=== PATIENT | male | born 1970 | race African-American/Black ===

== ENCOUNTER 2020-01-26 11:51 | Emergency (ER) | payer BC ==
[~2020-01-26] VITALS: Ht 170.2 cm; Wt 68.0 kg
--- OUTSIDE RECORDS SUMMARY | 2020-01-26 12:02 | XMS REPORT ---
Author Author [facility] Organization [facility] Address Unknown Phone Unavailable Care Team Providers Care Nursing Director Name Role Phone Unavailable Unavailable Payers Payer Name Policy Type Policy Number Effective Date Expiration Date Problems This patient has no known problems. Allergies, Adverse Reactions, Alerts Allergy Name Allergy Type Status Severity Reaction(s) Onset Date Inactive Date Treating Clinician Comments No Known Allergies DA Active U 2018-12-02 00:00:00 No Known Allergies DA Active U 2018-07-26 00:00:00 Medications This patient has no known medications. Results Test Description Test Time Test Comments Text Results Atomic Results Result Comments GLUBED 2020-01-05 18:24:00 GLUBED (test code=GLUBED) 89 mg/dL 74-106 Performed by certified steel spar operator at [facility] [id number] 12:44:00* Test Item Value Reference Range Comments GLUBED (test code=GLUBED) 89 mg/dL 74-106 Performed by certified steel spar operator at [facility] [id number] 06:17:00* Test Item Value Reference Range Comments GLUBED (test code=GLUBED) 89 mg/dL 74-106 Performed by certified steel spar operator at [facility] [id number] 20:28:00* Test Item Value Reference Range Comments GLUBED (test code=GLUBED) 106 mg/dL 74-106 Performed by certified steel spar operator at [facility] [id number] 17:08:00* Test Item Value Reference Range Comments GLUBED (test code=GLUBED) 91 mg/dL 74-106 Performed by certified steel spar operator at [facility] [id number] 12:35:00* Test Item Value Reference Range Comments GLUBED (test code=GLUBED) 85 mg/dL 74-106 Performed by certified steel spar operator at [facility] [id number] 06:02:00* Test Item Value Reference Range Comments GLUBED (test code=GLUBED) 84 mg/dL 74-106 Performed by certified steel spar operator at [facility] CBC W/AUTO [id number] 05:24:00* Test Item Value Reference Range Comments WHITE BLOOD CELL (test code=WBC) 21.2 K/mm3 4.5-12.5 RED BLOOD CELL (test code=RBC) 3.95 mill/mm3 4.0-5.8 HEMOGLOBIN (test code=HGB) 9.5 gram/dL 13.0-17.5 HEMATOCRIT (test code=HCT) 30.0 % 42.0-52.0 MEAN CELL VOLUME (test code=MCV) 75.9 fL 80-98 MEAN CELL HGB (test code=MCH) 24.1 picogram 27.0-33.0 MEAN CELL HGB CONCETRATION (test code=MCHC) 31.7 gram/dL 33.0-36.0 RED CELL DISTRIBUTION WIDTH (test code=RDW) 17.0 % 11.6-16.2 RED CELL DISTRIBUTION WIDTH SD (test code=RDW-SD) 45.5 fL 37.0-51.0 PLATELET COUNT (test code=PLT) 505 K/mm3 150-450 RESULT VERIFIED BY REPEAT ANALYSIS MEAN PLATELET VOLUME (test code=MPV) 11.6 fL 6.7-11.0 NEUTROPHIL % (test code=NT%) 71.6 % 39.0-69.0 IMMATURE GRANULOCYTE % (test code=IG%) 1.4 % 0.0-5.0 LYMPHOCYTE % (test code=LY%) 13.2 % 25.0-55.0 MONOCYTE % (test code=MO%) 8.8 % 0.0-10.0 EOSINOPHIL % (test code=EO%) 4.3 % 0.0-5.0 BASOPHIL % (test code=BA%) 0.7 % 0.0-1.0 NUCLEATED RBC % (test code=NRBC%) 0.0 % 0-0 NEUTROPHIL # (test code=NT#) 15.14 K/mm3 1.8-7.7 IMMATURE GRANULOCYTE # (test code=IG#) 0.30 x10 3/uL 0-0.03 LYMPHOCYTE # (test code=LY#) 2.80 K/mm3 1.0-5.0 MONOCYTE # (test code=MO#) 1.86 K/mm3 0-0.8 EOSINOPHIL # (test code=EO#) 0.91 K/mm3 0.0-0.5 BASOPHIL # (test code=BA#) 0.15 K/mm3 0.0-0.2 NUCLEATED RBC # (test code=NRBC#) 0.00 K/mm3 0.0-0.1 MANUAL DIFF REQUIRED (test code=MDIFF) NO [id number] 20:26:00* Test Item Value Reference Range Comments GLUBED (test code=GLUBED) 100 mg/dL 74-106 Performed by certified steel spar operator at [facility] - XR CHEST 1 [id number] 18:57:00 FAX: Lonnie Olson MD [phone] [place]: B St: [facility] FAX: Sarah Rg MD FAX: Arvin Hanson MD [phone] Name: CELESTINO MCALLISTER [facility] : 1970 Age/S: 49/M [address] [facility] Unit #: [id number] Loc: [address] [address] Phys: Arivn Higgins MD Acct: [id number] Dis Date: Status: ADM IN ONE #: [phone] Exam Date: 01/03/2020 1838 FAX #: [phone] Reason: pneuomonia EXAMS: CPT CODE: [id number] XR CHEST 1 V [id number] REASON FOR EXAM: pneuomonia Exam Order Date: 01/03/2020 12:00 AM Ordering M.D.: Arvin Higgins MD PROCEDURE: - XR CHEST 1 V COMPARISON: CT of the chest January 26, 2020 FINDINGS: Lung volumes are diminished and there is subsegmental atelectasis in the right midlung and right lung base. No pleural effusion or pneumothorax is seen. Tracheostomy appliance is unchanged in position. The c ardiac mediastinal silhouette appears mildly prominent however this may be due to diminished lung volumes. There are degenerative changes in the spine. IVORY CARVER shunt catheter and percutaneous gastrostomy tube are stable in position. There appears to be a right upper extremity PICC with the tip terminating in the axillary vein. IMPRESSION: Low lung volumes with atelectatic changes in the right mid and lower lung zone. Superimposed consolidation cannot be entirely excluded. The left l samuel appears to be clear. Location: [facility] Signed by Khoi Bell MD on 01/03/2020 at 1857 [facility] and signed by: Khoi Bell MD CC: Lonnie Olson MD; Sarah Feliciano MD; Arvin Higgins MD Technologist: CHANDANA NEWMAN; Chip Neville, (R Trnscrd Date/Time/By: 01/03/2020 (1856) : By: Maria Del Carmen.RR31 Orig Print D/T: S: 01/03/2020 (1899) PAGE 1 Signed Report [id number] 16:40:00* Test Item Value Reference Range Comments GLUBED (test code=GLUBED) 97 mg/dL 74-106 Performed by certified steel spar operator at [facility] CBC W/MANUAL [id number] 12:42:00* Test Item Value Reference Range Comments WHITE BLOOD CELL (test code=WBC) 23.8 K/mm3 4.5-12.5 RED BLOOD CELL (test code=RBC) 4.16 mill/mm3 4.0-5.8 HEMOGLOBIN (test code=HGB) 9.9 gram/dL 13.0-17.5 HEMATOCRIT (test code=HCT) 31.9 % 42.0-52.0 MEAN CELL VOLUME (test code=MCV) 76.7 fL 80-98 MEAN CELL HGB (test code=MCH) 23.8 picogram 27.0-33.0 MEAN CELL HGB CONCETRATION (test code=MCHC) 31.0 gram/dL 33.0-36.0 RED CELL DISTRIBUTION WIDTH (test code=RDW) 17.1 % 11.6-16.2 RED CELL DISTRIBUTION WIDTH SD (test code=RDW-SD) 46.0 fL 37.0-51.0 PLATELET COUNT (test code=PLT) 454 K/mm3 150-450 RESULT VERIFIED BY REPEAT ANALYSIS MEAN PLATELET VOLUME (test code=MPV) 12.5 fL 6.7-11.0 IMMATURE GRANULOCYTE % (test code=IG%) 1.1 % 0.0-5.0 NUCLEATED RBC % (test code=NRBC%) 0.0 % 0-0 NEUTROPHIL # (test code=NT#) 16.37 K/mm3 1.8-7.7 IMMATURE GRANULOCYTE # (test code=IG#) 0.26 x10 3/uL 0-0.03 LYMPHOCYTE # (test code=LY#) 3.85 K/mm3 1.0-5.0 MONOCYTE # (test code=MO#) 2.02 K/mm3 0-0.8 EOSINOPHIL # (test code=EO#) 1.15 K/mm3 0.0-0.5 BASOPHIL # (test code=BA#) 0.15 K/mm3 0.0-0.2 NUCLEATED RBC # (test code=NRBC#) 0.00 K/mm3 0.0-0.1 MANUAL DIFF REQUIRED (test code=MDIFF) YES STAIN ACCEPTABILITY (test code=STN ACCEPTABLE) STAIN ACCEPTABLE TOTAL CELLS COUNTED (test code=TCC) 114 #CELLS SEGMENTED NEUTROPHILS (test code=SEG) 72.1 % 39-69 BAND NEUTROPHIL (test code=BAND) 0 % 0-10 LYMPHOCYTE (test code=LYMPH) 10.8 % 25-55 REACTIVE LYMPH (test code=RELYMPH) 0 % MONOCYTE (test code=MON) 13.5 % 0-10 EOSINOPHIL (test code=EOS) 3.6 % 0.0-5.0 BASOPHIL (test code=BASO) 0 % 0-1.0 METAMYELOCYTE (test code=META) 0 % 0-0 MYELOCYTE (test code=MYELO) 0 % 0.0-0.0 PROMYELOCYTE (test code=PROM) 0 % 0-0 POLYCHROMASIA (test code=POLC) 1+ ANISOCYTOSIS (test code=ANISO) 1+ MICROCYTOSIS (test code=MICR) 1+ PLATELET ESTIMATE (test code=PLTEST) INCREASED PLATELET MORPHOLOGY (test code=PLTMORPH) NORMAL IMMATURE FORMS (test code=IMMAT) 0 % 0-0 [id number] 12:19:00* Test Item Value Reference Range Comments GLUBED (test code=GLUBED) 96 mg/dL 74-106 Performed by certified steel spar operator at [facility] CBC W/MANUAL [id number] 11:22:00* Test Item Value Reference Range Comments WHITE BLOOD CELL (test code=WBC) 23.8 K/mm3 4.5-12.5 RED BLOOD CELL (test code=RBC) 4.16 mill/mm3 4.0-5.8 HEMOGLOBIN (test code=HGB) 9.9 gram/dL 13.0-17.5 HEMATOCRIT (test code=HCT) 31.9 % 42.0-52.0 MEAN CELL VOLUME (test code=MCV) 76.7 fL 80-98 MEAN CELL HGB (test code=MCH) 23.8 picogram 27.0-33.0 MEAN CELL HGB CONCETRATION (test code=MCHC) 31.0 gram/dL 33.0-36.0 RED CELL DISTRIBUTION WIDTH (test code=RDW) 17.1 % 11.6-16.2 RED CELL DISTRIBUTION WIDTH SD (test code=RDW-SD) 46.0 fL 37.0-51.0 PLATELET COUNT (test code=PLT) 454 K/mm3 150-450 RESULT VERIFIED BY REPEAT ANALYSIS MEAN PLATELET VOLUME (test code=MPV) 12.5 fL 6.7-11.0 IMMATURE GRANULOCYTE % (test code=IG%) 1.1 % 0.0-5.0 NUCLEATED RBC % (test code=NRBC%) 0.0 % 0-0 NEUTROPHIL # (test code=NT#) 16.37 K/mm3 1.8-7.7 IMMATURE GRANULOCYTE # (test code=IG#) 0.26 x10 3/uL 0-0.03 LYMPHOCYTE # (test code=LY#) 3.85 K/mm3 1.0-5.0 MONOCYTE # (test code=MO#) 2.02 K/mm3 0-0.8 EOSINOPHIL # (test code=EO#) 1.15 K/mm3 0.0-0.5 BASOPHIL # (test code=BA#) 0.15 K/mm3 0.0-0.2 NUCLEATED RBC # (test code=NRBC#) 0.00 K/mm3 0.0-0.1 MANUAL DIFF REQUIRED (test code=MDIFF) YES STAIN ACCEPTABILITY (test code=STN ACCEPTABLE) TOTAL CELLS COUNTED (test code=TCC) #CELLS SEGMENTED NEUTROPHILS (test code=SEG) % 39-69 LYMPHOCYTE (test code=LYMPH) % 25-55 MONOCYTE (test code=MON) % 0-10 EOSINOPHIL (test code=EOS) % 0.0-5.0 CABOT RINGS (test code=CAB) MORPHOLOGY COMMENT (test code=MOC) PLATELET ESTIMATE (test code=PLTEST) PLATELET MORPHOLOGY (test code=PLTMORPH) CBC W/MANUAL [id number] 11:22:00* Test Item Value Reference Range Comments WHITE BLOOD CELL (test code=WBC) 23.8 K/mm3 4.5-12.5 RED BLOOD CELL (test code=RBC) 4.16 mill/mm3 4.0-5.8 HEMOGLOBIN (test code=HGB) 9.9 gram/dL 13.0-17.5 HEMATOCRIT (test code=HCT) 31.9 % 42.0-52.0 MEAN CELL VOLUME (test code=MCV) 76.7 fL 80-98 MEAN CELL HGB (test code=MCH) 23.8 picogram 27.0-33.0 MEAN CELL HGB CONCETRATION (test code=MCHC) 31.0 gram/dL 33.0-36.0 RED CELL DISTRIBUTION WIDTH (test code=RDW) 17.1 % 11.6-16.2 RED CELL DISTRIBUTION WIDTH SD (test code=RDW-SD) 46.0 fL 37.0-51.0 PLATELET COUNT (test code=PLT) 454 K/mm3 150-450 RESULT VERIFIED BY REPEAT ANALYSIS MEAN PLATELET VOLUME (test code=MPV) 12.5 fL 6.7-11.0 IMMATURE GRANULOCYTE % (test code=IG%) 1.1 % 0.0-5.0 NUCLEATED RBC % (test code=NRBC%) 0.0 % 0-0 NEUTROPHIL # (test code=NT#) 16.37 K/mm3 1.8-7.7 IMMATURE GRANULOCYTE # (test code=IG#) 0.26 x10 3/uL 0-0.03 LYMPHOCYTE # (test code=LY#) 3.85 K/mm3 1.0-5.0 MONOCYTE # (test code=MO#) 2.02 K/mm3 0-0.8 EOSINOPHIL # (test code=EO#) 1.15 K/mm3 0.0-0.5 BASOPHIL # (test code=BA#) 0.15 K/mm3 0.0-0.2 NUCLEATED RBC # (test code=NRBC#) 0.00 K/mm3 0.0-0.1 MANUAL DIFF REQUIRED (test code=MDIFF) YES STAIN ACCEPTABILITY (test code=STN ACCEPTABLE) TOTAL CELLS COUNTED (test code=TCC) #CELLS SEGMENTED NEUTROPHILS (test code=SEG) % 39-69 LYMPHOCYTE (test code=LYMPH) % 25-55 MONOCYTE (test code=MON) % 0-10 EOSINOPHIL (test code=EOS) % 0.0-5.0 CABOT RINGS (test code=CAB) MORPHOLOGY COMMENT (test code=MOC) PLATELET ESTIMATE (test code=PLTEST) PLATELET MORPHOLOGY (test code=PLTMORPH) CBC W/MANUAL [id number] 11:22:00* Test Item Value Reference Range Comments WHITE BLOOD CELL (test code=WBC) 23.8 K/mm3 4.5-12.5 RED BLOOD CELL (test code=RBC) 4.16 mill/mm3 4.0-5.8 HEMOGLOBIN (test code=HGB) 9.9 gram/dL 13.0-17.5 HEMATOCRIT (test code=HCT) 31.9 % 42.0-52.0 MEAN CELL VOLUME (test code=MCV) 76.7 fL 80-98 MEAN CELL HGB (test code=MCH) 23.8 picogram 27.0-33.0 MEAN CELL HGB CONCETRATION (test code=MCHC) 31.0 gram/dL 33.0-36.0 RED CELL DISTRIBUTION WIDTH (test code=RDW) 17.1 % 11.6-16.2 RED CELL DISTRIBUTION WIDTH SD (test code=RDW-SD) 46.0 fL 37.0-51.0 PLATELET COUNT (test code=PLT) 454 K/mm3 150-450 RESULT VERIFIED BY REPEAT ANALYSIS MEAN PLATELET VOLUME (test code=MPV) 12.5 fL 6.7-11.0 IMMATURE GRANULOCYTE % (test code=IG%) 1.1 % 0.0-5.0 NUCLEATED RBC % (test code=NRBC%) 0.0 % 0-0 NEUTROPHIL # (test code=NT#) 16.37 K/mm3 1.8-7.7 IMMATURE GRANULOCYTE # (test code=IG#) 0.26 x10 3/uL 0-0.03 LYMPHOCYTE # (test code=LY#) 3.85 K/mm3 1.0-5.0 MONOCYTE # (test code=MO#) 2.02 K/mm3 0-0.8 EOSINOPHIL # (test code=EO#) 1.15 K/mm3 0.0-0.5 BASOPHIL # (test code=BA#) 0.15 K/mm3 0.0-0.2 NUCLEATED RBC # (test code=NRBC#) 0.00 K/mm3 0.0-0.1 MANUAL DIFF REQUIRED (test code=MDIFF) YES STAIN ACCEPTABILITY (test code=STN ACCEPTABLE) TOTAL CELLS COUNTED (test code=TCC) #CELLS SEGMENTED NEUTROPHILS (test code=SEG) % 39-69 LYMPHOCYTE (test code=LYMPH) % 25-55 MONOCYTE (test code=MON) % 0-10 EOSINOPHIL (test code=EOS) % 0.0-5.0 MORPHOLOGY COMMENT (test code=MOC) PLATELET ESTIMATE (test code=PLTEST) PLATELET MORPHOLOGY (test code=PLTMORPH) CBC W/MANUAL [id number] 11:22:00* Test Item Value Reference Range Comments WHITE BLOOD CELL (test code=WBC) 23.8 K/mm3 4.5-12.5 RED BLOOD CELL (test code=RBC) 4.16 mill/mm3 4.0-5.8 HEMOGLOBIN (test code=HGB) 9.9 gram/dL 13.0-17.5 HEMATOCRIT (test code=HCT) 31.9 % 42.0-52.0 MEAN CELL VOLUME (test code=MCV) 76.7 fL 80-98 MEAN CELL HGB (test code=MCH) 23.8 picogram 27.0-33.0 MEAN CELL HGB CONCETRATION (test code=MCHC) 31.0 gram/dL 33.0-36.0 RED CELL DISTRIBUTION WIDTH (test code=RDW) 17.1 % 11.6-16.2 RED CELL DISTRIBUTION WIDTH SD (test code=RDW-SD) 46.0 fL 37.0-51.0 PLATELET COUNT (test code=PLT) 454 K/mm3 150-450 RESULT VERIFIED BY REPEAT ANALYSIS MEAN PLATELET VOLUME (test code=MPV) 12.5 fL 6.7-11.0 IMMATURE GRANULOCYTE % (test code=IG%) 1.1 % 0.0-5.0 NUCLEATED RBC % (test code=NRBC%) 0.0 % 0-0 NEUTROPHIL # (test code=NT#) 16.37 K/mm3 1.8-7.7 IMMATURE GRANULOCYTE # (test code=IG#) 0.26 x10 3/uL 0-0.03 LYMPHOCYTE # (test code=LY#) 3.85 K/mm3 1.0-5.0 MONOCYTE # (test code=MO#) 2.02 K/mm3 0-0.8 EOSINOPHIL # (test code=EO#) 1.15 K/mm3 0.0-0.5 BASOPHIL # (test code=BA#) 0.15 K/mm3 0.0-0.2 NUCLEATED RBC # (test code=NRBC#) 0.00 K/mm3 0.0-0.1 MANUAL DIFF REQUIRED (test code=MDIFF) YES STAIN ACCEPTABILITY (test code=STN ACCEPTABLE) TOTAL CELLS COUNTED (test code=TCC) #CELLS SEGMENTED NEUTROPHILS (test code=SEG) % 39-69 LYMPHOCYTE (test code=LYMPH) % 25-55 MONOCYTE (test code=MON) % 0-10 MORPHOLOGY COMMENT (test code=MOC) PLATELET ESTIMATE (test code=PLTEST) PLATELET MORPHOLOGY (test code=PLTMORPH) CBC W/MANUAL [id number] 11:22:00* Test Item Value Reference Range Comments WHITE BLOOD CELL (test code=WBC) 23.8 K/mm3 4.5-12.5 RED BLOOD CELL (test code=RBC) 4.16 mill/mm3 4.0-5.8 HEMOGLOBIN (test code=HGB) 9.9 gram/dL 13.0-17.5 HEMATOCRIT (test code=HCT) 31.9 % 42.0-52.0 MEAN CELL VOLUME (test code=MCV) 76.7 fL 80-98 MEAN CELL HGB (test code=MCH) 23.8 picogram 27.0-33.0 MEAN CELL HGB CONCETRATION (test code=MCHC) 31.0 gram/dL 33.0-36.0 RED CELL DISTRIBUTION WIDTH (test code=RDW) 17.1 % 11.6-16.2 RED CELL DISTRIBUTION WIDTH SD (test code=RDW-SD) 46.0 fL 37.0-51.0 PLATELET COUNT (test code=PLT) 454 K/mm3 150-450 RESULT VERIFIED BY REPEAT ANALYSIS MEAN PLATELET VOLUME (test code=MPV) 12.5 fL 6.7-11.0 IMMATURE GRANULOCYTE % (test code=IG%) 1.1 % 0.0-5.0 NUCLEATED RBC % (test code=NRBC%) 0.0 % 0-0 NEUTROPHIL # (test code=NT#) 16.37 K/mm3 1.8-7.7 IMMATURE GRANULOCYTE # (test code=IG#) 0.26 x10 3/uL 0-0.03 LYMPHOCYTE # (test code=LY#) 3.85 K/mm3 1.0-5.0 MONOCYTE # (test code=MO#) 2.02 K/mm3 0-0.8 EOSINOPHIL # (test code=EO#) 1.15 K/mm3 0.0-0.5 BASOPHIL # (test code=BA#) 0.15 K/mm3 0.0-0.2 NUCLEATED RBC # (test code=NRBC#) 0.00 K/mm3 0.0-0.1 MANUAL DIFF REQUIRED (test code=MDIFF) YES STAIN ACCEPTABILITY (test code=STN ACCEPTABLE) TOTAL CELLS COUNTED (test code=TCC) #CELLS SEGMENTED NEUTROPHILS (test code=SEG) % 39-69 LYMPHOCYTE (test code=LYMPH) % 25-55 MONOCYTE (test code=MON) % 0-10 EOSINOPHIL (test code=EOS) % 0.0-5.0 CABOT RINGS (test code=CAB) MORPHOLOGY COMMENT (test code=MOC) PLATELET ESTIMATE (test code=PLTEST) PLATELET MORPHOLOGY (test code=PLTMORPH) [id number] 06:16:00* Test Item Value Reference Range Comments GLUBED (test code=GLUBED) 79 mg/dL 74-106 Performed by certified steel spar operator at [facility] [id number] 20:30:00* Test Item Value Reference Range Comments GLUBED (test code=GLUBED) 108 mg/dL 74-106 Performed by certified steel spar operator at [facility] [id number] 18:07:00* Test Item Value Reference Range Comments GLUBED (test code=GLUBED) 91 mg/dL 74-106 Performed by certified steel spar operator at [facility] [id number] 12:14:00* Test Item Value Reference Range Comments GLUBED (test code=GLUBED) 78 mg/dL 74-106 Performed by certified steel spar operator at [facility] - XR ABDOMEN AP 1 [id number] 08:54:00 FAX: Lonnie Olson MD [phone] [place]: B St: ADM FAX: Sarah Rg MD Name: CELESTINO MCALLISTER [facility] : 1970 Age/S: 49/M [address] [facility] Unit #: [id number] Loc: [address] [place] [address] Phys: Sarah Feliciano MD Acct: [id number] Dis Date: Status: ADM IN PHONE #: [phone] Exam Date: 01/02/2020 0853 FAX #: [phone] Reason: ASSESS FOR PEGTUBE PL ACEMENT EXAMS: CPT CODE: [id number] XR ABDOMEN AP 1 V 33334 HISTORY: Abscess of PEG tube placement. COMPARISON: CT abdomen pelvis from December 26, 2019. From December 25, 2019. Location: [facility]. Gastrojejunostomy tube noted in the left upper qu adrant. No bowel obstruction. Nonspecific bowel gas pattern. The pelvis is not included limiting evaluation. IVORY CARVER shunt catheter noted on the right si de. IMPRESSION: Gastrojejunostomy tube in the left upper quadrant. Mild distention of small and large bowel loops sugg esting ileus. No obstruction. at 0854 Reported and signed by: Cristian Patel M.D. CC: Lonnie Olson MD; Sarah Feliciano MD Technologist: Bernie Mccall, RT(R); JYOTI POLO RT(R) Trnscrd Date/Time/By: 01/02/2020 (0854) : By: Maria Del Carmen.TH4 Orig Print D/T: S: 01/02/2020 (0857) PAGE 1 Signed Report [id number] 08:10:00* Test Item Value Reference Range Comments PHENOBARBITAL (test code=PHENO) 9.9 ug/mL 15.0-40 [id number] 07:13:00* Test Item Value Reference Range Comments GLUBED (test code=GLUBED) 84 mg/dL 74-106 Performed by certified steel spar operator at [facility] CBC W/AUTO [id number] 05:17:00* Test Item Value Reference Range Comments WHITE BLOOD CELL (test code=WBC) 17.2 K/mm3 4.5-12.5 RED BLOOD CELL (test code=RBC) 3.80 mill/mm3 4.0-5.8 HEMOGLOBIN (test code=HGB) 9.2 gram/dL 13.0-17.5 HEMATOCRIT (test code=HCT) 29.6 % 42.0-52.0 MEAN CELL VOLUME (test code=MCV) 77.9 fL 80-98 MEAN CELL HGB (test code=MCH) 24.2 picogram 27.0-33.0 MEAN CELL HGB CONCETRATION (test code=MCHC) 31.1 gram/dL 33.0-36.0 RED CELL DISTRIBUTION WIDTH (test code=RDW) 17.2 % 11.6-16.2 RED CELL DISTRIBUTION WIDTH SD (test code=RDW-SD) 46.5 fL 37.0-51.0 PLATELET COUNT (test code=PLT) 378 K/mm3 150-450 RESULT VERIFIED BY REPEAT ANALYSIS MEAN PLATELET VOLUME (test code=MPV) 12.4 fL 6.7-11.0 NEUTROPHIL % (test code=NT%) 67.1 % 39.0-69.0 IMMATURE GRANULOCYTE % (test code=IG%) 1.4 % 0.0-5.0 LYMPHOCYTE % (test code=LY%) 16.2 % 25.0-55.0 MONOCYTE % (test code=MO%) 9.6 % 0.0-10.0 EOSINOPHIL % (test code=EO%) 4.9 % 0.0-5.0 BASOPHIL % (test code=BA%) 0.8 % 0.0-1.0 NUCLEATED RBC % (test code=NRBC%) 0.0 % 0-0 NEUTROPHIL # (test code=NT#) 11.53 K/mm3 1.8-7.7 IMMATURE GRANULOCYTE # (test code=IG#) 0.24 x10 3/uL 0-0.03 LYMPHOCYTE # (test code=LY#) 2.78 K/mm3 1.0-5.0 MONOCYTE # (test code=MO#) 1.64 K/mm3 0-0.8 EOSINOPHIL # (test code=EO#) 0.84 K/mm3 0.0-0.5 BASOPHIL # (test code=BA#) 0.13 K/mm3 0.0-0.2 NUCLEATED RBC # (test code=NRBC#) 0.00 K/mm3 0.0-0.1 MANUAL DIFF REQUIRED (test code=MDIFF) NO BASIC METABOLIC [id number] 05:06:00* Test Item Value Reference Range Comments SODIUM (test code=NA) 136 mmol/L 136-145 POTASSIUM (test code=K) 4.2 mmol/L 3.5-5.1 CHLORIDE (test code=CL) 102.0 mmol/L 98-107 CARBON DIOXIDE (test code=CO2) 22.0 mmol/L 21-32 ANION GAP (test code=GAP) 16.2 10-20 GLUCOSE (test code=GLU) 96 mg/dL 74-106 BLOOD UREA NITROGEN (test code=BUN) 19 mg/dL 7-18 GLOMERULAR FILTRATION RATE (test code=GFR) > 60 mL/min >=60 Estimated GFR by using Modified MDRD formula.Chronic kidney disease is defined as either kidney damageor GFR <60 mL/min/1.73 m2 for >3 months. CREATININE (test code=CREAT) 0.70 mg/dL 0.7-1.3 BUN/CREATININE RATIO (test code=BUN/CREA) 27.1 10-20 CALCIUM (test code=CA) 8.7 mg/dL 8.5-10.1 BASIC METABOLIC [id number] 04:56:00* Test Item Value Reference Range Comments SODIUM (test code=NA) 136 mmol/L 136-145 POTASSIUM (test code=K) 4.2 mmol/L 3.5-5.1 CHLORIDE (test code=CL) 102.0 mmol/L 98-107 CARBON DIOXIDE (test code=CO2) mmol/L 21-32 ANION GAP (test code=GAP) 10-20 GLUCOSE (test code=GLU) mg/dL 74-106 BLOOD UREA NITROGEN (test code=BUN) mg/dL 7-18 GLOMERULAR FILTRATION RATE (test code=GFR) mL/min >=60 CREATININE (test code=CREAT) mg/dL 0.7-1.3 BUN/CREATININE RATIO (test code=BUN/CREA) 10-20 CALCIUM (test code=CA) mg/dL 8.5-10.1 [id number] 20:37:00* Test Item Value Reference Range Comments GLUBED (test code=GLUBED) 91 mg/dL 74-106 Performed by certified steel spar operator at [facility] [id number] 18:09:00* Test Item Value Reference Range Comments GLUBED (test code=GLUBED) 92 mg/dL 74-106 Performed by certified steel spar operator at [facility] [id number] 12:13:00* Test Item Value Reference Range Comments GLUBED (test code=GLUBED) 83 mg/dL 74-106 Performed by certified steel spar operator at [facility] [id number] 06:02:00* Test Item Value Reference Range Comments GLUBED (test code=GLUBED) 70 mg/dL 74-106 Performed by certified steel spar operator at [facility] CBC W/AUTO [id number] 05:03:00* Test Item Value Reference Range Comments WHITE BLOOD CELL (test code=WBC) 20.7 K/mm3 4.5-12.5 RED BLOOD CELL (test code=RBC) 4.21 mill/mm3 4.0-5.8 HEMOGLOBIN (test code=HGB) 10.1 gram/dL 13.0-17.5 HEMATOCRIT (test code=HCT) 32.6 % 42.0-52.0 MEAN CELL VOLUME (test code=MCV) 77.4 fL 80-98 MEAN CELL HGB (test code=MCH) 24.0 picogram 27.0-33.0 MEAN CELL HGB CONCETRATION (test code=MCHC) 31.0 gram/dL 33.0-36.0 RED CELL DISTRIBUTION WIDTH (test code=RDW) 17.0 % 11.6-16.2 RED CELL DISTRIBUTION WIDTH SD (test code=RDW-SD) 46.2 fL 37.0-51.0 PLATELET COUNT (test code=PLT) 439 K/mm3 150-450 RESULT VERIFIED BY REPEAT ANALYSIS MEAN PLATELET VOLUME (test code=MPV) 12.6 fL 6.7-11.0 NEUTROPHIL % (test code=NT%) 73.8 % 39.0-69.0 IMMATURE GRANULOCYTE % (test code=IG%) 1.5 % 0.0-5.0 LYMPHOCYTE % (test code=LY%) 12.9 % 25.0-55.0 MONOCYTE % (test code=MO%) 6.9 % 0.0-10.0 EOSINOPHIL % (test code=EO%) 4.3 % 0.0-5.0 BASOPHIL % (test code=BA%) 0.6 % 0.0-1.0 NUCLEATED RBC % (test code=NRBC%) 0.0 % 0-0 NEUTROPHIL # (test code=NT#) 15.26 K/mm3 1.8-7.7 IMMATURE GRANULOCYTE # (test code=IG#) 0.31 x10 3/uL 0-0.03 LYMPHOCYTE # (test code=LY#) 2.67 K/mm3 1.0-5.0 MONOCYTE # (test code=MO#) 1.42 K/mm3 0-0.8 EOSINOPHIL # (test code=EO#) 0.89 K/mm3 0.0-0.5 BASOPHIL # (test code=BA#) 0.13 K/mm3 0.0-0.2 NUCLEATED RBC # (test code=NRBC#) 0.00 K/mm3 0.0-0.1 [id number] 21:32:00* Test Item Value Reference Range Comments GLUBED (test code=GLUBED) 95 mg/dL 74-106 Performed by certified steel spar operator at [facility] [id number] 16:20:00* Test Item Value Reference Range Comments GLUBED (test code=GLUBED) 87 mg/dL 74-106 Performed by certified steel spar operator at [facility] [id number] 12:22:00* Test Item Value Reference Range Comments GLUBED (test code=GLUBED) 106 mg/dL 74-106 Performed by certified steel spar operator at [facility] [id number] 05:59:00* Test Item Value Reference Range Comments GLUBED (test code=GLUBED) 86 mg/dL 74-106 Performed by certified steel spar operator at [facility] BASIC METABOLIC [id number] 04:47:00* Test Item Value Reference Range Comments SODIUM (test code=NA) 140 mmol/L 136-145 POTASSIUM (test code=K) 3.7 mmol/L 3.5-5.1 CHLORIDE (test code=CL) 107.0 mmol/L 98-107 CARBON DIOXIDE (test code=CO2) 21.0 mmol/L 21-32 ANION GAP (test code=GAP) 15.7 10-20 GLUCOSE (test code=GLU) 79 mg/dL 74-106 BLOOD UREA NITROGEN (test code=BUN) 15 mg/dL 7-18 GLOMERULAR FILTRATION RATE (test code=GFR) > 60 mL/min >=60 Estimated GFR by using Modified MDRD formula.Chronic kidney disease is defined as either kidney damageor GFR <60 mL/min/1.73 m2 for >3 months. CREATININE (test code=CREAT) 0.80 mg/dL 0.7-1.3 BUN/CREATININE RATIO (test code=BUN/CREA) 18.8 10-20 CALCIUM (test code=CA) 8.5 mg/dL 8.5-10.1 BASIC METABOLIC [id number] 04:40:00* Test Item Value Reference Range Comments SODIUM (test code=NA) 140 mmol/L 136-145 POTASSIUM (test code=K) 3.7 mmol/L 3.5-5.1 CHLORIDE (test code=CL) 107.0 mmol/L 98-107 CARBON DIOXIDE (test code=CO2) mmol/L 21-32 ANION GAP (test code=GAP) 10-20 GLUCOSE (test code=GLU) mg/dL 74-106 BLOOD UREA NITROGEN (test code=BUN) mg/dL 7-18 GLOMERULAR FILTRATION RATE (test code=GFR) mL/min >=60 CREATININE (test code=CREAT) mg/dL 0.7-1.3 BUN/CREATININE RATIO (test code=BUN/CREA) 10-20 CALCIUM (test code=CA) mg/dL 8.5-10.1 CBC W/AUTO [id number] 04:21:00* Test Item Value Reference Range Comments WHITE BLOOD CELL (test code=WBC) 17.2 K/mm3 4.5-12.5 RED BLOOD CELL (test code=RBC) 3.92 mill/mm3 4.0-5.8 HEMOGLOBIN (test code=HGB) 9.3 gram/dL 13.0-17.5 HEMATOCRIT (test code=HCT) 31.0 % 42.0-52.0 MEAN CELL VOLUME (test code=MCV) 79.1 fL 80-98 MEAN CELL HGB (test code=MCH) 23.7 picogram 27.0-33.0 MEAN CELL HGB CONCETRATION (test code=MCHC) 30.0 gram/dL 33.0-36.0 RED CELL DISTRIBUTION WIDTH (test code=RDW) 17.0 % 11.6-16.2 RED CELL DISTRIBUTION WIDTH SD (test code=RDW-SD) 47.9 fL 37.0-51.0 PLATELET COUNT (test code=PLT) 383 K/mm3 150-450 MEAN PLATELET VOLUME (test code=MPV) 12.5 fL 6.7-11.0 NEUTROPHIL % (test code=NT%) 68.3 % 39.0-69.0 IMMATURE GRANULOCYTE % (test code=IG%) 1.3 % 0.0-5.0 LYMPHOCYTE % (test code=LY%) 16.6 % 25.0-55.0 MONOCYTE % (test code=MO%) 7.9 % 0.0-10.0 EOSINOPHIL % (test code=EO%) 5.3 % 0.0-5.0 BASOPHIL % (test code=BA%) 0.6 % 0.0-1.0 NUCLEATED RBC % (test code=NRBC%) 0.0 % 0-0 NEUTROPHIL # (test code=NT#) 11.77 K/mm3 1.8-7.7 IMMATURE GRANULOCYTE # (test code=IG#) 0.23 x10 3/uL 0-0.03 LYMPHOCYTE # (test code=LY#) 2.86 K/mm3 1.0-5.0 MONOCYTE # (test code=MO#) 1.36 K/mm3 0-0.8 EOSINOPHIL # (test code=EO#) 0.92 K/mm3 0.0-0.5 BASOPHIL # (test code=BA#) 0.10 K/mm3 0.0-0.2 NUCLEATED RBC # (test code=NRBC#) 0.00 K/mm3 0.0-0.1 MANUAL DIFF REQUIRED (test code=MDIFF) NO [id number] 21:00:00* Test Item Value Reference Range Comments GLUBED (test code=GLUBED) 84 mg/dL 74-106 Performed by certified steel spar operator at [facility] [id number] 16:53:00* Test Item Value Reference Range Comments GLUBED (test code=GLUBED) 84 mg/dL 74-106 Performed by certified steel spar operator at [facility] [id number] 12:44:00* Test Item Value Reference Range Comments GLUBED (test code=GLUBED) 84 mg/dL 74-106 Performed by certified steel spar operator at [facility] [id number] 07:22:00* Test Item Value Reference Range Comments GLUBED (test code=GLUBED) 73 mg/dL 74-106 Performed by certified steel spar operator at [facility] CBC W/AUTO [id number] 05:05:00* Test Item Value Reference Range Comments WHITE BLOOD CELL (test code=WBC) 15.6 K/mm3 4.5-12.5 RED BLOOD CELL (test code=RBC) 4.15 mill/mm3 4.0-5.8 HEMOGLOBIN (test code=HGB) 9.9 gram/dL 13.0-17.5 HEMATOCRIT (test code=HCT) 32.2 % 42.0-52.0 MEAN CELL VOLUME (test code=MCV) 77.6 fL 80-98 MEAN CELL HGB (test code=MCH) 23.9 picogram 27.0-33.0 MEAN CELL HGB CONCETRATION (test code=MCHC) 30.7 gram/dL 33.0-36.0 RED CELL DISTRIBUTION WIDTH (test code=RDW) 16.5 % 11.6-16.2 RED CELL DISTRIBUTION WIDTH SD (test code=RDW-SD) 46.3 fL 37.0-51.0 PLATELET COUNT (test code=PLT) 436 K/mm3 150-450 MEAN PLATELET VOLUME (test code=MPV) 11.9 fL 6.7-11.0 NEUTROPHIL % (test code=NT%) 66.4 % 39.0-69.0 IMMATURE GRANULOCYTE % (test code=IG%) 1.4 % 0.0-5.0 LYMPHOCYTE % (test code=LY%) 18.1 % 25.0-55.0 MONOCYTE % (test code=MO%) 7.6 % 0.0-10.0 EOSINOPHIL % (test code=EO%) 5.7 % 0.0-5.0 BASOPHIL % (test code=BA%) 0.8 % 0.0-1.0 NUCLEATED RBC % (test code=NRBC%) 0.0 % 0-0 NEUTROPHIL # (test code=NT#) 10.33 K/mm3 1.8-7.7 IMMATURE GRANULOCYTE # (test code=IG#) 0.22 x10 3/uL 0-0.03 LYMPHOCYTE # (test code=LY#) 2.82 K/mm3 1.0-5.0 MONOCYTE # (test code=MO#) 1.19 K/mm3 0-0.8 EOSINOPHIL # (test code=EO#) 0.89 K/mm3 0.0-0.5 BASOPHIL # (test code=BA#) 0.13 K/mm3 0.0-0.2 NUCLEATED RBC # (test code=NRBC#) 0.00 K/mm3 0.0-0.1 MANUAL DIFF REQUIRED (test code=MDIFF) NO [id number] 20:41:00* Test Item Value Reference Range Comments GLUBED (test code=GLUBED) 88 mg/dL 74-106 Performed by certified steel spar operator at [facility] [id number] 20:06:00* Test Item Value Reference Range Comments LEVETIRACETAM (test code=LEVTAM) 13.5 ug/mL 10.0-40.0 This test was developed and its performance characteristicsdetermined by [facility]. It has not been cleared orapproved by the Food and Drug Administration.Performed At: Lab[address] [id number] Sanjai MD Ph:[phone] [id number] 17:06:00* Test Item Value Reference Range Comments GLUBED (test code=GLUBED) 95 mg/dL 74-106 Performed by certified steel spar operator at [facility] [id number] 16:17:00* Test Item Value Reference Range Comments GLUBED (test code=GLUBED) 94 mg/dL 74-106 Performed by certified steel spar operator at [facility] BASIC METABOLIC [id number] 07:48:00* Test Item Value Reference Range Comments SODIUM (test code=NA) 142 mmol/L 136-145 POTASSIUM (test code=K) 3.6 mmol/L 3.5-5.1 CHLORIDE (test code=CL) 110.0 mmol/L 98-107 CARBON DIOXIDE (test code=CO2) 21.0 mmol/L 21-32 ANION GAP (test code=GAP) 14.6 10-20 GLUCOSE (test code=GLU) 102 mg/dL 74-106 BLOOD UREA NITROGEN (test code=BUN) 18 mg/dL 7-18 GLOMERULAR FILTRATION RATE (test code=GFR) > 60 mL/min >=60 Estimated GFR by using Modified MDRD formula.Chronic kidney disease is defined as either kidney damageor GFR <60 mL/min/1.73 m2 for >3 months. CREATININE (test code=CREAT) 0.90 mg/dL 0.7-1.3 BUN/CREATININE RATIO (test code=BUN/CREA) 20.0 10-20 CALCIUM (test code=CA) 8.4 mg/dL 8.5-10.1 TSH REFLEX TO [id number] 07:48:00* Test Item Value Reference Range Comments TSH REFLEX TO FT4 (test code=TSHREFLEX) 2.0 0.4-5.5 BASIC METABOLIC [id number] 07:33:00* Test Item Value Reference Range Comments SODIUM (test code=NA) 142 mmol/L 136-145 POTASSIUM (test code=K) 3.6 mmol/L 3.5-5.1 CHLORIDE (test code=CL) 110.0 mmol/L 98-107 CARBON DIOXIDE (test code=CO2) mmol/L 21-32 ANION GAP (test code=GAP) 10-20 GLUCOSE (test code=GLU) mg/dL 74-106 BLOOD UREA NITROGEN (test code=BUN) mg/dL 7-18 GLOMERULAR FILTRATION RATE (test code=GFR) mL/min >=60 CREATININE (test code=CREAT) mg/dL 0.7-1.3 BUN/CREATININE RATIO (test code=BUN/CREA) 10-20 CALCIUM (test code=CA) mg/dL 8.5-10.1 TSH REFLEX TO [id number] 07:33:00* Test Item Value Reference Range Comments TSH REFLEX TO FT4 (test code=TSHREFLEX) 0.4-5.5 CBC W/AUTO [id number] 07:22:00* Test Item Value Reference Range Comments WHITE BLOOD CELL (test code=WBC) 18.8 K/mm3 4.5-12.5 RED BLOOD CELL (test code=RBC) 3.85 mill/mm3 4.0-5.8 HEMOGLOBIN (test code=HGB) 9.2 gram/dL 13.0-17.5 HEMATOCRIT (test code=HCT) 29.9 % 42.0-52.0 MEAN CELL VOLUME (test code=MCV) 77.7 fL 80-98 MEAN CELL HGB (test code=MCH) 23.9 picogram 27.0-33.0 MEAN CELL HGB CONCETRATION (test code=MCHC) 30.8 gram/dL 33.0-36.0 RED CELL DISTRIBUTION WIDTH (test code=RDW) 16.6 % 11.6-16.2 RED CELL DISTRIBUTION WIDTH SD (test code=RDW-SD) 46.5 fL 37.0-51.0 PLATELET COUNT (test code=PLT) 421 K/mm3 150-450 MEAN PLATELET VOLUME (test code=MPV) 12.3 fL 6.7-11.0 NEUTROPHIL % (test code=NT%) 73.1 % 39.0-69.0 IMMATURE GRANULOCYTE % (test code=IG%) 1.4 % 0.0-5.0 LYMPHOCYTE % (test code=LY%) 13.1 % 25.0-55.0 MONOCYTE % (test code=MO%) 7.2 % 0.0-10.0 EOSINOPHIL % (test code=EO%) 4.5 % 0.0-5.0 BASOPHIL % (test code=BA%) 0.7 % 0.0-1.0 NUCLEATED RBC % (test code=NRBC%) 0.0 % 0-0 NEUTROPHIL # (test code=NT#) 13.70 K/mm3 1.8-7.7 IMMATURE GRANULOCYTE # (test code=IG#) 0.26 x10 3/uL 0-0.03 LYMPHOCYTE # (test code=LY#) 2.46 K/mm3 1.0-5.0 MONOCYTE # (test code=MO#) 1.35 K/mm3 0-0.8 EOSINOPHIL # (test code=EO#) 0.85 K/mm3 0.0-0.5 BASOPHIL # (test code=BA#) 0.13 K/mm3 0.0-0.2 NUCLEATED RBC # (test code=NRBC#) 0.00 K/mm3 0.0-0.1 [id number] 05:37:00* Test Item Value Reference Range Comments GLUBED (test code=GLUBED) 100 mg/dL 74-106 Performed by certified steel spar operator at [facility] [id number] 20:30:00* Test Item Value Reference Range Comments GLUBED (test code=GLUBED) 79 mg/dL 74-106 Performed by certified steel spar operator at [facility] [id number] 16:59:00* Test Item Value Reference Range Comments GLUBED (test code=GLUBED) 81 mg/dL 74-106 Performed by certified steel spar operator at [facility] [id number] 16:59:00* Test Item Value Reference Range Comments GLUBED (test code=GLUBED) 86 mg/dL 74-106 Performed by certified steel spar operator at [facility] [id number] 06:21:00* Test Item Value Reference Range Comments GLUBED (test code=GLUBED) 85 mg/dL 74-106 Performed by certified steel spar operator at [facility] CBC W/AUTO [id number] 06:00:00* Test Item Value Reference Range Comments WHITE BLOOD CELL (test code=WBC) 18.3 K/mm3 4.5-12.5 RED BLOOD CELL (test code=RBC) 3.96 mill/mm3 4.0-5.8 HEMOGLOBIN (test code=HGB) 9.4 gram/dL 13.0-17.5 HEMATOCRIT (test code=HCT) 31.7 % 42.0-52.0 MEAN CELL VOLUME (test code=MCV) 80.1 fL 80-98 MEAN CELL HGB (test code=MCH) 23.7 picogram 27.0-33.0 MEAN CELL HGB CONCETRATION (test code=MCHC) 29.7 gram/dL 33.0-36.0 RED CELL DISTRIBUTION WIDTH (test code=RDW) 16.8 % 11.6-16.2 RED CELL DISTRIBUTION WIDTH SD (test code=RDW-SD) 48.2 fL 37.0-51.0 PLATELET COUNT (test code=PLT) 381 K/mm3 150-450 MEAN PLATELET VOLUME (test code=MPV) 12.6 fL 6.7-11.0 NEUTROPHIL % (test code=NT%) 67.7 % 39.0-69.0 IMMATURE GRANULOCYTE % (test code=IG%) 1.3 % 0.0-5.0 LYMPHOCYTE % (test code=LY%) 16.7 % 25.0-55.0 MONOCYTE % (test code=MO%) 7.9 % 0.0-10.0 EOSINOPHIL % (test code=EO%) 5.6 % 0.0-5.0 BASOPHIL % (test code=BA%) 0.8 % 0.0-1.0 NUCLEATED RBC % (test code=NRBC%) 0.0 % 0-0 NEUTROPHIL # (test code=NT#) 12.40 K/mm3 1.8-7.7 IMMATURE GRANULOCYTE # (test code=IG#) 0.24 x10 3/uL 0-0.03 LYMPHOCYTE # (test code=LY#) 3.05 K/mm3 1.0-5.0 MONOCYTE # (test code=MO#) 1.44 K/mm3 0-0.8 EOSINOPHIL # (test code=EO#) 1.02 K/mm3 0.0-0.5 BASOPHIL # (test code=BA#) 0.15 K/mm3 0.0-0.2 NUCLEATED RBC # (test code=NRBC#) 0.00 K/mm3 0.0-0.1 MANUAL DIFF REQUIRED (test code=MDIFF) NO, ONLY SCAN NEEDED DIFFERENTIAL [id number] 06:00:00* Test Item Value Reference Range Comments STAIN ACCEPTABILITY (test code=STN ACCEPTABLE) STAIN ACCEPTABLE POLYCHROMASIA (test code=POLC) 1+ ANISOCYTOSIS (test code=ANISO) 1+ MICROCYTOSIS (test code=MICR) 1+ MORPHOLOGY COMMENT (test code=MOC) TEST NOT PERFORMED PLATELET ESTIMATE (test code=PLTEST) ADEQUATE PLATELET MORPHOLOGY (test code=PLTMORPH) NORMAL BASIC METABOLIC [id number] 05:42:00* Test Item Value Reference Range Comments SODIUM (test code=NA) 141 mmol/L 136-145 POTASSIUM (test code=K) 4.1 mmol/L 3.5-5.1 CHLORIDE (test code=CL) 111.0 mmol/L 98-107 CARBON DIOXIDE (test code=CO2) 19.0 mmol/L 21-32 ANION GAP (test code=GAP) 15.1 10-20 GLUCOSE (test code=GLU) 81 mg/dL 74-106 BLOOD UREA NITROGEN (test code=BUN) 20 mg/dL 7-18 GLOMERULAR FILTRATION RATE (test code=GFR) > 60 mL/min >=60 Estimated GFR by using Modified MDRD formula.Chronic kidney disease is defined as either kidney damageor GFR <60 mL/min/1.73 m2 for >3 months. CREATININE (test code=CREAT) 0.90 mg/dL 0.7-1.3 BUN/CREATININE RATIO (test code=BUN/CREA) 22.2 10-20 CALCIUM (test code=CA) 8.6 mg/dL 8.5-10.1 CBC W/AUTO [id number] 05:42:00* Test Item Value Reference Range Comments WHITE BLOOD CELL (test code=WBC) 18.3 K/mm3 4.5-12.5 RED BLOOD CELL (test code=RBC) 3.96 mill/mm3 4.0-5.8 HEMOGLOBIN (test code=HGB) 9.4 gram/dL 13.0-17.5 HEMATOCRIT (test code=HCT) 31.7 % 42.0-52.0 MEAN CELL VOLUME (test code=MCV) 80.1 fL 80-98 MEAN CELL HGB (test code=MCH) 23.7 picogram 27.0-33.0 MEAN CELL HGB CONCETRATION (test code=MCHC) 29.7 gram/dL 33.0-36.0 RED CELL DISTRIBUTION WIDTH (test code=RDW) 16.8 % 11.6-16.2 RED CELL DISTRIBUTION WIDTH SD (test code=RDW-SD) 48.2 fL 37.0-51.0 PLATELET COUNT (test code=PLT) 381 K/mm3 150-450 MEAN PLATELET VOLUME (test code=MPV) 12.6 fL 6.7-11.0 NEUTROPHIL % (test code=NT%) 67.7 % 39.0-69.0 IMMATURE GRANULOCYTE % (test code=IG%) 1.3 % 0.0-5.0 LYMPHOCYTE % (test code=LY%) 16.7 % 25.0-55.0 MONOCYTE % (test code=MO%) 7.9 % 0.0-10.0 EOSINOPHIL % (test code=EO%) 5.6 % 0.0-5.0 BASOPHIL % (test code=BA%) 0.8 % 0.0-1.0 NUCLEATED RBC % (test code=NRBC%) 0.0 % 0-0 NEUTROPHIL # (test code=NT#) 12.40 K/mm3 1.8-7.7 IMMATURE GRANULOCYTE # (test code=IG#) 0.24 x10 3/uL 0-0.03 LYMPHOCYTE # (test code=LY#) 3.05 K/mm3 1.0-5.0 MONOCYTE # (test code=MO#) 1.44 K/mm3 0-0.8 EOSINOPHIL # (test code=EO#) 1.02 K/mm3 0.0-0.5 BASOPHIL # (test code=BA#) 0.15 K/mm3 0.0-0.2 NUCLEATED RBC # (test code=NRBC#) 0.00 K/mm3 0.0-0.1 MANUAL DIFF REQUIRED (test code=MDIFF) NO, ONLY SCAN NEEDED DIFFERENTIAL [id number] 05:42:00* Test Item Value Reference Range Comments STAIN ACCEPTABILITY (test code=STN ACCEPTABLE) CABOT RINGS (test code=CAB) MORPHOLOGY COMMENT (test code=MOC) PLATELET ESTIMATE (test code=PLTEST) PLATELET MORPHOLOGY (test code=PLTMORPH) CBC W/AUTO [id number] 05:42:00* Test Item Value Reference Range Comments WHITE BLOOD CELL (test code=WBC) 18.3 K/mm3 4.5-12.5 RED BLOOD CELL (test code=RBC) 3.96 mill/mm3 4.0-5.8 HEMOGLOBIN (test code=HGB) 9.4 gram/dL 13.0-17.5 HEMATOCRIT (test code=HCT) 31.7 % 42.0-52.0 MEAN CELL VOLUME (test code=MCV) 80.1 fL 80-98 MEAN CELL HGB (test code=MCH) 23.7 picogram 27.0-33.0 MEAN CELL HGB CONCETRATION (test code=MCHC) 29.7 gram/dL 33.0-36.0 RED CELL DISTRIBUTION WIDTH (test code=RDW) 16.8 % 11.6-16.2 RED CELL DISTRIBUTION WIDTH SD (test code=RDW-SD) 48.2 fL 37.0-51.0 PLATELET COUNT (test code=PLT) 381 K/mm3 150-450 MEAN PLATELET VOLUME (test code=MPV) 12.6 fL 6.7-11.0 NEUTROPHIL % (test code=NT%) 67.7 % 39.0-69.0 IMMATURE GRANULOCYTE % (test code=IG%) 1.3 % 0.0-5.0 LYMPHOCYTE % (test code=LY%) 16.7 % 25.0-55.0 MONOCYTE % (test code=MO%) 7.9 % 0.0-10.0 EOSINOPHIL % (test code=EO%) 5.6 % 0.0-5.0 BASOPHIL % (test code=BA%) 0.8 % 0.0-1.0 NUCLEATED RBC % (test code=NRBC%) 0.0 % 0-0 NEUTROPHIL # (test code=NT#) 12.40 K/mm3 1.8-7.7 IMMATURE GRANULOCYTE # (test code=IG#) 0.24 x10 3/uL 0-0.03 LYMPHOCYTE # (test code=LY#) 3.05 K/mm3 1.0-5.0 MONOCYTE # (test code=MO#) 1.44 K/mm3 0-0.8 EOSINOPHIL # (test code=EO#) 1.02 K/mm3 0.0-0.5 BASOPHIL # (test code=BA#) 0.15 K/mm3 0.0-0.2 NUCLEATED RBC # (test code=NRBC#) 0.00 K/mm3 0.0-0.1 MANUAL DIFF REQUIRED (test code=MDIFF) NO, ONLY SCAN NEEDED DIFFERENTIAL [id number] 05:42:00* Test Item Value Reference Range Comments STAIN ACCEPTABILITY (test code=STN ACCEPTABLE) CABOT RINGS (test code=CAB) MORPHOLOGY COMMENT (test code=MOC) PLATELET ESTIMATE (test code=PLTEST) PLATELET MORPHOLOGY (test code=PLTMORPH) CBC W/AUTO [id number] 05:42:00* Test Item Value Reference Range Comments WHITE BLOOD CELL (test code=WBC) 18.3 K/mm3 4.5-12.5 RED BLOOD CELL (test code=RBC) 3.96 mill/mm3 4.0-5.8 HEMOGLOBIN (test code=HGB) 9.4 gram/dL 13.0-17.5 HEMATOCRIT (test code=HCT) 31.7 % 42.0-52.0 MEAN CELL VOLUME (test code=MCV) 80.1 fL 80-98 MEAN CELL HGB (test code=MCH) 23.7 picogram 27.0-33.0 MEAN CELL HGB CONCETRATION (test code=MCHC) 29.7 gram/dL 33.0-36.0 RED CELL DISTRIBUTION WIDTH (test code=RDW) 16.8 % 11.6-16.2 RED CELL DISTRIBUTION WIDTH SD (test code=RDW-SD) 48.2 fL 37.0-51.0 PLATELET COUNT (test code=PLT) 381 K/mm3 150-450 MEAN PLATELET VOLUME (test code=MPV) 12.6 fL 6.7-11.0 NEUTROPHIL % (test code=NT%) 67.7 % 39.0-69.0 IMMATURE GRANULOCYTE % (test code=IG%) 1.3 % 0.0-5.0 LYMPHOCYTE % (test code=LY%) 16.7 % 25.0-55.0 MONOCYTE % (test code=MO%) 7.9 % 0.0-10.0 EOSINOPHIL % (test code=EO%) 5.6 % 0.0-5.0 BASOPHIL % (test code=BA%) 0.8 % 0.0-1.0 NUCLEATED RBC % (test code=NRBC%) 0.0 % 0-0 NEUTROPHIL # (test code=NT#) 12.40 K/mm3 1.8-7.7 IMMATURE GRANULOCYTE # (test code=IG#) 0.24 x10 3/uL 0-0.03 LYMPHOCYTE # (test code=LY#) 3.05 K/mm3 1.0-5.0 MONOCYTE # (test code=MO#) 1.44 K/mm3 0-0.8 EOSINOPHIL # (test code=EO#) 1.02 K/mm3 0.0-0.5 BASOPHIL # (test code=BA#) 0.15 K/mm3 0.0-0.2 NUCLEATED RBC # (test code=NRBC#) 0.00 K/mm3 0.0-0.1 MANUAL DIFF REQUIRED (test code=MDIFF) NO, ONLY SCAN NEEDED DIFFERENTIAL [id number] 05:42:00* Test Item Value Reference Range Comments STAIN ACCEPTABILITY (test code=STN ACCEPTABLE) MORPHOLOGY COMMENT (test code=MOC) PLATELET ESTIMATE (test code=PLTEST) PLATELET MORPHOLOGY (test code=PLTMORPH) CBC W/AUTO [id number] 05:42:00* Test Item Value Reference Range Comments WHITE BLOOD CELL (test code=WBC) 18.3 K/mm3 4.5-12.5 RED BLOOD CELL (test code=RBC) 3.96 mill/mm3 4.0-5.8 HEMOGLOBIN (test code=HGB) 9.4 gram/dL 13.0-17.5 HEMATOCRIT (test code=HCT) 31.7 % 42.0-52.0 MEAN CELL VOLUME (test code=MCV) 80.1 fL 80-98 MEAN CELL HGB (test code=MCH) 23.7 picogram 27.0-33.0 MEAN CELL HGB CONCETRATION (test code=MCHC) 29.7 gram/dL 33.0-36.0 RED CELL DISTRIBUTION WIDTH (test code=RDW) 16.8 % 11.6-16.2 RED CELL DISTRIBUTION WIDTH SD (test code=RDW-SD) 48.2 fL 37.0-51.0 PLATELET COUNT (test code=PLT) 381 K/mm3 150-450 MEAN PLATELET VOLUME (test code=MPV) 12.6 fL 6.7-11.0 NEUTROPHIL % (test code=NT%) 67.7 % 39.0-69.0 IMMATURE GRANULOCYTE % (test code=IG%) 1.3 % 0.0-5.0 LYMPHOCYTE % (test code=LY%) 16.7 % 25.0-55.0 MONOCYTE % (test code=MO%) 7.9 % 0.0-10.0 EOSINOPHIL % (test code=EO%) 5.6 % 0.0-5.0 BASOPHIL % (test code=BA%) 0.8 % 0.0-1.0 NUCLEATED RBC % (test code=NRBC%) 0.0 % 0-0 NEUTROPHIL # (test code=NT#) 12.40 K/mm3 1.8-7.7 IMMATURE GRANULOCYTE # (test code=IG#) 0.24 x10 3/uL 0-0.03 LYMPHOCYTE # (test code=LY#) 3.05 K/mm3 1.0-5.0 MONOCYTE # (test code=MO#) 1.44 K/mm3 0-0.8 EOSINOPHIL # (test code=EO#) 1.02 K/mm3 0.0-0.5 BASOPHIL # (test code=BA#) 0.15 K/mm3 0.0-0.2 NUCLEATED RBC # (test code=NRBC#) 0.00 K/mm3 0.0-0.1 MANUAL DIFF REQUIRED (test code=MDIFF) NO, ONLY SCAN NEEDED DIFFERENTIAL [id number] 05:42:00* Test Item Value Reference Range Comments STAIN ACCEPTABILITY (test code=STN ACCEPTABLE) CABOT RINGS (test code=CAB) MORPHOLOGY COMMENT (test code=MOC) PLATELET ESTIMATE (test code=PLTEST) PLATELET MORPHOLOGY (test code=PLTMORPH) BASIC METABOLIC [id number] 05:39:00* Test Item Value Reference Range Comments SODIUM (test code=NA) 141 mmol/L 136-145 POTASSIUM (test code=K) 4.1 mmol/L 3.5-5.1 CHLORIDE (test code=CL) 111.0 mmol/L 98-107 CARBON DIOXIDE (test code=CO2) mmol/L 21-32 ANION GAP (test code=GAP) 10-20 GLUCOSE (test code=GLU) mg/dL 74-106 BLOOD UREA NITROGEN (test code=BUN) mg/dL 7-18 GLOMERULAR FILTRATION RATE (test code=GFR) mL/min >=60 CREATININE (test code=CREAT) mg/dL 0.7-1.3 BUN/CREATININE RATIO (test code=BUN/CREA) 10-20 CALCIUM (test code=CA) mg/dL 8.5-10.1 [id number] 20:25:00* Test Item Value Reference Range Comments GLUBED (test code=GLUBED) 83 mg/dL 74-106 Performed by certified steel spar operator at [facility] [id number] 11:01:00* Test Item Value Reference Range Comments MAGNESIUM (test code=MAG) 1.9 mg/dL 1.8-2.4 SPECIMEN COMMENTS: addCOMMENTS TO WORK ORDER CLERK: addBASIC METABOLIC PANEL 2019-12-27 06:29:00* Test Item Value Reference Range Comments SODIUM (test code=NA) 144 mmol/L 136-145 POTASSIUM (test code=K) 3.3 mmol/L 3.5-5.1 CHLORIDE (test code=CL) 113.0 mmol/L 98-107 CARBON DIOXIDE (test code=CO2) 19.0 mmol/L 21-32 ANION GAP (test code=GAP) 15.3 10-20 GLUCOSE (test code=GLU) 90 mg/dL 74-106 BLOOD UREA NITROGEN (test code=BUN) 23 mg/dL 7-18 RESULT VERIFIED BY REPEAT ANALYSIS GLOMERULAR FILTRATION RATE (test code=GFR) > 60 mL/min >=60 Estimated GFR by using Modified MDRD formula.Chronic kidney disease is defined as either kidney damageor GFR <60 mL/min/1.73 m2 for >3 months. CREATININE (test code=CREAT) 0.90 mg/dL 0.7-1.3 BUN/CREATININE RATIO (test code=BUN/CREA) 25.6 10-20 CALCIUM (test code=CA) 8.5 mg/dL 8.5-10.1 CBC W/MANUAL [id number] 06:24:00* Test Item Value Reference Range Comments WHITE BLOOD CELL (test code=WBC) 19.2 K/mm3 4.5-12.5 RED BLOOD CELL (test code=RBC) 3.86 mill/mm3 4.0-5.8 HEMOGLOBIN (test code=HGB) 9.2 gram/dL 13.0-17.5 HEMATOCRIT (test code=HCT) 30.5 % 42.0-52.0 MEAN CELL VOLUME (test code=MCV) 79.0 fL 80-98 MEAN CELL HGB (test code=MCH) 23.8 picogram 27.0-33.0 MEAN CELL HGB CONCETRATION (test code=MCHC) 30.2 gram/dL 33.0-36.0 RED CELL DISTRIBUTION WIDTH (test code=RDW) 16.7 % 11.6-16.2 RED CELL DISTRIBUTION WIDTH SD (test code=RDW-SD) 48.0 fL 37.0-51.0 PLATELET COUNT (test code=PLT) 429 K/mm3 150-450 MEAN PLATELET VOLUME (test code=MPV) 12.4 fL 6.7-11.0 NEUTROPHIL % (test code=NT%) 67.0 % 39.0-69.0 IMMATURE GRANULOCYTE % (test code=IG%) 1.0 % 0.0-5.0 LYMPHOCYTE % (test code=LY%) 15.1 % 25.0-55.0 MONOCYTE % (test code=MO%) 10.6 % 0.0-10.0 EOSINOPHIL % (test code=EO%) 5.5 % 0.0-5.0 BASOPHIL % (test code=BA%) 0.8 % 0.0-1.0 NUCLEATED RBC % (test code=NRBC%) 0.0 % 0-0 NEUTROPHIL # (test code=NT#) 12.86 K/mm3 1.8-7.7 IMMATURE GRANULOCYTE # (test code=IG#) 0.19 x10 3/uL 0-0.03 LYMPHOCYTE # (test code=LY#) 2.90 K/mm3 1.0-5.0 MONOCYTE # (test code=MO#) 2.03 K/mm3 0-0.8 EOSINOPHIL # (test code=EO#) 1.05 K/mm3 0.0-0.5 BASOPHIL # (test code=BA#) 0.16 K/mm3 0.0-0.2 NUCLEATED RBC # (test code=NRBC#) 0.00 K/mm3 0.0-0.1 MANUAL DIFF REQUIRED (test code=MDIFF) DIFF NEEDED STAIN ACCEPTABILITY (test code=STN ACCEPTABLE) STAIN ACCEPTABLE TOTAL CELLS COUNTED (test code=TCC) 114 #CELLS SEGMENTED NEUTROPHILS (test code=SEG) 70.2 % 39-69 BAND NEUTROPHIL (test code=BAND) 0 % 0-10 LYMPHOCYTE (test code=LYMPH) 12.3 % 25-55 REACTIVE LYMPH (test code=RELYMPH) 0 % MONOCYTE (test code=MON) 9.6 % 0-10 EOSINOPHIL (test code=EOS) 6.1 % 0.0-5.0 BASOPHIL (test code=BASO) 0.9 % 0-1.0 METAMYELOCYTE (test code=META) 0 % 0-0 MYELOCYTE (test code=MYELO) 0.9 % 0.0-0.0 PROMYELOCYTE (test code=PROM) 0 % 0-0 POLYCHROMASIA (test code=POLC) 1+ POIKILOCYTOSIS (test code=POIK) 1+ ANISOCYTOSIS (test code=ANISO) 1+ MICROCYTOSIS (test code=MICR) 1+ ARJUN CELLS (test code=ARJUN) 1+ NONE MORPHOLOGY COMMENT (test code=MOC) TEST NOT PERFORMED PLATELET ESTIMATE (test code=PLTEST) ADEQUATE PLATELET MORPHOLOGY (test code=PLTMORPH) NORMAL IMMATURE FORMS (test code=IMMAT) 0 % 0-0 CBC W/MANUAL [id number] 06:00:00* Test Item Value Reference Range Comments WHITE BLOOD CELL (test code=WBC) 19.2 K/mm3 4.5-12.5 RED BLOOD CELL (test code=RBC) 3.86 mill/mm3 4.0-5.8 HEMOGLOBIN (test code=HGB) 9.2 gram/dL 13.0-17.5 HEMATOCRIT (test code=HCT) 30.5 % 42.0-52.0 MEAN CELL VOLUME (test code=MCV) 79.0 fL 80-98 MEAN CELL HGB (test code=MCH) 23.8 picogram 27.0-33.0 MEAN CELL HGB CONCETRATION (test code=MCHC) 30.2 gram/dL 33.0-36.0 RED CELL DISTRIBUTION WIDTH (test code=RDW) 16.7 % 11.6-16.2 RED CELL DISTRIBUTION WIDTH SD (test code=RDW-SD) 48.0 fL 37.0-51.0 PLATELET COUNT (test code=PLT) 429 K/mm3 150-450 MEAN PLATELET VOLUME (test code=MPV) 12.4 fL 6.7-11.0 NEUTROPHIL % (test code=NT%) 67.0 % 39.0-69.0 IMMATURE GRANULOCYTE % (test code=IG%) 1.0 % 0.0-5.0 LYMPHOCYTE % (test code=LY%) 15.1 % 25.0-55.0 MONOCYTE % (test code=MO%) 10.6 % 0.0-10.0 EOSINOPHIL % (test code=EO%) 5.5 % 0.0-5.0 BASOPHIL % (test code=BA%) 0.8 % 0.0-1.0 NUCLEATED RBC % (test code=NRBC%) 0.0 % 0-0 NEUTROPHIL # (test code=NT#) 12.86 K/mm3 1.8-7.7 IMMATURE GRANULOCYTE # (test code=IG#) 0.19 x10 3/uL 0-0.03 LYMPHOCYTE # (test code=LY#) 2.90 K/mm3 1.0-5.0 MONOCYTE # (test code=MO#) 2.03 K/mm3 0-0.8 EOSINOPHIL # (test code=EO#) 1.05 K/mm3 0.0-0.5 BASOPHIL # (test code=BA#) 0.16 K/mm3 0.0-0.2 NUCLEATED RBC # (test code=NRBC#) 0.00 K/mm3 0.0-0.1 MANUAL DIFF REQUIRED (test code=MDIFF) DIFF NEEDED STAIN ACCEPTABILITY (test code=STN ACCEPTABLE) TOTAL CELLS COUNTED (test code=TCC) #CELLS SEGMENTED NEUTROPHILS (test code=SEG) % 39-69 LYMPHOCYTE (test code=LYMPH) % 25-55 MONOCYTE (test code=MON) % 0-10 EOSINOPHIL (test code=EOS) % 0.0-5.0 CABOT RINGS (test code=CAB) MORPHOLOGY COMMENT (test code=MOC) PLATELET ESTIMATE (test code=PLTEST) PLATELET MORPHOLOGY (test code=PLTMORPH) CBC W/MANUAL [id number] 06:00:00* Test Item Value Reference Range Comments WHITE BLOOD CELL (test code=WBC) 19.2 K/mm3 4.5-12.5 RED BLOOD CELL (test code=RBC) 3.86 mill/mm3 4.0-5.8 HEMOGLOBIN (test code=HGB) 9.2 gram/dL 13.0-17.5 HEMATOCRIT (test code=HCT) 30.5 % 42.0-52.0 MEAN CELL VOLUME (test code=MCV) 79.0 fL 80-98 MEAN CELL HGB (test code=MCH) 23.8 picogram 27.0-33.0 MEAN CELL HGB CONCETRATION (test code=MCHC) 30.2 gram/dL 33.0-36.0 RED CELL DISTRIBUTION WIDTH (test code=RDW) 16.7 % 11.6-16.2 RED CELL DISTRIBUTION WIDTH SD (test code=RDW-SD) 48.0 fL 37.0-51.0 PLATELET COUNT (test code=PLT) 429 K/mm3 150-450 MEAN PLATELET VOLUME (test code=MPV) 12.4 fL 6.7-11.0 NEUTROPHIL % (test code=NT%) 67.0 % 39.0-69.0 IMMATURE GRANULOCYTE % (test code=IG%) 1.0 % 0.0-5.0 LYMPHOCYTE % (test code=LY%) 15.1 % 25.0-55.0 MONOCYTE % (test code=MO%) 10.6 % 0.0-10.0 EOSINOPHIL % (test code=EO%) 5.5 % 0.0-5.0 BASOPHIL % (test code=BA%) 0.8 % 0.0-1.0 NUCLEATED RBC % (test code=NRBC%) 0.0 % 0-0 NEUTROPHIL # (test code=NT#) 12.86 K/mm3 1.8-7.7 IMMATURE GRANULOCYTE # (test code=IG#) 0.19 x10 3/uL 0-0.03 LYMPHOCYTE # (test code=LY#) 2.90 K/mm3 1.0-5.0 MONOCYTE # (test code=MO#) 2.03 K/mm3 0-0.8 EOSINOPHIL # (test code=EO#) 1.05 K/mm3 0.0-0.5 BASOPHIL # (test code=BA#) 0.16 K/mm3 0.0-0.2 NUCLEATED RBC # (test code=NRBC#) 0.00 K/mm3 0.0-0.1 MANUAL DIFF REQUIRED (test code=MDIFF) DIFF NEEDED STAIN ACCEPTABILITY (test code=STN ACCEPTABLE) TOTAL CELLS COUNTED (test code=TCC) #CELLS SEGMENTED NEUTROPHILS (test code=SEG) % 39-69 LYMPHOCYTE (test code=LYMPH) % 25-55 MONOCYTE (test code=MON) % 0-10 EOSINOPHIL (test code=EOS) % 0.0-5.0 CABOT RINGS (test code=CAB) MORPHOLOGY COMMENT (test code=MOC) PLATELET ESTIMATE (test code=PLTEST) PLATELET MORPHOLOGY (test code=PLTMORPH) CBC W/MANUAL [id number] 06:00:00* Test Item Value Reference Range Comments WHITE BLOOD CELL (test code=WBC) 19.2 K/mm3 4.5-12.5 RED BLOOD CELL (test code=RBC) 3.86 mill/mm3 4.0-5.8 HEMOGLOBIN (test code=HGB) 9.2 gram/dL 13.0-17.5 HEMATOCRIT (test code=HCT) 30.5 % 42.0-52.0 MEAN CELL VOLUME (test code=MCV) 79.0 fL 80-98 MEAN CELL HGB (test code=MCH) 23.8 picogram 27.0-33.0 MEAN CELL HGB CONCETRATION (test code=MCHC) 30.2 gram/dL 33.0-36.0 RED CELL DISTRIBUTION WIDTH (test code=RDW) 16.7 % 11.6-16.2 RED CELL DISTRIBUTION WIDTH SD (test code=RDW-SD) 48.0 fL 37.0-51.0 PLATELET COUNT (test code=PLT) 429 K/mm3 150-450 MEAN PLATELET VOLUME (test code=MPV) 12.4 fL 6.7-11.0 NEUTROPHIL % (test code=NT%) 67.0 % 39.0-69.0 IMMATURE GRANULOCYTE % (test code=IG%) 1.0 % 0.0-5.0 LYMPHOCYTE % (test code=LY%) 15.1 % 25.0-55.0 MONOCYTE % (test code=MO%) 10.6 % 0.0-10.0 EOSINOPHIL % (test code=EO%) 5.5 % 0.0-5.0 BASOPHIL % (test code=BA%) 0.8 % 0.0-1.0 NUCLEATED RBC % (test code=NRBC%) 0.0 % 0-0 NEUTROPHIL # (test code=NT#) 12.86 K/mm3 1.8-7.7 IMMATURE GRANULOCYTE # (test code=IG#) 0.19 x10 3/uL 0-0.03 LYMPHOCYTE # (test code=LY#) 2.90 K/mm3 1.0-5.0 MONOCYTE # (test code=MO#) 2.03 K/mm3 0-0.8 EOSINOPHIL # (test code=EO#) 1.05 K/mm3 0.0-0.5 BASOPHIL # (test code=BA#) 0.16 K/mm3 0.0-0.2 NUCLEATED RBC # (test code=NRBC#) 0.00 K/mm3 0.0-0.1 MANUAL DIFF REQUIRED (test code=MDIFF) DIFF NEEDED STAIN ACCEPTABILITY (test code=STN ACCEPTABLE) TOTAL CELLS COUNTED (test code=TCC) #CELLS SEGMENTED NEUTROPHILS (test code=SEG) % 39-69 LYMPHOCYTE (test code=LYMPH) % 25-55 MONOCYTE (test code=MON) % 0-10 EOSINOPHIL (test code=EOS) % 0.0-5.0 MORPHOLOGY COMMENT (test code=MOC) PLATELET ESTIMATE (test code=PLTEST) PLATELET MORPHOLOGY (test code=PLTMORPH) CBC W/MANUAL [id number] 06:00:00* Test Item Value Reference Range Comments WHITE BLOOD CELL (test code=WBC) 19.2 K/mm3 4.5-12.5 RED BLOOD CELL (test code=RBC) 3.86 mill/mm3 4.0-5.8 HEMOGLOBIN (test code=HGB) 9.2 gram/dL 13.0-17.5 HEMATOCRIT (test code=HCT) 30.5 % 42.0-52.0 MEAN CELL VOLUME (test code=MCV) 79.0 fL 80-98 MEAN CELL HGB (test code=MCH) 23.8 picogram 27.0-33.0 MEAN CELL HGB CONCETRATION (test code=MCHC) 30.2 gram/dL 33.0-36.0 RED CELL DISTRIBUTION WIDTH (test code=RDW) 16.7 % 11.6-16.2 RED CELL DISTRIBUTION WIDTH SD (test code=RDW-SD) 48.0 fL 37.0-51.0 PLATELET COUNT (test code=PLT) 429 K/mm3 150-450 MEAN PLATELET VOLUME (test code=MPV) 12.4 fL 6.7-11.0 NEUTROPHIL % (test code=NT%) 67.0 % 39.0-69.0 IMMATURE GRANULOCYTE % (test code=IG%) 1.0 % 0.0-5.0 LYMPHOCYTE % (test code=LY%) 15.1 % 25.0-55.0 MONOCYTE % (test code=MO%) 10.6 % 0.0-10.0 EOSINOPHIL % (test code=EO%) 5.5 % 0.0-5.0 BASOPHIL % (test code=BA%) 0.8 % 0.0-1.0 NUCLEATED RBC % (test code=NRBC%) 0.0 % 0-0 NEUTROPHIL # (test code=NT#) 12.86 K/mm3 1.8-7.7 IMMATURE GRANULOCYTE # (test code=IG#) 0.19 x10 3/uL 0-0.03 LYMPHOCYTE # (test code=LY#) 2.90 K/mm3 1.0-5.0 MONOCYTE # (test code=MO#) 2.03 K/mm3 0-0.8 EOSINOPHIL # (test code=EO#) 1.05 K/mm3 0.0-0.5 BASOPHIL # (test code=BA#) 0.16 K/mm3 0.0-0.2 NUCLEATED RBC # (test code=NRBC#) 0.00 K/mm3 0.0-0.1 MANUAL DIFF REQUIRED (test code=MDIFF) DIFF NEEDED STAIN ACCEPTABILITY (test code=STN ACCEPTABLE) TOTAL CELLS COUNTED (test code=TCC) #CELLS SEGMENTED NEUTROPHILS (test code=SEG) % 39-69 LYMPHOCYTE (test code=LYMPH) % 25-55 MONOCYTE (test code=MON) % 0-10 MORPHOLOGY COMMENT (test code=MOC) PLATELET ESTIMATE (test code=PLTEST) PLATELET MORPHOLOGY (test code=PLTMORPH) CBC W/MANUAL [id number] 06:00:00* Test Item Value Reference Range Comments WHITE BLOOD CELL (test code=WBC) 19.2 K/mm3 4.5-12.5 RED BLOOD CELL (test code=RBC) 3.86 mill/mm3 4.0-5.8 HEMOGLOBIN (test code=HGB) 9.2 gram/dL 13.0-17.5 HEMATOCRIT (test code=HCT) 30.5 % 42.0-52.0 MEAN CELL VOLUME (test code=MCV) 79.0 fL 80-98 MEAN CELL HGB (test code=MCH) 23.8 picogram 27.0-33.0 MEAN CELL HGB CONCETRATION (test code=MCHC) 30.2 gram/dL 33.0-36.0 RED CELL DISTRIBUTION WIDTH (test code=RDW) 16.7 % 11.6-16.2 RED CELL DISTRIBUTION WIDTH SD (test code=RDW-SD) 48.0 fL 37.0-51.0 PLATELET COUNT (test code=PLT) 429 K/mm3 150-450 MEAN PLATELET VOLUME (test code=MPV) 12.4 fL 6.7-11.0 NEUTROPHIL % (test code=NT%) 67.0 % 39.0-69.0 IMMATURE GRANULOCYTE % (test code=IG%) 1.0 % 0.0-5.0 LYMPHOCYTE % (test code=LY%) 15.1 % 25.0-55.0 MONOCYTE % (test code=MO%) 10.6 % 0.0-10.0 EOSINOPHIL % (test code=EO%) 5.5 % 0.0-5.0 BASOPHIL % (test code=BA%) 0.8 % 0.0-1.0 NUCLEATED RBC % (test code=NRBC%) 0.0 % 0-0 NEUTROPHIL # (test code=NT#) 12.86 K/mm3 1.8-7.7 IMMATURE GRANULOCYTE # (test code=IG#) 0.19 x10 3/uL 0-0.03 LYMPHOCYTE # (test code=LY#) 2.90 K/mm3 1.0-5.0 MONOCYTE # (test code=MO#) 2.03 K/mm3 0-0.8 EOSINOPHIL # (test code=EO#) 1.05 K/mm3 0.0-0.5 BASOPHIL # (test code=BA#) 0.16 K/mm3 0.0-0.2 NUCLEATED RBC # (test code=NRBC#) 0.00 K/mm3 0.0-0.1 MANUAL DIFF REQUIRED (test code=MDIFF) DIFF NEEDED STAIN ACCEPTABILITY (test code=STN ACCEPTABLE) TOTAL CELLS COUNTED (test code=TCC) #CELLS SEGMENTED NEUTROPHILS (test code=SEG) % 39-69 LYMPHOCYTE (test code=LYMPH) % 25-55 MONOCYTE (test code=MON) % 0-10 EOSINOPHIL (test code=EOS) % 0.0-5.0 CABOT RINGS (test code=CAB) MORPHOLOGY COMMENT (test code=MOC) PLATELET ESTIMATE (test code=PLTEST) PLATELET MORPHOLOGY (test code=PLTMORPH) BASIC METABOLIC [id number] 05:57:00* Test Item Value Reference Range Comments SODIUM (test code=NA) 144 mmol/L 136-145 POTASSIUM (test code=K) 3.3 mmol/L 3.5-5.1 CHLORIDE (test code=CL) 113.0 mmol/L 98-107 CARBON DIOXIDE (test code=CO2) mmol/L 21-32 ANION GAP (test code=GAP) 10-20 GLUCOSE (test code=GLU) mg/dL 74-106 BLOOD UREA NITROGEN (test code=BUN) mg/dL 7-18 GLOMERULAR FILTRATION RATE (test code=GFR) mL/min >=60 CREATININE (test code=CREAT) mg/dL 0.7-1.3 BUN/CREATININE RATIO (test code=BUN/CREA) 10-20 CALCIUM (test code=CA) mg/dL 8.5-10.1 CBC W/MANUAL [id number] 20:32:00* Test Item Value Reference Range Comments WHITE BLOOD CELL (test code=WBC) 20.3 K/mm3 4.5-12.5 RED BLOOD CELL (test code=RBC) 4.91 mill/mm3 4.0-5.8 HEMOGLOBIN (test code=HGB) 11.5 gram/dL 13.0-17.5 HEMATOCRIT (test code=HCT) 40.4 % 42.0-52.0 MEAN CELL VOLUME (test code=MCV) 82.3 fL 80-98 RESULT VERIFIED BY REPEAT ANALYSIS MEAN CELL HGB (test code=MCH) 23.4 picogram 27.0-33.0 MEAN CELL HGB CONCETRATION (test code=MCHC) 28.5 gram/dL 33.0-36.0 RED CELL DISTRIBUTION WIDTH (test code=RDW) 17.2 % 11.6-16.2 RED CELL DISTRIBUTION WIDTH SD (test code=RDW-SD) 50.8 fL 37.0-51.0 PLATELET COUNT (test code=PLT) 310 K/mm3 150-450 RESULT VERIFIED BY REPEAT ANALYSIS MEAN PLATELET VOLUME (test code=MPV) 12.5 fL 6.7-11.0 IMMATURE GRANULOCYTE % (test code=IG%) 0.9 % 0.0-5.0 NUCLEATED RBC % (test code=NRBC%) 0.0 % 0-0 NEUTROPHIL # (test code=NT#) 15.21 K/mm3 1.8-7.7 IMMATURE GRANULOCYTE # (test code=IG#) 0.18 x10 3/uL 0-0.03 LYMPHOCYTE # (test code=LY#) 2.44 K/mm3 1.0-5.0 MONOCYTE # (test code=MO#) 1.51 K/mm3 0-0.8 EOSINOPHIL # (test code=EO#) 0.86 K/mm3 0.0-0.5 BASOPHIL # (test code=BA#) 0.12 K/mm3 0.0-0.2 NUCLEATED RBC # (test code=NRBC#) 0.00 K/mm3 0.0-0.1 MANUAL DIFF REQUIRED (test code=MDIFF) YES STAIN ACCEPTABILITY (test code=STN ACCEPTABLE) STAIN ACCEPTABLE TOTAL CELLS COUNTED (test code=TCC) 100 #CELLS SEGMENTED NEUTROPHILS (test code=SEG) 74 % 39-69 LYMPHOCYTE (test code=LYMPH) 14 % 25-55 REACTIVE LYMPH (test code=RELYMPH) 2 % MONOCYTE (test code=MON) 5 % 0-10 EOSINOPHIL (test code=EOS) 5 % 0.0-5.0 PLATELET ESTIMATE (test code=PLTEST) ADEQUATE PLATELET MORPHOLOGY (test code=PLTMORPH) SIZE VARIABLE Difficult draw, 2nd phleb to try [V.LAB.SE 12/26/19 1705]- CT ABD PELVIS W WO [id number] 19:07:00 Name: CELESTINO MCALLISTER [facility] : 1970 Age/S: 49 / M [address] [facility] Unit #: [id number] Loc: [place] [address] Phys: Arvin Higgins MD Acct: [id number] Dis Date: Status: ADM IN PHONE #: [phone] Exam Date: 12/26/2019 1850 FAX #: [phone] Reason: R/O INFECTION EXAMS: CPT CODE: [id number] CT ABD PELVIS W WO CONT 27020 HISTORY: Fever and leukocytosis with increased tracheal secretions. COMPARISON: CT chest from December 25, 2019. Location: TH. CT chest with contrast: 100 mL of Isovue-370. Automated exposure control. Unremarkable aorta without aneurysm or dissection. Unremarkable pulmonary arteries (not performed as PE protocol exam). Well-opacified SVC and the visualized neck vasculature. Tracheostomy tube noted to be above the lexi. Thyroid glands are poorly visible. Esophageal wall is not thickened. No pathologic adenopathy. Mild cardiomegaly without pericardial effusion. The subcutaneous tissues and the musculature appear within normal limits with mild gynecomastia. No lytic or blastic lesions visible within the bony skeleton. Patchy right upper lobe infiltrate with subsegmental atelectasis and loss of lung volume noted again. No effusion or congestion is noted. No bronchiectasis, honeycombing or fibrosis or endobronchial lesions. IMPRESSION: Unchanged patchy right upper lobe infiltrate with subsegmental atelectasis. No pathologic adenopathy. CT of abdomen: The liver is enhancing homogeneously without mass or lesions. Portal vein and hepatic artery are patent. Gallbladder demonstrating debris which may suggest vicarious excretion of contrast. The liver is marky uring 17 cm in length. Unremarkable spleen. Stomach distended incompletely with gastrojejunostomy tube noted with tip within the 2nd portion of the duodenum. Pancreas enhances enhances ho mogeneously. Unremarkable adrenals. Kidneys are free from hyd roureteronephrosis. Homogeneous enhancement. PAGE 1 Signed Report (CONTINUED) Name: CELESTINO MCALLISTER [facility] : 1970 Age/S: 49 / M [address] [facility] Unit #: [id number] Loc: [place] [address] Phys: Arvin Higgins MD Acct: [id number] Dis Date: Status: ADM IN PHONE #: [phone] Exam Date: 12/26/2019 1850 FAX #: [phone] Reason: R/O INFECTION EXAMS: CPT CODE: [id number] CT ABD PELVIS W WO CONT 10364 <Continued> Bilateral excretion is noted. No pathologic adenopathy. Well-opacified abdominal and pelvic vasculature. No bowel obstruction. Mild air distention of the large bowel. No colitis or diverticulitis or enteritis. IVORY CARVER shunt catheter from a right side with the tip coiled within the right lower quadrant. CT PELVIS: Appendix is not visible with certainty but no inflammatory changes are noted. Pelvic bowel loops are unobstructed. Decompressed urinary bladder with Szymanski catheter. Prostate is not enlarged. No pelvic pathologic adenopathy. No free fluid or free air or abscess. The subcutaneous tissues and the musculature are normal in appearance. Chronic erosion of the right acetabulum. The hip is not dislocated. DJD. No lytic or blastic lesions. IMPRESSION: Chronic erosion of the right acetabulum without dislocation of fracture of the hip. No bowel obstruction or colitis or diverticulitis or enteritis. Moderate distention of the large bowel with air. Gastrojejunostomy tube noted with the tip within the 2nd portion of the duodenum. No hydroureteronephrosis. Decompressed urinary bladder with Szymanski catheter. No free fluid or free air or abscess. at 190 Reported and signed by: Cristian Patel M.D. CC: Lonnie Gambino MD; Sarah Feliciano MD; Arvin Higgins MD Technologist:Fatou spear RT(R),CT; CTDI: DLP: Trnscb Date/Time: 12/26/2019 (1906) t .SDR. Orig Print D/T: S: 12/26/2019 (1909) PAGE 2 Signed Report - CT CHEST W/O [id number] 19:07:00 Name: CELESTINO MCALLISTER [facility] : 1970 Age/S: 49 / M [address] [facility] #: [id number] Loc: [place] [address] Phys: Ramiro Velázquez MD Acct: [id number] Dis Date: Status: ADM IN PHONE #: [phone] Exam Date: 12/26/2019 185 FAX #: [phone] Reason: fever lekocytosis, increased trach secrection EXAMS: CPT CODE: [id number] CT CHEST W/O CONTRAST 71100 HISTORY: Fever and leukocytosis with increased tracheal secretions. COMPARISON: CT chest from December 25, 2019. Location: . CT chest with contrast: 100 mL of Isovue-370. Automated exposure control. Unremarkable aorta without aneurysm or dissection. Unremarkable pulmonary arteries (not performed as PE protocol exam). Well-opacified SVC and the visualized neck vasculature. Tracheostomy tube noted to be above the lexi. Thyroid glands are poorly visible. Esophageal wall is not thickened. No pathologic adenopathy. Mild cardiomegaly without pericardial effusion. The subcutaneous tissues and the musculature appear within normal limits with mild gynecomastia. No lytic or blastic lesions visible within the bony skeleton. Patchy right upper lobe infiltrate with subsegmental atelectasis and loss of lung volume noted again. No effusion or congestion is noted. No bronchiectasis, honeycombing or fibrosis or endobronchial lesions. IMPRESSION: Unchanged patchy right upper lobe infiltrate with subsegmental atelectasis. No pathologic adenopathy. CT of abdomen: The liver is enhancing homogeneously without mass or lesions. Portal vein and hepatic artery are patent. Gallbladder demonstrating debris which may suggest vicarious excretion of contrast. The liver is marky uring 17 cm in length. Unremarkable spleen. Stomach distended incompletely with gastrojejunostomy tube noted with tip within the 2nd portion of the duodenum. Pancreas enhances enhances ho mogeneously. Unremarkable adrenals. Kidneys are free from hyd roureteronephrosis. Homogeneous enhancement. PAGE 1 Signed Report (CONTINUED) Name: CELESTINO MCALLISTER [facility] : 1970 Age/S: 49 / M [address] [facility] Unit #: [id number] Loc: [place] [address] Phys: Ramiro Velázquez MD Acct: [id number] Dis Date: Status: ADM IN PHONE #: [phone] Exam Date: 12/26/2019 1850 FAX #: [phone] Reason: fever lekocytosis, increased trach secrection EXAMS: CPT CODE: [id number] CT CHEST W/O CONTRAST 77608 <Continued> Bilateral excretion is noted. No pathologic adenopathy. Well-opacified abdominal and pelvic vasculature. No bowel obstruction. Mild air distention of the large bowel. No colitis or diverticulitis or enteritis. IVORY CARVER shunt catheter from a right side with the tip coiled within the right lower quadrant. CT PELVIS: Appendix is not visible with certainty but no inflammatory changes are noted. Pelvic bowel loops are unobstructed. Decompressed urinary bladder with Szymanski catheter. Prostate is not enlarged. No pelvic pathologic adenopathy. No free fluid or free air or abscess. The subcutaneous tissues and the musculature are normal in appearance. Chronic erosion of the right acetabulum. The hip is not dislocated. DJD. No lytic or blastic lesions. IMPRESSION: Chronic erosion of the right acetabulum without dislocation of fracture of the hip. No bowel obstruction or colitis or diverticulitis or enteritis. Moderate distention of the large bowel with air. Gastrojejunostomy tube noted with the tip within the 2nd portion of the duodenum. No hydroureteronephrosis. Decompressed urinary bladder with Szymanski catheter. No free fluid or free air or abscess. at 190 Reported and signed by: Cristian Patel M.D. CC: Lonnie Gambino MD; Sarah Feliciano MD; Ramiro Velázquez MD Technologist:Fatou Messer erger RT(R),CT; CTDI: DLP: Trnscb Date/Time: 12/26/2019 (1906) t .SDR.TH4 Orig Print D/T: S: 12/26/2019 (1909) PAGE 2 Signed Report AMYLASE 2019-12-26 18:41:00* Test Item Value Reference Range Comments AMYLASE (test code=BRANDON) 25 Unit/L 25-115 [V.LAB.SE 12/26/191704][id number] 18:41:00* Test Item Value Reference Range Comments LIPASE (test code=LIP) 29 U/L 73.0-393.0 [V.LAB.SE 12/26/19 170]CBC W/MANUAL [id number] 18:35:00* Test Item Value Reference Range Comments WHITE BLOOD CELL (test code=WBC) 20.3 K/mm3 4.5-12.5 RED BLOOD CELL (test code=RBC) 4.91 mill/mm3 4.0-5.8 HEMOGLOBIN (test code=HGB) 11.5 gram/dL 13.0-17.5 HEMATOCRIT (test code=HCT) 40.4 % 42.0-52.0 MEAN CELL VOLUME (test code=MCV) 82.3 fL 80-98 RESULT VERIFIED BY REPEAT ANALYSIS MEAN CELL HGB (test code=MCH) 23.4 picogram 27.0-33.0 MEAN CELL HGB CONCETRATION (test code=MCHC) 28.5 gram/dL 33.0-36.0 RED CELL DISTRIBUTION WIDTH (test code=RDW) 17.2 % 11.6-16.2 RED CELL DISTRIBUTION WIDTH SD (test code=RDW-SD) 50.8 fL 37.0-51.0 PLATELET COUNT (test code=PLT) 310 K/mm3 150-450 RESULT VERIFIED BY REPEAT ANALYSIS MEAN PLATELET VOLUME (test code=MPV) 12.5 fL 6.7-11.0 IMMATURE GRANULOCYTE % (test code=IG%) 0.9 % 0.0-5.0 NUCLEATED RBC % (test code=NRBC%) 0.0 % 0-0 NEUTROPHIL # (test code=NT#) 15.21 K/mm3 1.8-7.7 IMMATURE GRANULOCYTE # (test code=IG#) 0.18 x10 3/uL 0-0.03 LYMPHOCYTE # (test code=LY#) 2.44 K/mm3 1.0-5.0 MONOCYTE # (test code=MO#) 1.51 K/mm3 0-0.8 EOSINOPHIL # (test code=EO#) 0.86 K/mm3 0.0-0.5 BASOPHIL # (test code=BA#) 0.12 K/mm3 0.0-0.2 NUCLEATED RBC # (test code=NRBC#) 0.00 K/mm3 0.0-0.1 MANUAL DIFF REQUIRED (test code=MDIFF) YES STAIN ACCEPTABILITY (test code=STN ACCEPTABLE) TOTAL CELLS COUNTED (test code=TCC) #CELLS SEGMENTED NEUTROPHILS (test code=SEG) % 39-69 LYMPHOCYTE (test code=LYMPH) % 25-55 MONOCYTE (test code=MON) % 0-10 MORPHOLOGY COMMENT (test code=MOC) PLATELET ESTIMATE (test code=PLTEST) PLATELET MORPHOLOGY (test code=PLTMORPH) Difficult draw, 2nd phleb to try [V.LAB.SE 12/26/19 7177]CBC W/MANUAL DIFF 2019-12-26 18:34:00* Test Item Value Reference Range Comments WHITE BLOOD CELL (test code=WBC) 20.3 K/mm3 4.5-12.5 RED BLOOD CELL (test code=RBC) 4.91 mill/mm3 4.0-5.8 HEMOGLOBIN (test code=HGB) 11.5 gram/dL 13.0-17.5 HEMATOCRIT (test code=HCT) 40.4 % 42.0-52.0 MEAN CELL VOLUME (test code=MCV) 82.3 fL 80-98 RESULT VERIFIED BY REPEAT ANALYSIS MEAN CELL HGB (test code=MCH) 23.4 picogram 27.0-33.0 MEAN CELL HGB CONCETRATION (test code=MCHC) 28.5 gram/dL 33.0-36.0 RED CELL DISTRIBUTION WIDTH (test code=RDW) 17.2 % 11.6-16.2 RED CELL DISTRIBUTION WIDTH SD (test code=RDW-SD) 50.8 fL 37.0-51.0 PLATELET COUNT (test code=PLT) 310 K/mm3 150-450 RESULT VERIFIED BY REPEAT ANALYSIS MEAN PLATELET VOLUME (test code=MPV) 12.5 fL 6.7-11.0 IMMATURE GRANULOCYTE % (test code=IG%) 0.9 % 0.0-5.0 NUCLEATED RBC % (test code=NRBC%) 0.0 % 0-0 NEUTROPHIL # (test code=NT#) 15.21 K/mm3 1.8-7.7 IMMATURE GRANULOCYTE # (test code=IG#) 0.18 x10 3/uL 0-0.03 LYMPHOCYTE # (test code=LY#) 2.44 K/mm3 1.0-5.0 MONOCYTE # (test code=MO#) 1.51 K/mm3 0-0.8 EOSINOPHIL # (test code=EO#) 0.86 K/mm3 0.0-0.5 BASOPHIL # (test code=BA#) 0.12 K/mm3 0.0-0.2 NUCLEATED RBC # (test code=NRBC#) 0.00 K/mm3 0.0-0.1 MANUAL DIFF REQUIRED (test code=MDIFF) YES STAIN ACCEPTABILITY (test code=STN ACCEPTABLE) TOTAL CELLS COUNTED (test code=TCC) #CELLS SEGMENTED NEUTROPHILS (test code=SEG) % 39-69 LYMPHOCYTE (test code=LYMPH) % 25-55 MONOCYTE (test code=MON) % 0-10 EOSINOPHIL (test code=EOS) % 0.0-5.0 CABOT RINGS (test code=CAB) MORPHOLOGY COMMENT (test code=MOC) PLATELET ESTIMATE (test code=PLTEST) PLATELET MORPHOLOGY (test code=PLTMORPH) Difficult draw, 2nd phleb to try [V.LAB.SE 12/26/19 5006]CBC W/MANUAL DIFF 2019-12-26 18:34:00* Test Item Value Reference Range Comments WHITE BLOOD CELL (test code=WBC) 20.3 K/mm3 4.5-12.5 RED BLOOD CELL (test code=RBC) 4.91 mill/mm3 4.0-5.8 HEMOGLOBIN (test code=HGB) 11.5 gram/dL 13.0-17.5 HEMATOCRIT (test code=HCT) 40.4 % 42.0-52.0 MEAN CELL VOLUME (test code=MCV) 82.3 fL 80-98 RESULT VERIFIED BY REPEAT ANALYSIS MEAN CELL HGB (test code=MCH) 23.4 picogram 27.0-33.0 MEAN CELL HGB CONCETRATION (test code=MCHC) 28.5 gram/dL 33.0-36.0 RED CELL DISTRIBUTION WIDTH (test code=RDW) 17.2 % 11.6-16.2 RED CELL DISTRIBUTION WIDTH SD (test code=RDW-SD) 50.8 fL 37.0-51.0 PLATELET COUNT (test code=PLT) 310 K/mm3 150-450 RESULT VERIFIED BY REPEAT ANALYSIS MEAN PLATELET VOLUME (test code=MPV) 12.5 fL 6.7-11.0 IMMATURE GRANULOCYTE % (test code=IG%) 0.9 % 0.0-5.0 NUCLEATED RBC % (test code=NRBC%) 0.0 % 0-0 NEUTROPHIL # (test code=NT#) 15.21 K/mm3 1.8-7.7 IMMATURE GRANULOCYTE # (test code=IG#) 0.18 x10 3/uL 0-0.03 LYMPHOCYTE # (test code=LY#) 2.44 K/mm3 1.0-5.0 MONOCYTE # (test code=MO#) 1.51 K/mm3 0-0.8 EOSINOPHIL # (test code=EO#) 0.86 K/mm3 0.0-0.5 BASOPHIL # (test code=BA#) 0.12 K/mm3 0.0-0.2 NUCLEATED RBC # (test code=NRBC#) 0.00 K/mm3 0.0-0.1 MANUAL DIFF REQUIRED (test code=MDIFF) YES STAIN ACCEPTABILITY (test code=STN ACCEPTABLE) TOTAL CELLS COUNTED (test code=TCC) #CELLS SEGMENTED NEUTROPHILS (test code=SEG) % 39-69 LYMPHOCYTE (test code=LYMPH) % 25-55 MONOCYTE (test code=MON) % 0-10 EOSINOPHIL (test code=EOS) % 0.0-5.0 MORPHOLOGY COMMENT (test code=MOC) PLATELET ESTIMATE (test code=PLTEST) PLATELET MORPHOLOGY (test code=PLTMORPH) Difficult draw, 2nd phleb to try [V.LAB.SE 12/26/19 4290]CBC W/MANUAL DIFF 2019-12-26 18:33:00* Test Item Value Reference Range Comments WHITE BLOOD CELL (test code=WBC) 20.3 K/mm3 4.5-12.5 RED BLOOD CELL (test code=RBC) 4.91 mill/mm3 4.0-5.8 HEMOGLOBIN (test code=HGB) 11.5 gram/dL 13.0-17.5 HEMATOCRIT (test code=HCT) 40.4 % 42.0-52.0 MEAN CELL VOLUME (test code=MCV) 82.3 fL 80-98 RESULT VERIFIED BY REPEAT ANALYSIS MEAN CELL HGB (test code=MCH) 23.4 picogram 27.0-33.0 MEAN CELL HGB CONCETRATION (test code=MCHC) 28.5 gram/dL 33.0-36.0 RED CELL DISTRIBUTION WIDTH (test code=RDW) 17.2 % 11.6-16.2 RED CELL DISTRIBUTION WIDTH SD (test code=RDW-SD) 50.8 fL 37.0-51.0 PLATELET COUNT (test code=PLT) 310 K/mm3 150-450 RESULT VERIFIED BY REPEAT ANALYSIS MEAN PLATELET VOLUME (test code=MPV) 12.5 fL 6.7-11.0 IMMATURE GRANULOCYTE % (test code=IG%) 0.9 % 0.0-5.0 NUCLEATED RBC % (test code=NRBC%) 0.0 % 0-0 NEUTROPHIL # (test code=NT#) 15.21 K/mm3 1.8-7.7 IMMATURE GRANULOCYTE # (test code=IG#) 0.18 x10 3/uL 0-0.03 LYMPHOCYTE # (test code=LY#) 2.44 K/mm3 1.0-5.0 MONOCYTE # (test code=MO#) 1.51 K/mm3 0-0.8 EOSINOPHIL # (test code=EO#) 0.86 K/mm3 0.0-0.5 BASOPHIL # (test code=BA#) 0.12 K/mm3 0.0-0.2 NUCLEATED RBC # (test code=NRBC#) 0.00 K/mm3 0.0-0.1 MANUAL DIFF REQUIRED (test code=MDIFF) YES STAIN ACCEPTABILITY (test code=STN ACCEPTABLE) TOTAL CELLS COUNTED (test code=TCC) #CELLS SEGMENTED NEUTROPHILS (test code=SEG) % 39-69 LYMPHOCYTE (test code=LYMPH) % 25-55 MONOCYTE (test code=MON) % 0-10 EOSINOPHIL (test code=EOS) % 0.0-5.0 CABOT RINGS (test code=CAB) MORPHOLOGY COMMENT (test code=MOC) PLATELET ESTIMATE (test code=PLTEST) PLATELET MORPHOLOGY (test code=PLTMORPH) Difficult draw, 2nd phleb to try [V.LAB.SE 12/26/19 5423]CBC W/MANUAL DIFF 2019-12-26 18:33:00* Test Item Value Reference Range Comments WHITE BLOOD CELL (test code=WBC) 20.3 K/mm3 4.5-12.5 RED BLOOD CELL (test code=RBC) 4.91 mill/mm3 4.0-5.8 HEMOGLOBIN (test code=HGB) 11.5 gram/dL 13.0-17.5 HEMATOCRIT (test code=HCT) 40.4 % 42.0-52.0 MEAN CELL VOLUME (test code=MCV) 82.3 fL 80-98 RESULT VERIFIED BY REPEAT ANALYSIS MEAN CELL HGB (test code=MCH) 23.4 picogram 27.0-33.0 MEAN CELL HGB CONCETRATION (test code=MCHC) 28.5 gram/dL 33.0-36.0 RED CELL DISTRIBUTION WIDTH (test code=RDW) 17.2 % 11.6-16.2 RED CELL DISTRIBUTION WIDTH SD (test code=RDW-SD) 50.8 fL 37.0-51.0 PLATELET COUNT (test code=PLT) 310 K/mm3 150-450 RESULT VERIFIED BY REPEAT ANALYSIS MEAN PLATELET VOLUME (test code=MPV) 12.5 fL 6.7-11.0 IMMATURE GRANULOCYTE % (test code=IG%) 0.9 % 0.0-5.0 NUCLEATED RBC % (test code=NRBC%) 0.0 % 0-0 NEUTROPHIL # (test code=NT#) 15.21 K/mm3 1.8-7.7 IMMATURE GRANULOCYTE # (test code=IG#) 0.18 x10 3/uL 0-0.03 LYMPHOCYTE # (test code=LY#) 2.44 K/mm3 1.0-5.0 MONOCYTE # (test code=MO#) 1.51 K/mm3 0-0.8 EOSINOPHIL # (test code=EO#) 0.86 K/mm3 0.0-0.5 BASOPHIL # (test code=BA#) 0.12 K/mm3 0.0-0.2 NUCLEATED RBC # (test code=NRBC#) 0.00 K/mm3 0.0-0.1 MANUAL DIFF REQUIRED (test code=MDIFF) YES STAIN ACCEPTABILITY (test code=STN ACCEPTABLE) TOTAL CELLS COUNTED (test code=TCC) #CELLS SEGMENTED NEUTROPHILS (test code=SEG) % 39-69 LYMPHOCYTE (test code=LYMPH) % 25-55 MONOCYTE (test code=MON) % 0-10 EOSINOPHIL (test code=EOS) % 0.0-5.0 CABOT RINGS (test code=CAB) MORPHOLOGY COMMENT (test code=MOC) PLATELET ESTIMATE (test code=PLTEST) PLATELET MORPHOLOGY (test code=PLTMORPH) Difficult draw, 2nd phleb to try [V.LAB.SE 12/26/19 1705]- XR ABDOMEN AP 1 V 2019-12-26 15:17:00 FAX: Lonnie Olson MD [phone] [place]: B St: [facility] FAX: Sarah Rg MD Name: CELESTINO MCALLISTER [facility] : 1970 Age/S: 49/M [address] [facility] Unit #: [id number] Loc: [address] [place] [address] Phys: Sarah Feliciano MD Acct: [id number] Dis Date: Status: ADM IN PHONE #: [phone] Exam Date: 12/26/2019 1452 FAX #: [phone] Reason: ASSESS PEGTUBE PLACEMENT EXAMS: CPT CODE: [id number] XR ABDOMEN AP 1 V 39512 HISTORY: ASSESS PEGTUBE PLACEMENT TECHNIQUE: AP abdomen x-ray COMPARISON: Abdominal radiograph July 11, 2019 FINDINGS: There is a percutaneous gastrostomy tube that coils within the stomach. There is gaseous distention of the small and large bowel. No acute bony abnormalities. Ventriculoperitoneal shunt catheter is seen in the right hemiabdomen. IMPRESSION: Percutaneous gastrostomy tube catheter coils within the stomach. Location: [facility] at 1517 Reported and signed by: Khoi Bell MD CC: Lonnie Olson MD; Sarah Feliciano MD Technologist: Angella Isaacs(R) Trnscrd Date/Time/By: 12/26/2019 (1517) : By: [email or web address] Orig Print D/T: S: 12/26/2019 (8023) PAGE 1 Signed Report BASIC METABOLIC [id number] 11:13:00* Test Item Value Reference Range Comments SODIUM (test code=NA) 142 mmol/L 136-145 POTASSIUM (test code=K) 4.5 mmol/L 3.5-5.1 CHLORIDE (test code=CL) 114.0 mmol/L 98-107 CARBON DIOXIDE (test code=CO2) 17.0 mmol/L 21-32 ANION GAP (test code=GAP) 15.5 10-20 GLUCOSE (test code=GLU) 85 mg/dL 74-106 BLOOD UREA NITROGEN (test code=BUN) 33 mg/dL 7-18 RESULT VERIFIED BY REPEAT ANALYSIS GLOMERULAR FILTRATION RATE (test code=GFR) > 60 mL/min >=60 Estimated GFR by using Modified MDRD formula.Chronic kidney disease is defined as either kidney damageor GFR <60 mL/min/1.73 m2 for >3 months. CREATININE (test code=CREAT) 1.20 mg/dL 0.7-1.3 BUN/CREATININE RATIO (test code=BUN/CREA) 27.5 10-20 CALCIUM (test code=CA) 8.4 mg/dL 8.5-10.1 [id number] 08:38:00* Test Item Value Reference Range Comments TROPONIN-I (test code=TROPI) <0.015 ng/mL 0-0.045 COMMENTS TO WORK ORDER CLERK: COLLECT 3 HOURS AFTER PREVIOUS [id number] 05:35:00* Test Item Value Reference Range Comments TROPONIN-I (test code=TROPI) <0.015 ng/mL 0-0.045 COMMENTS TO WORK ORDER CLERK: COLLECT 3 HOURS AFTER PREVIOUS SAMPLELACTIC [id number] 03:40:00* Test Item Value Reference Range Comments LACTIC ACID (test code=LACT) 1.6 mmol/L 0.4-1.9 - CTA [id number] 23:25:00 Name: CELESTINO MCALLISTER [facility] : 1970 Age/S: 49 / M [address] [facility] Unit #: [id number] Loc: [place] [address] Phys: Diandra Hernandez MD Acct: [id number] Dis Date: Status: ADM IN PHONE #: [phone] Exam Date: 12/25/20192303 FAX #: [phone] Reason: tachycardia EXAMS: CPT CODE: [id number] CTA CHEST 36851 Location: T18 Chest CTA , conducted on 12/25/19 TECHNIQUE: Chest CTA with and without contrast was performed on a helical scanner. 2D Coronal images acquired on the CT workstation system by the medical technologist microbiology. Axial scanning performed from thoracic inlet through diaphragms. 75 mL of Isovue 300 was administered for contrast. Vascular protocol performed . Scanning conducted in the axial plane with 2.5mm contiguous slice thickness. 3D volume rendering images also acquired by the interpreting radiologist using VITREA software provided on PAC system. This was acquired in various coronal planes . The examination was performed on a updated helical CT scanner utilizing low- dose radiation technique. Automatic exposure time was utilized to reduce radiation dose. CLINICAL HISTORY: Tachycardia. Chest pain COMPARISON EXAMS: None of the chest FINDINGS: No PE or acute aortic syndrome is seen. Tracheostomy tube is seen in situ. The tube appears well situated. No pneumothorax is identified in this patient. Patchy right upper lobe infiltrate of concern for pneumonia is identified. This is present and particularly posterior segment of the right upper lobe. Left lung is relatively clear. Small hiatal hernia noted. No significant pleural-based abnormality is seen. No cavitary lesion is seen No pathological mediastinal or hilar adenopathy is seen. Heart size within normal limits. No cardiac decompensation seen . Upper abdominal structures visualized are unremarkable. Radiopaque catheter noted in the stomach IMPRESSION: No PE Right upper lobe infiltrate of concern for pneumonia PAGE 1 Signed Report (CONTINUED) Name: CELESTINO MCALLISTER [facility] : 1970 Age/S: 49 / M [address] [facility] Unit #: [id number] Loc: [place] [address] Phys: Diandra Hernandez MD Acct: [id number] Dis Date: Status: ADM IN PHONE #: [phone] Exam Date: 020 2304 FAX #: [phone] Reason: tachycardia EXAMS: CPT CODE: [id number] CTA CHEST 10798 <Continued> Tracheostomy tube well situated without pneumothorax at 2327 Reported and signed by: Gerri Meraz M.D. CC: Lonnie Olson MD; Diandra Hernandez MD Technologist:RAFAEL ALVAREZ CT CTDI: DLP: Trnscb Date/Time: 12/25/2019 (5447) [email or web address] Orig Print D/T: S: 12/25/2019 (9090) PAGE 2 Signed Report CBC W/MANUAL [id number] 21:52:00* Test Item Value Reference Range Comments WHITE BLOOD CELL (test code=WBC) 26.9 K/mm3 4.5-12.5 RED BLOOD CELL (test code=RBC) 4.38 mill/mm3 4.0-5.8 HEMOGLOBIN (test code=HGB) 10.5 gram/dL 13.0-17.5 HEMATOCRIT (test code=HCT) 33.9 % 42.0-52.0 MEAN CELL VOLUME (test code=MCV) 77.4 fL 80-98 MEAN CELL HGB (test code=MCH) 24.0 picogram 27.0-33.0 MEAN CELL HGB CONCETRATION (test code=MCHC) 31.0 gram/dL 33.0-36.0 RED CELL DISTRIBUTION WIDTH (test code=RDW) 16.9 % 11.6-16.2 RED CELL DISTRIBUTION WIDTH SD (test code=RDW-SD) 47.4 fL 37.0-51.0 PLATELET COUNT (test code=PLT) 453 K/mm3 150-450 MEAN PLATELET VOLUME (test code=MPV) 12.3 fL 6.7-11.0 IMMATURE GRANULOCYTE % (test code=IG%) 1.2 % 0.0-5.0 NUCLEATED RBC % (test code=NRBC%) 0.0 % 0-0 NEUTROPHIL # (test code=NT#) 20.37 K/mm3 1.8-7.7 IMMATURE GRANULOCYTE # (test code=IG#) 0.31 x10 3/uL 0-0.03 LYMPHOCYTE # (test code=LY#) 3.19 K/mm3 1.0-5.0 MONOCYTE # (test code=MO#) 2.08 K/mm3 0-0.8 EOSINOPHIL # (test code=EO#) 0.81 K/mm3 0.0-0.5 BASOPHIL # (test code=BA#) 0.18 K/mm3 0.0-0.2 NUCLEATED RBC # (test code=NRBC#) 0.00 K/mm3 0.0-0.1 MANUAL DIFF REQUIRED (test code=MDIFF) YES STAIN ACCEPTABILITY (test code=STN ACCEPTABLE) STAIN ACCEPTABLE TOTAL CELLS COUNTED (test code=TCC) 115 #CELLS SEGMENTED NEUTROPHILS (test code=SEG) 70.4 % 39-69 BAND NEUTROPHIL (test code=BAND) 1.7 % 0-10 LYMPHOCYTE (test code=LYMPH) 12.2 % 25-55 REACTIVE LYMPH (test code=RELYMPH) 6.1 % MONOCYTE (test code=MON) 5.2 % 0-10 EOSINOPHIL (test code=EOS) 3.5 % 0.0-5.0 BASOPHIL (test code=BASO) 0 % 0-1.0 METAMYELOCYTE (test code=META) 0 % 0-0 MYELOCYTE (test code=MYELO) 0.9 % 0.0-0.0 PROMYELOCYTE (test code=PROM) 0 % 0-0 POLYCHROMASIA (test code=POLC) 1+ ANISOCYTOSIS (test code=ANISO) 1+ MICROCYTOSIS (test code=MICR) 1+ PLATELET ESTIMATE (test code=PLTEST) SLIGHTLY INCREASED PLATELET MORPHOLOGY (test code=PLTMORPH) SIZE VARIABLE IMMATURE FORMS (test code=IMMAT) 0 % 0-0 B-TYPE NATRIURETIC [id number] 21:49:00* Test Item Value Reference Range Comments B-TYPE NATRIURETIC PEPTIDE (test code=BNP) 8.56 pgram/mL 0-100 LACTIC [id number] 21:47:00* Test Item Value Reference Range Comments LACTIC ACID (test code=LACT) 1.8 mmol/L 0.4-1.9 URINALYSIS [id number] 21:46:00* Test Item Value Reference Range Comments UA COLOR (test code=COLU) YELLOW YELLOW UA APPEARANCE (test code=APPU) Cloudy CLEAR UA GLUCOSE DIPSTICK (test code=DGLUU) NEGATIVE mg/dL NEGATIVE UA BILIRUBIN DIPSTICK (test code=BILU) NEGATIVE mg/dL NEGATIVE UA KETONE DIPSTICK (test code=KETU) NEGATIVE mg/dL NEGATIVE UA SPECIFIC GRAVITY (test code=SGU) 1.021 1.001-1.035 UA BLOOD DIPSTICK (test code=TAMMY) 0.03 mg/dL (Trace) mg/dL NEGATIVE UA PH DIPSTICK (test code=PAULA) 6.5 5.0-8.0 UA PROTEIN DIPSTICK (test code=PROU) 70 (1+) mg/dL NEGATIVE UA UROBILINIOGEN DIPSTICK (test code=URO) Normal mg/dL NEGATIVE UA NITRITE DIPSTICK (test code=BECKI) NEGATIVE NEGATIVE UA LEUKOCYTE ESTERASE W REFLEX (test code=LEUUR) NEGATIVE Wilian/uL NEGATIVE UA WBC (test code=WBCU) 0-5 per HPF 0-5 UA RBC (test code=RBCU) 11-20 #/HPF 0-5 UA EPITHELIAL CELLS (test code=EPIU) FEW per HPF FEW UA BACTERIA (test code=BACU) MODERATE #/HPF NONE UA HYALINE CAST (test code=HYALU) 3-5 #/LPF 0-5 UA MUCUS (test code=MUCU) FEW #/LPF FEW UA AMORPHOUS SEDIMENT (test code=AMORU) FEW #/LPF Urine Source? Clean CatchBASIC METABOLIC [id number] 21:38:00* Test Item Value Reference Range Comments SODIUM (test code=NA) 140 mmol/L 136-145 POTASSIUM (test code=K) 4.1 mmol/L 3.5-5.1 CHLORIDE (test code=CL) 107.0 mmol/L 98-107 CARBON DIOXIDE (test code=CO2) 23.0 mmol/L 21-32 ANION GAP (test code=GAP) 14.1 10-20 GLUCOSE (test code=GLU) 96 mg/dL 74-106 BLOOD UREA NITROGEN (test code=BUN) 42 mg/dL 7-18 GLOMERULAR FILTRATION RATE (test code=GFR) > 60 mL/min >=60 Estimated GFR by using Modified MDRD formula.Chronic kidney disease is defined as either kidney damageor GFR <60 mL/min/1.73 m2 for >3 months. CREATININE (test code=CREAT) 1.40 mg/dL 0.7-1.3 BUN/CREATININE RATIO (test code=BUN/CREA) 30.0 10-20 CALCIUM (test code=CA) 9.0 mg/dL 8.5-10.1 HEPATIC FUNCTION [id number] 21:38:00* Test Item Value Reference Range Comments TOTAL PROTEIN (test code=PROT) 8.0 gram/dL 6.4-8.2 ALBUMIN (test code=ALB) 2.5 g/dL 3.4-5.0 GLOBULIN (test code=GLOB) 5.5 gram/dL 2.7-4.2 ALBUMIN/GLOBULIN RATIO (test code=A/G) 0.5 0.75-1.50 BILIRUBIN TOTAL (test code=BILT) 0.20 mg/dL 0.0-1.0 BILIRUBIN DIRECT (test code=BILD) 0.08 mg/dL 0.0-0.20 SGOT/AST (test code=AST) 49 IUnit/L 15-37 SGPT/ALT (test code=ALT) 45 IUnit/L 12-78 ALKALINE PHOSPHATASE TOTAL (test code=ALKP) 155 IUnit/L 45-117 Note change in reference range due to change in reagent. [id number] 21:38:00* Test Item Value Reference Range Comments LIPASE (test code=LIP) 29 U/L 73.0-393.0 [id number] 21:38:00* Test Item Value Reference Range Comments TROPONIN-I (test code=TROPI) <0.015 ng/mL 0-0.045 [id number] 21:38:00* Test Item Value Reference Range Comments GENTAMICIN (test code=GENT) 2.9 mg/mL 4-8.0 GENTAMICIN TOXIC LEVEL: >12 UG/ML PROTHROMBIN [id number] 21:27:00* Test Item Value Reference Range Comments PROTHROMBIN TIME PATIENT (test code=PTP) 14.8 seconds 9.0-14.0 INTERNATIONAL NORMAL RATIO (test code=INR) 1.3 0.8-1.2 The therapeutic range for oral anticoagulant therapy formost indications is an international normalized ratio (INR)of between 2.0 and 3.0. The recommended therapeutic INRrange for various clinical situations is listed below: Clinical Situation INR range Pulmonary e mbolism treatment (2.0-3.0)Venous thrombosis treatmentVenous thrombosis prophylaxis (high risk surgery)Prevention of systemic embolism from: Acute myocardial infarction Valvular heart disease Atrial fibrillation Mechanical prosthetic heart valves (2.5-3.5) IS PATIENT ON ANTICOAGULANTS? NTHROMBOPLASTIN TIME [id number] 21:27:00* Test Item Value Reference Range Comments THROMBOPLASTIN TIME PARTIAL (test code=PTT) 35.1 seconds 25.0-36.5 IS PATIENT ON ANTICOAGULANTS? NBASIC METABOLIC [id number] 21:26:00* Test Item Value Reference Range Comments SODIUM (test code=NA) 140 mmol/L 136-145 POTASSIUM (test code=K) 4.1 mmol/L 3.5-5.1 CHLORIDE (test code=CL) 107.0 mmol/L 98-107 CARBON DIOXIDE (test code=CO2) mmol/L 21-32 ANION GAP (test code=GAP) 10-20 GLUCOSE (test code=GLU) mg/dL 74-106 BLOOD UREA NITROGEN (test code=BUN) mg/dL 7-18 GLOMERULAR FILTRATION RATE (test code=GFR) mL/min >=60 CREATININE (test code=CREAT) mg/dL 0.7-1.3 BUN/CREATININE RATIO (test code=BUN/CREA) 10-20 CALCIUM (test code=CA) mg/dL 8.5-10.1 HEPATIC FUNCTION [id number] 21:26:00* Test Item Value Reference Range Comments TOTAL PROTEIN (test code=PROT) gram/dL 6.4-8.2 ALBUMIN (test code=ALB) g/dL 3.4-5.0 GLOBULIN (test code=GLOB) gram/dL 2.7-4.2 ALBUMIN/GLOBULIN RATIO (test code=A/G) 0.75-1.50 BILIRUBIN TOTAL (test code=BILT) mg/dL 0.0-1.0 BILIRUBIN DIRECT (test code=BILD) mg/dL 0.0-0.20 SGOT/AST (test code=AST) IUnit/L 15-37 SGPT/ALT (test code=ALT) IUnit/L 12-78 ALKALINE PHOSPHATASE TOTAL (test code=ALKP) IUnit/L 45-117 [id number] 21:26:00* Test Item Value Reference Range Comments LIPASE (test code=LIP) U/L 73.0-393.0 [id number] 21:26:00* Test Item Value Reference Range Comments TROPONIN-I (test code=TROPI) ng/mL 0-0.045 - XR CHEST 1 [id number] 21:16:00 FAX: Lonnie Olson MD [phone] [place]: B St: REG FAX: Diandra Dodson [phone] Name: CELESTINO MCALLISTER [facility] : 1970 Age/S: 49/M Isiah Ahuja Unit #: [id number] Loc: [place] [address] Phys: Diandra Hernandez MD Acct: [id number] Dis Date: Status: REG ER PHONE #: [phone] Exam Date: 12/25/20192054 FAX #: [phone] Reason: CODE SEPSIS EXAMS: CPT CODE: [id number] XR CHEST 1 V 42318 HISTORY: Sepsis. COMPARISON: June 12, 2019. Location: TH. Tracheostomy tube is above the lexi. No acute infiltrates, effusion or congestion is noted. Suboptimal inspiration with dependent changes and platelike atelectasis in the midlung on the right. Mild cardiomegaly. IMPRESSION: No acute infiltrates, effusion or congestion. Suboptimal inspiration. at 2115 Reported and signed by: Cristian Patel M.D. CC: Lonnie Olson MD; Diandra Hernandez MD Technologist: OSCAR QUACH RT; CHANDANA NEWMAN Trnnmrd Date/Time/By: 020 (2115) : By: [email or web address] Orig Print D/T: S: 12/25/2019 (2118) PAGE 1 Signed Report CBC W/MANUAL [id number] 21:14:00* Test Item Value Reference Range Comments WHITE BLOOD CELL (test code=WBC) 26.9 K/mm3 4.5-12.5 RED BLOOD CELL (test code=RBC) 4.38 mill/mm3 4.0-5.8 HEMOGLOBIN (test code=HGB) 10.5 gram/dL 13.0-17.5 HEMATOCRIT (test code=HCT) 33.9 % 42.0-52.0 MEAN CELL VOLUME (test code=MCV) 77.4 fL 80-98 MEAN CELL HGB (test code=MCH) 24.0 picogram 27.0-33.0 MEAN CELL HGB CONCETRATION (test code=MCHC) 31.0 gram/dL 33.0-36.0 RED CELL DISTRIBUTION WIDTH (test code=RDW) 16.9 % 11.6-16.2 RED CELL DISTRIBUTION WIDTH SD (test code=RDW-SD) 47.4 fL 37.0-51.0 PLATELET COUNT (test code=PLT) 453 K/mm3 150-450 MEAN PLATELET VOLUME (test code=MPV) 12.3 fL 6.7-11.0 IMMATURE GRANULOCYTE % (test code=IG%) 1.2 % 0.0-5.0 NUCLEATED RBC % (test code=NRBC%) 0.0 % 0-0 NEUTROPHIL # (test code=NT#) 20.37 K/mm3 1.8-7.7 IMMATURE GRANULOCYTE # (test code=IG#) 0.31 x10 3/uL 0-0.03 LYMPHOCYTE # (test code=LY#) 3.19 K/mm3 1.0-5.0 MONOCYTE # (test code=MO#) 2.08 K/mm3 0-0.8 EOSINOPHIL # (test code=EO#) 0.81 K/mm3 0.0-0.5 BASOPHIL # (test code=BA#) 0.18 K/mm3 0.0-0.2 NUCLEATED RBC # (test code=NRBC#) 0.00 K/mm3 0.0-0.1 MANUAL DIFF REQUIRED (test code=MDIFF) YES STAIN ACCEPTABILITY (test code=STN ACCEPTABLE) TOTAL CELLS COUNTED (test code=TCC) #CELLS SEGMENTED NEUTROPHILS (test code=SEG) % 39-69 LYMPHOCYTE (test code=LYMPH) % 25-55 MONOCYTE (test code=MON) % 0-10 MORPHOLOGY COMMENT (test code=MOC) PLATELET ESTIMATE (test code=PLTEST) PLATELET MORPHOLOGY (test code=PLTMORPH) CBC W/MANUAL [id number] 21:12:00* Test Item Value Reference Range Comments WHITE BLOOD CELL (test code=WBC) 26.9 K/mm3 4.5-12.5 RED BLOOD CELL (test code=RBC) 4.38 mill/mm3 4.0-5.8 HEMOGLOBIN (test code=HGB) 10.5 gram/dL 13.0-17.5 HEMATOCRIT (test code=HCT) 33.9 % 42.0-52.0 MEAN CELL VOLUME (test code=MCV) 77.4 fL 80-98 MEAN CELL HGB (test code=MCH) 24.0 picogram 27.0-33.0 MEAN CELL HGB CONCETRATION (test code=MCHC) 31.0 gram/dL 33.0-36.0 RED CELL DISTRIBUTION WIDTH (test code=RDW) 16.9 % 11.6-16.2 RED CELL DISTRIBUTION WIDTH SD (test code=RDW-SD) 47.4 fL 37.0-51.0 PLATELET COUNT (test code=PLT) 453 K/mm3 150-450 MEAN PLATELET VOLUME (test code=MPV) 12.3 fL 6.7-11.0 IMMATURE GRANULOCYTE % (test code=IG%) 1.2 % 0.0-5.0 NUCLEATED RBC % (test code=NRBC%) 0.0 % 0-0 NEUTROPHIL # (test code=NT#) 20.37 K/mm3 1.8-7.7 IMMATURE GRANULOCYTE # (test code=IG#) 0.31 x10 3/uL 0-0.03 LYMPHOCYTE # (test code=LY#) 3.19 K/mm3 1.0-5.0 MONOCYTE # (test code=MO#) 2.08 K/mm3 0-0.8 EOSINOPHIL # (test code=EO#) 0.81 K/mm3 0.0-0.5 BASOPHIL # (test code=BA#) 0.18 K/mm3 0.0-0.2 NUCLEATED RBC # (test code=NRBC#) 0.00 K/mm3 0.0-0.1 MANUAL DIFF REQUIRED (test code=MDIFF) YES STAIN ACCEPTABILITY (test code=STN ACCEPTABLE) TOTAL CELLS COUNTED (test code=TCC) #CELLS SEGMENTED NEUTROPHILS (test code=SEG) % 39-69 LYMPHOCYTE (test code=LYMPH) % 25-55 MONOCYTE (test code=MON) % 0-10 EOSINOPHIL (test code=EOS) % 0.0-5.0 CABOT RINGS (test code=CAB) MORPHOLOGY COMMENT (test code=MOC) PLATELET ESTIMATE (test code=PLTEST) PLATELET MORPHOLOGY (test code=PLTMORPH) CBC W/MANUAL [id number] 21:12:00* Test Item Value Reference Range Comments WHITE BLOOD CELL (test code=WBC) 26.9 K/mm3 4.5-12.5 RED BLOOD CELL (test code=RBC) 4.38 mill/mm3 4.0-5.8 HEMOGLOBIN (test code=HGB) 10.5 gram/dL 13.0-17.5 HEMATOCRIT (test code=HCT) 33.9 % 42.0-52.0 MEAN CELL VOLUME (test code=MCV) 77.4 fL 80-98 MEAN CELL HGB (test code=MCH) 24.0 picogram 27.0-33.0 MEAN CELL HGB CONCETRATION (test code=MCHC) 31.0 gram/dL 33.0-36.0 RED CELL DISTRIBUTION WIDTH (test code=RDW) 16.9 % 11.6-16.2 RED CELL DISTRIBUTION WIDTH SD (test code=RDW-SD) 47.4 fL 37.0-51.0 PLATELET COUNT (test code=PLT) 453 K/mm3 150-450 MEAN PLATELET VOLUME (test code=MPV) 12.3 fL 6.7-11.0 IMMATURE GRANULOCYTE % (test code=IG%) 1.2 % 0.0-5.0 NUCLEATED RBC % (test code=NRBC%) 0.0 % 0-0 NEUTROPHIL # (test code=NT#) 20.37 K/mm3 1.8-7.7 IMMATURE GRANULOCYTE # (test code=IG#) 0.31 x10 3/uL 0-0.03 LYMPHOCYTE # (test code=LY#) 3.19 K/mm3 1.0-5.0 MONOCYTE # (test code=MO#) 2.08 K/mm3 0-0.8 EOSINOPHIL # (test code=EO#) 0.81 K/mm3 0.0-0.5 BASOPHIL # (test code=BA#) 0.18 K/mm3 0.0-0.2 NUCLEATED RBC # (test code=NRBC#) 0.00 K/mm3 0.0-0.1 MANUAL DIFF REQUIRED (test code=MDIFF) YES STAIN ACCEPTABILITY (test code=STN ACCEPTABLE) TOTAL CELLS COUNTED (test code=TCC) #CELLS SEGMENTED NEUTROPHILS (test code=SEG) % 39-69 LYMPHOCYTE (test code=LYMPH) % 25-55 MONOCYTE (test code=MON) % 0-10 EOSINOPHIL (test code=EOS) % 0.0-5.0 MORPHOLOGY COMMENT (test code=MOC) PLATELET ESTIMATE (test code=PLTEST) PLATELET MORPHOLOGY (test code=PLTMORPH) CBC W/MANUAL [id number] 21:11:00* Test Item Value Reference Range Comments WHITE BLOOD CELL (test code=WBC) 26.9 K/mm3 4.5-12.5 RED BLOOD CELL (test code=RBC) 4.38 mill/mm3 4.0-5.8 HEMOGLOBIN (test code=HGB) 10.5 gram/dL 13.0-17.5 HEMATOCRIT (test code=HCT) 33.9 % 42.0-52.0 MEAN CELL VOLUME (test code=MCV) 77.4 fL 80-98 MEAN CELL HGB (test code=MCH) 24.0 picogram 27.0-33.0 MEAN CELL HGB CONCETRATION (test code=MCHC) 31.0 gram/dL 33.0-36.0 RED CELL DISTRIBUTION WIDTH (test code=RDW) 16.9 % 11.6-16.2 RED CELL DISTRIBUTION WIDTH SD (test code=RDW-SD) 47.4 fL 37.0-51.0 PLATELET COUNT (test code=PLT) 453 K/mm3 150-450 MEAN PLATELET VOLUME (test code=MPV) 12.3 fL 6.7-11.0 IMMATURE GRANULOCYTE % (test code=IG%) 1.2 % 0.0-5.0 NUCLEATED RBC % (test code=NRBC%) 0.0 % 0-0 NEUTROPHIL # (test code=NT#) 20.37 K/mm3 1.8-7.7 IMMATURE GRANULOCYTE # (test code=IG#) 0.31 x10 3/uL 0-0.03 LYMPHOCYTE # (test code=LY#) 3.19 K/mm3 1.0-5.0 MONOCYTE # (test code=MO#) 2.08 K/mm3 0-0.8 EOSINOPHIL # (test code=EO#) 0.81 K/mm3 0.0-0.5 BASOPHIL # (test code=BA#) 0.18 K/mm3 0.0-0.2 NUCLEATED RBC # (test code=NRBC#) 0.00 K/mm3 0.0-0.1 MANUAL DIFF REQUIRED (test code=MDIFF) YES STAIN ACCEPTABILITY (test code=STN ACCEPTABLE) TOTAL CELLS COUNTED (test code=TCC) #CELLS SEGMENTED NEUTROPHILS (test code=SEG) % 39-69 LYMPHOCYTE (test code=LYMPH) % 25-55 MONOCYTE (test code=MON) % 0-10 EOSINOPHIL (test code=EOS) % 0.0-5.0 CABOT RINGS (test code=CAB) MORPHOLOGY COMMENT (test code=MOC) PLATELET ESTIMATE (test code=PLTEST) PLATELET MORPHOLOGY (test code=PLTMORPH) CBC W/MANUAL [id number] 21:11:00* Test Item Value Reference Range Comments WHITE BLOOD CELL (test code=WBC) 26.9 K/mm3 4.5-12.5 RED BLOOD CELL (test code=RBC) 4.38 mill/mm3 4.0-5.8 HEMOGLOBIN (test code=HGB) 10.5 gram/dL 13.0-17.5 HEMATOCRIT (test code=HCT) 33.9 % 42.0-52.0 MEAN CELL VOLUME (test code=MCV) 77.4 fL 80-98 MEAN CELL HGB (test code=MCH) 24.0 picogram 27.0-33.0 MEAN CELL HGB CONCETRATION (test code=MCHC) 31.0 gram/dL 33.0-36.0 RED CELL DISTRIBUTION WIDTH (test code=RDW) 16.9 % 11.6-16.2 RED CELL DISTRIBUTION WIDTH SD (test code=RDW-SD) 47.4 fL 37.0-51.0 PLATELET COUNT (test code=PLT) 453 K/mm3 150-450 MEAN PLATELET VOLUME (test code=MPV) 12.3 fL 6.7-11.0 IMMATURE GRANULOCYTE % (test code=IG%) 1.2 % 0.0-5.0 NUCLEATED RBC % (test code=NRBC%) 0.0 % 0-0 NEUTROPHIL # (test code=NT#) 20.37 K/mm3 1.8-7.7 IMMATURE GRANULOCYTE # (test code=IG#) 0.31 x10 3/uL 0-0.03 LYMPHOCYTE # (test code=LY#) 3.19 K/mm3 1.0-5.0 MONOCYTE # (test code=MO#) 2.08 K/mm3 0-0.8 EOSINOPHIL # (test code=EO#) 0.81 K/mm3 0.0-0.5 BASOPHIL # (test code=BA#) 0.18 K/mm3 0.0-0.2 NUCLEATED RBC # (test code=NRBC#) 0.00 K/mm3 0.0-0.1 MANUAL DIFF REQUIRED (test code=MDIFF) YES STAIN ACCEPTABILITY (test code=STN ACCEPTABLE) TOTAL CELLS COUNTED (test code=TCC) #CELLS SEGMENTED NEUTROPHILS (test code=SEG) % 39-69 LYMPHOCYTE (test code=LYMPH) % 25-55 MONOCYTE (test code=MON) % 0-10 EOSINOPHIL (test code=EOS) % 0.0-5.0 CABOT RINGS (test code=CAB) MORPHOLOGY COMMENT (test code=MOC) PLATELET ESTIMATE (test code=PLTEST) PLATELET MORPHOLOGY (test code=PLTMORPH) - CVRT GASTR TO GSJEJ [id number] 14:43:00 Name: CELESTINO MCALLISTER [facility] : 1970 Age/S: 49 / M [address] [facility] Unit #: [id number] Loc: [place] [address] Phys: Mo Sanchez MD Acct: [id number] Dis Date: Status: REG [facility] PHONE #: [phone] Exam Date: 07/11/2019 1150 FAX #: [phone] Reason: / EXAMS: CPT CODE: [id number] CVRT GASTR TO [facility]JE[facility] TUBE [id number] Fluoro Time: 391 DAP (Gy m2): 13.7 Air Kerma (mGy): 124 REASON FOR EXAM:Aspiration pneumonia PROCEDURE: Conversion of existing G-tube into GJ tube FINDINGS: Prior to the procedure, informed consent was obtained. The patient was brought to special procedures and placed supine on the table. The abdomen was prepped was draped in the usual fashion. All elements of maximal sterile barrier techniques were applied contrast injected into the existing gastrostomy tube show opacification of the gastric antrum and the pylorus. A Dillard catheter was advanced into the gastric antrum. After some manipulation, the guidewire successfully advanced into the jejunum. A new 22 Croatian gastrojejunostomy tube was then advanced over the guidewire with the distal tip positioned within the jejunum. There is good aspiration from the catheter is ready for use. The retention balloon was inflated. MEDICATIONS: None COMPLICATIONS: None Blood loss: None Fluoroscopic time: 91 seconds Radiation dose: 124 mGy IMPRESSION: Technically successful conversion of existing G-tube into a 22 Croatian GJ tube. at 4258 Reported and signed by: Reg Jordan M.D. CC: Lonnie Olson MD; Mo Sanchez MD Technologist: MOHAN [facility] Trnscb Date/Time: 07/11/2019 (0713) [email or web address] Orig Print D/T: S: 07/11/2019 (2504) PAGE 1 Signed Report - XR ABDOMEN AP 1 [id number] 13:01:00 FAX: Lonnie Olson MD [phone] [place]: St: REG FAX: Y Mo Sanchez [phone] Name: CELESTINO MCALLISTER [facility] : 1970 Age/S: 49/M [address] [facility] Unit #: [id number] Loc: [place] [address] Phys: Reg Jordan MD Acct: [id number] Dis Date: Status: REG [facility] PHONE #: [phone] Exam Date: 07/11/2019 1228 FAX #: [phone] Reason: S/P 22FR GJ TUBE PLAC EMENT EXAMS: CPT CODE: [id number] XR ABDOMEN AP 1 V [id number] REASON FOR EXAM: S/P 22FR GJ TUBE PLACEMENT EXAM O RDER DATE: 07/11/2019 12:00 AM Attending Damaris: Reg Jordan MD PROCEDURE: - XR ABDOMEN AP 1 V COMPARISON: FINDINGS: One view of the abdomen obtained at 4:25 PM. Scattered fecal ma terial is seen in the colon. The small bowel is unremarkable. No evidenc e of organomegaly or evidence of ascites. No evidence of free air. IMPRESSION: Newly placed gastrojejunostomy tube tip is in the jejunum. at 1301 Reported and signed by: Reg Jordan M.D. CC: Lonnie Olson MD; Mo Sanchez MD Technologist: RT JUSTIN(R) Trnscrd Date/Time/By: 07/11/2019 (2 301) : By: [email or web address] Orig Print D/T: S: 07/11/2019 (7171) PAGE 1 Signed Report [id number] 12:27:00* Test Item Value Reference Range Comments GLUBED (test code=GLUBED) 98 mg/dL 74-106 Performed by certified steel spar operator at [facility] CBC W/AUTO [id number] 08:24:00* Test Item Value Reference Range Comments WHITE BLOOD CELL (test code=WBC) 20.3 K/mm3 4.5-12.5 RED BLOOD CELL (test code=RBC) 4.13 mill/mm3 4.0-5.8 HEMOGLOBIN (test code=HGB) 9.7 gram/dL 13.0-17.5 HEMATOCRIT (test code=HCT) 32.5 % 42.0-52.0 MEAN CELL VOLUME (test code=MCV) 78.7 fL 80-98 MEAN CELL HGB (test code=MCH) 23.5 picogram 27.0-33.0 MEAN CELL HGB CONCETRATION (test code=MCHC) 29.8 gram/dL 33.0-36.0 RED CELL DISTRIBUTION WIDTH (test code=RDW) 17.3 % 11.6-16.2 RED CELL DISTRIBUTION WIDTH SD (test code=RDW-SD) 49.0 fL 37.0-51.0 PLATELET COUNT (test code=PLT) 567 K/mm3 150-450 MEAN PLATELET VOLUME (test code=MPV) 12.0 fL 6.7-11.0 NEUTROPHIL % (test code=NT%) 71.5 % 39.0-69.0 IMMATURE GRANULOCYTE % (test code=IG%) 0.9 % 0.0-5.0 LYMPHOCYTE % (test code=LY%) 13.6 % 25.0-55.0 MONOCYTE % (test code=MO%) 7.4 % 0.0-10.0 EOSINOPHIL % (test code=EO%) 5.6 % 0.0-5.0 BASOPHIL % (test code=BA%) 1.0 % 0.0-1.0 NUCLEATED RBC % (test code=NRBC%) 0.0 % 0-0 NEUTROPHIL # (test code=NT#) 14.49 K/mm3 1.8-7.7 IMMATURE GRANULOCYTE # (test code=IG#) 0.19 x10 3/uL 0-0.03 LYMPHOCYTE # (test code=LY#) 2.75 K/mm3 1.0-5.0 MONOCYTE # (test code=MO#) 1.51 K/mm3 0-0.8 EOSINOPHIL # (test code=EO#) 1.14 K/mm3 0.0-0.5 BASOPHIL # (test code=BA#) 0.20 K/mm3 0.0-0.2 NUCLEATED RBC # (test code=NRBC#) 0.00 K/mm3 0.0-0.1 MANUAL DIFF REQUIRED (test code=MDIFF) NO, ONLY SCAN NEEDED DIFFERENTIAL [id number] 08:24:00* Test Item Value Reference Range Comments STAIN ACCEPTABILITY (test code=STN ACCEPTABLE) STAIN ACCEPTABLE POLYCHROMASIA (test code=POLC) 2+ POIKILOCYTOSIS (test code=POIK) 2+ ANISOCYTOSIS (test code=ANISO) 1+ ARJUN CELLS (test code=ARJUN) 1+ NONE PLATELET ESTIMATE (test code=PLTEST) INCREASED PLATELET MORPHOLOGY (test code=PLTMORPH) NORMAL PROCALCITONIN (PCT)2019-06-23 08:18:00* Test Item Value Reference Range Comments PROCALCITONIN (PCT) (test code=PROCAL) 0.19 ng/ml Concentration Interpretation (ng/mL) <0.51 Sepsis is not likely. Local bacterial infection is possible. (LOW RISK for progression to Sepsis) 0.51 - 2.00 Sepsis is possible, but other conditions are known to elevate PCT as well. (MODERATE RISK for progression to Sepsis) > 2.00 Sepsis is likely, unless other causes are known. (HIGH RISK for progression to Severe Sepsis or Septic Shock) 10.00 High likelihood of Severe Sepsis or Septic or higher Shock. *Increased PCT levels may not always be related to systemic bacterial infection.*Low PCT levels do not automatically exclude the presence of bacterial infection.*All results should be interpreted taking into account the patients history. COMPREHENSIVE METABOLIC [id number] 08:11:00* Test Item Value Reference Range Comments SODIUM (test code=NA) 138 mmol/L 136-145 POTASSIUM (test code=K) 4.6 mmol/L 3.5-5.1 CHLORIDE (test code=CL) 104.0 mmol/L 98-107 CARBON DIOXIDE (test code=CO2) 21.0 mmol/L 21-32 ANION GAP (test code=GAP) 17.6 10-20 GLUCOSE (test code=GLU) 93 mg/dL 74-106 BLOOD UREA NITROGEN (test code=BUN) 22 mg/dL 7-18 GLOMERULAR FILTRATION RATE (test code=GFR) > 60 mL/min >=60 Estimated GFR by using Modified MDRD formula.Chronic kidney disease is defined as either kidney damageor GFR <60 mL/min/1.73 m2 for >3 months. CREATININE (test code=CREAT) 0.70 mg/dL 0.7-1.3 BUN/CREATININE RATIO (test code=BUN/CREA) 30.3 10-20 TOTAL PROTEIN (test code=PROT) 7.2 gram/dL 6.4-8.2 ALBUMIN (test code=ALB) 3.0 g/dL 3.4-5.0 GLOBULIN (test code=GLOB) 4.2 gram/dL 2.7-4.2 ALBUMIN/GLOBULIN RATIO (test code=A/G) 0.7 0.75-1.50 CALCIUM (test code=CA) 9.7 mg/dL 8.5-10.1 BILIRUBIN TOTAL (test code=BILT) 0.20 mg/dL 0.0-1.0 SGOT/AST (test code=AST) 57 IUnit/L 15-37 SGPT/ALT (test code=ALT) 100 IUnit/L 12-78 ALKALINE PHOSPHATASE TOTAL (test code=ALKP) 162 IUnit/L 45-117 Note change in reference range due to change in reagent. [id number] 08:11:00* Test Item Value Reference Range Comments MAGNESIUM (test code=MAG) 2.3 mg/dL 1.8-2.4 COMPREHENSIVE METABOLIC [id number] 07:59:00* Test Item Value Reference Range Comments SODIUM (test code=NA) 138 mmol/L 136-145 POTASSIUM (test code=K) 4.6 mmol/L 3.5-5.1 CHLORIDE (test code=CL) 104.0 mmol/L 98-107 CARBON DIOXIDE (test code=CO2) mmol/L 21-32 ANION GAP (test code=GAP) 10-20 GLUCOSE (test code=GLU) mg/dL 74-106 BLOOD UREA NITROGEN (test code=BUN) mg/dL 7-18 GLOMERULAR FILTRATION RATE (test code=GFR) mL/min >=60 CREATININE (test code=CREAT) mg/dL 0.7-1.3 BUN/CREATININE RATIO (test code=BUN/CREA) 10-20 TOTAL PROTEIN (test code=PROT) gram/dL 6.4-8.2 ALBUMIN (test code=ALB) g/dL 3.4-5.0 GLOBULIN (test code=GLOB) gram/dL 2.7-4.2 ALBUMIN/GLOBULIN RATIO (test code=A/G) 0.75-1.50 CALCIUM (test code=CA) mg/dL 8.5-10.1 BILIRUBIN TOTAL (test code=BILT) mg/dL 0.0-1.0 SGOT/AST (test code=AST) IUnit/L 15-37 SGPT/ALT (test code=ALT) IUnit/L 12-78 ALKALINE PHOSPHATASE TOTAL (test code=ALKP) IUnit/L 45-117 [id number] 07:59:00* Test Item Value Reference Range Comments MAGNESIUM (test code=MAG) mg/dL 1.8-2.4 CBC W/AUTO [id number] 07:46:00* Test Item Value Reference Range Comments WHITE BLOOD CELL (test code=WBC) 20.3 K/mm3 4.5-12.5 RED BLOOD CELL (test code=RBC) 4.13 mill/mm3 4.0-5.8 HEMOGLOBIN (test code=HGB) 9.7 gram/dL 13.0-17.5 HEMATOCRIT (test code=HCT) 32.5 % 42.0-52.0 MEAN CELL VOLUME (test code=MCV) 78.7 fL 80-98 MEAN CELL HGB (test code=MCH) 23.5 picogram 27.0-33.0 MEAN CELL HGB CONCETRATION (test code=MCHC) 29.8 gram/dL 33.0-36.0 RED CELL DISTRIBUTION WIDTH (test code=RDW) 17.3 % 11.6-16.2 RED CELL DISTRIBUTION WIDTH SD (test code=RDW-SD) 49.0 fL 37.0-51.0 PLATELET COUNT (test code=PLT) 567 K/mm3 150-450 MEAN PLATELET VOLUME (test code=MPV) 12.0 fL 6.7-11.0 NEUTROPHIL % (test code=NT%) 71.5 % 39.0-69.0 IMMATURE GRANULOCYTE % (test code=IG%) 0.9 % 0.0-5.0 LYMPHOCYTE % (test code=LY%) 13.6 % 25.0-55.0 MONOCYTE % (test code=MO%) 7.4 % 0.0-10.0 EOSINOPHIL % (test code=EO%) 5.6 % 0.0-5.0 BASOPHIL % (test code=BA%) 1.0 % 0.0-1.0 NUCLEATED RBC % (test code=NRBC%) 0.0 % 0-0 NEUTROPHIL # (test code=NT#) 14.49 K/mm3 1.8-7.7 IMMATURE GRANULOCYTE # (test code=IG#) 0.19 x10 3/uL 0-0.03 LYMPHOCYTE # (test code=LY#) 2.75 K/mm3 1.0-5.0 MONOCYTE # (test code=MO#) 1.51 K/mm3 0-0.8 EOSINOPHIL # (test code=EO#) 1.14 K/mm3 0.0-0.5 BASOPHIL # (test code=BA#) 0.20 K/mm3 0.0-0.2 NUCLEATED RBC # (test code=NRBC#) 0.00 K/mm3 0.0-0.1 MANUAL DIFF REQUIRED (test code=MDIFF) NO, ONLY SCAN NEEDED DIFFERENTIAL [id number] 07:46:00* Test Item Value Reference Range Comments STAIN ACCEPTABILITY (test code=STN ACCEPTABLE) CABOT RINGS (test code=CAB) MORPHOLOGY COMMENT (test code=MOC) PLATELET ESTIMATE (test code=PLTEST) PLATELET MORPHOLOGY (test code=PLTMORPH) CBC W/AUTO [id number] 07:46:00* Test Item Value Reference Range Comments WHITE BLOOD CELL (test code=WBC) 20.3 K/mm3 4.5-12.5 RED BLOOD CELL (test code=RBC) 4.13 mill/mm3 4.0-5.8 HEMOGLOBIN (test code=HGB) 9.7 gram/dL 13.0-17.5 HEMATOCRIT (test code=HCT) 32.5 % 42.0-52.0 MEAN CELL VOLUME (test code=MCV) 78.7 fL 80-98 MEAN CELL HGB (test code=MCH) 23.5 picogram 27.0-33.0 MEAN CELL HGB CONCETRATION (test code=MCHC) 29.8 gram/dL 33.0-36.0 RED CELL DISTRIBUTION WIDTH (test code=RDW) 17.3 % 11.6-16.2 RED CELL DISTRIBUTION WIDTH SD (test code=RDW-SD) 49.0 fL 37.0-51.0 PLATELET COUNT (test code=PLT) 567 K/mm3 150-450 MEAN PLATELET VOLUME (test code=MPV) 12.0 fL 6.7-11.0 NEUTROPHIL % (test code=NT%) 71.5 % 39.0-69.0 IMMATURE GRANULOCYTE % (test code=IG%) 0.9 % 0.0-5.0 LYMPHOCYTE % (test code=LY%) 13.6 % 25.0-55.0 MONOCYTE % (test code=MO%) 7.4 % 0.0-10.0 EOSINOPHIL % (test code=EO%) 5.6 % 0.0-5.0 BASOPHIL % (test code=BA%) 1.0 % 0.0-1.0 NUCLEATED RBC % (test code=NRBC%) 0.0 % 0-0 NEUTROPHIL # (test code=NT#) 14.49 K/mm3 1.8-7.7 IMMATURE GRANULOCYTE # (test code=IG#) 0.19 x10 3/uL 0-0.03 LYMPHOCYTE # (test code=LY#) 2.75 K/mm3 1.0-5.0 MONOCYTE # (test code=MO#) 1.51 K/mm3 0-0.8 EOSINOPHIL # (test code=EO#) 1.14 K/mm3 0.0-0.5 BASOPHIL # (test code=BA#) 0.20 K/mm3 0.0-0.2 NUCLEATED RBC # (test code=NRBC#) 0.00 K/mm3 0.0-0.1 MANUAL DIFF REQUIRED (test code=MDIFF) NO, ONLY SCAN NEEDED DIFFERENTIAL [id number] 07:46:00* Test Item Value Reference Range Comments STAIN ACCEPTABILITY (test code=STN ACCEPTABLE) CABOT RINGS (test code=CAB) MORPHOLOGY COMMENT (test code=MOC) PLATELET ESTIMATE (test code=PLTEST) PLATELET MORPHOLOGY (test code=PLTMORPH) CBC W/AUTO [id number] 07:46:00* Test Item Value Reference Range Comments WHITE BLOOD CELL (test code=WBC) 20.3 K/mm3 4.5-12.5 RED BLOOD CELL (test code=RBC) 4.13 mill/mm3 4.0-5.8 HEMOGLOBIN (test code=HGB) 9.7 gram/dL 13.0-17.5 HEMATOCRIT (test code=HCT) 32.5 % 42.0-52.0 MEAN CELL VOLUME (test code=MCV) 78.7 fL 80-98 MEAN CELL HGB (test code=MCH) 23.5 picogram 27.0-33.0 MEAN CELL HGB CONCETRATION (test code=MCHC) 29.8 gram/dL 33.0-36.0 RED CELL DISTRIBUTION WIDTH (test code=RDW) 17.3 % 11.6-16.2 RED CELL DISTRIBUTION WIDTH SD (test code=RDW-SD) 49.0 fL 37.0-51.0 PLATELET COUNT (test code=PLT) 567 K/mm3 150-450 MEAN PLATELET VOLUME (test code=MPV) 12.0 fL 6.7-11.0 NEUTROPHIL % (test code=NT%) 71.5 % 39.0-69.0 IMMATURE GRANULOCYTE % (test code=IG%) 0.9 % 0.0-5.0 LYMPHOCYTE % (test code=LY%) 13.6 % 25.0-55.0 MONOCYTE % (test code=MO%) 7.4 % 0.0-10.0 EOSINOPHIL % (test code=EO%) 5.6 % 0.0-5.0 BASOPHIL % (test code=BA%) 1.0 % 0.0-1.0 NUCLEATED RBC % (test code=NRBC%) 0.0 % 0-0 NEUTROPHIL # (test code=NT#) 14.49 K/mm3 1.8-7.7 IMMATURE GRANULOCYTE # (test code=IG#) 0.19 x10 3/uL 0-0.03 LYMPHOCYTE # (test code=LY#) 2.75 K/mm3 1.0-5.0 MONOCYTE # (test code=MO#) 1.51 K/mm3 0-0.8 EOSINOPHIL # (test code=EO#) 1.14 K/mm3 0.0-0.5 BASOPHIL # (test code=BA#) 0.20 K/mm3 0.0-0.2 NUCLEATED RBC # (test code=NRBC#) 0.00 K/mm3 0.0-0.1 MANUAL DIFF REQUIRED (test code=MDIFF) NO, ONLY SCAN NEEDED DIFFERENTIAL [id number] 07:46:00* Test Item Value Reference Range Comments STAIN ACCEPTABILITY (test code=STN ACCEPTABLE) MORPHOLOGY COMMENT (test code=MOC) PLATELET ESTIMATE (test code=PLTEST) PLATELET MORPHOLOGY (test code=PLTMORPH) CBC W/AUTO [id number] 07:46:00* Test Item Value Reference Range Comments WHITE BLOOD CELL (test code=WBC) 20.3 K/mm3 4.5-12.5 RED BLOOD CELL (test code=RBC) 4.13 mill/mm3 4.0-5.8 HEMOGLOBIN (test code=HGB) 9.7 gram/dL 13.0-17.5 HEMATOCRIT (test code=HCT) 32.5 % 42.0-52.0 MEAN CELL VOLUME (test code=MCV) 78.7 fL 80-98 MEAN CELL HGB (test code=MCH) 23.5 picogram 27.0-33.0 MEAN CELL HGB CONCETRATION (test code=MCHC) 29.8 gram/dL 33.0-36.0 RED CELL DISTRIBUTION WIDTH (test code=RDW) 17.3 % 11.6-16.2 RED CELL DISTRIBUTION WIDTH SD (test code=RDW-SD) 49.0 fL 37.0-51.0 PLATELET COUNT (test code=PLT) 567 K/mm3 150-450 MEAN PLATELET VOLUME (test code=MPV) 12.0 fL 6.7-11.0 NEUTROPHIL % (test code=NT%) 71.5 % 39.0-69.0 IMMATURE GRANULOCYTE % (test code=IG%) 0.9 % 0.0-5.0 LYMPHOCYTE % (test code=LY%) 13.6 % 25.0-55.0 MONOCYTE % (test code=MO%) 7.4 % 0.0-10.0 EOSINOPHIL % (test code=EO%) 5.6 % 0.0-5.0 BASOPHIL % (test code=BA%) 1.0 % 0.0-1.0 NUCLEATED RBC % (test code=NRBC%) 0.0 % 0-0 NEUTROPHIL # (test code=NT#) 14.49 K/mm3 1.8-7.7 IMMATURE GRANULOCYTE # (test code=IG#) 0.19 x10 3/uL 0-0.03 LYMPHOCYTE # (test code=LY#) 2.75 K/mm3 1.0-5.0 MONOCYTE # (test code=MO#) 1.51 K/mm3 0-0.8 EOSINOPHIL # (test code=EO#) 1.14 K/mm3 0.0-0.5 BASOPHIL # (test code=BA#) 0.20 K/mm3 0.0-0.2 NUCLEATED RBC # (test code=NRBC#) 0.00 K/mm3 0.0-0.1 MANUAL DIFF REQUIRED (test code=MDIFF) NO, ONLY SCAN NEEDED DIFFERENTIAL [id number] 07:46:00* Test Item Value Reference Range Comments STAIN ACCEPTABILITY (test code=STN ACCEPTABLE) CABOT RINGS (test code=CAB) MORPHOLOGY COMMENT (test code=MOC) PLATELET ESTIMATE (test code=PLTEST) PLATELET MORPHOLOGY (test code=PLTMORPH) [id number] 06:47:00* Test Item Value Reference Range Comments GLUBED (test code=GLUBED) 92 mg/dL 74-106 Performed by certified steel spar operator at [facility] [id number] 21:42:00* Test Item Value Reference Range Comments GLUBED (test code=GLUBED) 110 mg/dL 74-106 Performed by certified steel spar operator at [facility] [id number] 17:15:00* Test Item Value Reference Range Comments GLUBED (test code=GLUBED) 101 mg/dL 74-106 Performed by certified steel spar operator at [facility] [id number] 13:12:00* Test Item Value Reference Range Comments GLUBED (test code=GLUBED) 109 mg/dL 74-106 Performed by certified steel spar operator at [facility] [id number] 06:59:00* Test Item Value Reference Range Comments GLUBED (test code=GLUBED) 94 mg/dL 74-106 Performed by certified steel spar operator at [facility] [id number] 23:16:00* Test Item Value Reference Range Comments GLUBED (test code=GLUBED) 97 mg/dL 74-106 Performed by certified steel spar operator at [facility] [id number] 16:37:00* Test Item Value Reference Range Comments GLUBED (test code=GLUBED) 71 mg/dL 74-106 Performed by certified steel spar operator at [facility] [id number] 11:44:00* Test Item Value Reference Range Comments GLUBED (test code=GLUBED) 85 mg/dL 74-106 Performed by certified steel spar operator at [facility] [id number] 08:22:00* Test Item Value Reference Range Comments GLUBED (test code=GLUBED) 102 mg/dL 74-106 Performed by certified steel spar operator at [facility] [id number] 06:14:00* Test Item Value Reference Range Comments GLUBED (test code=GLUBED) 91 mg/dL 74-106 Performed by certified steel spar operator at [facility] [id number] 18:01:00* Test Item Value Reference Range Comments GLUBED (test code=GLUBED) 95 mg/dL 74-106 Performed by certified steel spar operator at [facility] [id number] 12:18:00* Test Item Value Reference Range Comments GLUBED (test code=GLUBED) 92 mg/dL 74-106 Performed by certified steel spar operator at [facility] COMPREHENSIVE METABOLIC [id number] 07:28:00* Test Item Value Reference Range Comments SODIUM (test code=NA) 137 mmol/L 136-145 POTASSIUM (test code=K) 4.1 mmol/L 3.5-5.1 CHLORIDE (test code=CL) 107.0 mmol/L 98-107 CARBON DIOXIDE (test code=CO2) 21.0 mmol/L 21-32 ANION GAP (test code=GAP) 13.1 10-20 GLUCOSE (test code=GLU) 84 mg/dL 74-106 BLOOD UREA NITROGEN (test code=BUN) 15 mg/dL 7-18 GLOMERULAR FILTRATION RATE (test code=GFR) > 60 mL/min >=60 Estimated GFR by using Modified MDRD formula.Chronic kidney disease is defined as either kidney damageor GFR <60 mL/min/1.73 m2 for >3 months. CREATININE (test code=CREAT) 0.70 mg/dL 0.7-1.3 BUN/CREATININE RATIO (test code=BUN/CREA) 20.4 10-20 TOTAL PROTEIN (test code=PROT) 7.5 gram/dL 6.4-8.2 ALBUMIN (test code=ALB) 2.8 g/dL 3.4-5.0 GLOBULIN (test code=GLOB) 4.7 gram/dL 2.7-4.2 ALBUMIN/GLOBULIN RATIO (test code=A/G) 0.6 0.75-1.50 CALCIUM (test code=CA) 9.6 mg/dL 8.5-10.1 BILIRUBIN TOTAL (test code=BILT) 0.10 mg/dL 0.0-1.0 SGOT/AST (test code=AST) 31 IUnit/L 15-37 SGPT/ALT (test code=ALT) 67 IUnit/L 12-78 ALKALINE PHOSPHATASE TOTAL (test code=ALKP) 150 IUnit/L 45-117 Note change in reference range due to change in reagent. COMPREHENSIVE METABOLIC [id number] 07:18:00* Test Item Value Reference Range Comments SODIUM (test code=NA) 137 mmol/L 136-145 POTASSIUM (test code=K) 4.1 mmol/L 3.5-5.1 CHLORIDE (test code=CL) 107.0 mmol/L 98-107 CARBON DIOXIDE (test code=CO2) mmol/L 21-32 ANION GAP (test code=GAP) 10-20 GLUCOSE (test code=GLU) mg/dL 74-106 BLOOD UREA NITROGEN (test code=BUN) mg/dL 7-18 GLOMERULAR FILTRATION RATE (test code=GFR) mL/min >=60 CREATININE (test code=CREAT) mg/dL 0.7-1.3 BUN/CREATININE RATIO (test code=BUN/CREA) 10-20 TOTAL PROTEIN (test code=PROT) gram/dL 6.4-8.2 ALBUMIN (test code=ALB) g/dL 3.4-5.0 GLOBULIN (test code=GLOB) gram/dL 2.7-4.2 ALBUMIN/GLOBULIN RATIO (test code=A/G) 0.75-1.50 CALCIUM (test code=CA) mg/dL 8.5-10.1 BILIRUBIN TOTAL (test code=BILT) mg/dL 0.0-1.0 SGOT/AST (test code=AST) IUnit/L 15-37 SGPT/ALT (test code=ALT) IUnit/L 12-78 ALKALINE PHOSPHATASE TOTAL (test code=ALKP) IUnit/L 45-117 CBC W/O [id number] 06:59:00* Test Item Value Reference Range Comments WHITE BLOOD CELL (test code=WBC) 16.6 K/mm3 4.5-12.5 RED BLOOD CELL (test code=RBC) 4.07 mill/mm3 4.0-5.8 HEMOGLOBIN (test code=HGB) 9.7 gram/dL 13.0-17.5 HEMATOCRIT (test code=HCT) 32.0 % 42.0-52.0 MEAN CELL VOLUME (test code=MCV) 78.6 fL 80-98 MEAN CELL HGB (test code=MCH) 23.8 picogram 27.0-33.0 MEAN CELL HGB CONCETRATION (test code=MCHC) 30.3 gram/dL 33.0-36.0 RED CELL DISTRIBUTION WIDTH (test code=RDW) 17.0 % 11.6-16.2 PLATELET COUNT (test code=PLT) 519 K/mm3 150-450 MEAN PLATELET VOLUME (test code=MPV) 11.9 fL 6.7-11.0 [id number] 06:34:00* Test Item Value Reference Range Comments GLUBED (test code=GLUBED) 84 mg/dL 74-106 Performed by certified steel spar operator at [facility] [id number] 23:39:00* Test Item Value Reference Range Comments GLUBED (test code=GLUBED) 106 mg/dL 74-106 Performed by certified steel spar operator at [facility] [id number] 17:40:00* Test Item Value Reference Range Comments GLUBED (test code=GLUBED) 100 mg/dL 74-106 Performed by certified steel spar operator at [facility] [id number] 12:52:00* Test Item Value Reference Range Comments GLUBED (test code=GLUBED) 108 mg/dL 74-106 Performed by certified steel spar operator at [facility] [id number] 10:25:00* Test Item Value Reference Range Comments GLUBED (test code=GLUBED) 106 mg/dL 74-106 Performed by certified steel spar operator at [facility] [id number] 10:25:00* Test Item Value Reference Range Comments GLUBED (test code=GLUBED) 92 mg/dL 74-106 Performed by certified steel spar operator at [facility] [id number] 10:23:00* Test Item Value Reference Range Comments GLUBED (test code=GLUBED) 90 mg/dL 74-106 Performed by certified steel spar operator at [facility] [id number] 10:22:00* Test Item Value Reference Range Comments GLUBED (test code=GLUBED) 78 mg/dL 74-106 Performed by certified steel spar operator at [facility] [id number] 10:22:00* Test Item Value Reference Range Comments GLUBED (test code=GLUBED) 98 mg/dL 74-106 Performed by certified steel spar operator at [facility] [id number] 10:20:00* Test Item Value Reference Range Comments GLUBED (test code=GLUBED) 99 mg/dL 74-106 Performed by certified steel spar operator at [facility] [id number] 10:19:00* Test Item Value Reference Range Comments GLUBED (test code=GLUBED) 72 mg/dL 74-106 Performed by certified steel spar operator at [facility] [id number] 10:18:00* Test Item Value Reference Range Comments GLUBED (test code=GLUBED) 99 mg/dL 74-106 Performed by certified steel spar operator at [facility] [id number] 10:16:00* Test Item Value Reference Range Comments GLUBED (test code=GLUBED) 96 mg/dL 74-106 Performed by certified steel spar operator at [facility] [id number] 10:15:00* Test Item Value Reference Range Comments GLUBED (test code=GLUBED) 86 mg/dL 74-106 Performed by certified steel spar operator at [facility] BASIC METABOLIC [id number] 06:24:00* Test Item Value Reference Range Comments SODIUM (test code=NA) 137 mmol/L 136-145 POTASSIUM (test code=K) 4.3 mmol/L 3.5-5.1 CHLORIDE (test code=CL) 107.0 mmol/L 98-107 CARBON DIOXIDE (test code=CO2) 19.0 mmol/L 21-32 ANION GAP (test code=GAP) 15.3 10-20 GLUCOSE (test code=GLU) 85 mg/dL 74-106 BLOOD UREA NITROGEN (test code=BUN) 14 mg/dL 7-18 GLOMERULAR FILTRATION RATE (test code=GFR) > 60 mL/min >=60 Estimated GFR by using Modified MDRD formula.Chronic kidney disease is defined as either kidney damageor GFR <60 mL/min/1.73 m2 for >3 months. CREATININE (test code=CREAT) 0.70 mg/dL 0.7-1.3 BUN/CREATININE RATIO (test code=BUN/CREA) 20.5 10-20 CALCIUM (test code=CA) 9.6 mg/dL 8.5-10.1 BASIC METABOLIC [id number] 06:17:00* Test Item Value Reference Range Comments SODIUM (test code=NA) 137 mmol/L 136-145 POTASSIUM (test code=K) 4.3 mmol/L 3.5-5.1 CHLORIDE (test code=CL) 107.0 mmol/L 98-107 CARBON DIOXIDE (test code=CO2) mmol/L 21-32 ANION GAP (test code=GAP) 10-20 GLUCOSE (test code=GLU) mg/dL 74-106 BLOOD UREA NITROGEN (test code=BUN) mg/dL 7-18 GLOMERULAR FILTRATION RATE (test code=GFR) mL/min >=60 CREATININE (test code=CREAT) mg/dL 0.7-1.3 BUN/CREATININE RATIO (test code=BUN/CREA) 10-20 CALCIUM (test code=CA) mg/dL 8.5-10.1 CBC W/O [id number] 06:03:00* Test Item Value Reference Range Comments WHITE BLOOD CELL (test code=WBC) 19.2 K/mm3 4.5-12.5 RED BLOOD CELL (test code=RBC) 4.26 mill/mm3 4.0-5.8 HEMOGLOBIN (test code=HGB) 10.0 gram/dL 13.0-17.5 HEMATOCRIT (test code=HCT) 32.6 % 42.0-52.0 MEAN CELL VOLUME (test code=MCV) 76.5 fL 80-98 RESULT VERIFIED BY REPEAT ANALYSIS MEAN CELL HGB (test code=MCH) 23.5 picogram 27.0-33.0 MEAN CELL HGB CONCETRATION (test code=MCHC) 30.7 gram/dL 33.0-36.0 RED CELL DISTRIBUTION WIDTH (test code=RDW) 16.8 % 11.6-16.2 PLATELET COUNT (test code=PLT) 569 K/mm3 150-450 RESULT VERIFIED BY REPEAT ANALYSIS MEAN PLATELET VOLUME (test code=MPV) 12.3 fL 6.7-11.0 BASIC METABOLIC [id number] 00:41:00* Test Item Value Reference Range Comments SODIUM (test code=NA) 136 mmol/L 136-145 POTASSIUM (test code=K) 4.6 mmol/L 3.5-5.1 CHLORIDE (test code=CL) 106.0 mmol/L 98-107 CARBON DIOXIDE (test code=CO2) 21.0 mmol/L 21-32 ANION GAP (test code=GAP) 13.6 10-20 GLUCOSE (test code=GLU) 93 mg/dL 74-106 BLOOD UREA NITROGEN (test code=BUN) 12 mg/dL 7-18 GLOMERULAR FILTRATION RATE (test code=GFR) > 60 mL/min >=60 Estimated GFR by using Modified MDRD formula.Chronic kidney disease is defined as either kidney damageor GFR <60 mL/min/1.73 m2 for >3 months. CREATININE (test code=CREAT) 0.70 mg/dL 0.7-1.3 BUN/CREATININE RATIO (test code=BUN/CREA) 17.1 10-20 CALCIUM (test code=CA) 8.8 mg/dL 8.5-10.1 BASIC METABOLIC [id number] 00:06:00* Test Item Value Reference Range Comments SODIUM (test code=NA) 136 mmol/L 136-145 POTASSIUM (test code=K) 4.6 mmol/L 3.5-5.1 CHLORIDE (test code=CL) 106.0 mmol/L 98-107 CARBON DIOXIDE (test code=CO2) mmol/L 21-32 ANION GAP (test code=GAP) 10-20 GLUCOSE (test code=GLU) mg/dL 74-106 BLOOD UREA NITROGEN (test code=BUN) mg/dL 7-18 GLOMERULAR FILTRATION RATE (test code=GFR) mL/min >=60 CREATININE (test code=CREAT) mg/dL 0.7-1.3 BUN/CREATININE RATIO (test code=BUN/CREA) 10-20 CALCIUM (test code=CA) 8.8 mg/dL 8.5-10.1 BASIC METABOLIC [id number] 12:10:00* Test Item Value Reference Range Comments SODIUM (test code=NA) 139 mmol/L 136-145 POTASSIUM (test code=K) 4.9 mmol/L 3.5-5.1 CHLORIDE (test code=CL) 111.0 mmol/L 98-107 CARBON DIOXIDE (test code=CO2) mmol/L 21-32 ANION GAP (test code=GAP) 10-20 GLUCOSE (test code=GLU) mg/dL 74-106 BLOOD UREA NITROGEN (test code=BUN) mg/dL 7-18 GLOMERULAR FILTRATION RATE (test code=GFR) mL/min >=60 CREATININE (test code=CREAT) mg/dL 0.7-1.3 BUN/CREATININE RATIO (test code=BUN/CREA) 10-20 CALCIUM (test code=CA) mg/dL 8.5-10.1 BASIC METABOLIC [id number] 12:10:00* Test Item Value Reference Range Comments SODIUM (test code=NA) 139 mmol/L 136-145 POTASSIUM (test code=K) 4.9 mmol/L 3.5-5.1 CHLORIDE (test code=CL) 111.0 mmol/L 98-107 CARBON DIOXIDE (test code=CO2) 16.0 mmol/L 21-32 ANION GAP (test code=GAP) 16.9 10-20 GLUCOSE (test code=GLU) 88 mg/dL 74-106 BLOOD UREA NITROGEN (test code=BUN) 11 mg/dL 7-18 GLOMERULAR FILTRATION RATE (test code=GFR) > 60 mL/min >=60 Estimated GFR by using Modified MDRD formula.Chronic kidney disease is defined as either kidney damageor GFR <60 mL/min/1.73 m2 for >3 months. CREATININE (test code=CREAT) 0.80 mg/dL 0.7-1.3 BUN/CREATININE RATIO (test code=BUN/CREA) 13.8 10-20 CALCIUM (test code=CA) 7.9 mg/dL 8.5-10.1 CBC W/O [id number] 11:41:00* Test Item Value Reference Range Comments WHITE BLOOD CELL (test code=WBC) 14.1 K/mm3 4.5-12.5 RED BLOOD CELL (test code=RBC) 3.56 mill/mm3 4.0-5.8 HEMOGLOBIN (test code=HGB) 8.4 gram/dL 13.0-17.5 HEMATOCRIT (test code=HCT) 30.1 % 42.0-52.0 MEAN CELL VOLUME (test code=MCV) 84.6 fL 80-98 MEAN CELL HGB (test code=MCH) 23.6 picogram 27.0-33.0 MEAN CELL HGB CONCETRATION (test code=MCHC) 27.9 gram/dL 33.0-36.0 RED CELL DISTRIBUTION WIDTH (test code=RDW) 16.9 % 11.6-16.2 PLATELET COUNT (test code=PLT) 222 K/mm3 150-450 MEAN PLATELET VOLUME (test code=MPV) 12.4 fL 6.7-11.0 [id number] 10:42:00* Test Item Value Reference Range Comments VANCOMYCIN (test code=VANCO) 14.2 UG/ML 5.0-45.0 BASIC METABOLIC [id number] 06:30:00* Test Item Value Reference Range Comments SODIUM (test code=NA) 144 mmol/L 136-145 POTASSIUM (test code=K) 3.7 mmol/L 3.5-5.1 CHLORIDE (test code=CL) 115.0 mmol/L 98-107 CARBON DIOXIDE (test code=CO2) 21.0 mmol/L 21-32 ANION GAP (test code=GAP) 11.7 10-20 GLUCOSE (test code=GLU) 81 mg/dL 74-106 BLOOD UREA NITROGEN (test code=BUN) 14 mg/dL 7-18 GLOMERULAR FILTRATION RATE (test code=GFR) > 60 mL/min >=60 Estimated GFR by using Modified MDRD formula.Chronic kidney disease is defined as either kidney damageor GFR <60 mL/min/1.73 m2 for >3 months. CREATININE (test code=CREAT) 0.80 mg/dL 0.7-1.3 BUN/CREATININE RATIO (test code=BUN/CREA) 17.5 10-20 CALCIUM (test code=CA) 8.7 mg/dL 8.5-10.1 [id number] 06:30:00* Test Item Value Reference Range Comments PHOSPHORUS (test code=PHOS) 3.2 mg/dL 2.5-4.9 [id number] 06:30:00* Test Item Value Reference Range Comments MAGNESIUM (test code=MAG) 2.1 mg/dL 1.8-2.4 [id number] 12:36:00* Test Item Value Reference Range Comments GLUBED (test code=GLUBED) 116 mg/dL 74-106 Performed by certified steel spar operator at [facility] [place] FLD CELL [id number] 12:02:00* Test Item Value Reference Range Comments FLUID SOURCE (test code=SOURCEFL) BRONCHIAL LAVAGE FLUID COLOR (test code=COLFL) PINKISH COLORLESS FLUID APPEARANCE (test code=APPFL) HAZY FLUID WBC (test code=WBCFL) 205 per mm3 0-150 QC performed - Cell count on both sides of chamber agreeswithin 20% ? Y FLUID RBC (test code=RBCFL) 860 per mm3 0-50 FLUID POLY (test code=POLYFL) 100.0 % TOTAL CELLS COUNTED ON DIFF (test code=TOTCELLFL) 100 cells REVIEWED BY (test code=REVIEW) GE [place] PATHOLOGIST WBC diff: 100% polys [id number] 07:17:00* Test Item Value Reference Range Comments VANCOMYCIN (test code=VANCO) 24.8 UG/ML 5.0-45.0 BASIC METABOLIC [id number] 07:16:00* Test Item Value Reference Range Comments SODIUM (test code=NA) 144 mmol/L 136-145 POTASSIUM (test code=K) 3.7 mmol/L 3.5-5.1 CHLORIDE (test code=CL) 114.0 mmol/L 98-107 CARBON DIOXIDE (test code=CO2) 24.0 mmol/L 21-32 ANION GAP (test code=GAP) 9.7 10-20 GLUCOSE (test code=GLU) 83 mg/dL 74-106 BLOOD UREA NITROGEN (test code=BUN) 21 mg/dL 7-18 GLOMERULAR FILTRATION RATE (test code=GFR) > 60 mL/min >=60 Estimated GFR by using Modified MDRD formula.Chronic kidney disease is defined as either kidney damageor GFR <60 mL/min/1.73 m2 for >3 months. CREATININE (test code=CREAT) 0.90 mg/dL 0.7-1.3 BUN/CREATININE RATIO (test code=BUN/CREA) 23.3 10-20 CALCIUM (test code=CA) 8.9 mg/dL 8.5-10.1 CBC W/O [id number] 06:46:00* Test Item Value Reference Range Comments WHITE BLOOD CELL (test code=WBC) 20.4 K/mm3 4.5-12.5 RED BLOOD CELL (test code=RBC) 3.63 mill/mm3 4.0-5.8 HEMOGLOBIN (test code=HGB) 8.6 gram/dL 13.0-17.5 HEMATOCRIT (test code=HCT) 29.5 % 42.0-52.0 MEAN CELL VOLUME (test code=MCV) 81.3 fL 80-98 MEAN CELL HGB (test code=MCH) 23.7 picogram 27.0-33.0 MEAN CELL HGB CONCETRATION (test code=MCHC) 29.2 gram/dL 33.0-36.0 RED CELL DISTRIBUTION WIDTH (test code=RDW) 16.6 % 11.6-16.2 PLATELET COUNT (test code=PLT) 464 K/mm3 150-450 MEAN PLATELET VOLUME (test code=MPV) 12.7 fL 6.7-11.0 [id number] 06:15:00* Test Item Value Reference Range Comments GLUBED (test code=GLUBED) 92 mg/dL 74-106 Performed by certified steel spar operator at [facility] [id number] 21:37:00* Test Item Value Reference Range Comments GLUBED (test code=GLUBED) 85 mg/dL 74-106 Performed by certified steel spar operator at [facility] [place] FLD CELL [id number] 20:06:00* Test Item Value Reference Range Comments FLUID SOURCE (test code=SOURCEFL) BRONCHIAL [place]AVAGE FLUID COLOR (test code=COLFL) PINKISH COLORLESS FLUID APPEARANCE (test code=APPFL) HAZY FLUID WBC (test code=WBCFL) 205 per mm3 0-150 QC performed - Cell count on both sides of chamber agreeswithin 20% ? Y FLUID RBC (test code=RBCFL) 860 per mm3 0-50 REVIEWED BY (test code=REVIEW) PATHOLOGIST BASIC METABOLIC [id number] 07:12:00* Test Item Value Reference Range Comments SODIUM (test code=NA) 149 mmol/L 136-145 POTASSIUM (test code=K) 3.8 mmol/L 3.5-5.1 CHLORIDE (test code=CL) 120.0 mmol/L 98-107 CARBON DIOXIDE (test code=CO2) 22.0 mmol/L 21-32 ANION GAP (test code=GAP) 10.8 10-20 GLUCOSE (test code=GLU) 96 mg/dL 74-106 BLOOD UREA NITROGEN (test code=BUN) 27 mg/dL 7-18 RESULT VERIFIED BY REPEAT ANALYSIS GLOMERULAR FILTRATION RATE (test code=GFR) > 60 mL/min >=60 Estimated GFR by using Modified MDRD formula.Chronic kidney disease is defined as either kidney damageor GFR <60 mL/min/1.73 m2 for >3 months. CREATININE (test code=CREAT) 0.90 mg/dL 0.7-1.3 BUN/CREATININE RATIO (test code=BUN/CREA) 30.0 10-20 CALCIUM (test code=CA) 9.2 mg/dL 8.5-10.1 [id number] 07:12:00* Test Item Value Reference Range Comments PHOSPHORUS (test code=PHOS) 2.2 mg/dL 2.5-4.9 [id number] 07:12:00* Test Item Value Reference Range Comments MAGNESIUM (test code=MAG) 2.7 mg/dL 1.8-2.4 PROCALCITONIN (PCT)2019-06-14 07:12:00* Test Item Value Reference Range Comments PROCALCITONIN (PCT) (test code=PROCAL) 0.41 ng/ml Concentration Interpretation (ng/mL) <0.51 Sepsis is not likely. Local bacterial infection is possible. (LOW RISK for progression to Sepsis) 0.51 - 2.00 Sepsis is possible, but other conditions are known to elevate PCT as well. (MODERATE RISK for progression to Sepsis) > 2.00 Sepsis is likely, unless other causes are known. (HIGH RISK for progression to Severe Sepsis or Septic Shock) 10.00 High likelihood of Severe Sepsis or Septic or higher Shock. *Increased PCT levels may not always be related to systemic bacterial infection.*Low PCT levels do not automatically exclude the presence of bacterial infection.*All results should be interpreted taking into account the patients history. [id number] 06:44:00* Test Item Value Reference Range Comments GLUBED (test code=GLUBED) 80 mg/dL 74-106 Performed by certified steel spar operator at [facility] BASIC METABOLIC [id number] 06:32:00* Test Item Value Reference Range Comments SODIUM (test code=NA) 149 mmol/L 136-145 POTASSIUM (test code=K) 3.8 mmol/L 3.5-5.1 CHLORIDE (test code=CL) 120.0 mmol/L 98-107 CARBON DIOXIDE (test code=CO2) mmol/L 21-32 ANION GAP (test code=GAP) 10-20 GLUCOSE (test code=GLU) mg/dL 74-106 BLOOD UREA NITROGEN (test code=BUN) mg/dL 7-18 GLOMERULAR FILTRATION RATE (test code=GFR) mL/min >=60 CREATININE (test code=CREAT) mg/dL 0.7-1.3 BUN/CREATININE RATIO (test code=BUN/CREA) 10-20 CALCIUM (test code=CA) mg/dL 8.5-10.1 [id number] 06:32:00* Test Item Value Reference Range Comments PHOSPHORUS (test code=PHOS) mg/dL 2.5-4.9 [id number] 06:32:00* Test Item Value Reference Range Comments MAGNESIUM (test code=MAG) mg/dL 1.8-2.4 CBC W/O [id number] 05:44:00* Test Item Value Reference Range Comments WHITE BLOOD CELL (test code=WBC) 23.0 K/mm3 4.5-12.5 RED BLOOD CELL (test code=RBC) 4.10 mill/mm3 4.0-5.8 HEMOGLOBIN (test code=HGB) 9.8 gram/dL 13.0-17.5 HEMATOCRIT (test code=HCT) 33.7 % 42.0-52.0 MEAN CELL VOLUME (test code=MCV) 82.2 fL 80-98 MEAN CELL HGB (test code=MCH) 23.9 picogram 27.0-33.0 MEAN CELL HGB CONCETRATION (test code=MCHC) 29.1 gram/dL 33.0-36.0 RED CELL DISTRIBUTION WIDTH (test code=RDW) 16.6 % 11.6-16.2 PLATELET COUNT (test code=PLT) 546 K/mm3 150-450 MEAN PLATELET VOLUME (test code=MPV) 12.3 fL 6.7-11.0 [id number] 22:34:00* Test Item Value Reference Range Comments GLUBED (test code=GLUBED) 112 mg/dL 74-106 Performed by certified steel spar operator at [facility] URINALYSIS [id number] 18:13:00* Test Item Value Reference Range Comments UA COLOR (test code=COLU) YELLOW YELLOW UA APPEARANCE (test code=APPU) CLEAR CLEAR UA GLUCOSE DIPSTICK (test code=DGLUU) NEGATIVE mg/dL NEGATIVE UA BILIRUBIN DIPSTICK (test code=BILU) NEGATIVE mg/dL NEGATIVE UA KETONE DIPSTICK (test code=KETU) NEGATIVE mg/dL NEGATIVE UA SPECIFIC GRAVITY (test code=SGU) 1.027 1.001-1.035 UA BLOOD DIPSTICK (test code=TAMMY) Negative mg/dL NEGATIVE UA PH DIPSTICK (test code=PAULA) 6.5 5.0-8.0 UA PROTEIN DIPSTICK (test code=PROU) 50 (1+) mg/dL NEGATIVE UA UROBILINIOGEN DIPSTICK (test code=URO) Normal mg/dL NEGATIVE UA NITRITE DIPSTICK (test code=BECKI) NEGATIVE NEGATIVE UA LEUKOCYTE ESTERASE W REFLEX (test code=LEUUR) NEGATIVE Wilian/uL NEGATIVE UA WBC (test code=WBCU) 0-5 per HPF 0-5 UA RBC (test code=RBCU) 6-10 #/HPF 0-5 UA EPITHELIAL CELLS (test code=EPIU) FEW per HPF FEW UA BACTERIA (test code=BACU) FEW #/HPF NONE UA HYALINE CAST (test code=HYALU) 0-2 #/LPF 0-5 UA MUCUS (test code=MUCU) FEW #/LPF FEW Urine Source? Clean CatchURINALYSIS [id number] 18:12:00* Test Item Value Reference Range Comments UA COLOR (test code=COLU) YELLOW YELLOW UA APPEARANCE (test code=APPU) CLEAR CLEAR UA GLUCOSE DIPSTICK (test code=DGLUU) NEGATIVE mg/dL NEGATIVE UA BILIRUBIN DIPSTICK (test code=BILU) NEGATIVE mg/dL NEGATIVE UA KETONE DIPSTICK (test code=KETU) NEGATIVE mg/dL NEGATIVE UA SPECIFIC GRAVITY (test code=SGU) 1.027 1.001-1.035 UA BLOOD DIPSTICK (test code=TAMMY) Negative mg/dL NEGATIVE UA PH DIPSTICK (test code=PAULA) 6.5 5.0-8.0 UA PROTEIN DIPSTICK (test code=PROU) 50 (1+) mg/dL NEGATIVE UA UROBILINIOGEN DIPSTICK (test code=URO) Normal mg/dL NEGATIVE UA NITRITE DIPSTICK (test code=BECKI) NEGATIVE NEGATIVE UA LEUKOCYTE ESTERASE W REFLEX (test code=LEUUR) NEGATIVE Wilian/uL NEGATIVE UA WBC (test code=WBCU) per HPF 0-5 UA RBC (test code=RBCU) per HPF 0-5 UA EPITHELIAL CELLS (test code=EPIU) per HPF Few UA BACTERIA (test code=BACU) per HPF NONE Urine Source? Clean CatchPROCALCITONIN (PCT)2019-06-13 11:32:00* Test Item Value Reference Range Comments PROCALCITONIN (PCT) (test code=PROCAL) 0.56 ng/ml Concentration Interpretation (ng/mL) <0.51 Sepsis is not likely. Local bacterial infection is possible. (LOW RISK for progression to Sepsis) 0.51 - 2.00 Sepsis is possible, but other conditions are known to elevate PCT as well. (MODERATE RISK for progression to Sepsis) > 2.00 Sepsis is likely, unless other causes are known. (HIGH RISK for progression to Severe Sepsis or Septic Shock) 10.00 High likelihood of Severe Sepsis or Septic or higher Shock. *Increased PCT levels may not always be related to systemic bacterial infection.*Low PCT levels do not automatically exclude the presence of bacterial infection.*All results should be interpreted taking into account the patients history. BASIC METABOLIC [id number] 11:26:00* Test Item Value Reference Range Comments SODIUM (test code=NA) 151 mmol/L 136-145 POTASSIUM (test code=K) 3.9 mmol/L 3.5-5.1 CHLORIDE (test code=CL) 123.0 mmol/L 98-107 CARBON DIOXIDE (test code=CO2) 20.0 mmol/L 21-32 ANION GAP (test code=GAP) 11.9 10-20 GLUCOSE (test code=GLU) 90 mg/dL 74-106 BLOOD UREA NITROGEN (test code=BUN) 34 mg/dL 7-18 RESULT VERIFIED BY REPEAT ANALYSIS GLOMERULAR FILTRATION RATE (test code=GFR) > 60 mL/min >=60 Estimated GFR by using Modified MDRD formula.Chronic kidney disease is defined as either kidney damageor GFR <60 mL/min/1.73 m2 for >3 months. CREATININE (test code=CREAT) 0.80 mg/dL 0.7-1.3 BUN/CREATININE RATIO (test code=BUN/CREA) 42.5 10-20 CALCIUM (test code=CA) 9.5 mg/dL 8.5-10.1 CBC W/MANUAL [id number] 10:02:00* Test Item Value Reference Range Comments WHITE BLOOD CELL (test code=WBC) 25.2 K/mm3 4.5-12.5 RED BLOOD CELL (test code=RBC) 4.22 mill/mm3 4.0-5.8 HEMOGLOBIN (test code=HGB) 9.9 gram/dL 13.0-17.5 HEMATOCRIT (test code=HCT) 34.6 % 42.0-52.0 MEAN CELL VOLUME (test code=MCV) 82.0 fL 80-98 MEAN CELL HGB (test code=MCH) 23.5 picogram 27.0-33.0 MEAN CELL HGB CONCETRATION (test code=MCHC) 28.6 gram/dL 33.0-36.0 RED CELL DISTRIBUTION WIDTH (test code=RDW) 16.7 % 11.6-16.2 RED CELL DISTRIBUTION WIDTH SD (test code=RDW-SD) 48.9 fL 37.0-51.0 PLATELET COUNT (test code=PLT) 530 K/mm3 150-450 RESULT VERIFIED BY REPEAT ANALYSIS MEAN PLATELET VOLUME (test code=MPV) 12.1 fL 6.7-11.0 IMMATURE GRANULOCYTE % (test code=IG%) 1.0 % 0.0-5.0 NUCLEATED RBC % (test code=NRBC%) 0.1 % 0-0 NEUTROPHIL # (test code=NT#) 18.55 K/mm3 1.8-7.7 IMMATURE GRANULOCYTE # (test code=IG#) 0.26 x10 3/uL 0-0.03 LYMPHOCYTE # (test code=LY#) 3.33 K/mm3 1.0-5.0 MONOCYTE # (test code=MO#) 1.62 K/mm3 0-0.8 EOSINOPHIL # (test code=EO#) 1.31 K/mm3 0.0-0.5 BASOPHIL # (test code=BA#) 0.17 K/mm3 0.0-0.2 NUCLEATED RBC # (test code=NRBC#) 0.02 K/mm3 0.0-0.1 MANUAL DIFF REQUIRED (test code=MDIFF) YES STAIN ACCEPTABILITY (test code=STN ACCEPTABLE) STAIN ACCEPTABLE TOTAL CELLS COUNTED (test code=TCC) 115 #CELLS SEGMENTED NEUTROPHILS (test code=SEG) 77.4 % 39-69 BAND NEUTROPHIL (test code=BAND) 0 % 0-10 LYMPHOCYTE (test code=LYMPH) 9.6 % 25-55 REACTIVE LYMPH (test code=RELYMPH) 0.9 % MONOCYTE (test code=MON) 4.3 % 0-10 EOSINOPHIL (test code=EOS) 7.8 % 0.0-5.0 BASOPHIL (test code=BASO) 0 % 0-1.0 METAMYELOCYTE (test code=META) 0 % 0-0 MYELOCYTE (test code=MYELO) 0 % 0.0-0.0 PROMYELOCYTE (test code=PROM) 0 % 0-0 POLYCHROMASIA (test code=POLC) 1+ ANISOCYTOSIS (test code=ANISO) 1+ PLATELET ESTIMATE (test code=PLTEST) INCREASED PLATELET MORPHOLOGY (test code=PLTMORPH) NORMAL IMMATURE FORMS (test code=IMMAT) 0 % 0-0 BASIC METABOLIC [id number] 09:43:00* Test Item Value Reference Range Comments SODIUM (test code=NA) 151 mmol/L 136-145 POTASSIUM (test code=K) 3.9 mmol/L 3.5-5.1 CHLORIDE (test code=CL) 123.0 mmol/L 98-107 CARBON DIOXIDE (test code=CO2) 20.0 mmol/L 21-32 ANION GAP (test code=GAP) 11.9 10-20 GLUCOSE (test code=GLU) 90 mg/dL 74-106 BLOOD UREA NITROGEN (test code=BUN) 34 mg/dL 7-18 GLOMERULAR FILTRATION RATE (test code=GFR) > 60 mL/min >=60 Estimated GFR by using Modified MDRD formula.Chronic kidney disease is defined as either kidney damageor GFR <60 mL/min/1.73 m2 for >3 months. CREATININE (test code=CREAT) 0.80 mg/dL 0.7-1.3 BUN/CREATININE RATIO (test code=BUN/CREA) 42.5 10-20 CALCIUM (test code=CA) 9.5 mg/dL 8.5-10.1 CBC W/MANUAL [id number] 09:31:00* Test Item Value Reference Range Comments WHITE BLOOD CELL (test code=WBC) 25.2 K/mm3 4.5-12.5 RED BLOOD CELL (test code=RBC) 4.22 mill/mm3 4.0-5.8 HEMOGLOBIN (test code=HGB) 9.9 gram/dL 13.0-17.5 HEMATOCRIT (test code=HCT) 34.6 % 42.0-52.0 MEAN CELL VOLUME (test code=MCV) 82.0 fL 80-98 MEAN CELL HGB (test code=MCH) 23.5 picogram 27.0-33.0 MEAN CELL HGB CONCETRATION (test code=MCHC) 28.6 gram/dL 33.0-36.0 RED CELL DISTRIBUTION WIDTH (test code=RDW) 16.7 % 11.6-16.2 RED CELL DISTRIBUTION WIDTH SD (test code=RDW-SD) 48.9 fL 37.0-51.0 PLATELET COUNT (test code=PLT) 530 K/mm3 150-450 RESULT VERIFIED BY REPEAT ANALYSIS MEAN PLATELET VOLUME (test code=MPV) 12.1 fL 6.7-11.0 IMMATURE GRANULOCYTE % (test code=IG%) 1.0 % 0.0-5.0 NUCLEATED RBC % (test code=NRBC%) 0.1 % 0-0 NEUTROPHIL # (test code=NT#) 18.55 K/mm3 1.8-7.7 IMMATURE GRANULOCYTE # (test code=IG#) 0.26 x10 3/uL 0-0.03 LYMPHOCYTE # (test code=LY#) 3.33 K/mm3 1.0-5.0 MONOCYTE # (test code=MO#) 1.62 K/mm3 0-0.8 EOSINOPHIL # (test code=EO#) 1.31 K/mm3 0.0-0.5 BASOPHIL # (test code=BA#) 0.17 K/mm3 0.0-0.2 NUCLEATED RBC # (test code=NRBC#) 0.02 K/mm3 0.0-0.1 MANUAL DIFF REQUIRED (test code=MDIFF) YES STAIN ACCEPTABILITY (test code=STN ACCEPTABLE) TOTAL CELLS COUNTED (test code=TCC) #CELLS SEGMENTED NEUTROPHILS (test code=SEG) % 39-69 LYMPHOCYTE (test code=LYMPH) % 25-55 MONOCYTE (test code=MON) % 0-10 EOSINOPHIL (test code=EOS) % 0.0-5.0 CABOT RINGS (test code=CAB) MORPHOLOGY COMMENT (test code=MOC) PLATELET ESTIMATE (test code=PLTEST) PLATELET MORPHOLOGY (test code=PLTMORPH) CBC W/MANUAL [id number] 09:31:00* Test Item Value Reference Range Comments WHITE BLOOD CELL (test code=WBC) 25.2 K/mm3 4.5-12.5 RED BLOOD CELL (test code=RBC) 4.22 mill/mm3 4.0-5.8 HEMOGLOBIN (test code=HGB) 9.9 gram/dL 13.0-17.5 HEMATOCRIT (test code=HCT) 34.6 % 42.0-52.0 MEAN CELL VOLUME (test code=MCV) 82.0 fL 80-98 MEAN CELL HGB (test code=MCH) 23.5 picogram 27.0-33.0 MEAN CELL HGB CONCETRATION (test code=MCHC) 28.6 gram/dL 33.0-36.0 RED CELL DISTRIBUTION WIDTH (test code=RDW) 16.7 % 11.6-16.2 RED CELL DISTRIBUTION WIDTH SD (test code=RDW-SD) 48.9 fL 37.0-51.0 PLATELET COUNT (test code=PLT) 530 K/mm3 150-450 RESULT VERIFIED BY REPEAT ANALYSIS MEAN PLATELET VOLUME (test code=MPV) 12.1 fL 6.7-11.0 IMMATURE GRANULOCYTE % (test code=IG%) 1.0 % 0.0-5.0 NUCLEATED RBC % (test code=NRBC%) 0.1 % 0-0 NEUTROPHIL # (test code=NT#) 18.55 K/mm3 1.8-7.7 IMMATURE GRANULOCYTE # (test code=IG#) 0.26 x10 3/uL 0-0.03 LYMPHOCYTE # (test code=LY#) 3.33 K/mm3 1.0-5.0 MONOCYTE # (test code=MO#) 1.62 K/mm3 0-0.8 EOSINOPHIL # (test code=EO#) 1.31 K/mm3 0.0-0.5 BASOPHIL # (test code=BA#) 0.17 K/mm3 0.0-0.2 NUCLEATED RBC # (test code=NRBC#) 0.02 K/mm3 0.0-0.1 MANUAL DIFF REQUIRED (test code=MDIFF) YES STAIN ACCEPTABILITY (test code=STN ACCEPTABLE) TOTAL CELLS COUNTED (test code=TCC) #CELLS SEGMENTED NEUTROPHILS (test code=SEG) % 39-69 LYMPHOCYTE (test code=LYMPH) % 25-55 MONOCYTE (test code=MON) % 0-10 EOSINOPHIL (test code=EOS) % 0.0-5.0 CABOT RINGS (test code=CAB) MORPHOLOGY COMMENT (test code=MOC) PLATELET ESTIMATE (test code=PLTEST) PLATELET MORPHOLOGY (test code=PLTMORPH) CBC W/MANUAL [id number] 09:31:00* Test Item Value Reference Range Comments WHITE BLOOD CELL (test code=WBC) 25.2 K/mm3 4.5-12.5 RED BLOOD CELL (test code=RBC) 4.22 mill/mm3 4.0-5.8 HEMOGLOBIN (test code=HGB) 9.9 gram/dL 13.0-17.5 HEMATOCRIT (test code=HCT) 34.6 % 42.0-52.0 MEAN CELL VOLUME (test code=MCV) 82.0 fL 80-98 MEAN CELL HGB (test code=MCH) 23.5 picogram 27.0-33.0 MEAN CELL HGB CONCETRATION (test code=MCHC) 28.6 gram/dL 33.0-36.0 RED CELL DISTRIBUTION WIDTH (test code=RDW) 16.7 % 11.6-16.2 RED CELL DISTRIBUTION WIDTH SD (test code=RDW-SD) 48.9 fL 37.0-51.0 PLATELET COUNT (test code=PLT) 530 K/mm3 150-450 RESULT VERIFIED BY REPEAT ANALYSIS MEAN PLATELET VOLUME (test code=MPV) 12.1 fL 6.7-11.0 IMMATURE GRANULOCYTE % (test code=IG%) 1.0 % 0.0-5.0 NUCLEATED RBC % (test code=NRBC%) 0.1 % 0-0 NEUTROPHIL # (test code=NT#) 18.55 K/mm3 1.8-7.7 IMMATURE GRANULOCYTE # (test code=IG#) 0.26 x10 3/uL 0-0.03 LYMPHOCYTE # (test code=LY#) 3.33 K/mm3 1.0-5.0 MONOCYTE # (test code=MO#) 1.62 K/mm3 0-0.8 EOSINOPHIL # (test code=EO#) 1.31 K/mm3 0.0-0.5 BASOPHIL # (test code=BA#) 0.17 K/mm3 0.0-0.2 NUCLEATED RBC # (test code=NRBC#) 0.02 K/mm3 0.0-0.1 MANUAL DIFF REQUIRED (test code=MDIFF) YES STAIN ACCEPTABILITY (test code=STN ACCEPTABLE) TOTAL CELLS COUNTED (test code=TCC) #CELLS SEGMENTED NEUTROPHILS (test code=SEG) % 39-69 LYMPHOCYTE (test code=LYMPH) % 25-55 MONOCYTE (test code=MON) % 0-10 EOSINOPHIL (test code=EOS) % 0.0-5.0 MORPHOLOGY COMMENT (test code=MOC) PLATELET ESTIMATE (test code=PLTEST) PLATELET MORPHOLOGY (test code=PLTMORPH) CBC W/MANUAL [id number] 09:31:00* Test Item Value Reference Range Comments WHITE BLOOD CELL (test code=WBC) 25.2 K/mm3 4.5-12.5 RED BLOOD CELL (test code=RBC) 4.22 mill/mm3 4.0-5.8 HEMOGLOBIN (test code=HGB) 9.9 gram/dL 13.0-17.5 HEMATOCRIT (test code=HCT) 34.6 % 42.0-52.0 MEAN CELL VOLUME (test code=MCV) 82.0 fL 80-98 MEAN CELL HGB (test code=MCH) 23.5 picogram 27.0-33.0 MEAN CELL HGB CONCETRATION (test code=MCHC) 28.6 gram/dL 33.0-36.0 RED CELL DISTRIBUTION WIDTH (test code=RDW) 16.7 % 11.6-16.2 RED CELL DISTRIBUTION WIDTH SD (test code=RDW-SD) 48.9 fL 37.0-51.0 PLATELET COUNT (test code=PLT) 530 K/mm3 150-450 RESULT VERIFIED BY REPEAT ANALYSIS MEAN PLATELET VOLUME (test code=MPV) 12.1 fL 6.7-11.0 IMMATURE GRANULOCYTE % (test code=IG%) 1.0 % 0.0-5.0 NUCLEATED RBC % (test code=NRBC%) 0.1 % 0-0 NEUTROPHIL # (test code=NT#) 18.55 K/mm3 1.8-7.7 IMMATURE GRANULOCYTE # (test code=IG#) 0.26 x10 3/uL 0-0.03 LYMPHOCYTE # (test code=LY#) 3.33 K/mm3 1.0-5.0 MONOCYTE # (test code=MO#) 1.62 K/mm3 0-0.8 EOSINOPHIL # (test code=EO#) 1.31 K/mm3 0.0-0.5 BASOPHIL # (test code=BA#) 0.17 K/mm3 0.0-0.2 NUCLEATED RBC # (test code=NRBC#) 0.02 K/mm3 0.0-0.1 MANUAL DIFF REQUIRED (test code=MDIFF) YES STAIN ACCEPTABILITY (test code=STN ACCEPTABLE) TOTAL CELLS COUNTED (test code=TCC) #CELLS SEGMENTED NEUTROPHILS (test code=SEG) % 39-69 LYMPHOCYTE (test code=LYMPH) % 25-55 MONOCYTE (test code=MON) % 0-10 MORPHOLOGY COMMENT (test code=MOC) PLATELET ESTIMATE (test code=PLTEST) PLATELET MORPHOLOGY (test code=PLTMORPH) CBC W/MANUAL [id number] 09:31:00* Test Item Value Reference Range Comments WHITE BLOOD CELL (test code=WBC) 25.2 K/mm3 4.5-12.5 RED BLOOD CELL (test code=RBC) 4.22 mill/mm3 4.0-5.8 HEMOGLOBIN (test code=HGB) 9.9 gram/dL 13.0-17.5 HEMATOCRIT (test code=HCT) 34.6 % 42.0-52.0 MEAN CELL VOLUME (test code=MCV) 82.0 fL 80-98 MEAN CELL HGB (test code=MCH) 23.5 picogram 27.0-33.0 MEAN CELL HGB CONCETRATION (test code=MCHC) 28.6 gram/dL 33.0-36.0 RED CELL DISTRIBUTION WIDTH (test code=RDW) 16.7 % 11.6-16.2 RED CELL DISTRIBUTION WIDTH SD (test code=RDW-SD) 48.9 fL 37.0-51.0 PLATELET COUNT (test code=PLT) 530 K/mm3 150-450 RESULT VERIFIED BY REPEAT ANALYSIS MEAN PLATELET VOLUME (test code=MPV) 12.1 fL 6.7-11.0 IMMATURE GRANULOCYTE % (test code=IG%) 1.0 % 0.0-5.0 NUCLEATED RBC % (test code=NRBC%) 0.1 % 0-0 NEUTROPHIL # (test code=NT#) 18.55 K/mm3 1.8-7.7 IMMATURE GRANULOCYTE # (test code=IG#) 0.26 x10 3/uL 0-0.03 LYMPHOCYTE # (test code=LY#) 3.33 K/mm3 1.0-5.0 MONOCYTE # (test code=MO#) 1.62 K/mm3 0-0.8 EOSINOPHIL # (test code=EO#) 1.31 K/mm3 0.0-0.5 BASOPHIL # (test code=BA#) 0.17 K/mm3 0.0-0.2 NUCLEATED RBC # (test code=NRBC#) 0.02 K/mm3 0.0-0.1 MANUAL DIFF REQUIRED (test code=MDIFF) YES STAIN ACCEPTABILITY (test code=STN ACCEPTABLE) TOTAL CELLS COUNTED (test code=TCC) #CELLS SEGMENTED NEUTROPHILS (test code=SEG) % 39-69 LYMPHOCYTE (test code=LYMPH) % 25-55 MONOCYTE (test code=MON) % 0-10 EOSINOPHIL (test code=EOS) % 0.0-5.0 CABOT RINGS (test code=CAB) MORPHOLOGY COMMENT (test code=MOC) PLATELET ESTIMATE (test code=PLTEST) PLATELET MORPHOLOGY (test code=PLTMORPH) BASIC METABOLIC [id number] 09:29:00* Test Item Value Reference Range Comments SODIUM (test code=NA) 151 mmol/L 136-145 POTASSIUM (test code=K) 3.9 mmol/L 3.5-5.1 CHLORIDE (test code=CL) 123.0 mmol/L 98-107 CARBON DIOXIDE (test code=CO2) mmol/L 21-32 ANION GAP (test code=GAP) 10-20 GLUCOSE (test code=GLU) mg/dL 74-106 BLOOD UREA NITROGEN (test code=BUN) mg/dL 7-18 GLOMERULAR FILTRATION RATE (test code=GFR) mL/min >=60 CREATININE (test code=CREAT) mg/dL 0.7-1.3 BUN/CREATININE RATIO (test code=BUN/CREA) 10-20 CALCIUM (test code=CA) mg/dL 8.5-10.1 - CT CHEST W/O [id number] 06:25:00 Name: CELESTINO MCALLISTER [facility] : 1970 Age/S: 48 / M [address] [facility] Unit #: [id number] [place] [address] Phys: Jerica Shaffer MD Acct: [id number] Dis Date: Status: ADM IN PHONE #: [phone] Exam Date: 06/13/2019 0615 FAX #: [phone] Reason: pneumonia vs atelectasis EXAMS: CPT CODE: [id number] CT CHEST W/O CONTRAST 75618 HISTORY: pneumonia, sepsis TECHNIQUE: [address] images were obtained through the chest without contrast. Automated exposure control for dose reduction. DLP: 382 mGy-cm COMPARISON: Chest x-ray 06/12/19 FINDINGS: Statements: Lack of intravenous contrast limits evaluation of mediastinal contents. Lungs: Patchy right perihilar groundglass opacity. Left upper and bilateral lower lobe dependent subsegmental atelectasis. No pleural effusion. Bilateral bronchial wall thickening with luminal narrowing. Retained secretions within the left mainstem bronchus and lower lobe branches. ET tube positioned above the lexi. Cardiovascular: Normal heart size. No pericardial effusion. No thoracic aortic aneurysm. Normal caliber pulmonary arteries. Mediastinum: N o lymphadenopathy. Visualized thyroid is unremarkable. Normal esophagus. Included upper abdomen: Unremarkable. Bones and super ficial soft tissues: Mild degenerative changes of the spine and shoulders. Bilateral gynecomastia. IVORY CARVER shunt. IMPRESSION: Patchy right perihilar groundglass opacity. Left upper and bilateral lower lobe dependent subsegmental atelectasis. Bilateral bronchial wall thickening with luminal narrowing. Retained secretions within the left mainstem bronchus and lower lobe branches. Correlate with clinical evidence of pneumonia. at 0625 Reported and signed by: Katie Rich D.O. PAGE 1 Signed Report (CONTINUED) Name: CELESTINO MCALLISTER [facility] : 1970 Age/S: 48 / M [address] [facility] Unit #: [id number] Loc: [place] [address] Phys : Jerica Shaffer MD Acct: [id number] Dis Date: Status: ADM IN PHONE #: [phone] Exam Date: 06/13/2019 0615 FAX #: [phone] Reason: pneumonia vs atelectasis EXAMS: CPT CODE: [id number] CT CHEST W/O CONTRAST [id number] <Continued> CC: Jerica Shaffer MD; Lonnie Olson MD Technologist:RAFAEL LOPEZ CTDI: DLP: Trnscb Date/Time: 06/13/2019 (0625) [email or web address] PAGE 2 Signed Report CBC W/MANUAL [id number] 21:27:00* Test Item Value Reference Range Comments WHITE BLOOD CELL (test code=WBC) 32.3 K/mm3 4.5-12.5 RED BLOOD CELL (test code=RBC) 4.57 mill/mm3 4.0-5.8 HEMOGLOBIN (test code=HGB) 10.9 gram/dL 13.0-17.5 HEMATOCRIT (test code=HCT) 36.9 % 42.0-52.0 MEAN CELL VOLUME (test code=MCV) 80.7 fL 80-98 MEAN CELL HGB (test code=MCH) 23.9 picogram 27.0-33.0 MEAN CELL HGB CONCETRATION (test code=MCHC) 29.5 gram/dL 33.0-36.0 RED CELL DISTRIBUTION WIDTH (test code=RDW) 16.9 % 11.6-16.2 RED CELL DISTRIBUTION WIDTH SD (test code=RDW-SD) 48.4 fL 37.0-51.0 PLATELET COUNT (test code=PLT) 647 K/mm3 150-450 MEAN PLATELET VOLUME (test code=MPV) 11.4 fL 6.7-11.0 IMMATURE GRANULOCYTE % (test code=IG%) 1.3 % 0.0-5.0 NUCLEATED RBC % (test code=NRBC%) 0.0 % 0-0 NEUTROPHIL # (test code=NT#) 23.61 K/mm3 1.8-7.7 IMMATURE GRANULOCYTE # (test code=IG#) 0.42 x10 3/uL 0-0.03 LYMPHOCYTE # (test code=LY#) 4.48 K/mm3 1.0-5.0 MONOCYTE # (test code=MO#) 2.45 K/mm3 0-0.8 EOSINOPHIL # (test code=EO#) 1.04 K/mm3 0.0-0.5 BASOPHIL # (test code=BA#) 0.29 K/mm3 0.0-0.2 NUCLEATED RBC # (test code=NRBC#) 0.00 K/mm3 0.0-0.1 MANUAL DIFF REQUIRED (test code=MDIFF) YES STAIN ACCEPTABILITY (test code=STN ACCEPTABLE) STAIN ACCEPTABLE TOTAL CELLS COUNTED (test code=TCC) 114 #CELLS SEGMENTED NEUTROPHILS (test code=SEG) 76.3 % 39-69 BAND NEUTROPHIL (test code=BAND) 0 % 0-10 LYMPHOCYTE (test code=LYMPH) 14.9 % 25-55 REACTIVE LYMPH (test code=RELYMPH) 0.9 % MONOCYTE (test code=MON) 4.4 % 0-10 EOSINOPHIL (test code=EOS) 3.5 % 0.0-5.0 BASOPHIL (test code=BASO) 0 % 0-1.0 METAMYELOCYTE (test code=META) 0 % 0-0 MYELOCYTE (test code=MYELO) 0 % 0.0-0.0 PROMYELOCYTE (test code=PROM) 0 % 0-0 POLYCHROMASIA (test code=POLC) 1+ HYPOCHROMIA (test code=HYPO) 1+ ANISOCYTOSIS (test code=ANISO) 1+ MICROCYTOSIS (test code=MICR) 1+ PLATELET ESTIMATE (test code=PLTEST) INCREASED PLATELET MORPHOLOGY (test code=PLTMORPH) NORMAL IMMATURE FORMS (test code=IMMAT) 0 % 0-0 BASIC METABOLIC [id number] 20:24:00* Test Item Value Reference Range Comments SODIUM (test code=NA) 149 mmol/L 136-145 POTASSIUM (test code=K) 4.1 mmol/L 3.5-5.1 CHLORIDE (test code=CL) 116.0 mmol/L 98-107 CARBON DIOXIDE (test code=CO2) 25.0 mmol/L 21-32 ANION GAP (test code=GAP) 12.1 10-20 GLUCOSE (test code=GLU) 103 mg/dL 74-106 BLOOD UREA NITROGEN (test code=BUN) 43 mg/dL 7-18 GLOMERULAR FILTRATION RATE (test code=GFR) > 60 mL/min >=60 Estimated GFR by using Modified MDRD formula.Chronic kidney disease is defined as either kidney damageor GFR <60 mL/min/1.73 m2 for >3 months. CREATININE (test code=CREAT) 1.30 mg/dL 0.7-1.3 BUN/CREATININE RATIO (test code=BUN/CREA) 33.6 10-20 CALCIUM (test code=CA) 9.7 mg/dL 8.5-10.1 HEPATIC FUNCTION [id number] 20:24:00* Test Item Value Reference Range Comments TOTAL PROTEIN (test code=PROT) 8.6 gram/dL 6.4-8.2 ALBUMIN (test code=ALB) 2.9 g/dL 3.4-5.0 GLOBULIN (test code=GLOB) 5.7 gram/dL 2.7-4.2 ALBUMIN/GLOBULIN RATIO (test code=A/G) 0.5 0.75-1.50 BILIRUBIN TOTAL (test code=BILT) 0.20 mg/dL 0.0-1.0 BILIRUBIN DIRECT (test code=BILD) 0.07 mg/dL 0.0-0.20 SGOT/AST (test code=AST) 66 IUnit/L 15-37 SGPT/ALT (test code=ALT) 121 IUnit/L 12-78 ALKALINE PHOSPHATASE TOTAL (test code=ALKP) 167 IUnit/L 45-117 Note change in reference range due to change in reagent. [id number] 20:24:00* Test Item Value Reference Range Comments TROPONIN-I (test code=TROPI) <0.015 ng/mL 0-0.045 - XR CHEST 1 [id number] 20:21:00 FAX: Lonnie Olson MD [phone] [place]: St: [facility] FAX: Yana Mcallister DO Name: CELESTINO MCALLISTER [facility] : 1970 Age/S: 48/M [address] [facility] Unit #: [id number] Loc: [place] [address] Phys: Yana Mcallister DO Acct: [id number] Dis Date: Status: REG ER PHONE #: [phone] Exam Date: 06/12/20191943 FAX #: [phone] Reason: CODE SEPSIS EXAMS: CPT CODE: [id number] XR CHEST 1 V [id number] REASON FOR EXAM: CODE SEPSIS Exam Order Date: 06/12/2019 7:24 PM Ordering MSudha: Yana Mcallister DO PROCEDURE: - XR CHEST 1 V COMPARISON: CT PE study May 18, 2019 FINDINGS: Tracheostomy appliance noted. There is a deeply shunt projecting over the soft tissues of the right side of the neck and right chest and right abdomen. There are hazy opacities overlying the lung bases which may represent subsegmental atelectasis and/or small layering pleural effusions. Upper lungs are clear. Cardiomediastinal silhouette is normal in size. No acute musculosk eletal abnormality. IMPRESSION: Hazy opacities o verlying the lung bases may represent any combination of small layering effusions and subsegmental atelectasis. Superimposed consolidation would be difficult to exclude. at 2020 Reported and signed by: Khoi Bell MD CC: Lonnie Olson MD; Yana Mcallister gist: CHANDANA NEWMAN Trnscrd Date/Time/B y: 06/12/2019 (2020) : By: [email or web address] Orig Print D/T: S: 06/12/2019 () PAGE 1 Signed Report LACTIC [id number] 20:14:00* Test Item Value Reference Range Comments LACTIC ACID (test code=LACT) 1.6 mmol/L 0.4-1.9 BASIC METABOLIC [id number] 20:13:00* Test Item Value Reference Range Comments SODIUM (test code=NA) 149 mmol/L 136-145 POTASSIUM (test code=K) 4.1 mmol/L 3.5-5.1 CHLORIDE (test code=CL) 116.0 mmol/L 98-107 CARBON DIOXIDE (test code=CO2) mmol/L 21-32 ANION GAP (test code=GAP) 10-20 GLUCOSE (test code=GLU) mg/dL 74-106 BLOOD UREA NITROGEN (test code=BUN) mg/dL 7-18 GLOMERULAR FILTRATION RATE (test code=GFR) mL/min >=60 CREATININE (test code=CREAT) mg/dL 0.7-1.3 BUN/CREATININE RATIO (test code=BUN/CREA) 10-20 CALCIUM (test code=CA) mg/dL 8.5-10.1 HEPATIC FUNCTION [id number] 20:13:00* Test Item Value Reference Range Comments TOTAL PROTEIN (test code=PROT) gram/dL 6.4-8.2 ALBUMIN (test code=ALB) g/dL 3.4-5.0 GLOBULIN (test code=GLOB) gram/dL 2.7-4.2 ALBUMIN/GLOBULIN RATIO (test code=A/G) 0.75-1.50 BILIRUBIN TOTAL (test code=BILT) mg/dL 0.0-1.0 BILIRUBIN DIRECT (test code=BILD) mg/dL 0.0-0.20 SGOT/AST (test code=AST) IUnit/L 15-37 SGPT/ALT (test code=ALT) IUnit/L 12-78 ALKALINE PHOSPHATASE TOTAL (test code=ALKP) IUnit/L 45-117 [id number] 20:13:00* Test Item Value Reference Range Comments TROPONIN-I (test code=TROPI) ng/mL 0-0.045 CBC W/MANUAL [id number] 20:02:00* Test Item Value Reference Range Comments WHITE BLOOD CELL (test code=WBC) 32.3 K/mm3 4.5-12.5 RED BLOOD CELL (test code=RBC) 4.57 mill/mm3 4.0-5.8 HEMOGLOBIN (test code=HGB) 10.9 gram/dL 13.0-17.5 HEMATOCRIT (test code=HCT) 36.9 % 42.0-52.0 MEAN CELL VOLUME (test code=MCV) 80.7 fL 80-98 MEAN CELL HGB (test code=MCH) 23.9 picogram 27.0-33.0 MEAN CELL HGB CONCETRATION (test code=MCHC) 29.5 gram/dL 33.0-36.0 RED CELL DISTRIBUTION WIDTH (test code=RDW) 16.9 % 11.6-16.2 RED CELL DISTRIBUTION WIDTH SD (test code=RDW-SD) 48.4 fL 37.0-51.0 PLATELET COUNT (test code=PLT) 647 K/mm3 150-450 MEAN PLATELET VOLUME (test code=MPV) 11.4 fL 6.7-11.0 IMMATURE GRANULOCYTE % (test code=IG%) 1.3 % 0.0-5.0 NUCLEATED RBC % (test code=NRBC%) 0.0 % 0-0 NEUTROPHIL # (test code=NT#) 23.61 K/mm3 1.8-7.7 IMMATURE GRANULOCYTE # (test code=IG#) 0.42 x10 3/uL 0-0.03 LYMPHOCYTE # (test code=LY#) 4.48 K/mm3 1.0-5.0 MONOCYTE # (test code=MO#) 2.45 K/mm3 0-0.8 EOSINOPHIL # (test code=EO#) 1.04 K/mm3 0.0-0.5 BASOPHIL # (test code=BA#) 0.29 K/mm3 0.0-0.2 NUCLEATED RBC # (test code=NRBC#) 0.00 K/mm3 0.0-0.1 MANUAL DIFF REQUIRED (test code=MDIFF) YES STAIN ACCEPTABILITY (test code=STN ACCEPTABLE) TOTAL CELLS COUNTED (test code=TCC) #CELLS SEGMENTED NEUTROPHILS (test code=SEG) % 39-69 LYMPHOCYTE (test code=LYMPH) % 25-55 MONOCYTE (test code=MON) % 0-10 EOSINOPHIL (test code=EOS) % 0.0-5.0 CABOT RINGS (test code=CAB) MORPHOLOGY COMMENT (test code=MOC) PLATELET ESTIMATE (test code=PLTEST) PLATELET MORPHOLOGY (test code=PLTMORPH) CBC W/MANUAL [id number] 20:02:00* Test Item Value Reference Range Comments WHITE BLOOD CELL (test code=WBC) 32.3 K/mm3 4.5-12.5 RED BLOOD CELL (test code=RBC) 4.57 mill/mm3 4.0-5.8 HEMOGLOBIN (test code=HGB) 10.9 gram/dL 13.0-17.5 HEMATOCRIT (test code=HCT) 36.9 % 42.0-52.0 MEAN CELL VOLUME (test code=MCV) 80.7 fL 80-98 MEAN CELL HGB (test code=MCH) 23.9 picogram 27.0-33.0 MEAN CELL HGB CONCETRATION (test code=MCHC) 29.5 gram/dL 33.0-36.0 RED CELL DISTRIBUTION WIDTH (test code=RDW) 16.9 % 11.6-16.2 RED CELL DISTRIBUTION WIDTH SD (test code=RDW-SD) 48.4 fL 37.0-51.0 PLATELET COUNT (test code=PLT) 647 K/mm3 150-450 MEAN PLATELET VOLUME (test code=MPV) 11.4 fL 6.7-11.0 IMMATURE GRANULOCYTE % (test code=IG%) 1.3 % 0.0-5.0 NUCLEATED RBC % (test code=NRBC%) 0.0 % 0-0 NEUTROPHIL # (test code=NT#) 23.61 K/mm3 1.8-7.7 IMMATURE GRANULOCYTE # (test code=IG#) 0.42 x10 3/uL 0-0.03 LYMPHOCYTE # (test code=LY#) 4.48 K/mm3 1.0-5.0 MONOCYTE # (test code=MO#) 2.45 K/mm3 0-0.8 EOSINOPHIL # (test code=EO#) 1.04 K/mm3 0.0-0.5 BASOPHIL # (test code=BA#) 0.29 K/mm3 0.0-0.2 NUCLEATED RBC # (test code=NRBC#) 0.00 K/mm3 0.0-0.1 MANUAL DIFF REQUIRED (test code=MDIFF) YES STAIN ACCEPTABILITY (test code=STN ACCEPTABLE) TOTAL CELLS COUNTED (test code=TCC) #CELLS SEGMENTED NEUTROPHILS (test code=SEG) % 39-69 LYMPHOCYTE (test code=LYMPH) % 25-55 MONOCYTE (test code=MON) % 0-10 EOSINOPHIL (test code=EOS) % 0.0-5.0 CABOT RINGS (test code=CAB) MORPHOLOGY COMMENT (test code=MOC) PLATELET ESTIMATE (test code=PLTEST) PLATELET MORPHOLOGY (test code=PLTMORPH) CBC W/MANUAL [id number] 20:02:00* Test Item Value Reference Range Comments WHITE BLOOD CELL (test code=WBC) 32.3 K/mm3 4.5-12.5 RED BLOOD CELL (test code=RBC) 4.57 mill/mm3 4.0-5.8 HEMOGLOBIN (test code=HGB) 10.9 gram/dL 13.0-17.5 HEMATOCRIT (test code=HCT) 36.9 % 42.0-52.0 MEAN CELL VOLUME (test code=MCV) 80.7 fL 80-98 MEAN CELL HGB (test code=MCH) 23.9 picogram 27.0-33.0 MEAN CELL HGB CONCETRATION (test code=MCHC) 29.5 gram/dL 33.0-36.0 RED CELL DISTRIBUTION WIDTH (test code=RDW) 16.9 % 11.6-16.2 RED CELL DISTRIBUTION WIDTH SD (test code=RDW-SD) 48.4 fL 37.0-51.0 PLATELET COUNT (test code=PLT) 647 K/mm3 150-450 MEAN PLATELET VOLUME (test code=MPV) 11.4 fL 6.7-11.0 IMMATURE GRANULOCYTE % (test code=IG%) 1.3 % 0.0-5.0 NUCLEATED RBC % (test code=NRBC%) 0.0 % 0-0 NEUTROPHIL # (test code=NT#) 23.61 K/mm3 1.8-7.7 IMMATURE GRANULOCYTE # (test code=IG#) 0.42 x10 3/uL 0-0.03 LYMPHOCYTE # (test code=LY#) 4.48 K/mm3 1.0-5.0 MONOCYTE # (test code=MO#) 2.45 K/mm3 0-0.8 EOSINOPHIL # (test code=EO#) 1.04 K/mm3 0.0-0.5 BASOPHIL # (test code=BA#) 0.29 K/mm3 0.0-0.2 NUCLEATED RBC # (test code=NRBC#) 0.00 K/mm3 0.0-0.1 MANUAL DIFF REQUIRED (test code=MDIFF) YES STAIN ACCEPTABILITY (test code=STN ACCEPTABLE) TOTAL CELLS COUNTED (test code=TCC) #CELLS SEGMENTED NEUTROPHILS (test code=SEG) % 39-69 LYMPHOCYTE (test code=LYMPH) % 25-55 MONOCYTE (test code=MON) % 0-10 EOSINOPHIL (test code=EOS) % 0.0-5.0 MORPHOLOGY COMMENT (test code=MOC) PLATELET ESTIMATE (test code=PLTEST) PLATELET MORPHOLOGY (test code=PLTMORPH) CBC W/MANUAL [id number] 20:02:00* Test Item Value Reference Range Comments WHITE BLOOD CELL (test code=WBC) 32.3 K/mm3 4.5-12.5 RED BLOOD CELL (test code=RBC) 4.57 mill/mm3 4.0-5.8 HEMOGLOBIN (test code=HGB) 10.9 gram/dL 13.0-17.5 HEMATOCRIT (test code=HCT) 36.9 % 42.0-52.0 MEAN CELL VOLUME (test code=MCV) 80.7 fL 80-98 MEAN CELL HGB (test code=MCH) 23.9 picogram 27.0-33.0 MEAN CELL HGB CONCETRATION (test code=MCHC) 29.5 gram/dL 33.0-36.0 RED CELL DISTRIBUTION WIDTH (test code=RDW) 16.9 % 11.6-16.2 RED CELL DISTRIBUTION WIDTH SD (test code=RDW-SD) 48.4 fL 37.0-51.0 PLATELET COUNT (test code=PLT) 647 K/mm3 150-450 MEAN PLATELET VOLUME (test code=MPV) 11.4 fL 6.7-11.0 IMMATURE GRANULOCYTE % (test code=IG%) 1.3 % 0.0-5.0 NUCLEATED RBC % (test code=NRBC%) 0.0 % 0-0 NEUTROPHIL # (test code=NT#) 23.61 K/mm3 1.8-7.7 IMMATURE GRANULOCYTE # (test code=IG#) 0.42 x10 3/uL 0-0.03 LYMPHOCYTE # (test code=LY#) 4.48 K/mm3 1.0-5.0 MONOCYTE # (test code=MO#) 2.45 K/mm3 0-0.8 EOSINOPHIL # (test code=EO#) 1.04 K/mm3 0.0-0.5 BASOPHIL # (test code=BA#) 0.29 K/mm3 0.0-0.2 NUCLEATED RBC # (test code=NRBC#) 0.00 K/mm3 0.0-0.1 MANUAL DIFF REQUIRED (test code=MDIFF) YES STAIN ACCEPTABILITY (test code=STN ACCEPTABLE) TOTAL CELLS COUNTED (test code=TCC) #CELLS SEGMENTED NEUTROPHILS (test code=SEG) % 39-69 LYMPHOCYTE (test code=LYMPH) % 25-55 MONOCYTE (test code=MON) % 0-10 MORPHOLOGY COMMENT (test code=MOC) PLATELET ESTIMATE (test code=PLTEST) PLATELET MORPHOLOGY (test code=PLTMORPH) CBC W/MANUAL [id number] 20:02:00* Test Item Value Reference Range Comments WHITE BLOOD CELL (test code=WBC) 32.3 K/mm3 4.5-12.5 RED BLOOD CELL (test code=RBC) 4.57 mill/mm3 4.0-5.8 HEMOGLOBIN (test code=HGB) 10.9 gram/dL 13.0-17.5 HEMATOCRIT (test code=HCT) 36.9 % 42.0-52.0 MEAN CELL VOLUME (test code=MCV) 80.7 fL 80-98 MEAN CELL HGB (test code=MCH) 23.9 picogram 27.0-33.0 MEAN CELL HGB CONCETRATION (test code=MCHC) 29.5 gram/dL 33.0-36.0 RED CELL DISTRIBUTION WIDTH (test code=RDW) 16.9 % 11.6-16.2 RED CELL DISTRIBUTION WIDTH SD (test code=RDW-SD) 48.4 fL 37.0-51.0 PLATELET COUNT (test code=PLT) 647 K/mm3 150-450 MEAN PLATELET VOLUME (test code=MPV) 11.4 fL 6.7-11.0 IMMATURE GRANULOCYTE % (test code=IG%) 1.3 % 0.0-5.0 NUCLEATED RBC % (test code=NRBC%) 0.0 % 0-0 NEUTROPHIL # (test code=NT#) 23.61 K/mm3 1.8-7.7 IMMATURE GRANULOCYTE # (test code=IG#) 0.42 x10 3/uL 0-0.03 LYMPHOCYTE # (test code=LY#) 4.48 K/mm3 1.0-5.0 MONOCYTE # (test code=MO#) 2.45 K/mm3 0-0.8 EOSINOPHIL # (test code=EO#) 1.04 K/mm3 0.0-0.5 BASOPHIL # (test code=BA#) 0.29 K/mm3 0.0-0.2 NUCLEATED RBC # (test code=NRBC#) 0.00 K/mm3 0.0-0.1 MANUAL DIFF REQUIRED (test code=MDIFF) YES STAIN ACCEPTABILITY (test code=STN ACCEPTABLE) TOTAL CELLS COUNTED (test code=TCC) #CELLS SEGMENTED NEUTROPHILS (test code=SEG) % 39-69 LYMPHOCYTE (test code=LYMPH) % 25-55 MONOCYTE (test code=MON) % 0-10 EOSINOPHIL (test code=EOS) % 0.0-5.0 CABOT RINGS (test code=CAB) MORPHOLOGY COMMENT (test code=MOC) PLATELET ESTIMATE (test code=PLTEST) PLATELET MORPHOLOGY (test code=PLTMORPH) POC LACTIC [id number] 19:45:00* Test Item Value Reference Range Comments POC LACTIC ACID (test code=POCLAC) 1.36 MMOL/L 0.4-2.2 ARTERIAL BLOOD [id number] 19:43:00* Test Item Value Reference Range Comments ARTERIAL BLOOD GAS PH (test code=PHA) 7.49 7.35-7.45 ARTERIAL BLOOD GAS PCO2 (test code=PCO2A) 29.3 mm Hg 35-45 ARTERIAL BLOOD GAS PO2 (test code=PO2A) 273.6 mmHg 80-100 BICARBONATE TOTAL HCO3 (test code=HCO3) 21.8 mmol/L 23.0-27.0 BASE EXCESS (test code=MARISELA) -0.6 mmol/L -3.0-5.0 ABG O2 SATURATION (test code=SATA) 99.2 % 90.0-98.0 ABG TYPE (test code=TYPEA) Arterial FIO2 (test code=FIO2A) 100.0 ABG SITE (test code=SITEA) Rt RADIAL ARTERY MODIFIED ALLENS (test code=MODALL) Yes CHECK PERFORMED HEMATOCRIT (test code=HCT/ABG) 35 % 42-52 TOTAL HGB (test code=THB) 11.8 gram/dL 13.0-17.5 HGB O2 SAT (test code=HBOSAT) 98.5 % 94.00-98.00 CARBOXYHEMOGLOBIN (test code=HOHGBT) 0.3 %totalHg 0.5-1.5 Results called to and read back by Vinita 19:42 - 06/12/2019; by candi METHEMOGLOBIN (test code=METHGB) 0.4 % 0.0-1.50 O2 CONTENT (test code=O2CT) 17.0 % vol 18.0-22.0 [id number] 15:09:00* Test Item Value Reference Range Comments GLUBED (test code=GLUBED) 109 mg/dL 74-106 Performed by certified steel spar operator at [facility] [id number] 08:11:00* Test Item Value Reference Range Comments GLUBED (test code=GLUBED) 105 mg/dL 74-106 Performed by certified steel spar operator at [facility] [id number] 20:33:00* Test Item Value Reference Range Comments GLUBED (test code=GLUBED) 92 mg/dL 74-106 Performed by certified steel spar operator at [facility] [id number] 17:49:00* Test Item Value Reference Range Comments GLUBED (test code=GLUBED) 97 mg/dL 74-106 Performed by certified steel spar operator at [facility] [id number] 12:07:00* Test Item Value Reference Range Comments GLUBED (test code=GLUBED) 119 mg/dL 74-106 Performed by certified steel spar operator at [facility] CBC W/AUTO [id number] 11:20:00* Test Item Value Reference Range Comments WHITE BLOOD CELL (test code=WBC) 18.2 K/mm3 4.5-12.5 RED BLOOD CELL (test code=RBC) 3.79 mill/mm3 4.0-5.8 HEMOGLOBIN (test code=HGB) 9.2 gram/dL 13.0-17.5 HEMATOCRIT (test code=HCT) 30.9 % 42.0-52.0 MEAN CELL VOLUME (test code=MCV) 81.5 fL 80-98 MEAN CELL HGB (test code=MCH) 24.3 picogram 27.0-33.0 MEAN CELL HGB CONCETRATION (test code=MCHC) 29.8 gram/dL 33.0-36.0 RED CELL DISTRIBUTION WIDTH (test code=RDW) 15.9 % 11.6-16.2 RED CELL DISTRIBUTION WIDTH SD (test code=RDW-SD) 47.0 fL 37.0-51.0 PLATELET COUNT (test code=PLT) 835 K/mm3 150-450 MEAN PLATELET VOLUME (test code=MPV) 10.5 fL 6.7-11.0 NEUTROPHIL % (test code=NT%) 64.9 % 39.0-69.0 IMMATURE GRANULOCYTE % (test code=IG%) 1.5 % 0.0-5.0 LYMPHOCYTE % (test code=LY%) 18.1 % 25.0-55.0 MONOCYTE % (test code=MO%) 9.1 % 0.0-10.0 EOSINOPHIL % (test code=EO%) 5.5 % 0.0-5.0 BASOPHIL % (test code=BA%) 0.9 % 0.0-1.0 NUCLEATED RBC % (test code=NRBC%) 0.0 % 0-0 NEUTROPHIL # (test code=NT#) 11.80 K/mm3 1.8-7.7 IMMATURE GRANULOCYTE # (test code=IG#) 0.28 x10 3/uL 0-0.03 LYMPHOCYTE # (test code=LY#) 3.30 K/mm3 1.0-5.0 MONOCYTE # (test code=MO#) 1.66 K/mm3 0-0.8 EOSINOPHIL # (test code=EO#) 1.01 K/mm3 0.0-0.5 BASOPHIL # (test code=BA#) 0.17 K/mm3 0.0-0.2 NUCLEATED RBC # (test code=NRBC#) 0.00 K/mm3 0.0-0.1 MANUAL DIFF REQUIRED (test code=MDIFF) NO, ONLY SCAN [place] [facility] [address] [id number] 11:20:00* Test Item Value Reference Range Comments STAIN ACCEPTABILITY (test code=STN ACCEPTABLE) STAIN ACCEPTABLE POLYCHROMASIA (test code=POLC) 2+ POIKILOCYTOSIS (test code=POIK) 1+ ANISOCYTOSIS (test code=ANISO) 1+ PLATELET ESTIMATE (test code=PLTEST) INCREASED PLATELET MORPHOLOGY (test code=PLTMORPH) NORMAL [place] ON AT 0939CBC W/AUTO [id number] 10:53:00* Test Item Value Reference Range Comments WHITE BLOOD CELL (test code=WBC) 18.2 K/mm3 4.5-12.5 RED BLOOD CELL (test code=RBC) 3.79 mill/mm3 4.0-5.8 HEMOGLOBIN (test code=HGB) 9.2 gram/dL 13.0-17.5 HEMATOCRIT (test code=HCT) 30.9 % 42.0-52.0 MEAN CELL VOLUME (test code=MCV) 81.5 fL 80-98 MEAN CELL HGB (test code=MCH) 24.3 picogram 27.0-33.0 MEAN CELL HGB CONCETRATION (test code=MCHC) 29.8 gram/dL 33.0-36.0 RED CELL DISTRIBUTION WIDTH (test code=RDW) 15.9 % 11.6-16.2 RED CELL DISTRIBUTION WIDTH SD (test code=RDW-SD) 47.0 fL 37.0-51.0 PLATELET COUNT (test code=PLT) 835 K/mm3 150-450 MEAN PLATELET VOLUME (test code=MPV) 10.5 fL 6.7-11.0 NEUTROPHIL % (test code=NT%) 64.9 % 39.0-69.0 IMMATURE GRANULOCYTE % (test code=IG%) 1.5 % 0.0-5.0 LYMPHOCYTE % (test code=LY%) 18.1 % 25.0-55.0 MONOCYTE % (test code=MO%) 9.1 % 0.0-10.0 EOSINOPHIL % (test code=EO%) 5.5 % 0.0-5.0 BASOPHIL % (test code=BA%) 0.9 % 0.0-1.0 NUCLEATED RBC % (test code=NRBC%) 0.0 % 0-0 NEUTROPHIL # (test code=NT#) 11.80 K/mm3 1.8-7.7 IMMATURE GRANULOCYTE # (test code=IG#) 0.28 x10 3/uL 0-0.03 LYMPHOCYTE # (test code=LY#) 3.30 K/mm3 1.0-5.0 MONOCYTE # (test code=MO#) 1.66 K/mm3 0-0.8 EOSINOPHIL # (test code=EO#) 1.01 K/mm3 0.0-0.5 BASOPHIL # (test code=BA#) 0.17 K/mm3 0.0-0.2 NUCLEATED RBC # (test code=NRBC#) 0.00 K/mm3 0.0-0.1 MANUAL DIFF REQUIRED (test code=MDIFF) NO, ONLY SCAN NEEDED [place] ON AT [address]DIFFERENTIAL [id number] 10:53:00* Test Item Value Reference Range Comments STAIN ACCEPTABILITY (test code=STN ACCEPTABLE) MORPHOLOGY COMMENT (test code=MOC) PLATELET ESTIMATE (test code=PLTEST) PLATELET MORPHOLOGY (test code=PLTMORPH) ADD ON AT 0939CBC W/AUTO [id number] 10:51:00* Test Item Value Reference Range Comments WHITE BLOOD CELL (test code=WBC) 18.2 K/mm3 4.5-12.5 RED BLOOD CELL (test code=RBC) 3.79 mill/mm3 4.0-5.8 HEMOGLOBIN (test code=HGB) 9.2 gram/dL 13.0-17.5 HEMATOCRIT (test code=HCT) 30.9 % 42.0-52.0 MEAN CELL VOLUME (test code=MCV) 81.5 fL 80-98 MEAN CELL HGB (test code=MCH) 24.3 picogram 27.0-33.0 MEAN CELL HGB CONCETRATION (test code=MCHC) 29.8 gram/dL 33.0-36.0 RED CELL DISTRIBUTION WIDTH (test code=RDW) 15.9 % 11.6-16.2 RED CELL DISTRIBUTION WIDTH SD (test code=RDW-SD) 47.0 fL 37.0-51.0 PLATELET COUNT (test code=PLT) 835 K/mm3 150-450 MEAN PLATELET VOLUME (test code=MPV) 10.5 fL 6.7-11.0 NEUTROPHIL % (test code=NT%) 64.9 % 39.0-69.0 IMMATURE GRANULOCYTE % (test code=IG%) 1.5 % 0.0-5.0 LYMPHOCYTE % (test code=LY%) 18.1 % 25.0-55.0 MONOCYTE % (test code=MO%) 9.1 % 0.0-10.0 EOSINOPHIL % (test code=EO%) 5.5 % 0.0-5.0 BASOPHIL % (test code=BA%) 0.9 % 0.0-1.0 NUCLEATED RBC % (test code=NRBC%) 0.0 % 0-0 NEUTROPHIL # (test code=NT#) 11.80 K/mm3 1.8-7.7 IMMATURE GRANULOCYTE # (test code=IG#) 0.28 x10 3/uL 0-0.03 LYMPHOCYTE # (test code=LY#) 3.30 K/mm3 1.0-5.0 MONOCYTE # (test code=MO#) 1.66 K/mm3 0-0.8 EOSINOPHIL # (test code=EO#) 1.01 K/mm3 0.0-0.5 BASOPHIL # (test code=BA#) 0.17 K/mm3 0.0-0.2 NUCLEATED RBC # (test code=NRBC#) 0.00 K/mm3 0.0-0.1 MANUAL DIFF REQUIRED (test code=MDIFF) NO, ONLY SCAN [place] [address]DIFFERENTIAL [id number] 10:51:00* Test Item Value Reference Range Comments STAIN ACCEPTABILITY (test code=STN ACCEPTABLE) CABOT RINGS (test code=CAB) MORPHOLOGY COMMENT (test code=MOC) PLATELET ESTIMATE (test code=PLTEST) PLATELET MORPHOLOGY (test code=PLTMORPH) ADD ON AT 0939CBC W/AUTO [id number] 10:51:00* Test Item Value Reference Range Comments WHITE BLOOD CELL (test code=WBC) 18.2 K/mm3 4.5-12.5 RED BLOOD CELL (test code=RBC) 3.79 mill/mm3 4.0-5.8 HEMOGLOBIN (test code=HGB) 9.2 gram/dL 13.0-17.5 HEMATOCRIT (test code=HCT) 30.9 % 42.0-52.0 MEAN CELL VOLUME (test code=MCV) 81.5 fL 80-98 MEAN CELL HGB (test code=MCH) 24.3 picogram 27.0-33.0 MEAN CELL HGB CONCETRATION (test code=MCHC) 29.8 gram/dL 33.0-36.0 RED CELL DISTRIBUTION WIDTH (test code=RDW) 15.9 % 11.6-16.2 RED CELL DISTRIBUTION WIDTH SD (test code=RDW-SD) 47.0 fL 37.0-51.0 PLATELET COUNT (test code=PLT) 835 K/mm3 150-450 MEAN PLATELET VOLUME (test code=MPV) 10.5 fL 6.7-11.0 NEUTROPHIL % (test code=NT%) 64.9 % 39.0-69.0 IMMATURE GRANULOCYTE % (test code=IG%) 1.5 % 0.0-5.0 LYMPHOCYTE % (test code=LY%) 18.1 % 25.0-55.0 MONOCYTE % (test code=MO%) 9.1 % 0.0-10.0 EOSINOPHIL % (test code=EO%) 5.5 % 0.0-5.0 BASOPHIL % (test code=BA%) 0.9 % 0.0-1.0 NUCLEATED RBC % (test code=NRBC%) 0.0 % 0-0 NEUTROPHIL # (test code=NT#) 11.80 K/mm3 1.8-7.7 IMMATURE GRANULOCYTE # (test code=IG#) 0.28 x10 3/uL 0-0.03 LYMPHOCYTE # (test code=LY#) 3.30 K/mm3 1.0-5.0 MONOCYTE # (test code=MO#) 1.66 K/mm3 0-0.8 EOSINOPHIL # (test code=EO#) 1.01 K/mm3 0.0-0.5 BASOPHIL # (test code=BA#) 0.17 K/mm3 0.0-0.2 NUCLEATED RBC # (test code=NRBC#) 0.00 K/mm3 0.0-0.1 MANUAL DIFF REQUIRED (test code=MDIFF) NO, ONLY SCAN NEEDED [place] ON AT [address]DIFFERENTIAL [id number] 10:51:00* Test Item Value Reference Range Comments STAIN ACCEPTABILITY (test code=STN ACCEPTABLE) MORPHOLOGY COMMENT (test code=MOC) PLATELET ESTIMATE (test code=PLTEST) PLATELET MORPHOLOGY (test code=PLTMORPH) ADD ON AT 09[address]CBC W/AUTO [id number] 10:51:00* Test Item Value Reference Range Comments WHITE BLOOD CELL (test code=WBC) 18.2 K/mm3 4.5-12.5 RED BLOOD CELL (test code=RBC) 3.79 mill/mm3 4.0-5.8 HEMOGLOBIN (test code=HGB) 9.2 gram/dL 13.0-17.5 HEMATOCRIT (test code=HCT) 30.9 % 42.0-52.0 MEAN CELL VOLUME (test code=MCV) 81.5 fL 80-98 MEAN CELL HGB (test code=MCH) 24.3 picogram 27.0-33.0 MEAN CELL HGB CONCETRATION (test code=MCHC) 29.8 gram/dL 33.0-36.0 RED CELL DISTRIBUTION WIDTH (test code=RDW) 15.9 % 11.6-16.2 RED CELL DISTRIBUTION WIDTH SD (test code=RDW-SD) 47.0 fL 37.0-51.0 PLATELET COUNT (test code=PLT) 835 K/mm3 150-450 MEAN PLATELET VOLUME (test code=MPV) 10.5 fL 6.7-11.0 NEUTROPHIL % (test code=NT%) 64.9 % 39.0-69.0 IMMATURE GRANULOCYTE % (test code=IG%) 1.5 % 0.0-5.0 LYMPHOCYTE % (test code=LY%) 18.1 % 25.0-55.0 MONOCYTE % (test code=MO%) 9.1 % 0.0-10.0 EOSINOPHIL % (test code=EO%) 5.5 % 0.0-5.0 BASOPHIL % (test code=BA%) 0.9 % 0.0-1.0 NUCLEATED RBC % (test code=NRBC%) 0.0 % 0-0 NEUTROPHIL # (test code=NT#) 11.80 K/mm3 1.8-7.7 IMMATURE GRANULOCYTE # (test code=IG#) 0.28 x10 3/uL 0-0.03 LYMPHOCYTE # (test code=LY#) 3.30 K/mm3 1.0-5.0 MONOCYTE # (test code=MO#) 1.66 K/mm3 0-0.8 EOSINOPHIL # (test code=EO#) 1.01 K/mm3 0.0-0.5 BASOPHIL # (test code=BA#) 0.17 K/mm3 0.0-0.2 NUCLEATED RBC # (test code=NRBC#) 0.00 K/mm3 0.0-0.1 MANUAL DIFF REQUIRED (test code=MDIFF) NO, ONLY SCAN NEEDED [place] [facility] [address] [id number] 10:51:00* Test Item Value Reference Range Comments STAIN ACCEPTABILITY (test code=STN ACCEPTABLE) CABOT RINGS (test code=CAB) MORPHOLOGY COMMENT (test code=MOC) PLATELET ESTIMATE (test code=PLTEST) PLATELET MORPHOLOGY (test code=PLTMORPH) ADD ON [facility] [address] METABOLIC [id number] 10:17:00* Test Item Value Reference Range Comments SODIUM (test code=NA) 136 mmol/L 136-145 POTASSIUM (test code=K) 4.8 mmol/L 3.5-5.1 CHLORIDE (test code=CL) 103.0 mmol/L 98-107 CARBON DIOXIDE (test code=CO2) 24.0 mmol/L 21-32 ANION GAP (test code=GAP) 13.8 10-20 GLUCOSE (test code=GLU) 86 mg/dL 74-106 BLOOD UREA NITROGEN (test code=BUN) 19 mg/dL 7-18 GLOMERULAR FILTRATION RATE (test code=GFR) > 60 mL/min >=60 Estimated GFR by using Modified MDRD formula.Chronic kidney disease is defined as either kidney damageor GFR <60 mL/min/1.73 m2 for >3 months. CREATININE (test code=CREAT) 0.70 mg/dL 0.7-1.3 BUN/CREATININE RATIO (test code=BUN/CREA) 27.1 10-20 CALCIUM (test code=CA) 9.3 mg/dL 8.5-10.1 [id number] 10:17:00* Test Item Value Reference Range Comments MAGNESIUM (test code=MAG) 2.2 mg/dL 1.8-2.4 BASIC METABOLIC [id number] 10:13:00* Test Item Value Reference Range Comments SODIUM (test code=NA) 136 mmol/L 136-145 POTASSIUM (test code=K) 4.8 mmol/L 3.5-5.1 CHLORIDE (test code=CL) 103.0 mmol/L 98-107 CARBON DIOXIDE (test code=CO2) mmol/L 21-32 ANION GAP (test code=GAP) 10-20 GLUCOSE (test code=GLU) mg/dL 74-106 BLOOD UREA NITROGEN (test code=BUN) mg/dL 7-18 GLOMERULAR FILTRATION RATE (test code=GFR) mL/min >=60 CREATININE (test code=CREAT) mg/dL 0.7-1.3 BUN/CREATININE RATIO (test code=BUN/CREA) 10-20 CALCIUM (test code=CA) mg/dL 8.5-10.1 [id number] 10:13:00* Test Item Value Reference Range Comments MAGNESIUM (test code=MAG) mg/dL 1.8-2.4 BASIC METABOLIC [id number] 10:13:00* Test Item Value Reference Range Comments SODIUM (test code=NA) 136 mmol/L 136-145 POTASSIUM (test code=K) 4.8 mmol/L 3.5-5.1 CHLORIDE (test code=CL) 103.0 mmol/L 98-107 CARBON DIOXIDE (test code=CO2) mmol/L 21-32 ANION GAP (test code=GAP) 10-20 GLUCOSE (test code=GLU) mg/dL 74-106 BLOOD UREA NITROGEN (test code=BUN) mg/dL 7-18 GLOMERULAR FILTRATION RATE (test code=GFR) mL/min >=60 CREATININE (test code=CREAT) mg/dL 0.7-1.3 BUN/CREATININE RATIO (test code=BUN/CREA) 10-20 CALCIUM (test code=CA) 9.3 mg/dL 8.5-10.1 [id number] 10:13:00* Test Item Value Reference Range Comments MAGNESIUM (test code=MAG) mg/dL 1.8-2.4 [id number] 08:53:00* Test Item Value Reference Range Comments GLUBED (test code=GLUBED) 113 mg/dL 74-106 Performed by certified steel spar operator at [facility] SERUM [id number] 05:05:00* Test Item Value Reference Range Comments SERUM IRON (test code=IRON) 19 ug/dL 50-175 TOTAL IRON BINDING [id number] 05:05:00* Test Item Value Reference Range Comments TOTAL IRON BINDING CAPACITY (test code=TIBC) 164 mcg/dL 250-450 [id number] 05:05:00* Test Item Value Reference Range Comments FERRITIN (test code=ANAMARIA) 506 ng/mL 8-388 [id number] 20:57:00* Test Item Value Reference Range Comments GLUBED (test code=GLUBED) 83 mg/dL 74-106 Performed by certified steel spar operator at [facility] [id number] 17:35:00* Test Item Value Reference Range Comments GLUBED (test code=GLUBED) 103 mg/dL 74-106 Performed by certified steel spar operator at [facility] [id number] 12:55:00* Test Item Value Reference Range Comments GLUBED (test code=GLUBED) 102 mg/dL 74-106 Performed by certified steel spar operator at [facility] [id number] 08:41:00* Test Item Value Reference Range Comments GLUBED (test code=GLUBED) 89 mg/dL 74-106 Performed by certified steel spar operator at [facility] [id number] 20:32:00* Test Item Value Reference Range Comments GLUBED (test code=GLUBED) 96 mg/dL 74-106 Performed by certified steel spar operator at [facility] [id number] 17:03:00* Test Item Value Reference Range Comments GLUBED (test code=GLUBED) 112 mg/dL 74-106 Performed by certified steel spar operator at [facility] [id number] 16:52:00* Test Item Value Reference Range Comments GLUBED (test code=GLUBED) 87 mg/dL 74-106 Performed by certified steel spar operator at [facility] BASIC METABOLIC [id number] 05:32:00* Test Item Value Reference Range Comments SODIUM (test code=NA) 138 mmol/L 136-145 POTASSIUM (test code=K) 4.0 mmol/L 3.5-5.1 CHLORIDE (test code=CL) 104.0 mmol/L 98-107 CARBON DIOXIDE (test code=CO2) 22.0 mmol/L 21-32 ANION GAP (test code=GAP) 16.0 10-20 GLUCOSE (test code=GLU) 96 mg/dL 74-106 BLOOD UREA NITROGEN (test code=BUN) 22 mg/dL 7-18 GLOMERULAR FILTRATION RATE (test code=GFR) > 60 mL/min >=60 Estimated GFR by using Modified MDRD formula.Chronic kidney disease is defined as either kidney damageor GFR <60 mL/min/1.73 m2 for >3 months. CREATININE (test code=CREAT) 0.90 mg/dL 0.7-1.3 BUN/CREATININE RATIO (test code=BUN/CREA) 24.4 10-20 CALCIUM (test code=CA) 9.6 mg/dL 8.5-10.1 [id number] 05:32:00* Test Item Value Reference Range Comments MAGNESIUM (test code=MAG) 2.2 mg/dL 1.8-2.4 CBC W/AUTO [id number] 05:28:00* Test Item Value Reference Range Comments WHITE BLOOD CELL (test code=WBC) 18.6 K/mm3 4.5-12.5 RED BLOOD CELL (test code=RBC) 3.52 mill/mm3 4.0-5.8 HEMOGLOBIN (test code=HGB) 8.7 gram/dL 13.0-17.5 HEMATOCRIT (test code=HCT) 28.3 % 42.0-52.0 MEAN CELL VOLUME (test code=MCV) 80.4 fL 80-98 MEAN CELL HGB (test code=MCH) 24.7 picogram 27.0-33.0 MEAN CELL HGB CONCETRATION (test code=MCHC) 30.7 gram/dL 33.0-36.0 RED CELL DISTRIBUTION WIDTH (test code=RDW) 15.8 % 11.6-16.2 RED CELL DISTRIBUTION WIDTH SD (test code=RDW-SD) 45.7 fL 37.0-51.0 PLATELET COUNT (test code=PLT) 726 K/mm3 150-450 MEAN PLATELET VOLUME (test code=MPV) 10.9 fL 6.7-11.0 NEUTROPHIL % (test code=NT%) 66.4 % 39.0-69.0 IMMATURE GRANULOCYTE % (test code=IG%) 1.1 % 0.0-5.0 LYMPHOCYTE % (test code=LY%) 18.2 % 25.0-55.0 MONOCYTE % (test code=MO%) 8.3 % 0.0-10.0 EOSINOPHIL % (test code=EO%) 5.1 % 0.0-5.0 BASOPHIL % (test code=BA%) 0.9 % 0.0-1.0 NUCLEATED RBC % (test code=NRBC%) 0.0 % 0-0 NEUTROPHIL # (test code=NT#) 12.33 K/mm3 1.8-7.7 IMMATURE GRANULOCYTE # (test code=IG#) 0.21 x10 3/uL 0-0.03 LYMPHOCYTE # (test code=LY#) 3.39 K/mm3 1.0-5.0 MONOCYTE # (test code=MO#) 1.55 K/mm3 0-0.8 EOSINOPHIL # (test code=EO#) 0.94 K/mm3 0.0-0.5 BASOPHIL # (test code=BA#) 0.17 K/mm3 0.0-0.2 NUCLEATED RBC # (test code=NRBC#) 0.00 K/mm3 0.0-0.1 MANUAL DIFF REQUIRED (test code=MDIFF) NO BASIC METABOLIC [id number] 05:27:00* Test Item Value Reference Range Comments SODIUM (test code=NA) 138 mmol/L 136-145 POTASSIUM (test code=K) 4.0 mmol/L 3.5-5.1 CHLORIDE (test code=CL) 104.0 mmol/L 98-107 CARBON DIOXIDE (test code=CO2) mmol/L 21-32 ANION GAP (test code=GAP) 10-20 GLUCOSE (test code=GLU) mg/dL 74-106 BLOOD UREA NITROGEN (test code=BUN) mg/dL 7-18 GLOMERULAR FILTRATION RATE (test code=GFR) mL/min >=60 CREATININE (test code=CREAT) mg/dL 0.7-1.3 BUN/CREATININE RATIO (test code=BUN/CREA) 10-20 CALCIUM (test code=CA) mg/dL 8.5-10.1 [id number] 05:27:00* Test Item Value Reference Range Comments MAGNESIUM (test code=MAG) mg/dL 1.8-2.4 [id number] 12:10:00* Test Item Value Reference Range Comments GLUBED (test code=GLUBED) 93 mg/dL 74-106 Performed by certified steel spar operator at [facility] BASIC METABOLIC [id number] 06:03:00* Test Item Value Reference Range Comments SODIUM (test code=NA) 138 mmol/L 136-145 POTASSIUM (test code=K) 4.3 mmol/L 3.5-5.1 CHLORIDE (test code=CL) 106.0 mmol/L 98-107 CARBON DIOXIDE (test code=CO2) 22.0 mmol/L 21-32 ANION GAP (test code=GAP) 14.3 10-20 GLUCOSE (test code=GLU) 91 mg/dL 74-106 BLOOD UREA NITROGEN (test code=BUN) 21 mg/dL 7-18 GLOMERULAR FILTRATION RATE (test code=GFR) > 60 mL/min >=60 Estimated GFR by using Modified MDRD formula.Chronic kidney disease is defined as either kidney damageor GFR <60 mL/min/1.73 m2 for >3 months. CREATININE (test code=CREAT) 0.80 mg/dL 0.7-1.3 BUN/CREATININE RATIO (test code=BUN/CREA) 25.1 10-20 CALCIUM (test code=CA) 9.3 mg/dL 8.5-10.1 CBC W/O [id number] 05:52:00* Test Item Value Reference Range Comments WHITE BLOOD CELL (test code=WBC) 19.8 K/mm3 4.5-12.5 RED BLOOD CELL (test code=RBC) 3.71 mill/mm3 4.0-5.8 HEMOGLOBIN (test code=HGB) 9.2 gram/dL 13.0-17.5 HEMATOCRIT (test code=HCT) 29.7 % 42.0-52.0 MEAN CELL VOLUME (test code=MCV) 80.1 fL 80-98 MEAN CELL HGB (test code=MCH) 24.8 picogram 27.0-33.0 MEAN CELL HGB CONCETRATION (test code=MCHC) 31.0 gram/dL 33.0-36.0 RED CELL DISTRIBUTION WIDTH (test code=RDW) 15.7 % 11.6-16.2 PLATELET COUNT (test code=PLT) 672 K/mm3 150-450 RESULT VERIFIED BY REPEAT ANALYSIS MEAN PLATELET VOLUME (test code=MPV) 11.2 fL 6.7-11.0 LEUK/LYMPH MARKERS [id number] 12:13:00* Test Item Value Reference Range Comments LEUK/LYMPHOMA PANEL (test code=LEULYM) CLINICAL () No monoclonal B cell population is detected.kappa:lambda ratio 1.3There is no loss of, or aberrant expression of, the dukes T cell antigens tosuggest a neoplastic T cell process.CD4:CD8 ratio 1.5No circulating blasts are detected. There is no immunophenotypic evidenceof abnormal myeloid maturation.Eosinophils are increased and account for approximately 6% of leukocytes.Analysis of the leukocyte population shows: granulocytes 82% (including 6%eosinophils), monocytes 4%, lymphocytes 14%, blasts <0.5%, B cells 2%, Tcells 10%, NK cells 2%. COMMENT(S) (test code=COMM) () Peripheral blood VIABILITY (test code=VIABILI) () 94% FLOW CYTO INTERPRETATION (test code=INTFLOW) () [place] GATING STRATEGY (test code=GATSTRAT) () 8 color analysis with CD45/SSC gating COMMENT(S) (test code=COM) Flow Interpretation:No significant diagnostic immunophenotypic abnormalitydetected.Eosinophilia. (See comment.) Flow Comment:Eosinophilia can be associated with drug reaction, parasiticinfection, and neoplastic processes, among others. Clinicalcorrelation is necessary. Phenotype Chart:CD2 Normal CD3 NormalCD4 Normal CD5 NormalCD7 Normal CD8 LifbirTD43 Normal CD11b IljzxeOT27 Normal CD14 AkmkkyUK58 Normal CD19 SjmzjjFR73 Normal CD33 QvbiwkTQ99 Normal CD38 FddzyvZX62 Normal CD56 TnffqjQX58 Normal CD117 NormalHLA-DR Normal KAPPA NormalLAMBDA Normal CD64 Normal Comment: Each antibody in this assay was utilized to assess for potential abnormalities of studied cell populations or to characterize identified abnormalities. This test was developed and its performance characteristics determined by [employer]. It has not been cleared or approved by the [place]. Food and Drug Administration. The FDA has determined that such clearance or approval is not necessary. This test is used for clinical purposes. It should not be regarded as investigational or for research. Test performed at: [facility] [address] [place] [address] LACTIC DEHYDROGENASE(LDH)2019-05-22 11:44:00* Test Item Value Reference Range Comments LACTIC DEHYDROGENASE(LDH) (test code=LDH) 197 IUnit/L 84-246 [id number] 11:44:00* Test Item Value Reference Range Comments BCR-ABL (test code=BCRABL) FISH Oncology Specimen Type: BLOODCells Counted: 200 Cells Analyzed: 200 FISH Result Comment: NORMAL: NO BCR OR ABL1 GENE REARRANGEMENT OBSERVED Interpretation Comment: nuc petra 9q34(ASS1,ABL1)x2,22q1 1.2(BCRx2)[200]. The fluorescence in situ hybridization (FISH) studywas normal. FISH, using unique sequence DNA probes for theABL1 and BCR gene regions showed two ABL1 signals (red), twocontrol ASS1 gene signals (aqua) located adjacent to theABL1 locus at 9q34, and two BCR signals (green) at 22q11.2in all interphase nuclei examined. There was NO evidence ofCML or ALL-associated BCR/ABL1 dual fusion signals in thisanalysis. . This analysis is limited to abnormalities detectableby the specific probes included in the study. FISH resultsshould be interpreted within the context of a fullcytogenetic analysis and pathology evaluation. . This test was developed and its performancecharacteristics determined by [employer] ([employer]). It has not been cleared orapproved by the U.S. Food and Drug Administration. The DNAprobe vendor for this study was [employer] ([facility]). Director Review: DIMITRI MELO, PHD, FAC Test performed at: [facility] [address] [place] [address] BASIC METABOLIC [id number] 07:24:00* Test Item Value Reference Range Comments SODIUM (test code=NA) 140 mmol/L 136-145 POTASSIUM (test code=K) 5.0 mmol/L 3.5-5.1 CHLORIDE (test code=CL) 109.0 mmol/L 98-107 CARBON DIOXIDE (test code=CO2) 19.0 mmol/L 21-32 ANION GAP (test code=GAP) 17.0 10-20 GLUCOSE (test code=GLU) 89 mg/dL 74-106 BLOOD UREA NITROGEN (test code=BUN) 20 mg/dL 7-18 GLOMERULAR FILTRATION RATE (test code=GFR) > 60 mL/min >=60 Estimated GFR by using Modified MDRD formula.Chronic kidney disease is defined as either kidney damageor GFR <60 mL/min/1.73 m2 for >3 months. CREATININE (test code=CREAT) 0.70 mg/dL 0.7-1.3 BUN/CREATININE RATIO (test code=BUN/CREA) 27.1 10-20 CALCIUM (test code=CA) 9.4 mg/dL 8.5-10.1 CBC W/O [id number] 06:22:00* Test Item Value Reference Range Comments WHITE BLOOD CELL (test code=WBC) 24.4 K/mm3 4.5-12.5 RED BLOOD CELL (test code=RBC) 3.28 mill/mm3 4.0-5.8 HEMOGLOBIN (test code=HGB) 8.3 gram/dL 13.0-17.5 HEMATOCRIT (test code=HCT) 27.0 % 42.0-52.0 MEAN CELL VOLUME (test code=MCV) 82.3 fL 80-98 MEAN CELL HGB (test code=MCH) 25.3 picogram 27.0-33.0 MEAN CELL HGB CONCETRATION (test code=MCHC) 30.7 gram/dL 33.0-36.0 RED CELL DISTRIBUTION WIDTH (test code=RDW) 15.5 % 11.6-16.2 PLATELET COUNT (test code=PLT) 608 K/mm3 150-450 MEAN PLATELET VOLUME (test code=MPV) 10.9 fL 6.7-11.0 CBC W/MANUAL [id number] 13:58:00* Test Item Value Reference Range Comments WHITE BLOOD CELL (test code=WBC) 20.2 K/mm3 4.5-12.5 RED BLOOD CELL (test code=RBC) 3.35 mill/mm3 4.0-5.8 HEMOGLOBIN (test code=HGB) 8.4 gram/dL 13.0-17.5 HEMATOCRIT (test code=HCT) 27.2 % 42.0-52.0 MEAN CELL VOLUME (test code=MCV) 81.2 fL 80-98 MEAN CELL HGB (test code=MCH) 25.1 picogram 27.0-33.0 MEAN CELL HGB CONCETRATION (test code=MCHC) 30.9 gram/dL 33.0-36.0 RED CELL DISTRIBUTION WIDTH (test code=RDW) 15.4 % 11.6-16.2 RED CELL DISTRIBUTION WIDTH SD (test code=RDW-SD) 44.8 fL 37.0-51.0 PLATELET COUNT (test code=PLT) 577 K/mm3 150-450 MEAN PLATELET VOLUME (test code=MPV) 11.1 fL 6.7-11.0 IMMATURE GRANULOCYTE % (test code=IG%) 1.2 % 0.0-5.0 NUCLEATED RBC % (test code=NRBC%) 0.0 % 0-0 NEUTROPHIL # (test code=NT#) 13.95 K/mm3 1.8-7.7 IMMATURE GRANULOCYTE # (test code=IG#) 0.25 x10 3/uL 0-0.03 LYMPHOCYTE # (test code=LY#) 3.24 K/mm3 1.0-5.0 MONOCYTE # (test code=MO#) 1.54 K/mm3 0-0.8 EOSINOPHIL # (test code=EO#) 1.13 K/mm3 0.0-0.5 BASOPHIL # (test code=BA#) 0.12 K/mm3 0.0-0.2 NUCLEATED RBC # (test code=NRBC#) 0.00 K/mm3 0.0-0.1 MANUAL DIFF REQUIRED (test code=MDIFF) YES STAIN ACCEPTABILITY (test code=STN ACCEPTABLE) STAIN ACCEPTABLE TOTAL CELLS COUNTED (test code=TCC) 114 #CELLS SEGMENTED NEUTROPHILS (test code=SEG) 67.5 % 39-69 BAND NEUTROPHIL (test code=BAND) 0 % 0-10 LYMPHOCYTE (test code=LYMPH) 20.2 % 25-55 REACTIVE LYMPH (test code=RELYMPH) 0 % MONOCYTE (test code=MON) 7.9 % 0-10 EOSINOPHIL (test code=EOS) 4.4 % 0.0-5.0 BASOPHIL (test code=BASO) 0 % 0-1.0 METAMYELOCYTE (test code=META) 0 % 0-0 MYELOCYTE (test code=MYELO) 0 % 0.0-0.0 PROMYELOCYTE (test code=PROM) 0 % 0-0 HYPOCHROMIA (test code=HYPO) 1+ PLATELET ESTIMATE (test code=PLTEST) INCREASED PLATELET MORPHOLOGY (test code=PLTMORPH) SIZE VARIABLE FEW CLUMPING SEEN. IMMATURE FORMS (test code=IMMAT) 0 % 0-0 BASIC METABOLIC [id number] 13:31:00* Test Item Value Reference Range Comments SODIUM (test code=NA) 140 mmol/L 136-145 POTASSIUM (test code=K) 3.9 mmol/L 3.5-5.1 CHLORIDE (test code=CL) 109.0 mmol/L 98-107 CARBON DIOXIDE (test code=CO2) 24.0 mmol/L 21-32 ANION GAP (test code=GAP) 10.9 10-20 GLUCOSE (test code=GLU) 88 mg/dL 74-106 BLOOD UREA NITROGEN (test code=BUN) 19 mg/dL 7-18 GLOMERULAR FILTRATION RATE (test code=GFR) > 60 mL/min >=60 Estimated GFR by using Modified MDRD formula.Chronic kidney disease is defined as either kidney damageor GFR <60 mL/min/1.73 m2 for >3 months. CREATININE (test code=CREAT) 0.80 mg/dL 0.7-1.3 BUN/CREATININE RATIO (test code=BUN/CREA) 22.9 10-20 CALCIUM (test code=CA) 8.8 mg/dL 8.5-10.1 BASIC METABOLIC [id number] 13:29:00* Test Item Value Reference Range Comments SODIUM (test code=NA) 140 mmol/L 136-145 POTASSIUM (test code=K) 3.9 mmol/L 3.5-5.1 CHLORIDE (test code=CL) 109.0 mmol/L 98-107 CARBON DIOXIDE (test code=CO2) mmol/L 21-32 ANION GAP (test code=GAP) 10-20 GLUCOSE (test code=GLU) mg/dL 74-106 BLOOD UREA NITROGEN (test code=BUN) mg/dL 7-18 GLOMERULAR FILTRATION RATE (test code=GFR) mL/min >=60 CREATININE (test code=CREAT) mg/dL 0.7-1.3 BUN/CREATININE RATIO (test code=BUN/CREA) 10-20 CALCIUM (test code=CA) mg/dL 8.5-10.1 CBC W/MANUAL [id number] 13:11:00* Test Item Value Reference Range Comments WHITE BLOOD CELL (test code=WBC) 20.2 K/mm3 4.5-12.5 RED BLOOD CELL (test code=RBC) 3.35 mill/mm3 4.0-5.8 HEMOGLOBIN (test code=HGB) 8.4 gram/dL 13.0-17.5 HEMATOCRIT (test code=HCT) 27.2 % 42.0-52.0 MEAN CELL VOLUME (test code=MCV) 81.2 fL 80-98 MEAN CELL HGB (test code=MCH) 25.1 picogram 27.0-33.0 MEAN CELL HGB CONCETRATION (test code=MCHC) 30.9 gram/dL 33.0-36.0 RED CELL DISTRIBUTION WIDTH (test code=RDW) 15.4 % 11.6-16.2 RED CELL DISTRIBUTION WIDTH SD (test code=RDW-SD) 44.8 fL 37.0-51.0 PLATELET COUNT (test code=PLT) 577 K/mm3 150-450 MEAN PLATELET VOLUME (test code=MPV) 11.1 fL 6.7-11.0 IMMATURE GRANULOCYTE % (test code=IG%) 1.2 % 0.0-5.0 NUCLEATED RBC % (test code=NRBC%) 0.0 % 0-0 NEUTROPHIL # (test code=NT#) 13.95 K/mm3 1.8-7.7 IMMATURE GRANULOCYTE # (test code=IG#) 0.25 x10 3/uL 0-0.03 LYMPHOCYTE # (test code=LY#) 3.24 K/mm3 1.0-5.0 MONOCYTE # (test code=MO#) 1.54 K/mm3 0-0.8 EOSINOPHIL # (test code=EO#) 1.13 K/mm3 0.0-0.5 BASOPHIL # (test code=BA#) 0.12 K/mm3 0.0-0.2 NUCLEATED RBC # (test code=NRBC#) 0.00 K/mm3 0.0-0.1 MANUAL DIFF REQUIRED (test code=MDIFF) YES STAIN ACCEPTABILITY (test code=STN ACCEPTABLE) TOTAL CELLS COUNTED (test code=TCC) #CELLS SEGMENTED NEUTROPHILS (test code=SEG) % 39-69 LYMPHOCYTE (test code=LYMPH) % 25-55 MONOCYTE (test code=MON) % 0-10 MORPHOLOGY COMMENT (test code=MOC) PLATELET ESTIMATE (test code=PLTEST) PLATELET MORPHOLOGY (test code=PLTMORPH) - PULM VENT PERF [id number] 15:55:00 FAX: Lonnie Olson MD [phone] [place]: St: ADM FAX: Ramiro Nava MD [phone] FAX: Bradford Maier [phone] Name: CELESTINO MCALLISTER [facility] : 1970 Age/S: 48/M [address] [facility] Unit #: [id number] Loc: V.[address] [place] [address] Phys: Ramiro Velázquez MD Acct: [id number] Dis Date: Status: ADM IN ONE #: [phone] Exam Date: 05/19/2019 1541 FAX #: [phone] Reason: tachypnea, hypoxemia EXAMS: CPT CODE: [id number] PU LM VENT PERF IMAG 01194 REASON FOR EXA M: tachypnea, hypoxemia Exam Order Date: 05/19/2019 12:02 PM Procedure: - PULM VENT PERF IMAG FINDINGS: The patie nt was injected with 5 mCi of technetium 99m MAA. Unremarkable radiotracer uptake in the lungs in the perfusion phase. The ventilation portion of th e exam was not performed IMPRESSION: Low probability of pulmonar y embolus at 155 5 Reported and signed by: Reg Jordan M.D. CC: Lonnie Olson MD; Ramiro Velázquez MD; Bradford Maier MD Technologi st: Jeane Bauman RT(N) Trnscrd Date/Time/By: 05/19/2019 (1553) : By: [email or web address] Orig Print D/T: S: 05/19/2019 (8584 ) PAGE 1 Signed Report C REACTIVE [id number] 07:13:00* Test Item Value Reference Range Comments C REACTIVE PROTEIN (test code=CRP) 15.80 mg/dL 0-0.3 COMPREHENSIVE METABOLIC [id number] 07:01:00* Test Item Value Reference Range Comments SODIUM (test code=NA) 141 mmol/L 136-145 POTASSIUM (test code=K) 3.4 mmol/L 3.5-5.1 CHLORIDE (test code=CL) 110.0 mmol/L 98-107 CARBON DIOXIDE (test code=CO2) 18.0 mmol/L 21-32 ANION GAP (test code=GAP) 16.4 10-20 GLUCOSE (test code=GLU) 86 mg/dL 74-106 BLOOD UREA NITROGEN (test code=BUN) 10 mg/dL 7-18 GLOMERULAR FILTRATION RATE (test code=GFR) > 60 mL/min >=60 Estimated GFR by using Modified MDRD formula.Chronic kidney disease is defined as either kidney damageor GFR <60 mL/min/1.73 m2 for >3 months. CREATININE (test code=CREAT) 0.90 mg/dL 0.7-1.3 BUN/CREATININE RATIO (test code=BUN/CREA) 10.6 10-20 TOTAL PROTEIN (test code=PROT) 7.5 gram/dL 6.4-8.2 ALBUMIN (test code=ALB) 2.5 g/dL 3.4-5.0 GLOBULIN (test code=GLOB) 5.0 gram/dL 2.7-4.2 ALBUMIN/GLOBULIN RATIO (test code=A/G) 0.5 0.75-1.50 CALCIUM (test code=CA) 9.2 mg/dL 8.5-10.1 BILIRUBIN TOTAL (test code=BILT) 0.30 mg/dL 0.0-1.0 SGOT/AST (test code=AST) 20 IUnit/L 15-37 SGPT/ALT (test code=ALT) 55 IUnit/L 12-78 ALKALINE PHOSPHATASE TOTAL (test code=ALKP) 177 IUnit/L 45-117 Note change in reference range due to change in reagent. COMPREHENSIVE METABOLIC [id number] 06:42:00* Test Item Value Reference Range Comments SODIUM (test code=NA) 141 mmol/L 136-145 POTASSIUM (test code=K) 3.4 mmol/L 3.5-5.1 CHLORIDE (test code=CL) 110.0 mmol/L 98-107 CARBON DIOXIDE (test code=CO2) mmol/L 21-32 ANION GAP (test code=GAP) 10-20 GLUCOSE (test code=GLU) mg/dL 74-106 BLOOD UREA NITROGEN (test code=BUN) mg/dL 7-18 GLOMERULAR FILTRATION RATE (test code=GFR) mL/min >=60 CREATININE (test code=CREAT) mg/dL 0.7-1.3 BUN/CREATININE RATIO (test code=BUN/CREA) 10-20 TOTAL PROTEIN (test code=PROT) gram/dL 6.4-8.2 ALBUMIN (test code=ALB) g/dL 3.4-5.0 GLOBULIN (test code=GLOB) gram/dL 2.7-4.2 ALBUMIN/GLOBULIN RATIO (test code=A/G) 0.75-1.50 CALCIUM (test code=CA) mg/dL 8.5-10.1 BILIRUBIN TOTAL (test code=BILT) mg/dL 0.0-1.0 SGOT/AST (test code=AST) IUnit/L 15-37 SGPT/ALT (test code=ALT) IUnit/L 12-78 ALKALINE PHOSPHATASE TOTAL (test code=ALKP) IUnit/L 45-117 - CTA [id number] 15:54:00 Name: CELESTINO MCALLISTER [facility] : 1970 Age/S: 48 / M [address] [facility] Unit #: [id number] Loc: [place] [address] Phys: Bradford Maier MD Acct: [id number] Dis Date: Status: ADM IN PHONE #: [phone] Exam Date: 05/18/2019 3551 FAX #: [phone] Reason: r/o PE EXAMS: CPT CODE: [id number] CTA CHEST 19418 REASON FOR EXAM: r/o PE EXAM ORDER DATE: 05/18/2019 10:29 AM Ordering Linda.: Bradford Ortiz MD PROCEDURE: - CTA CHEST FINDINGS: CT images of the chest were obtained with IV contrast using PE protocol. Reconstructed sagittal and coronal images including 3D reconstructions of the chest were provided for interpretation. Dose reduction techniques were applied. Intravenous contrast: 100cc of Omnipaque 370. The heart size is minimally enlarged. No evidence of pericardial effusion The thoracic aorta is unremarkable. No evidence of dissection or aneurysmal dilatation. No filling defect seen within the main or lobar pulmonary arteries to suggest pulmonary embolus No evidence of mediastinal or hilar adenopathy Atelectasis of the bases. No evidence of pleural effusion IMPRESSION: Limited examination due to suboptimal opacification of the pulmonary arteries show no obvious evidence of central pulmonary embolus at 1554 Reported and signed by: Reg Jordan M.D. CC: Lonnie Olson MD; Bardford Maier MD Technologist:Catherine Vasquez RT(R) CTDI: DLP: Trnscb Date/Time: 05/18/2019 (2309) t.CHRISS.DATL Orig Print D/T: S: 05/19/2019 (0855) PAGE 1 Signed Report [id number] 13:23:00* Test Item Value Reference Range Comments AMYLASE (test code=BRANDON) 37 Unit/L 25-115 [id number] 13:23:00* Test Item Value Reference Range Comments LIPASE (test code=LIP) 32 U/L 73.0-393.0 ARTERIAL BLOOD [id number] 12:36:00* Test Item Value Reference Range Comments ARTERIAL BLOOD GAS PH (test code=PHA) 7.49 7.35-7.45 ARTERIAL BLOOD GAS PCO2 (test code=PCO2A) 24.1 mm Hg 35-45 Results called to and read back by Didi 12:35 - 05/18/2019; by Antwan Watkins ARTERIAL BLOOD GAS PO2 (test code=PO2A) 83.4 mmHg 80-100 BICARBONATE TOTAL HCO3 (test code=HCO3) 17.9 mmol/L 23.0-27.0 BASE EXCESS (test code=MARISELA) -3.8 mmol/L -3.0-5.0 Results called to and read back by Didi :35 - 05/18/2019; by Antwan Watkins ABVincenzo O2 SATURATION (test code=SATA) 95.9 % 90.0-98.0 ABG TYPE (test code=TYPEA) Arterial FIO2 (test code=FIO2A) 28.0 ABG SITE (test code=SITEA) Rt RADIAL ARTERY MODIFIED ALLENS (test code=MODALL) Yes CHECK PERFORMED HEMATOCRIT (test code=HCT/ABG) 39 % 42-52 TOTAL HGB (test code=THB) 13.1 gram/dL 13.0-17.5 HGB O2 SAT (test code=HBOSAT) 95.3 % 94.00-98.00 CARBOXYHEMOGLOBIN (test code=HOHGBT) 0.1 %totalHg 0.5-1.5 Results called to and read back by Didi 12:35 - 05/18/2019; by Antwan Watkins METHEMOGLOBIN (test code=METHGB) 0.5 % 0.0-1.50 O2 CONTENT (test code=O2CT) 17.6 % vol 18.0-22.0 BASIC METABOLIC [id number] 11:54:00* Test Item Value Reference Range Comments SODIUM (test code=NA) 140 mmol/L 136-145 POTASSIUM (test code=K) 3.6 mmol/L 3.5-5.1 CHLORIDE (test code=CL) 109.0 mmol/L 98-107 CARBON DIOXIDE (test code=CO2) 22.0 mmol/L 21-32 ANION GAP (test code=GAP) 12.6 10-20 GLUCOSE (test code=GLU) 88 mg/dL 74-106 BLOOD UREA NITROGEN (test code=BUN) 10 mg/dL 7-18 GLOMERULAR FILTRATION RATE (test code=GFR) > 60 mL/min >=60 Estimated GFR by using Modified MDRD formula.Chronic kidney disease is defined as either kidney damageor GFR <60 mL/min/1.73 m2 for >3 months. CREATININE (test code=CREAT) 0.90 mg/dL 0.7-1.3 BUN/CREATININE RATIO (test code=BUN/CREA) 11.1 10-20 CALCIUM (test code=CA) 9.1 mg/dL 8.5-10.1 BASIC METABOLIC [id number] 11:51:00* Test Item Value Reference Range Comments SODIUM (test code=NA) 140 mmol/L 136-145 POTASSIUM (test code=K) 3.6 mmol/L 3.5-5.1 CHLORIDE (test code=CL) 109.0 mmol/L 98-107 CARBON DIOXIDE (test code=CO2) mmol/L 21-32 ANION GAP (test code=GAP) 10-20 GLUCOSE (test code=GLU) mg/dL 74-106 BLOOD UREA NITROGEN (test code=BUN) mg/dL 7-18 GLOMERULAR FILTRATION RATE (test code=GFR) mL/min >=60 CREATININE (test code=CREAT) mg/dL 0.7-1.3 BUN/CREATININE RATIO (test code=BUN/CREA) 10-20 CALCIUM (test code=CA) mg/dL 8.5-10.1 CBC W/O [id number] 11:23:00* Test Item Value Reference Range Comments WHITE BLOOD CELL (test code=WBC) 22.0 K/mm3 4.5-12.5 RED BLOOD CELL (test code=RBC) 3.56 mill/mm3 4.0-5.8 HEMOGLOBIN (test code=HGB) 9.0 gram/dL 13.0-17.5 HEMATOCRIT (test code=HCT) 28.7 % 42.0-52.0 MEAN CELL VOLUME (test code=MCV) 80.6 fL 80-98 MEAN CELL HGB (test code=MCH) 25.3 picogram 27.0-33.0 MEAN CELL HGB CONCETRATION (test code=MCHC) 31.4 gram/dL 33.0-36.0 RED CELL DISTRIBUTION WIDTH (test code=RDW) 15.3 % 11.6-16.2 PLATELET COUNT (test code=PLT) 551 K/mm3 150-450 MEAN PLATELET VOLUME (test code=MPV) 11.1 fL 6.7-11.0 - CT CHEST W/O [id number] 15:53:00 Name: CELESTINO MCALLISTER [facility] : 1970 Age/S: 48 / M [address] [facility] Unit #: [id number] Loc: [place] [address] Phys: Bradford Maier MD Acct: [id number] Dis Date: Status: ADM IN PHONE #: [phone] Exam Date: 05/17/2019 1545 FAX #: [phone] Reason: R/O ASPIRATION PNEUMONIA EXAMS: CPT CODE: [id number] CT CHEST W/O CONTRAST [id number] REASON FOR EXAM: R/O ASPIRATION PNEUMONIA EXAM ORDER DATE: 05/17/2019 2:36 PM Ordering M.D.: Bradford Ortiz MD PROCEDURE: - CT CHEST W/O CONTRAST COMPARISON: 03/21/2019 FINDINGS: CT images of the chest were obtained without IV contrast. Reconstructed sagittal and coronal images of the chest were provided for interpretation. Dose modulation, iterative reconstruction, and/or weight based adjustment of the MA/KV was utilized to reduce the radiation dose to as low as reasonably achievable. The heart size is minimally enlarged. No evidence of pericardial effusion. The thoracic aorta is aorta is unremarkable. No evidence of mediastinal or hilar adenopathy. No evidence of pleural effusion. IMPRESSION: Small calcification in the kidneys suggestive of nonobstructing renal stones. Nonspecific subcentimeter nodules in the right upper lobe, right middle lobe and right base suggestive of nodular infiltrates. No evidence of aspiration. Recommend follow-up with CT chest in 2-3 months. at 1553 Reported and signed by: Reg Jordan M.D. CC: Lonnie Olson MD; Bradford Maier MD Tiffanie hnologist:Catherine FIELDS(R); ROCIO Ken CTDI: DLP: Trnscb Date/T doreen: 05/17/2019 (1553) t.SDR.VTL Orig Print D/T: S: 05/17 (7375) PAGE 1 Signed Report BASIC METABOLIC [id number] 04:59:00* Test Item Value Reference Range Comments SODIUM (test code=NA) 138 mmol/L 136-145 POTASSIUM (test code=K) 3.9 mmol/L 3.5-5.1 CHLORIDE (test code=CL) 107.0 mmol/L 98-107 CARBON DIOXIDE (test code=CO2) 22.0 mmol/L 21-32 ANION GAP (test code=GAP) 12.9 10-20 GLUCOSE (test code=GLU) 93 mg/dL 74-106 BLOOD UREA NITROGEN (test code=BUN) 14 mg/dL 7-18 GLOMERULAR FILTRATION RATE (test code=GFR) > 60 mL/min >=60 Estimated GFR by using Modified MDRD formula.Chronic kidney disease is defined as either kidney damageor GFR <60 mL/min/1.73 m2 for >3 months. CREATININE (test code=CREAT) 0.70 mg/dL 0.7-1.3 BUN/CREATININE RATIO (test code=BUN/CREA) 20.0 10-20 CALCIUM (test code=CA) 8.8 mg/dL 8.5-10.1 BASIC METABOLIC [id number] 04:50:00* Test Item Value Reference Range Comments SODIUM (test code=NA) 138 mmol/L 136-145 POTASSIUM (test code=K) 3.9 mmol/L 3.5-5.1 CHLORIDE (test code=CL) 107.0 mmol/L 98-107 CARBON DIOXIDE (test code=CO2) mmol/L 21-32 ANION GAP (test code=GAP) 10-20 GLUCOSE (test code=GLU) mg/dL 74-106 BLOOD UREA NITROGEN (test code=BUN) mg/dL 7-18 GLOMERULAR FILTRATION RATE (test code=GFR) mL/min >=60 CREATININE (test code=CREAT) mg/dL 0.7-1.3 BUN/CREATININE RATIO (test code=BUN/CREA) 10-20 CALCIUM (test code=CA) mg/dL 8.5-10.1 CBC W/O [id number] 04:33:00* Test Item Value Reference Range Comments WHITE BLOOD CELL (test code=WBC) 20.0 K/mm3 4.5-12.5 RED BLOOD CELL (test code=RBC) 3.54 mill/mm3 4.0-5.8 HEMOGLOBIN (test code=HGB) 8.9 gram/dL 13.0-17.5 HEMATOCRIT (test code=HCT) 28.4 % 42.0-52.0 MEAN CELL VOLUME (test code=MCV) 80.2 fL 80-98 MEAN CELL HGB (test code=MCH) 25.1 picogram 27.0-33.0 MEAN CELL HGB CONCETRATION (test code=MCHC) 31.3 gram/dL 33.0-36.0 RED CELL DISTRIBUTION WIDTH (test code=RDW) 15.1 % 11.6-16.2 PLATELET COUNT (test code=PLT) 502 K/mm3 150-450 MEAN PLATELET VOLUME (test code=MPV) 11.0 fL 6.7-11.0 [id number] 19:49:00* Test Item Value Reference Range Comments TROPONIN-I (test code=TROPI) <0.015 ng/mL 0-0.045 COMMENTS TO WORK ORDER CLERK: COLLECT 3 HOURS AFTER PREVIOUS [id number] 06:21:00* Test Item Value Reference Range Comments TROPONIN-I (test code=TROPI) <0.015 ng/mL 0-0.045 COMMENTS TO WORK ORDER CLERK: COLLECT 3 HOURS AFTER PREVIOUS SAMPLEBASIC METABOLIC [id number] 06:10:00* Test Item Value Reference Range Comments SODIUM (test code=NA) 137 mmol/L 136-145 POTASSIUM (test code=K) 4.0 mmol/L 3.5-5.1 CHLORIDE (test code=CL) 103.0 mmol/L 98-107 CARBON DIOXIDE (test code=CO2) 23.0 mmol/L 21-32 ANION GAP (test code=GAP) 15.0 10-20 GLUCOSE (test code=GLU) 88 mg/dL 74-106 BLOOD UREA NITROGEN (test code=BUN) 20 mg/dL 7-18 GLOMERULAR FILTRATION RATE (test code=GFR) > 60 mL/min >=60 Estimated GFR by using Modified MDRD formula.Chronic kidney disease is defined as either kidney damageor GFR <60 mL/min/1.73 m2 for >3 months. CREATININE (test code=CREAT) 0.90 mg/dL 0.7-1.3 BUN/CREATININE RATIO (test code=BUN/CREA) 21.2 10-20 CALCIUM (test code=CA) 9.5 mg/dL 8.5-10.1 [id number] 06:10:00* Test Item Value Reference Range Comments PHOSPHORUS (test code=PHOS) 4.1 mg/dL 2.5-4.9 [id number] 06:10:00* Test Item Value Reference Range Comments MAGNESIUM (test code=MAG) 2.2 mg/dL 1.8-2.4 CALCIUM [id number] 06:10:00* Test Item Value Reference Range Comments CALCIUM IONIZED (test code=JESSICA) 1.34 mmol/L 1.12-1.32 BASIC METABOLIC [id number] 06:00:00* Test Item Value Reference Range Comments SODIUM (test code=NA) 137 mmol/L 136-145 POTASSIUM (test code=K) 4.0 mmol/L 3.5-5.1 CHLORIDE (test code=CL) 103.0 mmol/L 98-107 CARBON DIOXIDE (test code=CO2) 23.0 mmol/L 21-32 ANION GAP (test code=GAP) 15.0 10-20 GLUCOSE (test code=GLU) 88 mg/dL 74-106 BLOOD UREA NITROGEN (test code=BUN) 20 mg/dL 7-18 GLOMERULAR FILTRATION RATE (test code=GFR) > 60 mL/min >=60 Estimated GFR by using Modified MDRD formula.Chronic kidney disease is defined as either kidney damageor GFR <60 mL/min/1.73 m2 for >3 months. CREATININE (test code=CREAT) 0.90 mg/dL 0.7-1.3 BUN/CREATININE RATIO (test code=BUN/CREA) 21.2 10-20 CALCIUM (test code=CA) 9.5 mg/dL 8.5-10.1 [id number] 06:00:00* Test Item Value Reference Range Comments PHOSPHORUS (test code=PHOS) 4.1 mg/dL 2.5-4.9 [id number] 06:00:00* Test Item Value Reference Range Comments MAGNESIUM (test code=MAG) 2.2 mg/dL 1.8-2.4 CALCIUM [id number] 06:00:00* Test Item Value Reference Range Comments CALCIUM IONIZED (test code=JESSICA) mmol/L 1.12-1.32 BASIC METABOLIC [id number] 05:50:00* Test Item Value Reference Range Comments SODIUM (test code=NA) 137 mmol/L 136-145 POTASSIUM (test code=K) 4.0 mmol/L 3.5-5.1 CHLORIDE (test code=CL) 103.0 mmol/L 98-107 CARBON DIOXIDE (test code=CO2) mmol/L 21-32 ANION GAP (test code=GAP) 10-20 GLUCOSE (test code=GLU) mg/dL 74-106 BLOOD UREA NITROGEN (test code=BUN) mg/dL 7-18 GLOMERULAR FILTRATION RATE (test code=GFR) mL/min >=60 CREATININE (test code=CREAT) mg/dL 0.7-1.3 BUN/CREATININE RATIO (test code=BUN/CREA) 10-20 CALCIUM (test code=CA) mg/dL 8.5-10.1 [id number] 05:50:00* Test Item Value Reference Range Comments PHOSPHORUS (test code=PHOS) mg/dL 2.5-4.9 [id number] 05:50:00* Test Item Value Reference Range Comments MAGNESIUM (test code=MAG) mg/dL 1.8-2.4 CALCIUM [id number] 05:50:00* Test Item Value Reference Range Comments CALCIUM IONIZED (test code=JESSICA) mmol/L 1.12-1.32 CBC W/AUTO [id number] 05:09:00* Test Item Value Reference Range Comments WHITE BLOOD CELL (test code=WBC) 23.9 K/mm3 4.5-12.5 RED BLOOD CELL (test code=RBC) 3.69 mill/mm3 4.0-5.8 HEMOGLOBIN (test code=HGB) 9.3 gram/dL 13.0-17.5 HEMATOCRIT (test code=HCT) 29.9 % 42.0-52.0 MEAN CELL VOLUME (test code=MCV) 81.0 fL 80-98 MEAN CELL HGB (test code=MCH) 25.2 picogram 27.0-33.0 MEAN CELL HGB CONCETRATION (test code=MCHC) 31.1 gram/dL 33.0-36.0 RED CELL DISTRIBUTION WIDTH (test code=RDW) 15.2 % 11.6-16.2 RED CELL DISTRIBUTION WIDTH SD (test code=RDW-SD) 44.8 fL 37.0-51.0 PLATELET COUNT (test code=PLT) 491 K/mm3 150-450 MEAN PLATELET VOLUME (test code=MPV) 11.2 fL 6.7-11.0 NEUTROPHIL % (test code=NT%) 74.0 % 39.0-69.0 IMMATURE GRANULOCYTE % (test code=IG%) 1.0 % 0.0-5.0 LYMPHOCYTE % (test code=LY%) 13.0 % 25.0-55.0 MONOCYTE % (test code=MO%) 7.6 % 0.0-10.0 EOSINOPHIL % (test code=EO%) 3.6 % 0.0-5.0 BASOPHIL % (test code=BA%) 0.8 % 0.0-1.0 NUCLEATED RBC % (test code=NRBC%) 0.0 % 0-0 NEUTROPHIL # (test code=NT#) 17.66 K/mm3 1.8-7.7 IMMATURE GRANULOCYTE # (test code=IG#) 0.25 x10 3/uL 0-0.03 LYMPHOCYTE # (test code=LY#) 3.11 K/mm3 1.0-5.0 MONOCYTE # (test code=MO#) 1.81 K/mm3 0-0.8 EOSINOPHIL # (test code=EO#) 0.85 K/mm3 0.0-0.5 BASOPHIL # (test code=BA#) 0.18 K/mm3 0.0-0.2 NUCLEATED RBC # (test code=NRBC#) 0.00 K/mm3 0.0-0.1 MANUAL DIFF REQUIRED (test code=MDIFF) NO BASIC METABOLIC [id number] 22:47:00* Test Item Value Reference Range Comments SODIUM (test code=NA) 135 mmol/L 136-145 POTASSIUM (test code=K) 4.1 mmol/L 3.5-5.1 CHLORIDE (test code=CL) 102.0 mmol/L 98-107 CARBON DIOXIDE (test code=CO2) 24.0 mmol/L 21-32 ANION GAP (test code=GAP) 13.1 10-20 GLUCOSE (test code=GLU) 130 mg/dL 74-106 BLOOD UREA NITROGEN (test code=BUN) 22 mg/dL 7-18 GLOMERULAR FILTRATION RATE (test code=GFR) > 60 mL/min >=60 Estimated GFR by using Modified MDRD formula.Chronic kidney disease is defined as either kidney damageor GFR <60 mL/min/1.73 m2 for >3 months. CREATININE (test code=CREAT) 1.10 mg/dL 0.7-1.3 BUN/CREATININE RATIO (test code=BUN/CREA) 20.6 10-20 CALCIUM (test code=CA) 9.5 mg/dL 8.5-10.1 [id number] 22:47:00* Test Item Value Reference Range Comments TROPONIN-I (test code=TROPI) <0.015 ng/mL 0-0.045 - XR CHEST 1 [id number] 22:32:00 FAX: Jarrell Spivey MD [phone] [place]: St: [facility] FAX: Lonnie Olson MD [phone] Name: CELESTINO MCALLISTER [facility] : 1970 Age/S: 48/M [address] [facility] Unit #: [id number] Loc: [place] [address] Phys: Jarrell Spivey MD Acct: [id number] Dis Date: Status: REG ER PHONE #: [phone] Exam Date: 05/15/20192228 FAX #: [phone] Reason: CHEST PAIN EXAMS: CPT CODE: [id number] XR CHEST 1 V [id number] REASON FOR EXAM: CHEST PAIN EXAM ORDER DATE: 05/15/2019 10:07 PM Ordering MSudha: Jarrell Spivey MD PROCEDURE: - XR CHEST 1 V COMPARISON: 05/06/2019 FINDINGS: Portable AP frontal view of the chest obtained at 10:25 PM shows focal airspace opacity in the right base. There is no evidence of effusion. The heart size is minimally enlarged. Pulmonary vasculatures are minimally congested. Stable appearance of the tracheostomy tube. IMPRESSION: Focal atelectasis versus consolidation in the right base at 5537 Reported and signed by: Reg Jordan M.D. CC: Jarrell Spivey MD; Lonnie Olson MD Technologist: Abigail Pepper [facility] Date/Time/By: 05/15/2019 (3050) : By: arianna.SDR.VTL Orig Print D/T: S: 05/15/2019 (7340) PAGE 1 Signed Report CBC W/O [id number] 22:18:00* Test Item Value Reference Range Comments WHITE BLOOD CELL (test code=WBC) 25.2 K/mm3 4.5-12.5 RED BLOOD CELL (test code=RBC) 3.86 mill/mm3 4.0-5.8 HEMOGLOBIN (test code=HGB) 9.6 gram/dL 13.0-17.5 HEMATOCRIT (test code=HCT) 31.2 % 42.0-52.0 MEAN CELL VOLUME (test code=MCV) 80.8 fL 80-98 MEAN CELL HGB (test code=MCH) 24.9 picogram 27.0-33.0 MEAN CELL HGB CONCETRATION (test code=MCHC) 30.8 gram/dL 33.0-36.0 RED CELL DISTRIBUTION WIDTH (test code=RDW) 15.4 % 11.6-16.2 PLATELET COUNT (test code=PLT) 516 K/mm3 150-450 MEAN PLATELET VOLUME (test code=MPV) 11.0 fL 6.7-11.0 LEUK/LYMPH MARKERS [id number] 13:08:00* Test Item Value Reference Range Comments LEUK/LYMPHOMA PANEL (test code=LEULYM) CLINICAL () No monoclonal B cell population is detected.kappa:lambda ratio 1.3There is no loss of, or aberrant expression of, the dukes T cell antigens tosuggest a neoplastic T cell process.CD4:CD8 ratio 1.5No circulating blasts are detected. There is no immunophenotypic evidenceof abnormal myeloid maturation.Eosinophils are increased and account for approximately 6% of leukocytes.Analysis of the leukocyte population shows: granulocytes 82% (including 6%eosinophils), monocytes 4%, lymphocytes 14%, blasts <0.5%, B cells 2%, Tcells 10%, NK cells 2%. COMMENT(S) (test code=COMM) () Peripheral blood VIABILITY (test code=VIABILI) () 94% FLOW CYTO INTERPRETATION (test code=INTFLOW) () [place] GATING STRATEGY (test code=INNA) () 8 color analysis with CD45/SSC gating COMMENT(S) (test code=COM) [id number] 18:54:00* Test Item Value Reference Range Comments GLUBED (test code=GLUBED) 85 mg/dL 74-106 Performed by certified steel spar operator at [facility] [id number] 18:54:00* Test Item Value Reference Range Comments GLUBED (test code=GLUBED) 90 mg/dL 74-106 Performed by certified steel spar operator at [facility] COMPREHENSIVE METABOLIC [id number] 14:48:00* Test Item Value Reference Range Comments SODIUM (test code=NA) 139 mmol/L 136-145 POTASSIUM (test code=K) 3.9 mmol/L 3.5-5.1 CHLORIDE (test code=CL) 109.0 mmol/L 98-107 CARBON DIOXIDE (test code=CO2) 18.0 mmol/L 21-32 ANION GAP (test code=GAP) 15.9 10-20 GLUCOSE (test code=GLU) 92 mg/dL 74-106 BLOOD UREA NITROGEN (test code=BUN) 15 mg/dL 7-18 GLOMERULAR FILTRATION RATE (test code=GFR) > 60 mL/min >=60 Estimated GFR by using Modified MDRD formula.Chronic kidney disease is defined as either kidney damageor GFR <60 mL/min/1.73 m2 for >3 months. CREATININE (test code=CREAT) 0.70 mg/dL 0.7-1.3 BUN/CREATININE RATIO (test code=BUN/CREA) 21.4 10-20 TOTAL PROTEIN (test code=PROT) 6.3 gram/dL 6.4-8.2 ALBUMIN (test code=ALB) 2.5 g/dL 3.4-5.0 GLOBULIN (test code=GLOB) 3.8 gram/dL 2.7-4.2 ALBUMIN/GLOBULIN RATIO (test code=A/G) 0.7 0.75-1.50 CALCIUM (test code=CA) 8.8 mg/dL 8.5-10.1 BILIRUBIN TOTAL (test code=BILT) 0.20 mg/dL 0.0-1.0 SGOT/AST (test code=AST) 38 IUnit/L 15-37 SGPT/ALT (test code=ALT) 80 IUnit/L 12-78 ALKALINE PHOSPHATASE TOTAL (test code=ALKP) 143 IUnit/L 45-117 Note change in reference range due to change in reagent. [id number] 14:48:00* Test Item Value Reference Range Comments MAGNESIUM (test code=MAG) 1.9 mg/dL 1.8-2.4 COMPREHENSIVE METABOLIC [id number] 11:54:00* Test Item Value Reference Range Comments SODIUM (test code=NA) 139 mmol/L 136-145 POTASSIUM (test code=K) 3.9 mmol/L 3.5-5.1 CHLORIDE (test code=CL) 109.0 mmol/L 98-107 CARBON DIOXIDE (test code=CO2) 18.0 mmol/L 21-32 ANION GAP (test code=GAP) 15.9 10-20 GLUCOSE (test code=GLU) 92 mg/dL 74-106 BLOOD UREA NITROGEN (test code=BUN) 15 mg/dL 7-18 GLOMERULAR FILTRATION RATE (test code=GFR) > 60 mL/min >=60 Estimated GFR by using Modified MDRD formula.Chronic kidney disease is defined as either kidney damageor GFR <60 mL/min/1.73 m2 for >3 months. CREATININE (test code=CREAT) 0.70 mg/dL 0.7-1.3 BUN/CREATININE RATIO (test code=BUN/CREA) 21.4 10-20 TOTAL PROTEIN (test code=PROT) gram/dL 6.4-8.2 ALBUMIN (test code=ALB) g/dL 3.4-5.0 GLOBULIN (test code=GLOB) gram/dL 2.7-4.2 ALBUMIN/GLOBULIN RATIO (test code=A/G) 0.75-1.50 CALCIUM (test code=CA) 8.8 mg/dL 8.5-10.1 BILIRUBIN TOTAL (test code=BILT) mg/dL 0.0-1.0 SGOT/AST (test code=AST) IUnit/L 15-37 SGPT/ALT (test code=ALT) IUnit/L 12-78 ALKALINE PHOSPHATASE TOTAL (test code=ALKP) IUnit/L 45-117 [id number] 11:54:00* Test Item Value Reference Range Comments MAGNESIUM (test code=MAG) 1.9 mg/dL 1.8-2.4 COMPREHENSIVE METABOLIC [id number] 11:48:00* Test Item Value Reference Range Comments SODIUM (test code=NA) 139 mmol/L 136-145 POTASSIUM (test code=K) 3.9 mmol/L 3.5-5.1 CHLORIDE (test code=CL) 109.0 mmol/L 98-107 CARBON DIOXIDE (test code=CO2) mmol/L 21-32 ANION GAP (test code=GAP) 10-20 GLUCOSE (test code=GLU) mg/dL 74-106 BLOOD UREA NITROGEN (test code=BUN) mg/dL 7-18 GLOMERULAR FILTRATION RATE (test code=GFR) mL/min >=60 CREATININE (test code=CREAT) mg/dL 0.7-1.3 BUN/CREATININE RATIO (test code=BUN/CREA) 10-20 TOTAL PROTEIN (test code=PROT) gram/dL 6.4-8.2 ALBUMIN (test code=ALB) g/dL 3.4-5.0 GLOBULIN (test code=GLOB) gram/dL 2.7-4.2 ALBUMIN/GLOBULIN RATIO (test code=A/G) 0.75-1.50 CALCIUM (test code=CA) mg/dL 8.5-10.1 BILIRUBIN TOTAL (test code=BILT) mg/dL 0.0-1.0 SGOT/AST (test code=AST) IUnit/L 15-37 SGPT/ALT (test code=ALT) IUnit/L 12-78 ALKALINE PHOSPHATASE TOTAL (test code=ALKP) IUnit/L 45-117 [id number] 11:48:00* Test Item Value Reference Range Comments MAGNESIUM (test code=MAG) mg/dL 1.8-2.4 [id number] 07:57:00* Test Item Value Reference Range Comments GLUBED (test code=GLUBED) 85 mg/dL 74-106 Performed by certified steel spar operator at [facility] [id number] 20:32:00* Test Item Value Reference Range Comments GLUBED (test code=GLUBED) 97 mg/dL 74-106 Performed by certified steel spar operator at [facility] [id number] 16:35:00* Test Item Value Reference Range Comments GLUBED (test code=GLUBED) 107 mg/dL 74-106 Performed by certified steel spar operator at [facility] [id number] 12:16:00* Test Item Value Reference Range Comments GLUBED (test code=GLUBED) 92 mg/dL 74-106 Performed by certified steel spar operator at [facility] PROCALCITONIN (PCT)2019-05-08 12:07:00* Test Item Value Reference Range Comments PROCALCITONIN (PCT) (test code=PROCAL) 0.11 ng/ml Concentration Interpretation (ng/mL) <0.51 Sepsis is not likely. Local bacterial infection is possible. (LOW RISK for progression to Sepsis) 0.51 - 2.00 Sepsis is possible, but other conditions are known to elevate PCT as well. (MODERATE RISK for progression to Sepsis) > 2.00 Sepsis is likely, unless other causes are known. (HIGH RISK for progression to Severe Sepsis or Septic Shock) 10.00 High likelihood of Severe Sepsis or Septic or higher Shock. *Increased PCT levels may not always be related to systemic bacterial infection.*Low PCT levels do not automatically exclude the presence of bacterial infection.*All results should be interpreted taking into account the patients history. LACTIC DEHYDROGENASE(LDH)2019-05-08 11:04:00* Test Item Value Reference Range Comments LACTIC DEHYDROGENASE(LDH) (test code=LDH) 197 IUnit/L 84-246 [id number] 11:04:00* Test Item Value Reference Range Comments BCR-ABL (test code=BCRABL) BASIC METABOLIC [id number] 10:58:00* Test Item Value Reference Range Comments SODIUM (test code=NA) 142 mmol/L 136-145 POTASSIUM (test code=K) 3.3 mmol/L 3.5-5.1 CHLORIDE (test code=CL) 114.0 mmol/L 98-107 CARBON DIOXIDE (test code=CO2) 20.0 mmol/L 21-32 ANION GAP (test code=GAP) 11.3 10-20 GLUCOSE (test code=GLU) 107 mg/dL 74-106 BLOOD UREA NITROGEN (test code=BUN) 17 mg/dL 7-18 GLOMERULAR FILTRATION RATE (test code=GFR) > 60 mL/min >=60 Estimated GFR by using Modified MDRD formula.Chronic kidney disease is defined as either kidney damageor GFR <60 mL/min/1.73 m2 for >3 months. CREATININE (test code=CREAT) 0.90 mg/dL 0.7-1.3 BUN/CREATININE RATIO (test code=BUN/CREA) 18.9 10-20 CALCIUM (test code=CA) 9.0 mg/dL 8.5-10.1 [id number] 10:58:00* Test Item Value Reference Range Comments MAGNESIUM (test code=MAG) 2.1 mg/dL 1.8-2.4 BASIC METABOLIC [id number] 10:56:00* Test Item Value Reference Range Comments SODIUM (test code=NA) 142 mmol/L 136-145 POTASSIUM (test code=K) 3.3 mmol/L 3.5-5.1 CHLORIDE (test code=CL) 114.0 mmol/L 98-107 CARBON DIOXIDE (test code=CO2) mmol/L 21-32 ANION GAP (test code=GAP) 10-20 GLUCOSE (test code=GLU) mg/dL 74-106 BLOOD UREA NITROGEN (test code=BUN) mg/dL 7-18 GLOMERULAR FILTRATION RATE (test code=GFR) mL/min >=60 CREATININE (test code=CREAT) mg/dL 0.7-1.3 BUN/CREATININE RATIO (test code=BUN/CREA) 10-20 CALCIUM (test code=CA) mg/dL 8.5-10.1 [id number] 10:56:00* Test Item Value Reference Range Comments MAGNESIUM (test code=MAG) mg/dL 1.8-2.4 CBC W/AUTO [id number] 10:51:00* Test Item Value Reference Range Comments WHITE BLOOD CELL (test code=WBC) 21.3 K/mm3 4.5-12.5 RED BLOOD CELL (test code=RBC) 3.22 mill/mm3 4.0-5.8 HEMOGLOBIN (test code=HGB) 8.2 gram/dL 13.0-17.5 HEMATOCRIT (test code=HCT) 27.2 % 42.0-52.0 MEAN CELL VOLUME (test code=MCV) 84.5 fL 80-98 MEAN CELL HGB (test code=MCH) 25.5 picogram 27.0-33.0 MEAN CELL HGB CONCETRATION (test code=MCHC) 30.1 gram/dL 33.0-36.0 RED CELL DISTRIBUTION WIDTH (test code=RDW) 15.5 % 11.6-16.2 RED CELL DISTRIBUTION WIDTH SD (test code=RDW-SD) 47.3 fL 37.0-51.0 PLATELET COUNT (test code=PLT) 331 K/mm3 150-450 MEAN PLATELET VOLUME (test code=MPV) 13.6 fL 6.7-11.0 NEUTROPHIL % (test code=NT%) 70.6 % 39.0-69.0 IMMATURE GRANULOCYTE % (test code=IG%) 0.5 % 0.0-5.0 LYMPHOCYTE % (test code=LY%) 14.9 % 25.0-55.0 MONOCYTE % (test code=MO%) 7.0 % 0.0-10.0 EOSINOPHIL % (test code=EO%) 6.4 % 0.0-5.0 BASOPHIL % (test code=BA%) 0.6 % 0.0-1.0 NUCLEATED RBC % (test code=NRBC%) 0.0 % 0-0 NEUTROPHIL # (test code=NT#) 15.01 K/mm3 1.8-7.7 IMMATURE GRANULOCYTE # (test code=IG#) 0.11 x10 3/uL 0-0.03 LYMPHOCYTE # (test code=LY#) 3.16 K/mm3 1.0-5.0 MONOCYTE # (test code=MO#) 1.49 K/mm3 0-0.8 EOSINOPHIL # (test code=EO#) 1.37 K/mm3 0.0-0.5 BASOPHIL # (test code=BA#) 0.12 K/mm3 0.0-0.2 NUCLEATED RBC # (test code=NRBC#) 0.00 K/mm3 0.0-0.1 [id number] 06:28:00* Test Item Value Reference Range Comments GLUBED (test code=GLUBED) 87 mg/dL 74-106 Performed by certified steel spar operator at [facility] [id number] 16:48:00* Test Item Value Reference Range Comments GLUBED (test code=GLUBED) 112 mg/dL 74-106 Performed by certified steel spar operator at [facility] [id number] 12:42:00* Test Item Value Reference Range Comments GLUBED (test code=GLUBED) 106 mg/dL 74-106 Performed by certified steel spar operator at [facility] CBC W/AUTO [id number] 08:24:00* Test Item Value Reference Range Comments WHITE BLOOD CELL (test code=WBC) 22.3 K/mm3 4.5-12.5 RED BLOOD CELL (test code=RBC) 3.75 mill/mm3 4.0-5.8 HEMOGLOBIN (test code=HGB) 9.6 gram/dL 13.0-17.5 HEMATOCRIT (test code=HCT) 32.7 % 42.0-52.0 MEAN CELL VOLUME (test code=MCV) 87.2 fL 80-98 MEAN CELL HGB (test code=MCH) 25.6 picogram 27.0-33.0 MEAN CELL HGB CONCETRATION (test code=MCHC) 29.4 gram/dL 33.0-36.0 RED CELL DISTRIBUTION WIDTH (test code=RDW) 15.9 % 11.6-16.2 RED CELL DISTRIBUTION WIDTH SD (test code=RDW-SD) 50.4 fL 37.0-51.0 PLATELET COUNT (test code=PLT) 298 K/mm3 150-450 MEAN PLATELET VOLUME (test code=MPV) 13.5 fL 6.7-11.0 NEUTROPHIL % (test code=NT%) 68.8 % 39.0-69.0 IMMATURE GRANULOCYTE % (test code=IG%) 0.8 % 0.0-5.0 LYMPHOCYTE % (test code=LY%) 15.6 % 25.0-55.0 MONOCYTE % (test code=MO%) 7.1 % 0.0-10.0 EOSINOPHIL % (test code=EO%) 7.0 % 0.0-5.0 BASOPHIL % (test code=BA%) 0.7 % 0.0-1.0 NUCLEATED RBC % (test code=NRBC%) 0.0 % 0-0 NEUTROPHIL # (test code=NT#) 15.30 K/mm3 1.8-7.7 IMMATURE GRANULOCYTE # (test code=IG#) 0.18 x10 3/uL 0-0.03 LYMPHOCYTE # (test code=LY#) 3.47 K/mm3 1.0-5.0 MONOCYTE # (test code=MO#) 1.59 K/mm3 0-0.8 EOSINOPHIL # (test code=EO#) 1.55 K/mm3 0.0-0.5 BASOPHIL # (test code=BA#) 0.16 K/mm3 0.0-0.2 NUCLEATED RBC # (test code=NRBC#) 0.00 K/mm3 0.0-0.1 MANUAL DIFF REQUIRED (test code=MDIFF) NO, ONLY SCAN NEEDED DIFFERENTIAL [id number] 08:24:00* Test Item Value Reference Range Comments STAIN ACCEPTABILITY (test code=STN ACCEPTABLE) STAIN ACCEPTABLE HYPOCHROMIA (test code=HYPO) 1+ CRENATED CELLS (test code=CREN) 1+ PLATELET ESTIMATE (test code=PLTEST) ADEQUATE PLATELET MORPHOLOGY (test code=PLTMORPH) NORMAL COMPREHENSIVE METABOLIC [id number] 07:07:00* Test Item Value Reference Range Comments SODIUM (test code=NA) 147 mmol/L 136-145 POTASSIUM (test code=K) 3.6 mmol/L 3.5-5.1 CHLORIDE (test code=CL) 119.0 mmol/L 98-107 CARBON DIOXIDE (test code=CO2) 20.0 mmol/L 21-32 ANION GAP (test code=GAP) 11.6 10-20 GLUCOSE (test code=GLU) 89 mg/dL 74-106 BLOOD UREA NITROGEN (test code=BUN) 21 mg/dL 7-18 GLOMERULAR FILTRATION RATE (test code=GFR) > 60 mL/min >=60 Estimated GFR by using Modified MDRD formula.Chronic kidney disease is defined as either kidney damageor GFR <60 mL/min/1.73 m2 for >3 months. CREATININE (test code=CREAT) 1.10 mg/dL 0.7-1.3 BUN/CREATININE RATIO (test code=BUN/CREA) 18.9 10-20 TOTAL PROTEIN (test code=PROT) 7.8 gram/dL 6.4-8.2 ALBUMIN (test code=ALB) 2.8 g/dL 3.4-5.0 GLOBULIN (test code=GLOB) 5.0 gram/dL 2.7-4.2 ALBUMIN/GLOBULIN RATIO (test code=A/G) 0.6 0.75-1.50 CALCIUM (test code=CA) 9.5 mg/dL 8.5-10.1 BILIRUBIN TOTAL (test code=BILT) 0.30 mg/dL 0.0-1.0 SGOT/AST (test code=AST) 29 IUnit/L 15-37 SGPT/ALT (test code=ALT) 83 IUnit/L 12-78 ALKALINE PHOSPHATASE TOTAL (test code=ALKP) 160 IUnit/L 45-117 Note change in reference range due to change in reagent. [id number] 07:07:00* Test Item Value Reference Range Comments MAGNESIUM (test code=MAG) 2.5 mg/dL 1.8-2.4 COMPREHENSIVE METABOLIC [id number] 07:06:00* Test Item Value Reference Range Comments SODIUM (test code=NA) 147 mmol/L 136-145 POTASSIUM (test code=K) 3.6 mmol/L 3.5-5.1 CHLORIDE (test code=CL) 119.0 mmol/L 98-107 CARBON DIOXIDE (test code=CO2) mmol/L 21-32 ANION GAP (test code=GAP) 10-20 GLUCOSE (test code=GLU) mg/dL 74-106 BLOOD UREA NITROGEN (test code=BUN) mg/dL 7-18 GLOMERULAR FILTRATION RATE (test code=GFR) mL/min >=60 CREATININE (test code=CREAT) mg/dL 0.7-1.3 BUN/CREATININE RATIO (test code=BUN/CREA) 10-20 TOTAL PROTEIN (test code=PROT) gram/dL 6.4-8.2 ALBUMIN (test code=ALB) g/dL 3.4-5.0 GLOBULIN (test code=GLOB) gram/dL 2.7-4.2 ALBUMIN/GLOBULIN RATIO (test code=A/G) 0.75-1.50 CALCIUM (test code=CA) mg/dL 8.5-10.1 BILIRUBIN TOTAL (test code=BILT) mg/dL 0.0-1.0 SGOT/AST (test code=AST) IUnit/L 15-37 SGPT/ALT (test code=ALT) IUnit/L 12-78 ALKALINE PHOSPHATASE TOTAL (test code=ALKP) IUnit/L 45-117 [id number] 07:06:00* Test Item Value Reference Range Comments MAGNESIUM (test code=MAG) mg/dL 1.8-2.4 [id number] 07:03:00* Test Item Value Reference Range Comments GLUBED (test code=GLUBED) 75 mg/dL 74-106 Performed by certified steel spar operator at [facility] CBC W/AUTO [id number] 06:54:00* Test Item Value Reference Range Comments WHITE BLOOD CELL (test code=WBC) 22.3 K/mm3 4.5-12.5 RED BLOOD CELL (test code=RBC) 3.75 mill/mm3 4.0-5.8 HEMOGLOBIN (test code=HGB) 9.6 gram/dL 13.0-17.5 HEMATOCRIT (test code=HCT) 32.7 % 42.0-52.0 MEAN CELL VOLUME (test code=MCV) 87.2 fL 80-98 MEAN CELL HGB (test code=MCH) 25.6 picogram 27.0-33.0 MEAN CELL HGB CONCETRATION (test code=MCHC) 29.4 gram/dL 33.0-36.0 RED CELL DISTRIBUTION WIDTH (test code=RDW) 15.9 % 11.6-16.2 RED CELL DISTRIBUTION WIDTH SD (test code=RDW-SD) 50.4 fL 37.0-51.0 PLATELET COUNT (test code=PLT) 298 K/mm3 150-450 MEAN PLATELET VOLUME (test code=MPV) 13.5 fL 6.7-11.0 NEUTROPHIL % (test code=NT%) 68.8 % 39.0-69.0 IMMATURE GRANULOCYTE % (test code=IG%) 0.8 % 0.0-5.0 LYMPHOCYTE % (test code=LY%) 15.6 % 25.0-55.0 MONOCYTE % (test code=MO%) 7.1 % 0.0-10.0 EOSINOPHIL % (test code=EO%) 7.0 % 0.0-5.0 BASOPHIL % (test code=BA%) 0.7 % 0.0-1.0 NUCLEATED RBC % (test code=NRBC%) 0.0 % 0-0 NEUTROPHIL # (test code=NT#) 15.30 K/mm3 1.8-7.7 IMMATURE GRANULOCYTE # (test code=IG#) 0.18 x10 3/uL 0-0.03 LYMPHOCYTE # (test code=LY#) 3.47 K/mm3 1.0-5.0 MONOCYTE # (test code=MO#) 1.59 K/mm3 0-0.8 EOSINOPHIL # (test code=EO#) 1.55 K/mm3 0.0-0.5 BASOPHIL # (test code=BA#) 0.16 K/mm3 0.0-0.2 NUCLEATED RBC # (test code=NRBC#) 0.00 K/mm3 0.0-0.1 MANUAL DIFF REQUIRED (test code=MDIFF) NO, ONLY SCAN NEEDED DIFFERENTIAL [id number] 06:54:00* Test Item Value Reference Range Comments STAIN ACCEPTABILITY (test code=STN ACCEPTABLE) MORPHOLOGY COMMENT (test code=MOC) PLATELET ESTIMATE (test code=PLTEST) PLATELET MORPHOLOGY (test code=PLTMORPH) CBC W/AUTO [id number] 06:48:00* Test Item Value Reference Range Comments WHITE BLOOD CELL (test code=WBC) 22.3 K/mm3 4.5-12.5 RED BLOOD CELL (test code=RBC) 3.75 mill/mm3 4.0-5.8 HEMOGLOBIN (test code=HGB) 9.6 gram/dL 13.0-17.5 HEMATOCRIT (test code=HCT) 32.7 % 42.0-52.0 MEAN CELL VOLUME (test code=MCV) 87.2 fL 80-98 MEAN CELL HGB (test code=MCH) 25.6 picogram 27.0-33.0 MEAN CELL HGB CONCETRATION (test code=MCHC) 29.4 gram/dL 33.0-36.0 RED CELL DISTRIBUTION WIDTH (test code=RDW) 15.9 % 11.6-16.2 RED CELL DISTRIBUTION WIDTH SD (test code=RDW-SD) 50.4 fL 37.0-51.0 PLATELET COUNT (test code=PLT) 298 K/mm3 150-450 MEAN PLATELET VOLUME (test code=MPV) 13.5 fL 6.7-11.0 NEUTROPHIL % (test code=NT%) 68.8 % 39.0-69.0 IMMATURE GRANULOCYTE % (test code=IG%) 0.8 % 0.0-5.0 LYMPHOCYTE % (test code=LY%) 15.6 % 25.0-55.0 MONOCYTE % (test code=MO%) 7.1 % 0.0-10.0 EOSINOPHIL % (test code=EO%) 7.0 % 0.0-5.0 BASOPHIL % (test code=BA%) 0.7 % 0.0-1.0 NUCLEATED RBC % (test code=NRBC%) 0.0 % 0-0 NEUTROPHIL # (test code=NT#) 15.30 K/mm3 1.8-7.7 IMMATURE GRANULOCYTE # (test code=IG#) 0.18 x10 3/uL 0-0.03 LYMPHOCYTE # (test code=LY#) 3.47 K/mm3 1.0-5.0 MONOCYTE # (test code=MO#) 1.59 K/mm3 0-0.8 EOSINOPHIL # (test code=EO#) 1.55 K/mm3 0.0-0.5 BASOPHIL # (test code=BA#) 0.16 K/mm3 0.0-0.2 NUCLEATED RBC # (test code=NRBC#) 0.00 K/mm3 0.0-0.1 MANUAL DIFF REQUIRED (test code=MDIFF) NO, ONLY SCAN NEEDED DIFFERENTIAL [id number] 06:48:00* Test Item Value Reference Range Comments STAIN ACCEPTABILITY (test code=STN ACCEPTABLE) CABOT RINGS (test code=CAB) MORPHOLOGY COMMENT (test code=MOC) PLATELET ESTIMATE (test code=PLTEST) PLATELET MORPHOLOGY (test code=PLTMORPH) CBC W/AUTO [id number] 06:48:00* Test Item Value Reference Range Comments WHITE BLOOD CELL (test code=WBC) 22.3 K/mm3 4.5-12.5 RED BLOOD CELL (test code=RBC) 3.75 mill/mm3 4.0-5.8 HEMOGLOBIN (test code=HGB) 9.6 gram/dL 13.0-17.5 HEMATOCRIT (test code=HCT) 32.7 % 42.0-52.0 MEAN CELL VOLUME (test code=MCV) 87.2 fL 80-98 MEAN CELL HGB (test code=MCH) 25.6 picogram 27.0-33.0 MEAN CELL HGB CONCETRATION (test code=MCHC) 29.4 gram/dL 33.0-36.0 RED CELL DISTRIBUTION WIDTH (test code=RDW) 15.9 % 11.6-16.2 RED CELL DISTRIBUTION WIDTH SD (test code=RDW-SD) 50.4 fL 37.0-51.0 PLATELET COUNT (test code=PLT) 298 K/mm3 150-450 MEAN PLATELET VOLUME (test code=MPV) 13.5 fL 6.7-11.0 NEUTROPHIL % (test code=NT%) 68.8 % 39.0-69.0 IMMATURE GRANULOCYTE % (test code=IG%) 0.8 % 0.0-5.0 LYMPHOCYTE % (test code=LY%) 15.6 % 25.0-55.0 MONOCYTE % (test code=MO%) 7.1 % 0.0-10.0 EOSINOPHIL % (test code=EO%) 7.0 % 0.0-5.0 BASOPHIL % (test code=BA%) 0.7 % 0.0-1.0 NUCLEATED RBC % (test code=NRBC%) 0.0 % 0-0 NEUTROPHIL # (test code=NT#) 15.30 K/mm3 1.8-7.7 IMMATURE GRANULOCYTE # (test code=IG#) 0.18 x10 3/uL 0-0.03 LYMPHOCYTE # (test code=LY#) 3.47 K/mm3 1.0-5.0 MONOCYTE # (test code=MO#) 1.59 K/mm3 0-0.8 EOSINOPHIL # (test code=EO#) 1.55 K/mm3 0.0-0.5 BASOPHIL # (test code=BA#) 0.16 K/mm3 0.0-0.2 NUCLEATED RBC # (test code=NRBC#) 0.00 K/mm3 0.0-0.1 MANUAL DIFF REQUIRED (test code=MDIFF) NO, ONLY SCAN NEEDED DIFFERENTIAL [id number] 06:48:00* Test Item Value Reference Range Comments STAIN ACCEPTABILITY (test code=STN ACCEPTABLE) MORPHOLOGY COMMENT (test code=MOC) PLATELET ESTIMATE (test code=PLTEST) PLATELET MORPHOLOGY (test code=PLTMORPH) CBC W/AUTO [id number] 06:48:00* Test Item Value Reference Range Comments WHITE BLOOD CELL (test code=WBC) 22.3 K/mm3 4.5-12.5 RED BLOOD CELL (test code=RBC) 3.75 mill/mm3 4.0-5.8 HEMOGLOBIN (test code=HGB) 9.6 gram/dL 13.0-17.5 HEMATOCRIT (test code=HCT) 32.7 % 42.0-52.0 MEAN CELL VOLUME (test code=MCV) 87.2 fL 80-98 MEAN CELL HGB (test code=MCH) 25.6 picogram 27.0-33.0 MEAN CELL HGB CONCETRATION (test code=MCHC) 29.4 gram/dL 33.0-36.0 RED CELL DISTRIBUTION WIDTH (test code=RDW) 15.9 % 11.6-16.2 RED CELL DISTRIBUTION WIDTH SD (test code=RDW-SD) 50.4 fL 37.0-51.0 PLATELET COUNT (test code=PLT) 298 K/mm3 150-450 MEAN PLATELET VOLUME (test code=MPV) 13.5 fL 6.7-11.0 NEUTROPHIL % (test code=NT%) 68.8 % 39.0-69.0 IMMATURE GRANULOCYTE % (test code=IG%) 0.8 % 0.0-5.0 LYMPHOCYTE % (test code=LY%) 15.6 % 25.0-55.0 MONOCYTE % (test code=MO%) 7.1 % 0.0-10.0 EOSINOPHIL % (test code=EO%) 7.0 % 0.0-5.0 BASOPHIL % (test code=BA%) 0.7 % 0.0-1.0 NUCLEATED RBC % (test code=NRBC%) 0.0 % 0-0 NEUTROPHIL # (test code=NT#) 15.30 K/mm3 1.8-7.7 IMMATURE GRANULOCYTE # (test code=IG#) 0.18 x10 3/uL 0-0.03 LYMPHOCYTE # (test code=LY#) 3.47 K/mm3 1.0-5.0 MONOCYTE # (test code=MO#) 1.59 K/mm3 0-0.8 EOSINOPHIL # (test code=EO#) 1.55 K/mm3 0.0-0.5 BASOPHIL # (test code=BA#) 0.16 K/mm3 0.0-0.2 NUCLEATED RBC # (test code=NRBC#) 0.00 K/mm3 0.0-0.1 MANUAL DIFF REQUIRED (test code=MDIFF) NO, ONLY SCAN NEEDED DIFFERENTIAL [id number] 06:48:00* Test Item Value Reference Range Comments STAIN ACCEPTABILITY (test code=STN ACCEPTABLE) CABOT RINGS (test code=CAB) MORPHOLOGY COMMENT (test code=MOC) PLATELET ESTIMATE (test code=PLTEST) PLATELET MORPHOLOGY (test code=PLTMORPH) [id number] 17:49:00* Test Item Value Reference Range Comments GLUBED (test code=GLUBED) 105 mg/dL 74-106 Performed by certified steel spar operator at [facility] - XR CHEST 1 [id number] 12:42:00 FAX: Jerica Moeller MD [phone] [place]: St: ADM FAX: Lonnie Olson MD [phone] FAX: Ramiro Nava MD [phone] Name: CELESTINO MCALLISTER [facility] : 1970 Age/S: 48/M [address] [facility] Unit #: [id number] Loc: V.[address] [place] [address] Phys: Ramiro Velázquez MD Acct: [id number] Dis Date: Status: ADM IN [facility] #: [phone] Exam Date: 05/06/2019 1238 FAX #: [phone] Reason: cough, leukocytosis EXAMS: CPT CODE: [id number] XR CHEST 1 V [id number] REASON FOR EXAM: cough, leukocytosis EXAM ORDER DATE: 05/06/2019 12:00 AM Ordering M.Dago: Ramiro Velázquez MD PROCEDURE: - XR C HEST 1 V COMPARISON: 05/05/2019 FINDINGS: Portable AP frontal view of the chest obtained at 12:32 PM shows diffuse airspace opa cities. There is no evidence of effusion. The heart size is within normal limits. Pulmonary vasculatures are minimally congested. Stable appearance of the tracheostomy tube. IMPRESSION: Diffuse vague airspace o pacities suggestive of atelectasis versus early pulmonary edema at 1242 Reported and signed by: Reg Jordan M.D. CC: Juli Shaffer MD; Lonnie Olson MD; Ramiro Velázquez MD Technologist: Rocio Fuentes RT(R) Trnscrd Date/Time/By: 05/06/2019 (7663) : By: JadL Orig Print D/T: S: 05/06/2019 (5021) PAGE 1 Signed Report BASIC METABOLIC [id number] 12:32:00* Test Item Value Reference Range Comments SODIUM (test code=NA) 147 mmol/L 136-145 POTASSIUM (test code=K) 3.5 mmol/L 3.5-5.1 CHLORIDE (test code=CL) 118.0 mmol/L 98-107 CARBON DIOXIDE (test code=CO2) 22.0 mmol/L 21-32 ANION GAP (test code=GAP) 10.5 10-20 GLUCOSE (test code=GLU) 81 mg/dL 74-106 BLOOD UREA NITROGEN (test code=BUN) 26 mg/dL 7-18 GLOMERULAR FILTRATION RATE (test code=GFR) > 60 mL/min >=60 Estimated GFR by using Modified MDRD formula.Chronic kidney disease is defined as either kidney damageor GFR <60 mL/min/1.73 m2 for >3 months. CREATININE (test code=CREAT) 1.20 mg/dL 0.7-1.3 BUN/CREATININE RATIO (test code=BUN/CREA) 22.6 10-20 CALCIUM (test code=CA) 9.4 mg/dL 8.5-10.1 BASIC METABOLIC [id number] 12:29:00* Test Item Value Reference Range Comments SODIUM (test code=NA) 147 mmol/L 136-145 POTASSIUM (test code=K) 3.5 mmol/L 3.5-5.1 CHLORIDE (test code=CL) 118.0 mmol/L 98-107 CARBON DIOXIDE (test code=CO2) mmol/L 21-32 ANION GAP (test code=GAP) 10-20 GLUCOSE (test code=GLU) mg/dL 74-106 BLOOD UREA NITROGEN (test code=BUN) mg/dL 7-18 GLOMERULAR FILTRATION RATE (test code=GFR) mL/min >=60 CREATININE (test code=CREAT) mg/dL 0.7-1.3 BUN/CREATININE RATIO (test code=BUN/CREA) 10-20 CALCIUM (test code=CA) mg/dL 8.5-10.1 [id number] 12:08:00* Test Item Value Reference Range Comments GLUBED (test code=GLUBED) 84 mg/dL 74-106 Performed by certified steel spar operator at [facility] CBC W/AUTO [id number] 05:39:00* Test Item Value Reference Range Comments WHITE BLOOD CELL (test code=WBC) 23.0 K/mm3 4.5-12.5 RED BLOOD CELL (test code=RBC) 3.45 mill/mm3 4.0-5.8 HEMOGLOBIN (test code=HGB) 9.0 gram/dL 13.0-17.5 RESULT VERIFIED BY REPEAT ANALYSIS HEMATOCRIT (test code=HCT) 29.7 % 42.0-52.0 MEAN CELL VOLUME (test code=MCV) 86.1 fL 80-98 MEAN CELL HGB (test code=MCH) 26.1 picogram 27.0-33.0 MEAN CELL HGB CONCETRATION (test code=MCHC) 30.3 gram/dL 33.0-36.0 RED CELL DISTRIBUTION WIDTH (test code=RDW) 16.1 % 11.6-16.2 RED CELL DISTRIBUTION WIDTH SD (test code=RDW-SD) 50.4 fL 37.0-51.0 PLATELET COUNT (test code=PLT) 339 K/mm3 150-450 RESULT VERIFIED BY REPEAT ANALYSIS MEAN PLATELET VOLUME (test code=MPV) 12.9 fL 6.7-11.0 NEUTROPHIL % (test code=NT%) 70.3 % 39.0-69.0 IMMATURE GRANULOCYTE % (test code=IG%) 0.8 % 0.0-5.0 LYMPHOCYTE % (test code=LY%) 15.5 % 25.0-55.0 MONOCYTE % (test code=MO%) 5.8 % 0.0-10.0 EOSINOPHIL % (test code=EO%) 6.6 % 0.0-5.0 BASOPHIL % (test code=BA%) 1.0 % 0.0-1.0 NUCLEATED RBC % (test code=NRBC%) 0.0 % 0-0 NEUTROPHIL # (test code=NT#) 16.19 K/mm3 1.8-7.7 IMMATURE GRANULOCYTE # (test code=IG#) 0.19 x10 3/uL 0-0.03 LYMPHOCYTE # (test code=LY#) 3.56 K/mm3 1.0-5.0 MONOCYTE # (test code=MO#) 1.34 K/mm3 0-0.8 EOSINOPHIL # (test code=EO#) 1.52 K/mm3 0.0-0.5 BASOPHIL # (test code=BA#) 0.22 K/mm3 0.0-0.2 NUCLEATED RBC # (test code=NRBC#) 0.00 K/mm3 0.0-0.1 PROCALCITONIN (PCT)2019-05-06 05:39:00* Test Item Value Reference Range Comments PROCALCITONIN (PCT) (test code=PROCAL) 0.17 ng/ml Concentration Interpretation (ng/mL) <0.51 Sepsis is not likely. Local bacterial infection is possible. (LOW RISK for progression to Sepsis) 0.51 - 2.00 Sepsis is possible, but other conditions are known to elevate PCT as well. (MODERATE RISK for progression to Sepsis) > 2.00 Sepsis is likely, unless other causes are known. (HIGH RISK for progression to Severe Sepsis or Septic Shock) 10.00 High likelihood of Severe Sepsis or Septic or higher Shock. *Increased PCT levels may not always be related to systemic bacterial infection.*Low PCT levels do not automatically exclude the presence of bacterial infection.*All results should be interpreted taking into account the patients history. URINALYSIS [id number] 19:48:00* Test Item Value Reference Range Comments UA COLOR (test code=COLU) [place] YELLOW UA APPEARANCE (test code=APPU) Cloudy CLEAR UA GLUCOSE DIPSTICK (test code=DGLUU) NEGATIVE mg/dL NEGATIVE UA BILIRUBIN DIPSTICK (test code=BILU) NEGATIVE mg/dL NEGATIVE UA KETONE DIPSTICK (test code=KETU) NEGATIVE mg/dL NEGATIVE UA SPECIFIC GRAVITY (test code=SGU) 1.021 1.001-1.035 UA BLOOD DIPSTICK (test code=TAMMY) >1.0 mg/dL NEGATIVE UA PH DIPSTICK (test code=PAULA) 7.5 5.0-8.0 UA PROTEIN DIPSTICK (test code=PROU) 300 (3+) mg/dL NEGATIVE UA UROBILINIOGEN DIPSTICK (test code=URO) Normal mg/dL NEGATIVE UA NITRITE DIPSTICK (test code=BECKI) NEGATIVE NEGATIVE UA LEUKOCYTE ESTERASE W REFLEX (test code=LEUUR) 75 Wilian/uL (1+) [place]/uL NEGATIVE UA WBC (test code=WBCU) 6-10 per HPF 0-5 UA RBC (test code=RBCU) >200 #/HPF 0-5 UA EPITHELIAL CELLS (test code=EPIU) Rare (0-1/hpf) per HPF FEW UA BACTERIA (test code=BACU) NONE SEEN #/HPF NONE UA MUCUS (test code=MUCU) FEW #/LPF FEW Urine Source? Clean CatchURINALYSIS [id number] 19:34:00* Test Item Value Reference Range Comments UA COLOR (test code=COLU) [place] YELLOW UA APPEARANCE (test code=APPU) Cloudy CLEAR UA GLUCOSE DIPSTICK (test code=DGLUU) NEGATIVE mg/dL NEGATIVE UA BILIRUBIN DIPSTICK (test code=BILU) NEGATIVE mg/dL NEGATIVE UA KETONE DIPSTICK (test code=KETU) NEGATIVE mg/dL NEGATIVE UA SPECIFIC GRAVITY (test code=SGU) 1.021 1.001-1.035 UA BLOOD DIPSTICK (test code=TAMMY) >1.0 mg/dL NEGATIVE UA PH DIPSTICK (test code=PAULA) 7.5 5.0-8.0 UA PROTEIN DIPSTICK (test code=PROU) 300 (3+) mg/dL NEGATIVE UA UROBILINIOGEN DIPSTICK (test code=URO) Normal mg/dL NEGATIVE UA NITRITE DIPSTICK (test code=BECKI) NEGATIVE NEGATIVE UA LEUKOCYTE ESTERASE W REFLEX (test code=LEUUR) 75 Wilian/uL (1+) Wilian/uL NEGATIVE UA WBC (test code=WBCU) per HPF 0-5 UA RBC (test code=RBCU) per HPF 0-5 UA EPITHELIAL CELLS (test code=EPIU) per HPF Few UA BACTERIA (test code=BACU) per HPF NONE Urine Source? Clean CatchPROCALCITONIN (PCT)2019-05-05 19:16:00* Test Item Value Reference Range Comments PROCALCITONIN (PCT) (test code=PROCAL) 0.19 ng/ml Concentration Interpretation (ng/mL) <0.51 Sepsis is not likely. Local bacterial infection is possible. (LOW RISK for progression to Sepsis) 0.51 - 2.00 Sepsis is possible, but other conditions are known to elevate PCT as well. (MODERATE RISK for progression to Sepsis) > 2.00 Sepsis is likely, unless other causes are known. (HIGH RISK for progression to Severe Sepsis or Septic Shock) 10.00 High likelihood of Severe Sepsis or Septic or higher Shock. *Increased PCT levels may not always be related to systemic bacterial infection.*Low PCT levels do not automatically exclude the presence of bacterial infection.*All results should be interpreted taking into account the patients history. [id number] 17:35:00* Test Item Value Reference Range Comments GLUBED (test code=GLUBED) 94 mg/dL 74-106 Performed by certified steel spar operator at [facility] - XR ABDOMEN AP 1 [id number] 11:21:00 FAX: Jerica Moeller MD [phone] [place]: [address]: ADM FAX: Lonnie Olson MD [phone] Name: CELESTINO MCALLISTER [facility] : 1970 Age/S: 48/M [address] Unit #: [id number] Loc: [id number] [place] [id number] Phys: Jerica Shaffer MD Acct: [id number] Dis Date: Status: ADM IN PHONE #: [phone] Exam Date: 05/05/2019 1106 FAX #: [phone] Reason: PEG placement confirm ation EXAMS: CPT CODE: [id number] XR ABDOMEN AP 1 V [id number] HISTORY: PEG tube placement confirmation. COMPARIS ON: X-ray from March 18, 2019. 2 view abdomen: Molecular Modeler view demonstrating IVORY CARVER shunt catheter on the right side. Femoral catheter o n the right side. Gastrostomy tube tip in the left upper quadrant. Second image after Gastrografin administration demonstrating PEG tube tip within the gastric antrum in good position with opacification of th e gastric fundus and body. Nonspecific bowel gas pattern with mild diffuse distention of the small bowel loops. This likely represents ileus. IMPRESSION: Gastrostomy tube tip in the gastric antr um region in good position. at 1121 Reported and signed by: Cristian dos santos M.D. CC: Jerica Shaffer MD; Lonnie Olson MD Technologist: Angella Isaacs(R); Josephine FIELDS(R) Trnscrd Date/Time/By: 05/05/2019 (1121) : By: [email or web address] Orig Print D/T : S: 05/05/2019 (1129) PAGE 1 Sig shira Report [id number] 08:07:00* Test Item Value Reference Range Comments GLUBED (test code=GLUBED) 83 mg/dL 74-106 Performed by certified steel spar operator at [facility] [id number] 08:07:00* Test Item Value Reference Range Comments GLUBED (test code=GLUBED) 77 mg/dL 74-106 Performed by certified steel spar operator at [facility] - XR CHEST 1 [id number] 00:47:00 FAX: Lonnie lOson MD [phone] [place]: B St: ADM FAX: Bradford Jett MD FAX: Felipe Deleon DO Name: CELESTINO MCALLISTER [facility] : 1970 Age/S: 48/M [address] Unit #: [id number] Loc: V.2045 [place], [place] [address] Phys: Felipe Deleon DO Acct: [id number] Dis Date: Status: ADM IN ONE #: [phone] Exam Date: 05/04/2019 0020 FAX #: [phone] Reason: TLC attempt EXAMS: CPT CODE: [id number] XR CHEST 1 V [id number] AFTER HOURS SE RVICE ON: 05/05/2019 12:46 AM AP Portable Chest Locati on Code M12 HISTORY: TLC attempt FINDINGS: Atelectatic changes noted in the right lung base without significant change from 2 hours ago. Tracheostomy and IVORY CARVER shunt are in place. There are no pleural effusions. There is no pneumothorax. Cardiac silhouette and mediastinum appear within normal limits. IMPRESSION: Platelike atelectasis in the right lung base without significant change. at 0047 Reported and signed by: Shellie Forrest M.D. CC: Lonnie Olson MD; Bradford Paris; Felipe Deleon DO [facility] gist: Abigail Pepper Trnscrd Date/Time/B y: 05/05/2019 (0047) : By: [email or web address] Orig Print D/T: S: 05/05/2019 (00 51) PAGE 1 Signed Report PROCALCITONIN (PCT)2019-05-04 22:19:00* Test Item Value Reference Range Comments PROCALCITONIN (PCT) (test code=PROCAL) 0.20 ng/ml Concentration Interpretation (ng/mL) <0.51 Sepsis is not likely. Local bacterial infection is possible. (LOW RISK for progression to Sepsis) 0.51 - 2.00 Sepsis is possible, but other conditions are known to elevate PCT as well. (MODERATE RISK for progression to Sepsis) > 2.00 Sepsis is likely, unless other causes are known. (HIGH RISK for progression to Severe Sepsis or Septic Shock) 10.00 High likelihood of Severe Sepsis or Septic or higher Shock. *Increased PCT levels may not always be related to systemic bacterial infection.*Low PCT levels do not automatically exclude the presence of bacterial infection.*All results should be interpreted taking into account the patients history. B-TYPE NATRIURETIC [id number] 22:06:00* Test Item Value Reference Range Comments B-TYPE NATRIURETIC PEPTIDE (test code=BNP) 2.90 pgram/mL 0-100 BASIC METABOLIC [id number] 22:01:00* Test Item Value Reference Range Comments SODIUM (test code=NA) 143 mmol/L 136-145 POTASSIUM (test code=K) 4.0 mmol/L 3.5-5.1 CHLORIDE (test code=CL) 109.0 mmol/L 98-107 CARBON DIOXIDE (test code=CO2) 29.0 mmol/L 21-32 ANION GAP (test code=GAP) 9.0 10-20 GLUCOSE (test code=GLU) 106 mg/dL 74-106 BLOOD UREA NITROGEN (test code=BUN) 39 mg/dL 7-18 GLOMERULAR FILTRATION RATE (test code=GFR) > 60 mL/min >=60 Estimated GFR by using Modified MDRD formula.Chronic kidney disease is defined as either kidney damageor GFR <60 mL/min/1.73 m2 for >3 months. CREATININE (test code=CREAT) 1.40 mg/dL 0.7-1.3 BUN/CREATININE RATIO (test code=BUN/CREA) 27.9 10-20 CALCIUM (test code=CA) 9.8 mg/dL 8.5-10.1 [id number] 22:01:00* Test Item Value Reference Range Comments TROPONIN-I (test code=TROPI) <0.015 ng/mL 0-0.045 LACTIC [id number] 22:01:00* Test Item Value Reference Range Comments LACTIC ACID (test code=LACT) 1.1 mmol/L 0.4-1.9 BASIC METABOLIC [id number] 21:41:00* Test Item Value Reference Range Comments SODIUM (test code=NA) 143 mmol/L 136-145 POTASSIUM (test code=K) 4.0 mmol/L 3.5-5.1 CHLORIDE (test code=CL) 109.0 mmol/L 98-107 CARBON DIOXIDE (test code=CO2) mmol/L 21-32 ANION GAP (test code=GAP) 10-20 GLUCOSE (test code=GLU) mg/dL 74-106 BLOOD UREA NITROGEN (test code=BUN) mg/dL 7-18 GLOMERULAR FILTRATION RATE (test code=GFR) mL/min >=60 CREATININE (test code=CREAT) mg/dL 0.7-1.3 BUN/CREATININE RATIO (test code=BUN/CREA) 10-20 CALCIUM (test code=CA) mg/dL 8.5-10.1 [id number] 21:41:00* Test Item Value Reference Range Comments TROPONIN-I (test code=TROPI) ng/mL 0-0.045 - XR CHEST 1 [id number] 21:34:00 FAX: Lonnie Olson MD [phone] [place]: St: [facility] FAX: Felipe Deleon DO Name: CELESTINO MCALLISTER [facility] : 1970 Age/S: 48/M [address] [facility] Unit #: [id number] Loc: [place] [address] Phys: Felipe Deleon DO Acct: [id number] Dis Date: Status: REG ER PHONE #: [phone] Exam Date: 05/04/20192126 FAX #: [phone] Reason: Shortness of Breath EXAMS: CPT CODE: [id number] XR CHEST 1 V [id number] REASON FOR EXAM: Shortness of Breath EXAM ORDER DATE: 05/04/2019 8:42 PM Ordering Damaris: Felipe Deleon DO PROCEDURE: - XR CHEST 1 V COMPARISON: 03/18/2019 FINDINGS: Portable AP frontal view of the chest obtained at 9:25 PM shows platelike atelectasis of the right mid lung field. There is no evidence of effusion. The heart size is within normal limits. Pulmonary vascu latures are minimally congested. 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 CC: Lonnie Olson MD; Felipe Deleon DO Technologist: RT FERNANDO(Michelle) Trnscrd Date/Time/By: 05/04/2019 (2133) : By: JadL O rig Print D/T: S: 05/04/2019 (2136) PAGE 1 Signed Report CBC W/O [id number] 21:22:00* Test Item Value Reference Range Comments WHITE BLOOD CELL (test code=WBC) 23.0 K/mm3 4.5-12.5 RED BLOOD CELL (test code=RBC) 4.37 mill/mm3 4.0-5.8 HEMOGLOBIN (test code=HGB) 11.2 gram/dL 13.0-17.5 HEMATOCRIT (test code=HCT) 36.8 % 42.0-52.0 MEAN CELL VOLUME (test code=MCV) 84.2 fL 80-98 MEAN CELL HGB (test code=MCH) 25.6 picogram 27.0-33.0 MEAN CELL HGB CONCETRATION (test code=MCHC) 30.4 gram/dL 33.0-36.0 RED CELL DISTRIBUTION WIDTH (test code=RDW) 16.4 % 11.6-16.2 PLATELET COUNT (test code=PLT) 427 K/mm3 150-450 MEAN PLATELET VOLUME (test code=MPV) 12.4 fL 6.7-11.0 POC LACTIC [id number] 21:18:00* Test Item Value Reference Range Comments POC LACTIC ACID (test code=POCLAC) 1.21 MMOL/L 0.4-2.2 [id number] 12:35:00* Test Item Value Reference Range Comments GLUBED (test code=GLUBED) 95 mg/dL 74-106 Performed by certified steel spar operator at [facility] BASIC METABOLIC [id number] 06:37:00* Test Item Value Reference Range Comments SODIUM (test code=NA) 134 mmol/L 136-145 POTASSIUM (test code=K) 3.5 mmol/L 3.5-5.1 CHLORIDE (test code=CL) 102.0 mmol/L 98-107 CARBON DIOXIDE (test code=CO2) 24.0 mmol/L 21-32 ANION GAP (test code=GAP) 11.5 10-20 GLUCOSE (test code=GLU) 106 mg/dL 74-106 BLOOD UREA NITROGEN (test code=BUN) 13 mg/dL 7-18 GLOMERULAR FILTRATION RATE (test code=GFR) > 60 mL/min >=60 Estimated GFR by using Modified MDRD formula.Chronic kidney disease is defined as either kidney damageor GFR <60 mL/min/1.73 m2 for >3 months. CREATININE (test code=CREAT) 1.00 mg/dL 0.7-1.3 BUN/CREATININE RATIO (test code=BUN/CREA) 13.0 10-20 CALCIUM (test code=CA) 10.0 mg/dL 8.5-10.1 [id number] 06:37:00* Test Item Value Reference Range Comments PHOSPHORUS (test code=PHOS) 3.6 mg/dL 2.5-4.9 [id number] 06:37:00* Test Item Value Reference Range Comments MAGNESIUM (test code=MAG) 1.4 mg/dL 1.8-2.4 BASIC METABOLIC [id number] 06:34:00* Test Item Value Reference Range Comments SODIUM (test code=NA) 134 mmol/L 136-145 POTASSIUM (test code=K) 3.5 mmol/L 3.5-5.1 CHLORIDE (test code=CL) 102.0 mmol/L 98-107 CARBON DIOXIDE (test code=CO2) mmol/L 21-32 ANION GAP (test code=GAP) 10-20 GLUCOSE (test code=GLU) mg/dL 74-106 BLOOD UREA NITROGEN (test code=BUN) mg/dL 7-18 GLOMERULAR FILTRATION RATE (test code=GFR) mL/min >=60 CREATININE (test code=CREAT) mg/dL 0.7-1.3 BUN/CREATININE RATIO (test code=BUN/CREA) 10-20 CALCIUM (test code=CA) mg/dL 8.5-10.1 [id number] 06:34:00* Test Item Value Reference Range Comments PHOSPHORUS (test code=PHOS) mg/dL 2.5-4.9 [id number] 06:34:00* Test Item Value Reference Range Comments MAGNESIUM (test code=MAG) mg/dL 1.8-2.4 CBC W/AUTO [id number] 06:12:00* Test Item Value Reference Range Comments WHITE BLOOD CELL (test code=WBC) 17.3 K/mm3 4.5-12.5 RED BLOOD CELL (test code=RBC) 3.81 mill/mm3 4.0-5.8 HEMOGLOBIN (test code=HGB) 10.0 gram/dL 13.0-17.5 HEMATOCRIT (test code=HCT) 30.0 % 42.0-52.0 MEAN CELL VOLUME (test code=MCV) 78.7 fL 80-98 MEAN CELL HGB (test code=MCH) 26.2 picogram 27.0-33.0 MEAN CELL HGB CONCETRATION (test code=MCHC) 33.3 gram/dL 33.0-36.0 RED CELL DISTRIBUTION WIDTH (test code=RDW) 17.7 % 11.6-16.2 RED CELL DISTRIBUTION WIDTH SD (test code=RDW-SD) 49.8 fL 37.0-51.0 PLATELET COUNT (test code=PLT) 338 K/mm3 150-450 MEAN PLATELET VOLUME (test code=MPV) 10.4 fL 6.7-11.0 NEUTROPHIL % (test code=NT%) 65.6 % 39.0-69.0 IMMATURE GRANULOCYTE % (test code=IG%) 0.9 % 0.0-5.0 LYMPHOCYTE % (test code=LY%) 18.1 % 25.0-55.0 MONOCYTE % (test code=MO%) 8.9 % 0.0-10.0 EOSINOPHIL % (test code=EO%) 5.5 % 0.0-5.0 BASOPHIL % (test code=BA%) 1.0 % 0.0-1.0 NUCLEATED RBC % (test code=NRBC%) 0.0 % 0-0 NEUTROPHIL # (test code=NT#) 11.39 K/mm3 1.8-7.7 IMMATURE GRANULOCYTE # (test code=IG#) 0.15 x10 3/uL 0-0.03 LYMPHOCYTE # (test code=LY#) 3.13 K/mm3 1.0-5.0 MONOCYTE # (test code=MO#) 1.55 K/mm3 0-0.8 EOSINOPHIL # (test code=EO#) 0.95 K/mm3 0.0-0.5 BASOPHIL # (test code=BA#) 0.17 K/mm3 0.0-0.2 NUCLEATED RBC # (test code=NRBC#) 0.00 K/mm3 0.0-0.1 MANUAL DIFF REQUIRED (test code=MDIFF) NO CBC W/MANUAL [id number] 06:51:00* Test Item Value Reference Range Comments WHITE BLOOD CELL (test code=WBC) 21.5 K/mm3 4.5-12.5 RED BLOOD CELL (test code=RBC) 3.96 mill/mm3 4.0-5.8 HEMOGLOBIN (test code=HGB) 10.3 gram/dL 13.0-17.5 HEMATOCRIT (test code=HCT) 31.7 % 42.0-52.0 MEAN CELL VOLUME (test code=MCV) 80.1 fL 80-98 MEAN CELL HGB (test code=MCH) 26.0 picogram 27.0-33.0 MEAN CELL HGB CONCETRATION (test code=MCHC) 32.5 gram/dL 33.0-36.0 RED CELL DISTRIBUTION WIDTH (test code=RDW) 17.2 % 11.6-16.2 RED CELL DISTRIBUTION WIDTH SD (test code=RDW-SD) 49.9 fL 37.0-51.0 PLATELET COUNT (test code=PLT) 353 K/mm3 150-450 MEAN PLATELET VOLUME (test code=MPV) 9.8 fL 6.7-11.0 NEUTROPHIL % (test code=NT%) 73.3 % 39.0-69.0 IMMATURE GRANULOCYTE % (test code=IG%) 1.0 % 0.0-5.0 LYMPHOCYTE % (test code=LY%) 13.1 % 25.0-55.0 MONOCYTE % (test code=MO%) 8.5 % 0.0-10.0 EOSINOPHIL % (test code=EO%) 3.4 % 0.0-5.0 BASOPHIL % (test code=BA%) 0.7 % 0.0-1.0 NUCLEATED RBC % (test code=NRBC%) 0.0 % 0-0 NEUTROPHIL # (test code=NT#) 15.76 K/mm3 1.8-7.7 IMMATURE GRANULOCYTE # (test code=IG#) 0.21 x10 3/uL 0-0.03 LYMPHOCYTE # (test code=LY#) 2.80 K/mm3 1.0-5.0 MONOCYTE # (test code=MO#) 1.82 K/mm3 0-0.8 EOSINOPHIL # (test code=EO#) 0.72 K/mm3 0.0-0.5 BASOPHIL # (test code=BA#) 0.14 K/mm3 0.0-0.2 NUCLEATED RBC # (test code=NRBC#) 0.00 K/mm3 0.0-0.1 STAIN ACCEPTABILITY (test code=STN ACCEPTABLE) STAIN ACCEPTABLE TOTAL CELLS COUNTED (test code=TCC) 115 #CELLS SEGMENTED NEUTROPHILS (test code=SEG) 73.9 % 39-69 BAND NEUTROPHIL (test code=BAND) 0 % 0-10 LYMPHOCYTE (test code=LYMPH) 10.4 % 25-55 REACTIVE LYMPH (test code=RELYMPH) 0.9 % MONOCYTE (test code=MON) 8.7 % 0-10 EOSINOPHIL (test code=EOS) 3.5 % 0.0-5.0 BASOPHIL (test code=BASO) 2.6 % 0-1.0 METAMYELOCYTE (test code=META) 0 % 0-0 MYELOCYTE (test code=MYELO) 0 % 0.0-0.0 PROMYELOCYTE (test code=PROM) 0 % 0-0 POIKILOCYTOSIS (test code=POIK) 1+ ARJUN CELLS (test code=ARJUN) 1+ NONE PLATELET ESTIMATE (test code=PLTEST) ADEQUATE PLATELET MORPHOLOGY (test code=PLTMORPH) NORMAL IMMATURE FORMS (test code=IMMAT) 0 % 0-0 BASIC METABOLIC [id number] 06:18:00* Test Item Value Reference Range Comments SODIUM (test code=NA) 134 mmol/L 136-145 POTASSIUM (test code=K) 3.9 mmol/L 3.5-5.1 CHLORIDE (test code=CL) 100.0 mmol/L 98-107 CARBON DIOXIDE (test code=CO2) 26.0 mmol/L 21-32 ANION GAP (test code=GAP) 11.9 10-20 GLUCOSE (test code=GLU) 83 mg/dL 74-106 BLOOD UREA NITROGEN (test code=BUN) 13 mg/dL 7-18 GLOMERULAR FILTRATION RATE (test code=GFR) > 60 mL/min >=60 Estimated GFR by using Modified MDRD formula.Chronic kidney disease is defined as either kidney damageor GFR <60 mL/min/1.73 m2 for >3 months. CREATININE (test code=CREAT) 0.90 mg/dL 0.7-1.3 BUN/CREATININE RATIO (test code=BUN/CREA) 14.4 10-20 CALCIUM (test code=CA) 9.7 mg/dL 8.5-10.1 CBC W/MANUAL [id number] 06:03:00* Test Item Value Reference Range Comments WHITE BLOOD CELL (test code=WBC) 21.5 K/mm3 4.5-12.5 RED BLOOD CELL (test code=RBC) 3.96 mill/mm3 4.0-5.8 HEMOGLOBIN (test code=HGB) 10.3 gram/dL 13.0-17.5 HEMATOCRIT (test code=HCT) 31.7 % 42.0-52.0 MEAN CELL VOLUME (test code=MCV) 80.1 fL 80-98 MEAN CELL HGB (test code=MCH) 26.0 picogram 27.0-33.0 MEAN CELL HGB CONCETRATION (test code=MCHC) 32.5 gram/dL 33.0-36.0 RED CELL DISTRIBUTION WIDTH (test code=RDW) 17.2 % 11.6-16.2 RED CELL DISTRIBUTION WIDTH SD (test code=RDW-SD) 49.9 fL 37.0-51.0 PLATELET COUNT (test code=PLT) 353 K/mm3 150-450 MEAN PLATELET VOLUME (test code=MPV) 9.8 fL 6.7-11.0 NEUTROPHIL % (test code=NT%) 73.3 % 39.0-69.0 IMMATURE GRANULOCYTE % (test code=IG%) 1.0 % 0.0-5.0 LYMPHOCYTE % (test code=LY%) 13.1 % 25.0-55.0 MONOCYTE % (test code=MO%) 8.5 % 0.0-10.0 EOSINOPHIL % (test code=EO%) 3.4 % 0.0-5.0 BASOPHIL % (test code=BA%) 0.7 % 0.0-1.0 NUCLEATED RBC % (test code=NRBC%) 0.0 % 0-0 NEUTROPHIL # (test code=NT#) 15.76 K/mm3 1.8-7.7 IMMATURE GRANULOCYTE # (test code=IG#) 0.21 x10 3/uL 0-0.03 LYMPHOCYTE # (test code=LY#) 2.80 K/mm3 1.0-5.0 MONOCYTE # (test code=MO#) 1.82 K/mm3 0-0.8 EOSINOPHIL # (test code=EO#) 0.72 K/mm3 0.0-0.5 BASOPHIL # (test code=BA#) 0.14 K/mm3 0.0-0.2 NUCLEATED RBC # (test code=NRBC#) 0.00 K/mm3 0.0-0.1 STAIN ACCEPTABILITY (test code=STN ACCEPTABLE) TOTAL CELLS COUNTED (test code=TCC) #CELLS SEGMENTED NEUTROPHILS (test code=SEG) % 39-69 LYMPHOCYTE (test code=LYMPH) % 25-55 MONOCYTE (test code=MON) % 0-10 MORPHOLOGY COMMENT (test code=MOC) PLATELET ESTIMATE (test code=PLTEST) PLATELET MORPHOLOGY (test code=PLTMORPH) - CT CHEST [id number]/[id number] 03:33:00 Name: CELESTINO MCALLISTER [facility] : 1970 Age/S: 48 / M [address] [facility] Unit #: [id number] Loc: [place] [address] Phys: Anthony ARAGON,Long Steen Acct: [id number] Dis Date: Status: ADM IN PHONE #: [phone] Exam Date: 03/21/2019 0305 FAX #: [phone] Reason: EVALUATE FOR PNEUMONIA EXAMS: CPT CODE: [id number] CT CHEST W/CONTRAST [id number] AFTER HOURS SERVICE ON: 03/21/2019 3:[address] Scan of the Chest With Contrast Location Code M12 History: EVALUATE FOR PNEUMONIA Technique: Scans were performed on a helical scanner post IV contrast only. One or more of the following dose reduction techniques were used: Automated exposure control, adjustment of the mA and/or kV according to patient size, and/or utilization of iterative reconstruction technique. Findings: There are dense atelectatic changes in the lower lobes and patchy infiltrates. There is no pleural effusion. There is no edema. No evidence of aortic aneurysm or dissection. There is no cardiomegaly or pericardial effusion. In the upper abdomen, there is thickening of the gastric antrum and visualized duodenum. Impression: Bilateral lower lobe pneumonia and atelectasis. Diffuse thickening of the gastric antrum and duodenum which should be further evaluated with endoscopy. at 0333 Reported and signed by: Shellie Forrest M.D. CC: Jerica Shaffer MD; Long Cruz; Lonnie Olson MD Technologist:RAFAEL LOPEZ CTDI: DLP: Trnscb Date/Time: 03/21/2019 (332) [email or web address] Orig Print D/T: S: 03/21/2019 (0336) PAGE 1 Signed Report [id number] 02:13:00* Test Item Value Reference Range Comments GLUBED (test code=GLUBED) 251 mg/dL 74-106 Performed by certified steel spar operator at [facility] [id number] 02:13:00* Test Item Value Reference Range Comments GLUBED (test code=GLUBED) 117 mg/dL 74-106 Performed by certified steel spar operator at [facility] [id number] 16:36:00* Test Item Value Reference Range Comments GLUBED (test code=GLUBED) 86 mg/dL 74-106 Performed by certified steel spar operator at [facility] CBC W/MANUAL [id number] 05:09:00* Test Item Value Reference Range Comments WHITE BLOOD CELL (test code=WBC) 26.1 K/mm3 4.5-12.5 RED BLOOD CELL (test code=RBC) 3.99 mill/mm3 4.0-5.8 HEMOGLOBIN (test code=HGB) 10.3 gram/dL 13.0-17.5 RESULT VERIFIED BY REPEAT ANALYSIS HEMATOCRIT (test code=HCT) 31.1 % 42.0-52.0 MEAN CELL VOLUME (test code=MCV) 77.9 fL 80-98 MEAN CELL HGB (test code=MCH) 25.8 picogram 27.0-33.0 MEAN CELL HGB CONCETRATION (test code=MCHC) 33.1 gram/dL 33.0-36.0 RED CELL DISTRIBUTION WIDTH (test code=RDW) 16.6 % 11.6-16.2 RED CELL DISTRIBUTION WIDTH SD (test code=RDW-SD) 46.5 fL 37.0-51.0 PLATELET COUNT (test code=PLT) 371 K/mm3 150-450 RESULT VERIFIED BY REPEAT ANALYSIS MEAN PLATELET VOLUME (test code=MPV) 10.1 fL 6.7-11.0 IMMATURE GRANULOCYTE % (test code=IG%) 1.0 % 0.0-5.0 NUCLEATED RBC % (test code=NRBC%) 0.0 % 0-0 NEUTROPHIL # (test code=NT#) 19.90 K/mm3 1.8-7.7 IMMATURE GRANULOCYTE # (test code=IG#) 0.25 x10 3/uL 0-0.03 LYMPHOCYTE # (test code=LY#) 2.62 K/mm3 1.0-5.0 MONOCYTE # (test code=MO#) 2.22 K/mm3 0-0.8 EOSINOPHIL # (test code=EO#) 0.95 K/mm3 0.0-0.5 BASOPHIL # (test code=BA#) 0.19 K/mm3 0.0-0.2 NUCLEATED RBC # (test code=NRBC#) 0.00 K/mm3 0.0-0.1 MANUAL DIFF REQUIRED (test code=MDIFF) YES STAIN ACCEPTABILITY (test code=STN ACCEPTABLE) STAIN ACCEPTABLE TOTAL CELLS COUNTED (test code=TCC) 115 #CELLS SEGMENTED NEUTROPHILS (test code=SEG) 82.6 % 39-69 BAND NEUTROPHIL (test code=BAND) 0 % 0-10 LYMPHOCYTE (test code=LYMPH) 6.1 % 25-55 REACTIVE LYMPH (test code=RELYMPH) 0 % MONOCYTE (test code=MON) 6.1 % 0-10 EOSINOPHIL (test code=EOS) 5.2 % 0.0-5.0 BASOPHIL (test code=BASO) 0 % 0-1.0 METAMYELOCYTE (test code=META) 0 % 0-0 MYELOCYTE (test code=MYELO) 0 % 0.0-0.0 PROMYELOCYTE (test code=PROM) 0 % 0-0 MORPHOLOGY COMMENT (test code=MOC) NORMAL PLATELET ESTIMATE (test code=PLTEST) ADEQUATE PLATELET MORPHOLOGY (test code=PLTMORPH) NORMAL IMMATURE FORMS (test code=IMMAT) 0 % 0-0 CBC W/MANUAL [id number] 04:40:00* Test Item Value Reference Range Comments WHITE BLOOD CELL (test code=WBC) 26.1 K/mm3 4.5-12.5 RED BLOOD CELL (test code=RBC) 3.99 mill/mm3 4.0-5.8 HEMOGLOBIN (test code=HGB) 10.3 gram/dL 13.0-17.5 RESULT VERIFIED BY REPEAT ANALYSIS HEMATOCRIT (test code=HCT) 31.1 % 42.0-52.0 MEAN CELL VOLUME (test code=MCV) 77.9 fL 80-98 MEAN CELL HGB (test code=MCH) 25.8 picogram 27.0-33.0 MEAN CELL HGB CONCETRATION (test code=MCHC) 33.1 gram/dL 33.0-36.0 RED CELL DISTRIBUTION WIDTH (test code=RDW) 16.6 % 11.6-16.2 RED CELL DISTRIBUTION WIDTH SD (test code=RDW-SD) 46.5 fL 37.0-51.0 PLATELET COUNT (test code=PLT) 371 K/mm3 150-450 RESULT VERIFIED BY REPEAT ANALYSIS MEAN PLATELET VOLUME (test code=MPV) 10.1 fL 6.7-11.0 IMMATURE GRANULOCYTE % (test code=IG%) 1.0 % 0.0-5.0 NUCLEATED RBC % (test code=NRBC%) 0.0 % 0-0 NEUTROPHIL # (test code=NT#) 19.90 K/mm3 1.8-7.7 IMMATURE GRANULOCYTE # (test code=IG#) 0.25 x10 3/uL 0-0.03 LYMPHOCYTE # (test code=LY#) 2.62 K/mm3 1.0-5.0 MONOCYTE # (test code=MO#) 2.22 K/mm3 0-0.8 EOSINOPHIL # (test code=EO#) 0.95 K/mm3 0.0-0.5 BASOPHIL # (test code=BA#) 0.19 K/mm3 0.0-0.2 NUCLEATED RBC # (test code=NRBC#) 0.00 K/mm3 0.0-0.1 MANUAL DIFF REQUIRED (test code=MDIFF) YES STAIN ACCEPTABILITY (test code=STN ACCEPTABLE) TOTAL CELLS COUNTED (test code=TCC) #CELLS SEGMENTED NEUTROPHILS (test code=SEG) % 39-69 LYMPHOCYTE (test code=LYMPH) % 25-55 MONOCYTE (test code=MON) % 0-10 MORPHOLOGY COMMENT (test code=MOC) PLATELET ESTIMATE (test code=PLTEST) PLATELET MORPHOLOGY (test code=PLTMORPH) [id number] 04:16:00* Test Item Value Reference Range Comments GLUBED (test code=GLUBED) 94 mg/dL 74-106 Performed by certified steel spar operator at [facility] [id number] 01:01:00* Test Item Value Reference Range Comments GLUBED (test code=GLUBED) 94 mg/dL 74-106 Performed by certified steel spar operator at [facility] [id number] 22:09:00* Test Item Value Reference Range Comments GLUBED (test code=GLUBED) 88 mg/dL 74-106 Performed by certified steel spar operator at [facility] [id number] 16:47:00* Test Item Value Reference Range Comments GLUBED (test code=GLUBED) 96 mg/dL 74-106 Performed by certified steel spar operator at [facility] [id number] 11:05:00* Test Item Value Reference Range Comments GLUBED (test code=GLUBED) 114 mg/dL 74-106 Performed by certified steel spar operator at [facility] CBC W/MANUAL [id number] 05:29:00* Test Item Value Reference Range Comments WHITE BLOOD CELL (test code=WBC) 18.4 K/mm3 4.5-12.5 RED BLOOD CELL (test code=RBC) 2.75 mill/mm3 4.0-5.8 HEMOGLOBIN (test code=HGB) 6.9 gram/dL 13.0-17.5 HEMATOCRIT (test code=HCT) 21.9 % 42.0-52.0 Results called to [id number] by [email or web address] 03/19/19 0432Critical results verified and read back by Nurse? Y MEAN CELL VOLUME (test code=MCV) 79.6 fL 80-98 MEAN CELL HGB (test code=MCH) 25.1 picogram 27.0-33.0 MEAN CELL HGB CONCETRATION (test code=MCHC) 31.5 gram/dL 33.0-36.0 RED CELL DISTRIBUTION WIDTH (test code=RDW) 17.7 % 11.6-16.2 RED CELL DISTRIBUTION WIDTH SD (test code=RDW-SD) 51.5 fL 37.0-51.0 PLATELET COUNT (test code=PLT) 283 K/mm3 150-450 RESULT VERIFIED BY REPEAT ANALYSIS MEAN PLATELET VOLUME (test code=MPV) 9.7 fL 6.7-11.0 IMMATURE GRANULOCYTE % (test code=IG%) 1.2 % 0.0-5.0 NUCLEATED RBC % (test code=NRBC%) 0.0 % 0-0 NEUTROPHIL # (test code=NT#) 12.60 K/mm3 1.8-7.7 IMMATURE GRANULOCYTE # (test code=IG#) 0.22 x10 3/uL 0-0.03 LYMPHOCYTE # (test code=LY#) 2.70 K/mm3 1.0-5.0 MONOCYTE # (test code=MO#) 2.11 K/mm3 0-0.8 EOSINOPHIL # (test code=EO#) 0.68 K/mm3 0.0-0.5 BASOPHIL # (test code=BA#) 0.07 K/mm3 0.0-0.2 NUCLEATED RBC # (test code=NRBC#) 0.00 K/mm3 0.0-0.1 MANUAL DIFF REQUIRED (test code=MDIFF) YES STAIN ACCEPTABILITY (test code=STN ACCEPTABLE) STAIN ACCEPTABLE TOTAL CELLS COUNTED (test code=TCC) 113 #CELLS SEGMENTED NEUTROPHILS (test code=SEG) 81.4 % 39-69 BAND NEUTROPHIL (test code=BAND) 0 % 0-10 LYMPHOCYTE (test code=LYMPH) 12.4 % 25-55 REACTIVE LYMPH (test code=RELYMPH) 0 % MONOCYTE (test code=MON) 5.3 % 0-10 EOSINOPHIL (test code=EOS) 0.9 % 0.0-5.0 BASOPHIL (test code=BASO) 0 % 0-1.0 METAMYELOCYTE (test code=META) 0 % 0-0 MYELOCYTE (test code=MYELO) 0 % 0.0-0.0 PROMYELOCYTE (test code=PROM) 0 % 0-0 POLYCHROMASIA (test code=POLC) 1+ HYPOCHROMIA (test code=HYPO) 2+ ANISOCYTOSIS (test code=ANISO) 1+ MICROCYTOSIS (test code=MICR) 1+ PLATELET ESTIMATE (test code=PLTEST) ADEQUATE PLATELET MORPHOLOGY (test code=PLTMORPH) NORMAL IMMATURE FORMS (test code=IMMAT) 0 % 0-0 [id number] 04:49:00* Test Item Value Reference Range Comments GLUBED (test code=GLUBED) 98 mg/dL 74-106 Performed by certified steel spar operator at [facility] BASIC METABOLIC [id number] 04:39:00* Test Item Value Reference Range Comments SODIUM (test code=NA) 142 mmol/L 136-145 POTASSIUM (test code=K) 3.3 mmol/L 3.5-5.1 CHLORIDE (test code=CL) 108.0 mmol/L 98-107 CARBON DIOXIDE (test code=CO2) 24.0 mmol/L 21-32 ANION GAP (test code=GAP) 13.3 10-20 GLUCOSE (test code=GLU) 98 mg/dL 74-106 BLOOD UREA NITROGEN (test code=BUN) 14 mg/dL 7-18 GLOMERULAR FILTRATION RATE (test code=GFR) > 60 mL/min >=60 Estimated GFR by using Modified MDRD formula.Chronic kidney disease is defined as either kidney damageor GFR <60 mL/min/1.73 m2 for >3 months. CREATININE (test code=CREAT) 0.90 mg/dL 0.7-1.3 BUN/CREATININE RATIO (test code=BUN/CREA) 15.6 10-20 CALCIUM (test code=CA) 9.4 mg/dL 8.5-10.1 HEPATIC FUNCTION [id number] 04:39:00* Test Item Value Reference Range Comments TOTAL PROTEIN (test code=PROT) 6.3 gram/dL 6.4-8.2 ALBUMIN (test code=ALB) 2.3 g/dL 3.4-5.0 GLOBULIN (test code=GLOB) 4.0 gram/dL 2.7-4.2 ALBUMIN/GLOBULIN RATIO (test code=A/G) 0.6 0.75-1.50 BILIRUBIN TOTAL (test code=BILT) 0.20 mg/dL 0.0-1.0 BILIRUBIN DIRECT (test code=BILD) 0.09 mg/dL 0.0-0.20 SGOT/AST (test code=AST) 20 IUnit/L 15-37 SGPT/ALT (test code=ALT) 30 IUnit/L 12-78 ALKALINE PHOSPHATASE TOTAL (test code=ALKP) 119 IUnit/L 45-117 Note change in reference range due to change in reagent. [id number] 04:39:00* Test Item Value Reference Range Comments AMYLASE (test code=BRANDON) 41 Unit/L 25-115 [id number] 04:39:00* Test Item Value Reference Range Comments LIPASE (test code=LIP) 111 U/L 73.0-393.0 CBC W/MANUAL [id number] 04:33:00* Test Item Value Reference Range Comments WHITE BLOOD CELL (test code=WBC) 18.4 K/mm3 4.5-12.5 RED BLOOD CELL (test code=RBC) 2.75 mill/mm3 4.0-5.8 HEMOGLOBIN (test code=HGB) 6.9 gram/dL 13.0-17.5 HEMATOCRIT (test code=HCT) 21.9 % 42.0-52.0 Results called to [id number] by ANUPAM.CFEllis 03/19/19 0432Critical results verified and read back by Nurse? Y MEAN CELL VOLUME (test code=MCV) 79.6 fL 80-98 MEAN CELL HGB (test code=MCH) 25.1 picogram 27.0-33.0 MEAN CELL HGB CONCETRATION (test code=MCHC) 31.5 gram/dL 33.0-36.0 RED CELL DISTRIBUTION WIDTH (test code=RDW) 17.7 % 11.6-16.2 RED CELL DISTRIBUTION WIDTH SD (test code=RDW-SD) 51.5 fL 37.0-51.0 PLATELET COUNT (test code=PLT) 283 K/mm3 150-450 RESULT VERIFIED BY REPEAT ANALYSIS MEAN PLATELET VOLUME (test code=MPV) 9.7 fL 6.7-11.0 IMMATURE GRANULOCYTE % (test code=IG%) 1.2 % 0.0-5.0 NUCLEATED RBC % (test code=NRBC%) 0.0 % 0-0 NEUTROPHIL # (test code=NT#) 12.60 K/mm3 1.8-7.7 IMMATURE GRANULOCYTE # (test code=IG#) 0.22 x10 3/uL 0-0.03 LYMPHOCYTE # (test code=LY#) 2.70 K/mm3 1.0-5.0 MONOCYTE # (test code=MO#) 2.11 K/mm3 0-0.8 EOSINOPHIL # (test code=EO#) 0.68 K/mm3 0.0-0.5 BASOPHIL # (test code=BA#) 0.07 K/mm3 0.0-0.2 NUCLEATED RBC # (test code=NRBC#) 0.00 K/mm3 0.0-0.1 MANUAL DIFF REQUIRED (test code=MDIFF) YES STAIN ACCEPTABILITY (test code=STN ACCEPTABLE) TOTAL CELLS COUNTED (test code=TCC) #CELLS SEGMENTED NEUTROPHILS (test code=SEG) % 39-69 LYMPHOCYTE (test code=LYMPH) % 25-55 MONOCYTE (test code=MON) % 0-10 MORPHOLOGY COMMENT (test code=MOC) PLATELET ESTIMATE (test code=PLTEST) PLATELET MORPHOLOGY (test code=PLTMORPH) [id number] 01:48:00* Test Item Value Reference Range Comments GLUBED (test code=GLUBED) 94 mg/dL 74-106 Performed by certified steel spar operator at [facility] [id number] 21:06:00* Test Item Value Reference Range Comments GLUBED (test code=GLUBED) 92 mg/dL 74-106 Performed by certified steel spar operator at [facility] - XR SMALL [id number] 20:51:00 FAX: Jerica Moeller MD [phone] [place]: St: ADM FAX: Lonnie Olson MD [phone] FAX: Yan Bentley MD [phone] Name: CELESTINO [facility]ALL[facility] : 1970 Age/S: 48/M [address] [facility] Unit #: [id number] Loc: [place] [address] Phys: Yan Bentley MD Acct: [id number] Dis Date: Status: ADM IN [facility] #: [phone] Exam Date: 03/18/2019 1900 FAX #: [phone] Reason: vomiting EXAMS: CPT CODE: [id number] XR SMALL INTESTINE 41597 HISTORY: Vomit ing. COMPARISON: CT scan from March 17, 2019. Small a mount of contrast is noted within the stomach. No passage of contrast int o the small bowel is noted. Mild distention of the small bowel. IVORY CARVER shunt catheter noted on the right side. IMPRESSION: Small amount of contrast resides within stomach. No passage into the s mall bowel. No obstruction. at 2050 Reported and signed by: Cristian Patel M.D. CC: Jerica Shaffer MD; Lonnie Olson; Yan Bentley MD Technologist: DARRON POP RT(R) Trnscrd Date/Time/By: 03/18/2019 (2050) : By: [email or web address] Orig Pr int D/T: S: 03/19/2019 (0652) PAGE 1 Signed Report [id number] 18:32:00* Test Item Value Reference Range Comments GLUBED (test code=GLUBED) 81 mg/dL 74-106 Performed by certified steel spar operator at [facility] URINALYSIS [id number] 15:45:00* Test Item Value Reference Range Comments UA COLOR (test code=COLU) YELLOW YELLOW UA APPEARANCE (test code=APPU) Cloudy CLEAR UA GLUCOSE DIPSTICK (test code=DGLUU) NEGATIVE mg/dL NEGATIVE UA BILIRUBIN DIPSTICK (test code=BILU) NEGATIVE mg/dL NEGATIVE UA KETONE DIPSTICK (test code=KETU) 10 (1+) mg/dL NEGATIVE UA SPECIFIC GRAVITY (test code=SGU) >1.050 1.001-1.035 UA BLOOD DIPSTICK (test code=TAMMY) 0.1 mg/dL (1+) mg/dL NEGATIVE UA PH DIPSTICK (test code=PAULA) 6.0 5.0-8.0 UA PROTEIN DIPSTICK (test code=PROU) 100 (2+) mg/dL NEGATIVE UA UROBILINIOGEN DIPSTICK (test code=URO) Normal mg/dL NEGATIVE UA NITRITE DIPSTICK (test code=BECKI) NEGATIVE NEGATIVE UA LEUKOCYTE ESTERASE W REFLEX (test code=LEUUR) NEGATIVE Wilian/uL NEGATIVE UA WBC (test code=WBCU) 11-20 per HPF 0-5 UA RBC (test code=RBCU) 3-5 #/HPF 0-5 UA EPITHELIAL CELLS (test code=EPIU) FEW per HPF FEW UA BACTERIA (test code=BACU) FEW #/HPF NONE UA MUCUS (test code=MUCU) FEW #/LPF FEW Urine Source? [id number] 15:30:00* Test Item Value Reference Range Comments GLUBED (test code=GLUBED) 82 mg/dL 74-106 Performed by certified steel spar operator at [facility] - XR ABDOMEN AP 1 [id number] 13:08:00 FAX: Nicolas Wright [phone] [place]: B St: ADM FAX: Jerica Moeller MD [phone] FAX: Lonnie Olson MD [phone] Name: CELESTINO MCALLISTER [facility] : 1970 Age/S: 48/M Isiah Ahu[facility] Unit #: [id number] Loc: [address] [place] [address] Phys: Nicolas Wright Acct: [id number] Dis Date: Status: ADM IN ONE #: [phone] Exam Date: 03/18/2019 08 FAX #: [phone] Reason: vomiting. Report Has Been Amended EXAMS: CPT CODE: [id number] XR ABDOMEN AP 1 V 98096 Addendum - 03/18/2019 S IGNED 03/18/2019 ADDENDUM: [id number] ADDENDUM: The first sentence of the impression should read: Moderately distended bowel loop in the midabdomen without definite signs of obstruction. at 1308 Reported and signed by: Mo Sanchez M.D. Transcribed: 03/18/2019 (6066) Maria R Report EXAM: Abdom en, one view; INFORMATION: Persistent vomiting, abdominal pain; IMPRESSION: Moderate gaseous distention of a bowel loop in the midabdomen. Disc. A portion of the transverse colon that potentia lly of the sigmoid colon. Otherwise, unremarkable bowel gas pattern. A IVORY CARVER shunt is in place. Residual contrast material within an unrem arkable urinary bladder after yesterday's contrast-enhanced CT scan. Gastrostomy tube in place. No abnormal calcifications. IMPRESSION: Mottled distended bowel loop in the midabdomen without definite signs of obstruction. Recommend a follow-up study, if clinica lly indicated. No evidence of acute abnormalities. PAGE 1 Signed Report (CONTINUED) FAX: Nicolas Lemus [phone] [place]: St: ADM FAX: Jerica Moeller MD [phone] FAX: Lonnie Olson MD [phone] -------- Name: CELESTINO MCALLISTER [facility] : 1969 Age/S: 48/M [address] [facility] Unit #: [id number] Loc: [address] [address] Phys: Nicolas Wright Acct: [id number] Dis Date: Status: ADM IN PHONE #: Exam Date: 03/18/2019 08 FAX #: [phone] Reason: vomiting. Report Has Been Amended EXAMS: CPT CODE: [id number] XR ABDOMEN AP 1 V 74 018 <Continued> at 0853 Reported and signed by: Mo Sanchez M.D. CC: Nicolas Wright; Jerica Shaffer MD; Lonnie Olson MD Technologist: Nura Mehta RT(R); GIGI OCONNOR RT (R) [facility] Date/Time/By: 03/18/2019 (0853) : By: [email or web address] Orig Print D/T: S: 03/18/2019 (0856) PAGE 2 Signed Report [id number] 12:25:00* Test Item Value Reference Range Comments GLUBED (test code=GLUBED) 92 mg/dL 74-106 Performed by certified steel spar operator at [facility] [id number] 10:16:00* Test Item Value Reference Range Comments GLUBED (test code=GLUBED) 88 mg/dL 74-106 Performed by certified steel spar operator at [facility] - XR ABDOMEN AP 1 [id number] 08:53:00 FAX: Nicolas Wright [phone] [place]: B St: ADM FAX: Jerica Moeller MD [phone] FAX: Lonnie Olson MD [phone] Name: CELESTINO MCALLISTER [facility] : 1970 Age/S: 48/M [address] Unit #: [id number] Loc: V.S[address] [place] [address] Phys: Nicolas Wright Acct: [id number] Dis Date: Status: ADM IN ONE #: [phone] Exam Date: 03/18/2019837 FAX #: [phone] Reason: vomiting. EXAMS: CPT CODE: [id number] XR ABDOMEN AP 1 V 23871 EXAM: Abdomen, one view; INFORMATION: Persistent vomiting, abdominal pain; IMPRESSION: Moderate gaseous distention of a bowel loop in th e midabdomen. Disc. A portion of the transverse colon that potentially of the sigmoid colon. Otherwise, unremarkable bowel gas pattern. A IVORY CARVER shunt is in place. Residual contrast material within an unremark able urinary bladder after yesterday's contrast-enhanced CT scan. Gastrostomy tube in place. No abnormal calcifications. IMPRESSION: Mottled distended bowel loop in the midabdomen without de finite signs of obstruction. Recommend a follow-up study, if clinically indicated. No evidence of acute abnormalities. Ely ctronically Signed by Damaris Sanchez on 2018 at 0853 Reported and signed by: Mo Sanchez M.D. CC: Nicolas Wright; Jerica Shaffer MD; Lonnie Gil MD Technologist: Nura Mehta RT(R); GIGI OCONNOR RT (R) Trnscrd Date/Time/By: 03/18/2019 (0853) : By: Maria R Orig Print D /T: S: 03/18/2019 (0856) PAGE 1 S igned Report [id number] 08:20:00* Test Item Value Reference Range Comments GLUBED (test code=GLUBED) 61 mg/dL 74-106 Performed by certified steel spar operator at [facility] - XR CHEST 1 [id number] 08:01:00 FAX: Jerica Moeller MD [phone] [place]: B St: ADM FAX: Lizzy Hilario NP [phone] FAX: Lonnie Olson MD [phone] Name: CELESTINO MCALLISTER [facility] : 1970 Age/S: 48/M [address] [facility] Unit #: [id number] Loc: [address] [address] Phys: Lizzy Hilario NP Acct: [id number] Dis Date: Status: ADM IN PH ONE #: [phone] Exam Date: 03/18/2019 0505 FAX #: [phone] Reason: sob EXAMS: CPT CODE: [id number] XR CHEST 1 V 84455 EXAM: Chest x- ray, one view; INFORMATION: Shortness of breath; I MPRESSION: No significant change compared with yesterday's study; mild l eft basilar atelectatic changes; otherwise, lungs are clear. at 0801 Reported and syed d by: Mo Sanchez M.D. CC: Jerica Shaffer MD; Lizzy Hilario PACKING INSPECTOR; Lonnie Olson MD Technologist: LEXY GAY, RT(R); Rocio Fuentes RT(R) Trnnmrd Date/Time/By: 03/18/2019 (800) : By: ZackGR W Orig Print D/T: S: 03/18/2019 (7295) PAGE 1 Signed Report CBC W/MANUAL [id number] 07:48:00* Test Item Value Reference Range Comments WHITE BLOOD CELL (test code=WBC) 30.2 K/mm3 4.5-12.5 RESULT VERIFIED BY REPEAT ANALYSIS RED BLOOD CELL (test code=RBC) 3.05 mill/mm3 4.0-5.8 HEMOGLOBIN (test code=HGB) 7.6 gram/dL 13.0-17.5 HEMATOCRIT (test code=HCT) 23.7 % 42.0-52.0 MEAN CELL VOLUME (test code=MCV) 77.7 fL 80-98 MEAN CELL HGB (test code=MCH) 24.9 picogram 27.0-33.0 MEAN CELL HGB CONCETRATION (test code=MCHC) 32.1 gram/dL 33.0-36.0 RED CELL DISTRIBUTION WIDTH (test code=RDW) 17.8 % 11.6-16.2 RED CELL DISTRIBUTION WIDTH SD (test code=RDW-SD) 49.9 fL 37.0-51.0 PLATELET COUNT (test code=PLT) 385 K/mm3 150-450 RESULT VERIFIED BY REPEAT ANALYSIS MEAN PLATELET VOLUME (test code=MPV) 10.4 fL 6.7-11.0 IMMATURE GRANULOCYTE % (test code=IG%) 1.9 % 0.0-5.0 NUCLEATED RBC % (test code=NRBC%) 0.0 % 0-0 NEUTROPHIL # (test code=NT#) 22.52 K/mm3 1.8-7.7 IMMATURE GRANULOCYTE # (test code=IG#) 0.58 x10 3/uL 0-0.03 LYMPHOCYTE # (test code=LY#) 3.80 K/mm3 1.0-5.0 MONOCYTE # (test code=MO#) 3.01 K/mm3 0-0.8 EOSINOPHIL # (test code=EO#) 0.11 K/mm3 0.0-0.5 BASOPHIL # (test code=BA#) 0.15 K/mm3 0.0-0.2 NUCLEATED RBC # (test code=NRBC#) 0.00 K/mm3 0.0-0.1 MANUAL DIFF REQUIRED (test code=MDIFF) YES STAIN ACCEPTABILITY (test code=STN ACCEPTABLE) STAIN ACCEPTABLE TOTAL CELLS COUNTED (test code=TCC) 115 #CELLS SEGMENTED NEUTROPHILS (test code=SEG) 83.5 % 39-69 BAND NEUTROPHIL (test code=BAND) 0 % 0-10 LYMPHOCYTE (test code=LYMPH) 12.2 % 25-55 REACTIVE LYMPH (test code=RELYMPH) 0 % MONOCYTE (test code=MON) 4.3 % 0-10 EOSINOPHIL (test code=EOS) 0 % 0.0-5.0 BASOPHIL (test code=BASO) 0 % 0-1.0 METAMYELOCYTE (test code=META) 0 % 0-0 MYELOCYTE (test code=MYELO) 0 % 0.0-0.0 PROMYELOCYTE (test code=PROM) 0 % 0-0 HYPOCHROMIA (test code=HYPO) 1+ ANISOCYTOSIS (test code=ANISO) 1+ MICROCYTOSIS (test code=MICR) 1+ PLATELET ESTIMATE (test code=PLTEST) ADEQUATE PLATELET MORPHOLOGY (test code=PLTMORPH) NORMAL IMMATURE FORMS (test code=IMMAT) 0 % 0-0 BASIC METABOLIC [id number] 06:41:00* Test Item Value Reference Range Comments SODIUM (test code=NA) 138 mmol/L 136-145 POTASSIUM (test code=K) 3.8 mmol/L 3.5-5.1 CHLORIDE (test code=CL) 102.0 mmol/L 98-107 CARBON DIOXIDE (test code=CO2) 21.0 mmol/L 21-32 ANION GAP (test code=GAP) 18.8 10-20 GLUCOSE (test code=GLU) 69 mg/dL 74-106 BLOOD UREA NITROGEN (test code=BUN) 19 mg/dL 7-18 GLOMERULAR FILTRATION RATE (test code=GFR) > 60 mL/min >=60 Estimated GFR by using Modified MDRD formula.Chronic kidney disease is defined as either kidney damageor GFR <60 mL/min/1.73 m2 for >3 months. CREATININE (test code=CREAT) 1.10 mg/dL 0.7-1.3 BUN/CREATININE RATIO (test code=BUN/CREA) 17.3 10-20 CALCIUM (test code=CA) 9.6 mg/dL 8.5-10.1 [id number] 06:41:00* Test Item Value Reference Range Comments PHOSPHORUS (test code=PHOS) 3.4 mg/dL 2.5-4.9 [id number] 06:41:00* Test Item Value Reference Range Comments MAGNESIUM (test code=MAG) 1.8 mg/dL 1.8-2.4 CALCIUM [id number] 06:41:00* Test Item Value Reference Range Comments CALCIUM IONIZED (test code=JESSICA) 1.42 mmol/L 1.12-1.32 BASIC METABOLIC [id number] 06:38:00* Test Item Value Reference Range Comments SODIUM (test code=NA) 138 mmol/L 136-145 POTASSIUM (test code=K) 3.8 mmol/L 3.5-5.1 CHLORIDE (test code=CL) 102.0 mmol/L 98-107 CARBON DIOXIDE (test code=CO2) mmol/L 21-32 ANION GAP (test code=GAP) 10-20 GLUCOSE (test code=GLU) mg/dL 74-106 BLOOD UREA NITROGEN (test code=BUN) mg/dL 7-18 GLOMERULAR FILTRATION RATE (test code=GFR) mL/min >=60 CREATININE (test code=CREAT) mg/dL 0.7-1.3 BUN/CREATININE RATIO (test code=BUN/CREA) 10-20 CALCIUM (test code=CA) mg/dL 8.5-10.1 [id number] 06:38:00* Test Item Value Reference Range Comments PHOSPHORUS (test code=PHOS) mg/dL 2.5-4.9 [id number] 06:38:00* Test Item Value Reference Range Comments MAGNESIUM (test code=MAG) mg/dL 1.8-2.4 CALCIUM [id number] 06:38:00* Test Item Value Reference Range Comments CALCIUM IONIZED (test code=JESSICA) 1.42 mmol/L 1.12-1.32 BASIC METABOLIC [id number] 06:30:00* Test Item Value Reference Range Comments SODIUM (test code=NA) mmol/L 136-145 POTASSIUM (test code=K) mmol/L 3.5-5.1 CHLORIDE (test code=CL) mmol/L 98-107 CARBON DIOXIDE (test code=CO2) mmol/L 21-32 ANION GAP (test code=GAP) 10-20 GLUCOSE (test code=GLU) mg/dL 74-106 BLOOD UREA NITROGEN (test code=BUN) mg/dL 7-18 GLOMERULAR FILTRATION RATE (test code=GFR) mL/min >=60 CREATININE (test code=CREAT) mg/dL 0.7-1.3 BUN/CREATININE RATIO (test code=BUN/CREA) 10-20 CALCIUM (test code=CA) mg/dL 8.5-10.1 [id number] 06:30:00* Test Item Value Reference Range Comments PHOSPHORUS (test code=PHOS) mg/dL 2.5-4.9 [id number] 06:30:00* Test Item Value Reference Range Comments MAGNESIUM (test code=MAG) mg/dL 1.8-2.4 CALCIUM [id number] 06:30:00* Test Item Value Reference Range Comments CALCIUM IONIZED (test code=JESSICA) 1.42 mmol/L 1.12-1.32 CBC W/MANUAL [id number] 06:25:00* Test Item Value Reference Range Comments WHITE BLOOD CELL (test code=WBC) 30.2 K/mm3 4.5-12.5 RESULT VERIFIED BY REPEAT ANALYSIS RED BLOOD CELL (test code=RBC) 3.05 mill/mm3 4.0-5.8 HEMOGLOBIN (test code=HGB) 7.6 gram/dL 13.0-17.5 HEMATOCRIT (test code=HCT) 23.7 % 42.0-52.0 MEAN CELL VOLUME (test code=MCV) 77.7 fL 80-98 MEAN CELL HGB (test code=MCH) 24.9 picogram 27.0-33.0 MEAN CELL HGB CONCETRATION (test code=MCHC) 32.1 gram/dL 33.0-36.0 RED CELL DISTRIBUTION WIDTH (test code=RDW) 17.8 % 11.6-16.2 RED CELL DISTRIBUTION WIDTH SD (test code=RDW-SD) 49.9 fL 37.0-51.0 PLATELET COUNT (test code=PLT) 385 K/mm3 150-450 RESULT VERIFIED BY REPEAT ANALYSIS MEAN PLATELET VOLUME (test code=MPV) 10.4 fL 6.7-11.0 IMMATURE GRANULOCYTE % (test code=IG%) 1.9 % 0.0-5.0 NUCLEATED RBC % (test code=NRBC%) 0.0 % 0-0 NEUTROPHIL # (test code=NT#) 22.52 K/mm3 1.8-7.7 IMMATURE GRANULOCYTE # (test code=IG#) 0.58 x10 3/uL 0-0.03 LYMPHOCYTE # (test code=LY#) 3.80 K/mm3 1.0-5.0 MONOCYTE # (test code=MO#) 3.01 K/mm3 0-0.8 EOSINOPHIL # (test code=EO#) 0.11 K/mm3 0.0-0.5 BASOPHIL # (test code=BA#) 0.15 K/mm3 0.0-0.2 NUCLEATED RBC # (test code=NRBC#) 0.00 K/mm3 0.0-0.1 MANUAL DIFF REQUIRED (test code=MDIFF) YES STAIN ACCEPTABILITY (test code=STN ACCEPTABLE) TOTAL CELLS COUNTED (test code=TCC) #CELLS SEGMENTED NEUTROPHILS (test code=SEG) % 39-69 LYMPHOCYTE (test code=LYMPH) % 25-55 MONOCYTE (test code=MON) % 0-10 MORPHOLOGY COMMENT (test code=MOC) PLATELET ESTIMATE (test code=PLTEST) PLATELET MORPHOLOGY (test code=PLTMORPH) LACTIC [id number] 22:47:00* Test Item Value Reference Range Comments LACTIC ACID (test code=LACT) 1.4 mmol/L 0.4-1.9 ARTERIAL BLOOD [id number] 22:22:00* Test Item Value Reference Range Comments ARTERIAL BLOOD GAS PH (test code=PHA) 7.44 7.35-7.45 ARTERIAL BLOOD GAS PCO2 (test code=PCO2A) 30.2 mm Hg 35-45 ARTERIAL BLOOD GAS PO2 (test code=PO2A) 107.0 mmHg 80-100 BICARBONATE TOTAL HCO3 (test code=HCO3) 20.2 mmol/L 23.0-27.0 BASE EXCESS (test code=MARISELA) -3.2 mmol/L -3.0-5.0 Results called to and read back by Fausto 22:20 - 03/17/2019; by Diana ABG O2 SATURATION (test code=SATA) 97.1 % 90.0-98.0 ABG TYPE (test code=TYPEA) Arterial FIO2 (test code=FIO2A) 40.0 ABG VENT MODE (test code=MODEA) Assist Control ABG VENT RESP RATE (test code=RRA) 16.0 per min ABG TIDAL VOLUME (test code=TVA) 420.0 mL ABG PEEP (test code=PEEPA) 5.0 cmH2O ABG SITE (test code=SITEA) Rt RADIAL ARTERY MODIFIED ALLENS (test code=MODALL) Yes CHECK PERFORMED HEMATOCRIT (test code=HCT/ABG) 27 % 42-52 TOTAL HGB (test code=THB) 9.1 gram/dL 13.0-17.5 HGB O2 SAT (test code=HBOSAT) 96.5 % 94.00-98.00 CARBOXYHEMOGLOBIN (test code=HOHGBT) 0.3 %totalHg 0.5-1.5 Results called to and read back by Fausto 22:20 - 03/17/2019; by Diana METHEMOGLOBIN (test code=METHGB) 0.3 % 0.0-1.50 O2 CONTENT (test code=O2CT) 12.5 % vol 18.0-22.0 LACTIC [id number] 19:25:00* Test Item Value Reference Range Comments LACTIC ACID (test code=LACT) 2.5 mmol/L 0.4-1.9 Results called to [id number] by ROJAS 03/17/19 1925Critical results verified and read back by Nurse? Y CBC W/MANUAL [id number] 17:08:00* Test Item Value Reference Range Comments WHITE BLOOD CELL (test code=WBC) 37.0 K/mm3 4.5-12.5 RESULT VERIFIED BY REPEAT ANALYSIS RED BLOOD CELL (test code=RBC) 3.63 mill/mm3 4.0-5.8 HEMOGLOBIN (test code=HGB) 9.1 gram/dL 13.0-17.5 HEMATOCRIT (test code=HCT) 28.8 % 42.0-52.0 MEAN CELL VOLUME (test code=MCV) 79.3 fL 80-98 MEAN CELL HGB (test code=MCH) 25.1 picogram 27.0-33.0 MEAN CELL HGB CONCETRATION (test code=MCHC) 31.6 gram/dL 33.0-36.0 RED CELL DISTRIBUTION WIDTH (test code=RDW) 17.5 % 11.6-16.2 RED CELL DISTRIBUTION WIDTH SD (test code=RDW-SD) 50.3 fL 37.0-51.0 PLATELET COUNT (test code=PLT) 474 K/mm3 150-450 MEAN PLATELET VOLUME (test code=MPV) 10.0 fL 6.7-11.0 IMMATURE GRANULOCYTE % (test code=IG%) 3.9 % 0.0-5.0 NUCLEATED RBC % (test code=NRBC%) 0.0 % 0-0 NEUTROPHIL # (test code=NT#) 27.04 K/mm3 1.8-7.7 IMMATURE GRANULOCYTE # (test code=IG#) 1.45 x10 3/uL 0-0.03 LYMPHOCYTE # (test code=LY#) 4.21 K/mm3 1.0-5.0 MONOCYTE # (test code=MO#) 3.62 K/mm3 0-0.8 EOSINOPHIL # (test code=EO#) 0.43 K/mm3 0.0-0.5 BASOPHIL # (test code=BA#) 0.29 K/mm3 0.0-0.2 NUCLEATED RBC # (test code=NRBC#) 0.00 K/mm3 0.0-0.1 MANUAL DIFF REQUIRED (test code=MDIFF) YES STAIN ACCEPTABILITY (test code=STN ACCEPTABLE) STAIN ACCEPTABLE TOTAL CELLS COUNTED (test code=TCC) 114 #CELLS SEGMENTED NEUTROPHILS (test code=SEG) 83.3 % 39-69 BAND NEUTROPHIL (test code=BAND) 0 % 0-10 LYMPHOCYTE (test code=LYMPH) 12.3 % 25-55 REACTIVE LYMPH (test code=RELYMPH) 0 % MONOCYTE (test code=MON) 3.5 % 0-10 EOSINOPHIL (test code=EOS) 0.9 % 0.0-5.0 BASOPHIL (test code=BASO) 0 % 0-1.0 METAMYELOCYTE (test code=META) 0 % 0-0 MYELOCYTE (test code=MYELO) 0 % 0.0-0.0 PROMYELOCYTE (test code=PROM) 0 % 0-0 ANISOCYTOSIS (test code=ANISO) 1+ MICROCYTOSIS (test code=MICR) 1+ PLATELET ESTIMATE (test code=PLTEST) INCREASED PLATELET MORPHOLOGY (test code=PLTMORPH) NORMAL IMMATURE FORMS (test code=IMMAT) 0 % 0-0 COMPREHENSIVE METABOLIC [id number] 17:07:00* Test Item Value Reference Range Comments SODIUM (test code=NA) 135 mmol/L 136-145 POTASSIUM (test code=K) 4.2 mmol/L 3.5-5.1 CHLORIDE (test code=CL) 99.0 mmol/L 98-107 CARBON DIOXIDE (test code=CO2) 24.0 mmol/L 21-32 ANION GAP (test code=GAP) 16.2 10-20 GLUCOSE (test code=GLU) 92 mg/dL 74-106 BLOOD UREA NITROGEN (test code=BUN) 15 mg/dL 7-18 GLOMERULAR FILTRATION RATE (test code=GFR) > 60 mL/min >=60 Estimated GFR by using Modified MDRD formula.Chronic kidney disease is defined as either kidney damageor GFR <60 mL/min/1.73 m2 for >3 months. CREATININE (test code=CREAT) 1.10 mg/dL 0.7-1.3 BUN/CREATININE RATIO (test code=BUN/CREA) 13.6 10-20 TOTAL PROTEIN (test code=PROT) 7.6 gram/dL 6.4-8.2 ALBUMIN (test code=ALB) 3.0 g/dL 3.4-5.0 GLOBULIN (test code=GLOB) 4.6 gram/dL 2.7-4.2 ALBUMIN/GLOBULIN RATIO (test code=A/G) 0.7 0.75-1.50 CALCIUM (test code=CA) 10.2 mg/dL 8.5-10.1 BILIRUBIN TOTAL (test code=BILT) 0.30 mg/dL 0.0-1.0 SGOT/AST (test code=AST) 16 IUnit/L 15-37 SGPT/ALT (test code=ALT) 36 IUnit/L 12-78 ALKALINE PHOSPHATASE TOTAL (test code=ALKP) 186 IUnit/L 45-117 Note change in reference range due to change in reagent. LACTIC [id number] 17:02:00* Test Item Value Reference Range Comments LACTIC ACID (test code=LACT) 4.6 mmol/L 0.4-1.9 Results called to [id number] by DAYAN 03/17/19 1700Critical results verified and read back by Nurse? Y COMPREHENSIVE METABOLIC [id number] 16:59:00* Test Item Value Reference Range Comments SODIUM (test code=NA) 135 mmol/L 136-145 POTASSIUM (test code=K) 4.2 mmol/L 3.5-5.1 CHLORIDE (test code=CL) 99.0 mmol/L 98-107 CARBON DIOXIDE (test code=CO2) mmol/L 21-32 ANION GAP (test code=GAP) 10-20 GLUCOSE (test code=GLU) mg/dL 74-106 BLOOD UREA NITROGEN (test code=BUN) mg/dL 7-18 GLOMERULAR FILTRATION RATE (test code=GFR) mL/min >=60 CREATININE (test code=CREAT) mg/dL 0.7-1.3 BUN/CREATININE RATIO (test code=BUN/CREA) 10-20 TOTAL PROTEIN (test code=PROT) gram/dL 6.4-8.2 ALBUMIN (test code=ALB) g/dL 3.4-5.0 GLOBULIN (test code=GLOB) gram/dL 2.7-4.2 ALBUMIN/GLOBULIN RATIO (test code=A/G) 0.75-1.50 CALCIUM (test code=CA) mg/dL 8.5-10.1 BILIRUBIN TOTAL (test code=BILT) mg/dL 0.0-1.0 SGOT/AST (test code=AST) IUnit/L 15-37 SGPT/ALT (test code=ALT) IUnit/L 12-78 ALKALINE PHOSPHATASE TOTAL (test code=ALKP) IUnit/L 45-117 - CT ABD PELVIS [id number] 16:48:00 Name: CELESTINO MCALLISTER [facility] : 1970 Age/S: 48 / M [address] [facility] Unit #: [id number] [place] [address] Phys: Geetha Haynes MD Acct: [id number] Dis Date: Status: ADM IN PHONE #: [phone] Exam Date: 03/17/2019 1637 FAX #: [phone] Reason: Persistent vomiting,leukocytosis EXAMS: CPT CODE: [id number] CT ABD PELVIS W/CONT [id number] REASON FOR EXAM: Persistent vomiting,leukocytosis EXAM ORDER DATE: 03/17/2019 11:56 AM Ordering Damaris: Geetha Haynes MD PROCEDURE: - CT ABD PELVIS W/CONT COMPARISON: FINDINGS: CT images of the abdomen and pelvis were obtained with IV and without oral contrast at 5mm. Dose modulation, iterative reconstruction, and/or weight based adj ustment of the MA/KV was utilized to reduce the radiation dose to as low a s reasonably achievable. Intravenous contrast: 100cc of Omn ipaque 370. The liver, spleen, pancreas are grossly within normal limits. The gallbladder is minimally distended The kidneys are within normal limits. The urinary bladder is unremarkable. The colon, small bowel, and stomach are within normal limits without e vidence of obstruction. The appendix is unremarkable. A peg tube noted i n the stomach. A ventriculoperitoneal shunt seen No evidence of f ree air . IMPRESSION: Patchy atelectasis of the left base. Limi alexis exam due to motion artifacts and streaky artifacts from patient's ar ms. Heterogeneous appearance of the kidneys, cannot exclude acute pyelonephritis. Minimal free fluid within the pelvis. No other sign ificant findings at 3971 Reported and signed by: Reg Jordan M.D. PAGE 1 Signed Report (CONTINUED) Nam e: CELESTINO MCALLISTER [facility] : Age/S: 48 / M [address] [facility] Unit #: [id number] Loc: [place] [address] Phys: Geetha Haynes MD Acct: [id number] Dis Amanuel e: Status: ADM IN PHONE #: Exam Date: 03/17/2019 1637 FAX #: [phone] Reason: Persistent vomiting,leukocytosis EXAMS: CPT CODE: [id number] CT ABD PELVIS W/CO NT 11285 <Continued> CC: Jerica Shaffer MD; Geetha Haynes MD; Lonnie Olson MD Technologist:Catherine Vasquez RT(R); Linda CTDI: DLP: Trnscb Date/Time: 03/17/2019 (5828) [email or web address] Orig Print D/T: S: 03/17/2019 (8906) PAGE 2 Signed Report PROTHROMBIN [id number] 16:23:00* Test Item Value Reference Range Comments PROTHROMBIN TIME PATIENT (test code=PTP) 16.1 seconds 9.0-14.0 INTERNATIONAL NORMAL RATIO (test code=INR) 1.4 0.8-1.2 The therapeutic range for oral anticoagulant therapy formost indications is an international normalized ratio (INR)of between 2.0 and 3.0. The recommended therapeutic INRrange for various clinical situations is listed below: Clinical Situation INR range Pulmonary e mbolism treatment (2.0-3.0)Venous thrombosis treatmentVenous thrombosis prophylaxis (high risk surgery)Prevention of systemic embolism from: Acute myocardial infarction Valvular heart disease Atrial fibrillation Mechanical prosthetic heart valves (2.5-3.5) IS PATIENT ON ANTICOAGULANTS? YLIST ANTICOAGULANTS LOVENOXCBC W/MANUAL DIFF 2019-03-17 16:18:00* Test Item Value Reference Range Comments WHITE BLOOD CELL (test code=WBC) 37.0 K/mm3 4.5-12.5 RESULT VERIFIED BY REPEAT ANALYSIS RED BLOOD CELL (test code=RBC) 3.63 mill/mm3 4.0-5.8 HEMOGLOBIN (test code=HGB) 9.1 gram/dL 13.0-17.5 HEMATOCRIT (test code=HCT) 28.8 % 42.0-52.0 MEAN CELL VOLUME (test code=MCV) 79.3 fL 80-98 MEAN CELL HGB (test code=MCH) 25.1 picogram 27.0-33.0 MEAN CELL HGB CONCETRATION (test code=MCHC) 31.6 gram/dL 33.0-36.0 RED CELL DISTRIBUTION WIDTH (test code=RDW) 17.5 % 11.6-16.2 RED CELL DISTRIBUTION WIDTH SD (test code=RDW-SD) 50.3 fL 37.0-51.0 PLATELET COUNT (test code=PLT) 474 K/mm3 150-450 MEAN PLATELET VOLUME (test code=MPV) 10.0 fL 6.7-11.0 IMMATURE GRANULOCYTE % (test code=IG%) 3.9 % 0.0-5.0 NUCLEATED RBC % (test code=NRBC%) 0.0 % 0-0 NEUTROPHIL # (test code=NT#) 27.04 K/mm3 1.8-7.7 IMMATURE GRANULOCYTE # (test code=IG#) 1.45 x10 3/uL 0-0.03 LYMPHOCYTE # (test code=LY#) 4.21 K/mm3 1.0-5.0 MONOCYTE # (test code=MO#) 3.62 K/mm3 0-0.8 EOSINOPHIL # (test code=EO#) 0.43 K/mm3 0.0-0.5 BASOPHIL # (test code=BA#) 0.29 K/mm3 0.0-0.2 NUCLEATED RBC # (test code=NRBC#) 0.00 K/mm3 0.0-0.1 MANUAL DIFF REQUIRED (test code=MDIFF) YES STAIN ACCEPTABILITY (test code=STN ACCEPTABLE) TOTAL CELLS COUNTED (test code=TCC) #CELLS SEGMENTED NEUTROPHILS (test code=SEG) % 39-69 LYMPHOCYTE (test code=LYMPH) % 25-55 MONOCYTE (test code=MON) % 0-10 MORPHOLOGY COMMENT (test code=MOC) PLATELET ESTIMATE (test code=PLTEST) PLATELET MORPHOLOGY (test code=PLTMORPH) CBC W/MANUAL [id number] 16:13:00* Test Item Value Reference Range Comments WHITE BLOOD CELL (test code=WBC) 37.0 K/mm3 4.5-12.5 RESULT VERIFIED BY REPEAT ANALYSIS RED BLOOD CELL (test code=RBC) 3.63 mill/mm3 4.0-5.8 HEMOGLOBIN (test code=HGB) 9.1 gram/dL 13.0-17.5 HEMATOCRIT (test code=HCT) 28.8 % 42.0-52.0 MEAN CELL VOLUME (test code=MCV) 79.3 fL 80-98 MEAN CELL HGB (test code=MCH) 25.1 picogram 27.0-33.0 MEAN CELL HGB CONCETRATION (test code=MCHC) 31.6 gram/dL 33.0-36.0 RED CELL DISTRIBUTION WIDTH (test code=RDW) 17.5 % 11.6-16.2 RED CELL DISTRIBUTION WIDTH SD (test code=RDW-SD) 50.3 fL 37.0-51.0 PLATELET COUNT (test code=PLT) 474 K/mm3 150-450 MEAN PLATELET VOLUME (test code=MPV) 10.0 fL 6.7-11.0 IMMATURE GRANULOCYTE % (test code=IG%) 3.9 % 0.0-5.0 NUCLEATED RBC % (test code=NRBC%) 0.0 % 0-0 NEUTROPHIL # (test code=NT#) 27.04 K/mm3 1.8-7.7 IMMATURE GRANULOCYTE # (test code=IG#) 1.45 x10 3/uL 0-0.03 LYMPHOCYTE # (test code=LY#) 4.21 K/mm3 1.0-5.0 MONOCYTE # (test code=MO#) 3.62 K/mm3 0-0.8 EOSINOPHIL # (test code=EO#) 0.43 K/mm3 0.0-0.5 BASOPHIL # (test code=BA#) 0.29 K/mm3 0.0-0.2 NUCLEATED RBC # (test code=NRBC#) 0.00 K/mm3 0.0-0.1 MANUAL DIFF REQUIRED (test code=MDIFF) YES STAIN ACCEPTABILITY (test code=STN ACCEPTABLE) TOTAL CELLS COUNTED (test code=TCC) #CELLS SEGMENTED NEUTROPHILS (test code=SEG) % 39-69 LYMPHOCYTE (test code=LYMPH) % 25-55 MONOCYTE (test code=MON) % 0-10 EOSINOPHIL (test code=EOS) % 0.0-5.0 CABOT RINGS (test code=CAB) MORPHOLOGY COMMENT (test code=MOC) PLATELET ESTIMATE (test code=PLTEST) PLATELET MORPHOLOGY (test code=PLTMORPH) CBC W/MANUAL [id number] 16:13:00* Test Item Value Reference Range Comments WHITE BLOOD CELL (test code=WBC) 37.0 K/mm3 4.5-12.5 RESULT VERIFIED BY REPEAT ANALYSIS RED BLOOD CELL (test code=RBC) 3.63 mill/mm3 4.0-5.8 HEMOGLOBIN (test code=HGB) 9.1 gram/dL 13.0-17.5 HEMATOCRIT (test code=HCT) 28.8 % 42.0-52.0 MEAN CELL VOLUME (test code=MCV) 79.3 fL 80-98 MEAN CELL HGB (test code=MCH) 25.1 picogram 27.0-33.0 MEAN CELL HGB CONCETRATION (test code=MCHC) 31.6 gram/dL 33.0-36.0 RED CELL DISTRIBUTION WIDTH (test code=RDW) 17.5 % 11.6-16.2 RED CELL DISTRIBUTION WIDTH SD (test code=RDW-SD) 50.3 fL 37.0-51.0 PLATELET COUNT (test code=PLT) 474 K/mm3 150-450 MEAN PLATELET VOLUME (test code=MPV) 10.0 fL 6.7-11.0 IMMATURE GRANULOCYTE % (test code=IG%) 3.9 % 0.0-5.0 NUCLEATED RBC % (test code=NRBC%) 0.0 % 0-0 NEUTROPHIL # (test code=NT#) 27.04 K/mm3 1.8-7.7 IMMATURE GRANULOCYTE # (test code=IG#) 1.45 x10 3/uL 0-0.03 LYMPHOCYTE # (test code=LY#) 4.21 K/mm3 1.0-5.0 MONOCYTE # (test code=MO#) 3.62 K/mm3 0-0.8 EOSINOPHIL # (test code=EO#) 0.43 K/mm3 0.0-0.5 BASOPHIL # (test code=BA#) 0.29 K/mm3 0.0-0.2 NUCLEATED RBC # (test code=NRBC#) 0.00 K/mm3 0.0-0.1 MANUAL DIFF REQUIRED (test code=MDIFF) YES STAIN ACCEPTABILITY (test code=STN ACCEPTABLE) TOTAL CELLS COUNTED (test code=TCC) #CELLS SEGMENTED NEUTROPHILS (test code=SEG) % 39-69 LYMPHOCYTE (test code=LYMPH) % 25-55 MONOCYTE (test code=MON) % 0-10 EOSINOPHIL (test code=EOS) % 0.0-5.0 CABOT RINGS (test code=CAB) MORPHOLOGY COMMENT (test code=MOC) PLATELET ESTIMATE (test code=PLTEST) PLATELET MORPHOLOGY (test code=PLTMORPH) CBC W/MANUAL [id number] 16:13:00* Test Item Value Reference Range Comments WHITE BLOOD CELL (test code=WBC) 37.0 K/mm3 4.5-12.5 RESULT VERIFIED BY REPEAT ANALYSIS RED BLOOD CELL (test code=RBC) 3.63 mill/mm3 4.0-5.8 HEMOGLOBIN (test code=HGB) 9.1 gram/dL 13.0-17.5 HEMATOCRIT (test code=HCT) 28.8 % 42.0-52.0 MEAN CELL VOLUME (test code=MCV) 79.3 fL 80-98 MEAN CELL HGB (test code=MCH) 25.1 picogram 27.0-33.0 MEAN CELL HGB CONCETRATION (test code=MCHC) 31.6 gram/dL 33.0-36.0 RED CELL DISTRIBUTION WIDTH (test code=RDW) 17.5 % 11.6-16.2 RED CELL DISTRIBUTION WIDTH SD (test code=RDW-SD) 50.3 fL 37.0-51.0 PLATELET COUNT (test code=PLT) 474 K/mm3 150-450 MEAN PLATELET VOLUME (test code=MPV) 10.0 fL 6.7-11.0 IMMATURE GRANULOCYTE % (test code=IG%) 3.9 % 0.0-5.0 NUCLEATED RBC % (test code=NRBC%) 0.0 % 0-0 NEUTROPHIL # (test code=NT#) 27.04 K/mm3 1.8-7.7 IMMATURE GRANULOCYTE # (test code=IG#) 1.45 x10 3/uL 0-0.03 LYMPHOCYTE # (test code=LY#) 4.21 K/mm3 1.0-5.0 MONOCYTE # (test code=MO#) 3.62 K/mm3 0-0.8 EOSINOPHIL # (test code=EO#) 0.43 K/mm3 0.0-0.5 BASOPHIL # (test code=BA#) 0.29 K/mm3 0.0-0.2 NUCLEATED RBC # (test code=NRBC#) 0.00 K/mm3 0.0-0.1 MANUAL DIFF REQUIRED (test code=MDIFF) YES STAIN ACCEPTABILITY (test code=STN ACCEPTABLE) TOTAL CELLS COUNTED (test code=TCC) #CELLS SEGMENTED NEUTROPHILS (test code=SEG) % 39-69 LYMPHOCYTE (test code=LYMPH) % 25-55 MONOCYTE (test code=MON) % 0-10 EOSINOPHIL (test code=EOS) % 0.0-5.0 MORPHOLOGY COMMENT (test code=MOC) PLATELET ESTIMATE (test code=PLTEST) PLATELET MORPHOLOGY (test code=PLTMORPH) CBC W/MANUAL [id number] 16:13:00* Test Item Value Reference Range Comments WHITE BLOOD CELL (test code=WBC) 37.0 K/mm3 4.5-12.5 RESULT VERIFIED BY REPEAT ANALYSIS RED BLOOD CELL (test code=RBC) 3.63 mill/mm3 4.0-5.8 HEMOGLOBIN (test code=HGB) 9.1 gram/dL 13.0-17.5 HEMATOCRIT (test code=HCT) 28.8 % 42.0-52.0 MEAN CELL VOLUME (test code=MCV) 79.3 fL 80-98 MEAN CELL HGB (test code=MCH) 25.1 picogram 27.0-33.0 MEAN CELL HGB CONCETRATION (test code=MCHC) 31.6 gram/dL 33.0-36.0 RED CELL DISTRIBUTION WIDTH (test code=RDW) 17.5 % 11.6-16.2 RED CELL DISTRIBUTION WIDTH SD (test code=RDW-SD) 50.3 fL 37.0-51.0 PLATELET COUNT (test code=PLT) 474 K/mm3 150-450 MEAN PLATELET VOLUME (test code=MPV) 10.0 fL 6.7-11.0 IMMATURE GRANULOCYTE % (test code=IG%) 3.9 % 0.0-5.0 NUCLEATED RBC % (test code=NRBC%) 0.0 % 0-0 NEUTROPHIL # (test code=NT#) 27.04 K/mm3 1.8-7.7 IMMATURE GRANULOCYTE # (test code=IG#) 1.45 x10 3/uL 0-0.03 LYMPHOCYTE # (test code=LY#) 4.21 K/mm3 1.0-5.0 MONOCYTE # (test code=MO#) 3.62 K/mm3 0-0.8 EOSINOPHIL # (test code=EO#) 0.43 K/mm3 0.0-0.5 BASOPHIL # (test code=BA#) 0.29 K/mm3 0.0-0.2 NUCLEATED RBC # (test code=NRBC#) 0.00 K/mm3 0.0-0.1 MANUAL DIFF REQUIRED (test code=MDIFF) YES STAIN ACCEPTABILITY (test code=STN ACCEPTABLE) TOTAL CELLS COUNTED (test code=TCC) #CELLS SEGMENTED NEUTROPHILS (test code=SEG) % 39-69 LYMPHOCYTE (test code=LYMPH) % 25-55 MONOCYTE (test code=MON) % 0-10 EOSINOPHIL (test code=EOS) % 0.0-5.0 CABOT RINGS (test code=CAB) MORPHOLOGY COMMENT (test code=MOC) PLATELET ESTIMATE (test code=PLTEST) PLATELET MORPHOLOGY (test code=PLTMORPH) [id number] 11:50:00* Test Item Value Reference Range Comments GLUBED (test code=GLUBED) 89 mg/dL 74-106 Performed by certified steel spar operator at [facility] - XR CHEST 1 [id number] 09:39:00 FAX: Jerica Moeller MD [phone] [place]: B St: ADM FAX: Lizzy Hilario NP [phone] FAX: Lonnie Olson MD [phone] Name: CELESTINO MCALLISTER [facility] : 1970 Age/S: 48/M [address] [facility] Unit #: [id number] Loc: [address] [place] [address] Phys: Lizzy Hilario NP Acct: [id number] Dis Date: Status: ADM IN ONE #: [phone] Exam Date: 03/17/2019 0855 FAX #: [phone] Reason: sob EXAMS: CPT CODE: [id number] XR CHEST 1 V 37366 HISTORY: Short ness of breath. COMPARISON: Previous day. 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 Tracheostomy tube is unchanged. Suboptimal insp iration with dependent changes. No acute infiltrates, effusion or congesti on. Cardiomegaly. IMPRESSION: No acute infiltr ates, effusion or congestion. Suboptimal inspiration with dependent whitman ges. at 093 9 Reported and signed by: Cristian Patel M.D. CC: Jerica Shaffer MD; Lizzy Hilario NP; Lonnie Olson MD Techno logist: JYOTI POLO, RT(R) Trnscrd Date/Time /By: 03/17/2019 (0939) : By: [email or web address] Orig Print D/T: S: 03/17/2019 ( 0918) PAGE 1 Signed Report CBC W/MANUAL [id number] 07:21:00* Test Item Value Reference Range Comments WHITE BLOOD CELL (test code=WBC) 25.2 K/mm3 4.5-12.5 RED BLOOD CELL (test code=RBC) 3.53 mill/mm3 4.0-5.8 HEMOGLOBIN (test code=HGB) 8.8 gram/dL 13.0-17.5 HEMATOCRIT (test code=HCT) 28.0 % 42.0-52.0 MEAN CELL VOLUME (test code=MCV) 79.3 fL 80-98 MEAN CELL HGB (test code=MCH) 24.9 picogram 27.0-33.0 MEAN CELL HGB CONCETRATION (test code=MCHC) 31.4 gram/dL 33.0-36.0 RED CELL DISTRIBUTION WIDTH (test code=RDW) 17.6 % 11.6-16.2 RED CELL DISTRIBUTION WIDTH SD (test code=RDW-SD) 50.4 fL 37.0-51.0 PLATELET COUNT (test code=PLT) 425 K/mm3 150-450 MEAN PLATELET VOLUME (test code=MPV) 10.4 fL 6.7-11.0 IMMATURE GRANULOCYTE % (test code=IG%) 4.2 % 0.0-5.0 NUCLEATED RBC % (test code=NRBC%) 0.0 % 0-0 NEUTROPHIL # (test code=NT#) 18.00 K/mm3 1.8-7.7 IMMATURE GRANULOCYTE # (test code=IG#) 1.07 x10 3/uL 0-0.03 LYMPHOCYTE # (test code=LY#) 2.84 K/mm3 1.0-5.0 MONOCYTE # (test code=MO#) 2.20 K/mm3 0-0.8 EOSINOPHIL # (test code=EO#) 0.91 K/mm3 0.0-0.5 BASOPHIL # (test code=BA#) 0.21 K/mm3 0.0-0.2 NUCLEATED RBC # (test code=NRBC#) 0.00 K/mm3 0.0-0.1 MANUAL DIFF REQUIRED (test code=MDIFF) YES STAIN ACCEPTABILITY (test code=STN ACCEPTABLE) STAIN ACCEPTABLE TOTAL CELLS COUNTED (test code=TCC) 115 #CELLS SEGMENTED NEUTROPHILS (test code=SEG) 84.3 % 39-69 BAND NEUTROPHIL (test code=BAND) 0.9 % 0-10 LYMPHOCYTE (test code=LYMPH) 7.0 % 25-55 REACTIVE LYMPH (test code=RELYMPH) 0 % MONOCYTE (test code=MON) 2.6 % 0-10 EOSINOPHIL (test code=EOS) 2.6 % 0.0-5.0 BASOPHIL (test code=BASO) 2.6 % 0-1.0 METAMYELOCYTE (test code=META) 0 % 0-0 MYELOCYTE (test code=MYELO) 0 % 0.0-0.0 PROMYELOCYTE (test code=PROM) 0 % 0-0 POLYCHROMASIA (test code=POLC) 1+ POIKILOCYTOSIS (test code=POIK) 1+ ANISOCYTOSIS (test code=ANISO) 2+ MICROCYTOSIS (test code=MICR) 1+ PLATELET ESTIMATE (test code=PLTEST) ADEQUATE PLATELET MORPHOLOGY (test code=PLTMORPH) NORMAL IMMATURE FORMS (test code=IMMAT) 0 % 0-0 BASIC METABOLIC [id number] 07:16:00* Test Item Value Reference Range Comments SODIUM (test code=NA) 133 mmol/L 136-145 POTASSIUM (test code=K) 4.2 mmol/L 3.5-5.1 CHLORIDE (test code=CL) 101.0 mmol/L 98-107 CARBON DIOXIDE (test code=CO2) 25.0 mmol/L 21-32 ANION GAP (test code=GAP) 11.2 10-20 GLUCOSE (test code=GLU) 87 mg/dL 74-106 BLOOD UREA NITROGEN (test code=BUN) 13 mg/dL 7-18 GLOMERULAR FILTRATION RATE (test code=GFR) > 60 mL/min >=60 Estimated GFR by using Modified MDRD formula.Chronic kidney disease is defined as either kidney damageor GFR <60 mL/min/1.73 m2 for >3 months. CREATININE (test code=CREAT) 0.80 mg/dL 0.7-1.3 BUN/CREATININE RATIO (test code=BUN/CREA) 16.3 10-20 CALCIUM (test code=CA) 9.9 mg/dL 8.5-10.1 [id number] 07:16:00* Test Item Value Reference Range Comments PHOSPHORUS (test code=PHOS) 3.7 mg/dL 2.5-4.9 [id number] 07:16:00* Test Item Value Reference Range Comments MAGNESIUM (test code=MAG) 1.8 mg/dL 1.8-2.4 CALCIUM [id number] 07:16:00* Test Item Value Reference Range Comments CALCIUM IONIZED (test code=JESSICA) 1.40 mmol/L 1.12-1.32 BASIC METABOLIC [id number] 06:56:00* Test Item Value Reference Range Comments SODIUM (test code=NA) 133 mmol/L 136-145 POTASSIUM (test code=K) 4.2 mmol/L 3.5-5.1 CHLORIDE (test code=CL) 101.0 mmol/L 98-107 CARBON DIOXIDE (test code=CO2) mmol/L 21-32 ANION GAP (test code=GAP) 10-20 GLUCOSE (test code=GLU) mg/dL 74-106 BLOOD UREA NITROGEN (test code=BUN) mg/dL 7-18 GLOMERULAR FILTRATION RATE (test code=GFR) mL/min >=60 CREATININE (test code=CREAT) mg/dL 0.7-1.3 BUN/CREATININE RATIO (test code=BUN/CREA) 10-20 CALCIUM (test code=CA) mg/dL 8.5-10.1 [id number] 06:56:00* Test Item Value Reference Range Comments PHOSPHORUS (test code=PHOS) mg/dL 2.5-4.9 [id number] 06:56:00* Test Item Value Reference Range Comments MAGNESIUM (test code=MAG) mg/dL 1.8-2.4 CALCIUM [id number] 06:56:00* Test Item Value Reference Range Comments CALCIUM IONIZED (test code=JESSICA) 1.40 mmol/L 1.12-1.32 BASIC METABOLIC [id number] 06:55:00* Test Item Value Reference Range Comments SODIUM (test code=NA) mmol/L 136-145 POTASSIUM (test code=K) mmol/L 3.5-5.1 CHLORIDE (test code=CL) mmol/L 98-107 CARBON DIOXIDE (test code=CO2) mmol/L 21-32 ANION GAP (test code=GAP) 10-20 GLUCOSE (test code=GLU) mg/dL 74-106 BLOOD UREA NITROGEN (test code=BUN) mg/dL 7-18 GLOMERULAR FILTRATION RATE (test code=GFR) mL/min >=60 CREATININE (test code=CREAT) mg/dL 0.7-1.3 BUN/CREATININE RATIO (test code=BUN/CREA) 10-20 CALCIUM (test code=CA) mg/dL 8.5-10.1 [id number] 06:55:00* Test Item Value Reference Range Comments PHOSPHORUS (test code=PHOS) mg/dL 2.5-4.9 [id number] 06:55:00* Test Item Value Reference Range Comments MAGNESIUM (test code=MAG) mg/dL 1.8-2.4 CALCIUM [id number] 06:55:00* Test Item Value Reference Range Comments CALCIUM IONIZED (test code=JESSICA) 1.40 mmol/L 1.12-1.32 CBC W/MANUAL [id number] 06:31:00* Test Item Value Reference Range Comments WHITE BLOOD CELL (test code=WBC) 25.2 K/mm3 4.5-12.5 RED BLOOD CELL (test code=RBC) 3.53 mill/mm3 4.0-5.8 HEMOGLOBIN (test code=HGB) 8.8 gram/dL 13.0-17.5 HEMATOCRIT (test code=HCT) 28.0 % 42.0-52.0 MEAN CELL VOLUME (test code=MCV) 79.3 fL 80-98 MEAN CELL HGB (test code=MCH) 24.9 picogram 27.0-33.0 MEAN CELL HGB CONCETRATION (test code=MCHC) 31.4 gram/dL 33.0-36.0 RED CELL DISTRIBUTION WIDTH (test code=RDW) 17.6 % 11.6-16.2 RED CELL DISTRIBUTION WIDTH SD (test code=RDW-SD) 50.4 fL 37.0-51.0 PLATELET COUNT (test code=PLT) 425 K/mm3 150-450 MEAN PLATELET VOLUME (test code=MPV) 10.4 fL 6.7-11.0 IMMATURE GRANULOCYTE % (test code=IG%) 4.2 % 0.0-5.0 NUCLEATED RBC % (test code=NRBC%) 0.0 % 0-0 NEUTROPHIL # (test code=NT#) 18.00 K/mm3 1.8-7.7 IMMATURE GRANULOCYTE # (test code=IG#) 1.07 x10 3/uL 0-0.03 LYMPHOCYTE # (test code=LY#) 2.84 K/mm3 1.0-5.0 MONOCYTE # (test code=MO#) 2.20 K/mm3 0-0.8 EOSINOPHIL # (test code=EO#) 0.91 K/mm3 0.0-0.5 BASOPHIL # (test code=BA#) 0.21 K/mm3 0.0-0.2 NUCLEATED RBC # (test code=NRBC#) 0.00 K/mm3 0.0-0.1 MANUAL DIFF REQUIRED (test code=MDIFF) YES STAIN ACCEPTABILITY (test code=STN ACCEPTABLE) TOTAL CELLS COUNTED (test code=TCC) #CELLS SEGMENTED NEUTROPHILS (test code=SEG) % 39-69 LYMPHOCYTE (test code=LYMPH) % 25-55 MONOCYTE (test code=MON) % 0-10 EOSINOPHIL (test code=EOS) % 0.0-5.0 CABOT RINGS (test code=CAB) MORPHOLOGY COMMENT (test code=MOC) PLATELET ESTIMATE (test code=PLTEST) PLATELET MORPHOLOGY (test code=PLTMORPH) CBC W/MANUAL [id number] 06:31:00* Test Item Value Reference Range Comments WHITE BLOOD CELL (test code=WBC) 25.2 K/mm3 4.5-12.5 RED BLOOD CELL (test code=RBC) 3.53 mill/mm3 4.0-5.8 HEMOGLOBIN (test code=HGB) 8.8 gram/dL 13.0-17.5 HEMATOCRIT (test code=HCT) 28.0 % 42.0-52.0 MEAN CELL VOLUME (test code=MCV) 79.3 fL 80-98 MEAN CELL HGB (test code=MCH) 24.9 picogram 27.0-33.0 MEAN CELL HGB CONCETRATION (test code=MCHC) 31.4 gram/dL 33.0-36.0 RED CELL DISTRIBUTION WIDTH (test code=RDW) 17.6 % 11.6-16.2 RED CELL DISTRIBUTION WIDTH SD (test code=RDW-SD) 50.4 fL 37.0-51.0 PLATELET COUNT (test code=PLT) 425 K/mm3 150-450 MEAN PLATELET VOLUME (test code=MPV) 10.4 fL 6.7-11.0 IMMATURE GRANULOCYTE % (test code=IG%) 4.2 % 0.0-5.0 NUCLEATED RBC % (test code=NRBC%) 0.0 % 0-0 NEUTROPHIL # (test code=NT#) 18.00 K/mm3 1.8-7.7 IMMATURE GRANULOCYTE # (test code=IG#) 1.07 x10 3/uL 0-0.03 LYMPHOCYTE # (test code=LY#) 2.84 K/mm3 1.0-5.0 MONOCYTE # (test code=MO#) 2.20 K/mm3 0-0.8 EOSINOPHIL # (test code=EO#) 0.91 K/mm3 0.0-0.5 BASOPHIL # (test code=BA#) 0.21 K/mm3 0.0-0.2 NUCLEATED RBC # (test code=NRBC#) 0.00 K/mm3 0.0-0.1 MANUAL DIFF REQUIRED (test code=MDIFF) YES STAIN ACCEPTABILITY (test code=STN ACCEPTABLE) TOTAL CELLS COUNTED (test code=TCC) #CELLS SEGMENTED NEUTROPHILS (test code=SEG) % 39-69 LYMPHOCYTE (test code=LYMPH) % 25-55 MONOCYTE (test code=MON) % 0-10 EOSINOPHIL (test code=EOS) % 0.0-5.0 CABOT RINGS (test code=CAB) MORPHOLOGY COMMENT (test code=MOC) PLATELET ESTIMATE (test code=PLTEST) PLATELET MORPHOLOGY (test code=PLTMORPH) CBC W/MANUAL [id number] 06:31:00* Test Item Value Reference Range Comments WHITE BLOOD CELL (test code=WBC) 25.2 K/mm3 4.5-12.5 RED BLOOD CELL (test code=RBC) 3.53 mill/mm3 4.0-5.8 HEMOGLOBIN (test code=HGB) 8.8 gram/dL 13.0-17.5 HEMATOCRIT (test code=HCT) 28.0 % 42.0-52.0 MEAN CELL VOLUME (test code=MCV) 79.3 fL 80-98 MEAN CELL HGB (test code=MCH) 24.9 picogram 27.0-33.0 MEAN CELL HGB CONCETRATION (test code=MCHC) 31.4 gram/dL 33.0-36.0 RED CELL DISTRIBUTION WIDTH (test code=RDW) 17.6 % 11.6-16.2 RED CELL DISTRIBUTION WIDTH SD (test code=RDW-SD) 50.4 fL 37.0-51.0 PLATELET COUNT (test code=PLT) 425 K/mm3 150-450 MEAN PLATELET VOLUME (test code=MPV) 10.4 fL 6.7-11.0 IMMATURE GRANULOCYTE % (test code=IG%) 4.2 % 0.0-5.0 NUCLEATED RBC % (test code=NRBC%) 0.0 % 0-0 NEUTROPHIL # (test code=NT#) 18.00 K/mm3 1.8-7.7 IMMATURE GRANULOCYTE # (test code=IG#) 1.07 x10 3/uL 0-0.03 LYMPHOCYTE # (test code=LY#) 2.84 K/mm3 1.0-5.0 MONOCYTE # (test code=MO#) 2.20 K/mm3 0-0.8 EOSINOPHIL # (test code=EO#) 0.91 K/mm3 0.0-0.5 BASOPHIL # (test code=BA#) 0.21 K/mm3 0.0-0.2 NUCLEATED RBC # (test code=NRBC#) 0.00 K/mm3 0.0-0.1 MANUAL DIFF REQUIRED (test code=MDIFF) YES STAIN ACCEPTABILITY (test code=STN ACCEPTABLE) TOTAL CELLS COUNTED (test code=TCC) #CELLS SEGMENTED NEUTROPHILS (test code=SEG) % 39-69 LYMPHOCYTE (test code=LYMPH) % 25-55 MONOCYTE (test code=MON) % 0-10 EOSINOPHIL (test code=EOS) % 0.0-5.0 MORPHOLOGY COMMENT (test code=MOC) PLATELET ESTIMATE (test code=PLTEST) PLATELET MORPHOLOGY (test code=PLTMORPH) CBC W/MANUAL [id number] 06:31:00* Test Item Value Reference Range Comments WHITE BLOOD CELL (test code=WBC) 25.2 K/mm3 4.5-12.5 RED BLOOD CELL (test code=RBC) 3.53 mill/mm3 4.0-5.8 HEMOGLOBIN (test code=HGB) 8.8 gram/dL 13.0-17.5 HEMATOCRIT (test code=HCT) 28.0 % 42.0-52.0 MEAN CELL VOLUME (test code=MCV) 79.3 fL 80-98 MEAN CELL HGB (test code=MCH) 24.9 picogram 27.0-33.0 MEAN CELL HGB CONCETRATION (test code=MCHC) 31.4 gram/dL 33.0-36.0 RED CELL DISTRIBUTION WIDTH (test code=RDW) 17.6 % 11.6-16.2 RED CELL DISTRIBUTION WIDTH SD (test code=RDW-SD) 50.4 fL 37.0-51.0 PLATELET COUNT (test code=PLT) 425 K/mm3 150-450 MEAN PLATELET VOLUME (test code=MPV) 10.4 fL 6.7-11.0 IMMATURE GRANULOCYTE % (test code=IG%) 4.2 % 0.0-5.0 NUCLEATED RBC % (test code=NRBC%) 0.0 % 0-0 NEUTROPHIL # (test code=NT#) 18.00 K/mm3 1.8-7.7 IMMATURE GRANULOCYTE # (test code=IG#) 1.07 x10 3/uL 0-0.03 LYMPHOCYTE # (test code=LY#) 2.84 K/mm3 1.0-5.0 MONOCYTE # (test code=MO#) 2.20 K/mm3 0-0.8 EOSINOPHIL # (test code=EO#) 0.91 K/mm3 0.0-0.5 BASOPHIL # (test code=BA#) 0.21 K/mm3 0.0-0.2 NUCLEATED RBC # (test code=NRBC#) 0.00 K/mm3 0.0-0.1 MANUAL DIFF REQUIRED (test code=MDIFF) YES STAIN ACCEPTABILITY (test code=STN ACCEPTABLE) TOTAL CELLS COUNTED (test code=TCC) #CELLS SEGMENTED NEUTROPHILS (test code=SEG) % 39-69 LYMPHOCYTE (test code=LYMPH) % 25-55 MONOCYTE (test code=MON) % 0-10 MORPHOLOGY COMMENT (test code=MOC) PLATELET ESTIMATE (test code=PLTEST) PLATELET MORPHOLOGY (test code=PLTMORPH) CBC W/MANUAL [id number] 06:31:00* Test Item Value Reference Range Comments WHITE BLOOD CELL (test code=WBC) 25.2 K/mm3 4.5-12.5 RED BLOOD CELL (test code=RBC) 3.53 mill/mm3 4.0-5.8 HEMOGLOBIN (test code=HGB) 8.8 gram/dL 13.0-17.5 HEMATOCRIT (test code=HCT) 28.0 % 42.0-52.0 MEAN CELL VOLUME (test code=MCV) 79.3 fL 80-98 MEAN CELL HGB (test code=MCH) 24.9 picogram 27.0-33.0 MEAN CELL HGB CONCETRATION (test code=MCHC) 31.4 gram/dL 33.0-36.0 RED CELL DISTRIBUTION WIDTH (test code=RDW) 17.6 % 11.6-16.2 RED CELL DISTRIBUTION WIDTH SD (test code=RDW-SD) 50.4 fL 37.0-51.0 PLATELET COUNT (test code=PLT) 425 K/mm3 150-450 MEAN PLATELET VOLUME (test code=MPV) 10.4 fL 6.7-11.0 IMMATURE GRANULOCYTE % (test code=IG%) 4.2 % 0.0-5.0 NUCLEATED RBC % (test code=NRBC%) 0.0 % 0-0 NEUTROPHIL # (test code=NT#) 18.00 K/mm3 1.8-7.7 IMMATURE GRANULOCYTE # (test code=IG#) 1.07 x10 3/uL 0-0.03 LYMPHOCYTE # (test code=LY#) 2.84 K/mm3 1.0-5.0 MONOCYTE # (test code=MO#) 2.20 K/mm3 0-0.8 EOSINOPHIL # (test code=EO#) 0.91 K/mm3 0.0-0.5 BASOPHIL # (test code=BA#) 0.21 K/mm3 0.0-0.2 NUCLEATED RBC # (test code=NRBC#) 0.00 K/mm3 0.0-0.1 MANUAL DIFF REQUIRED (test code=MDIFF) YES STAIN ACCEPTABILITY (test code=STN ACCEPTABLE) TOTAL CELLS COUNTED (test code=TCC) #CELLS SEGMENTED NEUTROPHILS (test code=SEG) % 39-69 LYMPHOCYTE (test code=LYMPH) % 25-55 MONOCYTE (test code=MON) % 0-10 EOSINOPHIL (test code=EOS) % 0.0-5.0 CABOT RINGS (test code=CAB) MORPHOLOGY COMMENT (test code=MOC) PLATELET ESTIMATE (test code=PLTEST) PLATELET MORPHOLOGY (test code=PLTMORPH) BASIC METABOLIC [id number] 09:51:00* Test Item Value Reference Range Comments SODIUM (test code=NA) 134 mmol/L 136-145 POTASSIUM (test code=K) 4.2 mmol/L 3.5-5.1 CHLORIDE (test code=CL) 104.0 mmol/L 98-107 CARBON DIOXIDE (test code=CO2) 22.0 mmol/L 21-32 ANION GAP (test code=GAP) 12.2 10-20 GLUCOSE (test code=GLU) 121 mg/dL 74-106 BLOOD UREA NITROGEN (test code=BUN) 14 mg/dL 7-18 GLOMERULAR FILTRATION RATE (test code=GFR) > 60 mL/min >=60 Estimated GFR by using Modified MDRD formula.Chronic kidney disease is defined as either kidney damageor GFR <60 mL/min/1.73 m2 for >3 months. CREATININE (test code=CREAT) 0.80 mg/dL 0.7-1.3 BUN/CREATININE RATIO (test code=BUN/CREA) 17.5 10-20 CALCIUM (test code=CA) 9.2 mg/dL 8.5-10.1 [id number] 09:51:00* Test Item Value Reference Range Comments PHOSPHORUS (test code=PHOS) 3.4 mg/dL 2.5-4.9 [id number] 09:51:00* Test Item Value Reference Range Comments MAGNESIUM (test code=MAG) 1.8 mg/dL 1.8-2.4 CALCIUM [id number] 09:51:00* Test Item Value Reference Range Comments CALCIUM IONIZED (test code=JESSICA) 1.37 mmol/L 1.12-1.32 BASIC METABOLIC [id number] 09:48:00* Test Item Value Reference Range Comments SODIUM (test code=NA) mmol/L 136-145 POTASSIUM (test code=K) mmol/L 3.5-5.1 CHLORIDE (test code=CL) mmol/L 98-107 CARBON DIOXIDE (test code=CO2) mmol/L 21-32 ANION GAP (test code=GAP) 10-20 GLUCOSE (test code=GLU) mg/dL 74-106 BLOOD UREA NITROGEN (test code=BUN) mg/dL 7-18 GLOMERULAR FILTRATION RATE (test code=GFR) mL/min >=60 CREATININE (test code=CREAT) mg/dL 0.7-1.3 BUN/CREATININE RATIO (test code=BUN/CREA) 10-20 CALCIUM (test code=CA) mg/dL 8.5-10.1 [id number] 09:48:00* Test Item Value Reference Range Comments PHOSPHORUS (test code=PHOS) mg/dL 2.5-4.9 [id number] 09:48:00* Test Item Value Reference Range Comments MAGNESIUM (test code=MAG) mg/dL 1.8-2.4 CALCIUM [id number] 09:48:00* Test Item Value Reference Range Comments CALCIUM IONIZED (test code=JESSICA) 1.37 mmol/L 1.12-1.32 CBC W/AUTO [id number] 09:27:00* Test Item Value Reference Range Comments WHITE BLOOD CELL (test code=WBC) 24.9 K/mm3 4.5-12.5 RED BLOOD CELL (test code=RBC) 3.39 mill/mm3 4.0-5.8 HEMOGLOBIN (test code=HGB) 8.5 gram/dL 13.0-17.5 HEMATOCRIT (test code=HCT) 27.0 % 42.0-52.0 MEAN CELL VOLUME (test code=MCV) 79.6 fL 80-98 MEAN CELL HGB (test code=MCH) 25.1 picogram 27.0-33.0 MEAN CELL HGB CONCETRATION (test code=MCHC) 31.5 gram/dL 33.0-36.0 RED CELL DISTRIBUTION WIDTH (test code=RDW) 17.9 % 11.6-16.2 RED CELL DISTRIBUTION WIDTH SD (test code=RDW-SD) 51.1 fL 37.0-51.0 PLATELET COUNT (test code=PLT) 351 K/mm3 150-450 RESULT VERIFIED BY REPEAT ANALYSIS MEAN PLATELET VOLUME (test code=MPV) 11.3 fL 6.7-11.0 NEUTROPHIL % (test code=NT%) 72.0 % 39.0-69.0 IMMATURE GRANULOCYTE % (test code=IG%) 4.3 % 0.0-5.0 LYMPHOCYTE % (test code=LY%) 10.9 % 25.0-55.0 MONOCYTE % (test code=MO%) 7.2 % 0.0-10.0 EOSINOPHIL % (test code=EO%) 4.9 % 0.0-5.0 BASOPHIL % (test code=BA%) 0.7 % 0.0-1.0 NUCLEATED RBC % (test code=NRBC%) 0.0 % 0-0 NEUTROPHIL # (test code=NT#) 17.92 K/mm3 1.8-7.7 IMMATURE GRANULOCYTE # (test code=IG#) 1.08 x10 3/uL 0-0.03 LYMPHOCYTE # (test code=LY#) 2.71 K/mm3 1.0-5.0 MONOCYTE # (test code=MO#) 1.79 K/mm3 0-0.8 EOSINOPHIL # (test code=EO#) 1.22 K/mm3 0.0-0.5 BASOPHIL # (test code=BA#) 0.18 K/mm3 0.0-0.2 NUCLEATED RBC # (test code=NRBC#) 0.00 K/mm3 0.0-0.1 MANUAL DIFF REQUIRED (test code=MDIFF) NO - XR CHEST 1 [id number] 07:10:00 FAX: Jerica Moeller MD [phone] [place]: St: ADM FAX: Lizzy Hilario NP [phone] FAX: Lonnie Olson MD [phone] Name: CELESTINO MCALLISTER [facility] : 1970 Age/S: 48/M [address] Unit #: [id number] Loc: [address] [address] Phys: Lizzy Hilario NP Acct: [id number] Dis Date: Status: ADM IN PH ONE #: [phone] Exam Date: 03/16/2019525 FAX #: [phone] Reason: sob EXAMS: CPT CODE: [id number] XR CHEST 1 V 76950 CLINICAL HISTO RY: Shortness of breath TECHNIQUE: AP chest x-ray CO MPARISON: Previous day IMPRESSION: Improved bi basilar platelike and subsegmental atelectasis. No pleural effusion. Nor mal heart size. Tracheostomy tube. IVORY CARVER shunt projected over the right zo[facility] st. at 0710 Reported and syed d by: Katie Rich D.O. CC: Jerica Shaffer MD; Lizzy Hilario NP; Lonnie Olson MD Technologist: CURTIS ROBISON JR Trnscrd Date/Time/By: 03/16/2019 (0710) : By: [email or web address] PAGE 1 Signed Report CBC W/MANUAL [id number] 08:43:00* Test Item Value Reference Range Comments WHITE BLOOD CELL (test code=WBC) 24.7 K/mm3 4.5-12.5 RED BLOOD CELL (test code=RBC) 3.76 mill/mm3 4.0-5.8 HEMOGLOBIN (test code=HGB) 9.4 gram/dL 13.0-17.5 HEMATOCRIT (test code=HCT) 29.8 % 42.0-52.0 MEAN CELL VOLUME (test code=MCV) 79.3 fL 80-98 MEAN CELL HGB (test code=MCH) 25.0 picogram 27.0-33.0 MEAN CELL HGB CONCETRATION (test code=MCHC) 31.5 gram/dL 33.0-36.0 RED CELL DISTRIBUTION WIDTH (test code=RDW) 17.7 % 11.6-16.2 RED CELL DISTRIBUTION WIDTH SD (test code=RDW-SD) 50.9 fL 37.0-51.0 PLATELET COUNT (test code=PLT) 433 K/mm3 150-450 RESULT VERIFIED BY REPEAT ANALYSIS MEAN PLATELET VOLUME (test code=MPV) 11.0 fL 6.7-11.0 IMMATURE GRANULOCYTE % (test code=IG%) 5.4 % 0.0-5.0 "The appearance of immature granulocytes (myelocytes,pro-myelocytes, meta-myelocytes) in the peripheral blood ofnon- individuals can indicate a response toinfection, inflammation, or other stimulus to the bonemarrow" NUCLEATED RBC % (test code=NRBC%) 0.0 % 0-0 NEUTROPHIL # (test code=NT#) 15.90 K/mm3 1.8-7.7 IMMATURE GRANULOCYTE # (test code=IG#) 1.34 x10 3/uL 0-0.03 LYMPHOCYTE # (test code=LY#) 3.49 K/mm3 1.0-5.0 MONOCYTE # (test code=MO#) 2.49 K/mm3 0-0.8 EOSINOPHIL # (test code=EO#) 1.21 K/mm3 0.0-0.5 BASOPHIL # (test code=BA#) 0.23 K/mm3 0.0-0.2 NUCLEATED RBC # (test code=NRBC#) 0.00 K/mm3 0.0-0.1 MANUAL DIFF REQUIRED (test code=MDIFF) YES STAIN ACCEPTABILITY (test code=STN ACCEPTABLE) STAIN ACCEPTABLE TOTAL CELLS COUNTED (test code=TCC) 114 #CELLS SEGMENTED NEUTROPHILS (test code=SEG) 70.2 % 39-69 BAND NEUTROPHIL (test code=BAND) 0 % 0-10 LYMPHOCYTE (test code=LYMPH) 17.5 % 25-55 REACTIVE LYMPH (test code=RELYMPH) 0 % MONOCYTE (test code=MON) 7.0 % 0-10 EOSINOPHIL (test code=EOS) 1.7 % 0.0-5.0 BASOPHIL (test code=BASO) 0.9 % 0-1.0 METAMYELOCYTE (test code=META) 0.9 % 0-0 MYELOCYTE (test code=MYELO) 0.9 % 0.0-0.0 PROMYELOCYTE (test code=PROM) 0 % 0-0 POIKILOCYTOSIS (test code=POIK) 1+ ARJUN CELLS (test code=ARJUN) 1+ NONE PLATELET ESTIMATE (test code=PLTEST) ADEQUATE PLATELET MORPHOLOGY (test code=PLTMORPH) NORMAL IMMATURE FORMS (test code=IMMAT) 0.9 % 0-0 FE W/TOTAL IRON BINDING CAP.2019-03-15 08:07:00* Test Item Value Reference Range Comments SERUM IRON (test code=IRON) 63 ug/dL 50-175 TOTAL IRON BINDING CAPACITY (test code=TIBC) 171 mcg/dL 250-450 IRON SATURATION (test code=FESAT) 36.84 % 13-45 [id number] 08:07:00* Test Item Value Reference Range Comments FERRITIN (test code=ANAMARIA) 373 ng/mL 8-388 CBC W/MANUAL [id number] 08:00:00* Test Item Value Reference Range Comments WHITE BLOOD CELL (test code=WBC) 24.7 K/mm3 4.5-12.5 RED BLOOD CELL (test code=RBC) 3.76 mill/mm3 4.0-5.8 HEMOGLOBIN (test code=HGB) 9.4 gram/dL 13.0-17.5 HEMATOCRIT (test code=HCT) 29.8 % 42.0-52.0 MEAN CELL VOLUME (test code=MCV) 79.3 fL 80-98 MEAN CELL HGB (test code=MCH) 25.0 picogram 27.0-33.0 MEAN CELL HGB CONCETRATION (test code=MCHC) 31.5 gram/dL 33.0-36.0 RED CELL DISTRIBUTION WIDTH (test code=RDW) 17.7 % 11.6-16.2 RED CELL DISTRIBUTION WIDTH SD (test code=RDW-SD) 50.9 fL 37.0-51.0 PLATELET COUNT (test code=PLT) 433 K/mm3 150-450 RESULT VERIFIED BY REPEAT ANALYSIS MEAN PLATELET VOLUME (test code=MPV) 11.0 fL 6.7-11.0 IMMATURE GRANULOCYTE % (test code=IG%) 5.4 % 0.0-5.0 "The appearance of immature granulocytes (myelocytes,pro-myelocytes, meta-myelocytes) in the peripheral blood ofnon- individuals can indicate a response toinfection, inflammation, or other stimulus to the bonemarrow" NUCLEATED RBC % (test code=NRBC%) 0.0 % 0-0 NEUTROPHIL # (test code=NT#) 15.90 K/mm3 1.8-7.7 IMMATURE GRANULOCYTE # (test code=IG#) 1.34 x10 3/uL 0-0.03 LYMPHOCYTE # (test code=LY#) 3.49 K/mm3 1.0-5.0 MONOCYTE # (test code=MO#) 2.49 K/mm3 0-0.8 EOSINOPHIL # (test code=EO#) 1.21 K/mm3 0.0-0.5 BASOPHIL # (test code=BA#) 0.23 K/mm3 0.0-0.2 NUCLEATED RBC # (test code=NRBC#) 0.00 K/mm3 0.0-0.1 MANUAL DIFF REQUIRED (test code=MDIFF) YES STAIN ACCEPTABILITY (test code=STN ACCEPTABLE) TOTAL CELLS COUNTED (test code=TCC) #CELLS SEGMENTED NEUTROPHILS (test code=SEG) % 39-69 LYMPHOCYTE (test code=LYMPH) % 25-55 MONOCYTE (test code=MON) % 0-10 EOSINOPHIL (test code=EOS) % 0.0-5.0 CABOT RINGS (test code=CAB) MORPHOLOGY COMMENT (test code=MOC) PLATELET ESTIMATE (test code=PLTEST) PLATELET MORPHOLOGY (test code=PLTMORPH) CBC W/MANUAL [id number] 08:00:00* Test Item Value Reference Range Comments WHITE BLOOD CELL (test code=WBC) 24.7 K/mm3 4.5-12.5 RED BLOOD CELL (test code=RBC) 3.76 mill/mm3 4.0-5.8 HEMOGLOBIN (test code=HGB) 9.4 gram/dL 13.0-17.5 HEMATOCRIT (test code=HCT) 29.8 % 42.0-52.0 MEAN CELL VOLUME (test code=MCV) 79.3 fL 80-98 MEAN CELL HGB (test code=MCH) 25.0 picogram 27.0-33.0 MEAN CELL HGB CONCETRATION (test code=MCHC) 31.5 gram/dL 33.0-36.0 RED CELL DISTRIBUTION WIDTH (test code=RDW) 17.7 % 11.6-16.2 RED CELL DISTRIBUTION WIDTH SD (test code=RDW-SD) 50.9 fL 37.0-51.0 PLATELET COUNT (test code=PLT) 433 K/mm3 150-450 RESULT VERIFIED BY REPEAT ANALYSIS MEAN PLATELET VOLUME (test code=MPV) 11.0 fL 6.7-11.0 IMMATURE GRANULOCYTE % (test code=IG%) 5.4 % 0.0-5.0 "The appearance of immature granulocytes (myelocytes,pro-myelocytes, meta-myelocytes) in the peripheral blood ofnon- individuals can indicate a response toinfection, inflammation, or other stimulus to the bonemarrow" NUCLEATED RBC % (test code=NRBC%) 0.0 % 0-0 NEUTROPHIL # (test code=NT#) 15.90 K/mm3 1.8-7.7 IMMATURE GRANULOCYTE # (test code=IG#) 1.34 x10 3/uL 0-0.03 LYMPHOCYTE # (test code=LY#) 3.49 K/mm3 1.0-5.0 MONOCYTE # (test code=MO#) 2.49 K/mm3 0-0.8 EOSINOPHIL # (test code=EO#) 1.21 K/mm3 0.0-0.5 BASOPHIL # (test code=BA#) 0.23 K/mm3 0.0-0.2 NUCLEATED RBC # (test code=NRBC#) 0.00 K/mm3 0.0-0.1 MANUAL DIFF REQUIRED (test code=MDIFF) YES STAIN ACCEPTABILITY (test code=STN ACCEPTABLE) TOTAL CELLS COUNTED (test code=TCC) #CELLS SEGMENTED NEUTROPHILS (test code=SEG) % 39-69 LYMPHOCYTE (test code=LYMPH) % 25-55 MONOCYTE (test code=MON) % 0-10 EOSINOPHIL (test code=EOS) % 0.0-5.0 MORPHOLOGY COMMENT (test code=MOC) PLATELET ESTIMATE (test code=PLTEST) PLATELET MORPHOLOGY (test code=PLTMORPH) CBC W/MANUAL [id number] 08:00:00* Test Item Value Reference Range Comments WHITE BLOOD CELL (test code=WBC) 24.7 K/mm3 4.5-12.5 RED BLOOD CELL (test code=RBC) 3.76 mill/mm3 4.0-5.8 HEMOGLOBIN (test code=HGB) 9.4 gram/dL 13.0-17.5 HEMATOCRIT (test code=HCT) 29.8 % 42.0-52.0 MEAN CELL VOLUME (test code=MCV) 79.3 fL 80-98 MEAN CELL HGB (test code=MCH) 25.0 picogram 27.0-33.0 MEAN CELL HGB CONCETRATION (test code=MCHC) 31.5 gram/dL 33.0-36.0 RED CELL DISTRIBUTION WIDTH (test code=RDW) 17.7 % 11.6-16.2 RED CELL DISTRIBUTION WIDTH SD (test code=RDW-SD) 50.9 fL 37.0-51.0 PLATELET COUNT (test code=PLT) 433 K/mm3 150-450 RESULT VERIFIED BY REPEAT ANALYSIS MEAN PLATELET VOLUME (test code=MPV) 11.0 fL 6.7-11.0 IMMATURE GRANULOCYTE % (test code=IG%) 5.4 % 0.0-5.0 "The appearance of immature granulocytes (myelocytes,pro-myelocytes, meta-myelocytes) in the peripheral blood ofnon- individuals can indicate a response toinfection, inflammation, or other stimulus to the bonemarrow" NUCLEATED RBC % (test code=NRBC%) 0.0 % 0-0 NEUTROPHIL # (test code=NT#) 15.90 K/mm3 1.8-7.7 IMMATURE GRANULOCYTE # (test code=IG#) 1.34 x10 3/uL 0-0.03 LYMPHOCYTE # (test code=LY#) 3.49 K/mm3 1.0-5.0 MONOCYTE # (test code=MO#) 2.49 K/mm3 0-0.8 EOSINOPHIL # (test code=EO#) 1.21 K/mm3 0.0-0.5 BASOPHIL # (test code=BA#) 0.23 K/mm3 0.0-0.2 NUCLEATED RBC # (test code=NRBC#) 0.00 K/mm3 0.0-0.1 MANUAL DIFF REQUIRED (test code=MDIFF) YES STAIN ACCEPTABILITY (test code=STN ACCEPTABLE) TOTAL CELLS COUNTED (test code=TCC) #CELLS SEGMENTED NEUTROPHILS (test code=SEG) % 39-69 LYMPHOCYTE (test code=LYMPH) % 25-55 MONOCYTE (test code=MON) % 0-10 MORPHOLOGY COMMENT (test code=MOC) PLATELET ESTIMATE (test code=PLTEST) PLATELET MORPHOLOGY (test code=PLTMORPH) BASIC METABOLIC [id number] 07:59:00* Test Item Value Reference Range Comments SODIUM (test code=NA) 138 mmol/L 136-145 POTASSIUM (test code=K) 4.2 mmol/L 3.5-5.1 CHLORIDE (test code=CL) 106.0 mmol/L 98-107 CARBON DIOXIDE (test code=CO2) 23.0 mmol/L 21-32 ANION GAP (test code=GAP) 13.2 10-20 GLUCOSE (test code=GLU) 88 mg/dL 74-106 BLOOD UREA NITROGEN (test code=BUN) 16 mg/dL 7-18 GLOMERULAR FILTRATION RATE (test code=GFR) > 60 mL/min >=60 Estimated GFR by using Modified MDRD formula.Chronic kidney disease is defined as either kidney damageor GFR <60 mL/min/1.73 m2 for >3 months. CREATININE (test code=CREAT) 0.90 mg/dL 0.7-1.3 BUN/CREATININE RATIO (test code=BUN/CREA) 17.8 10-20 CALCIUM (test code=CA) 9.3 mg/dL 8.5-10.1 [id number] 07:59:00* Test Item Value Reference Range Comments PHOSPHORUS (test code=PHOS) 3.2 mg/dL 2.5-4.9 [id number] 07:59:00* Test Item Value Reference Range Comments MAGNESIUM (test code=MAG) 2.0 mg/dL 1.8-2.4 CALCIUM [id number] 07:59:00* Test Item Value Reference Range Comments CALCIUM IONIZED (test code=JESSICA) 1.39 mmol/L 1.12-1.32 CBC W/MANUAL [id number] 07:59:00* Test Item Value Reference Range Comments WHITE BLOOD CELL (test code=WBC) 24.7 K/mm3 4.5-12.5 RED BLOOD CELL (test code=RBC) 3.76 mill/mm3 4.0-5.8 HEMOGLOBIN (test code=HGB) 9.4 gram/dL 13.0-17.5 HEMATOCRIT (test code=HCT) 29.8 % 42.0-52.0 MEAN CELL VOLUME (test code=MCV) 79.3 fL 80-98 MEAN CELL HGB (test code=MCH) 25.0 picogram 27.0-33.0 MEAN CELL HGB CONCETRATION (test code=MCHC) 31.5 gram/dL 33.0-36.0 RED CELL DISTRIBUTION WIDTH (test code=RDW) 17.7 % 11.6-16.2 RED CELL DISTRIBUTION WIDTH SD (test code=RDW-SD) 50.9 fL 37.0-51.0 PLATELET COUNT (test code=PLT) 433 K/mm3 150-450 RESULT VERIFIED BY REPEAT ANALYSIS MEAN PLATELET VOLUME (test code=MPV) 11.0 fL 6.7-11.0 IMMATURE GRANULOCYTE % (test code=IG%) 5.4 % 0.0-5.0 "The appearance of immature granulocytes (myelocytes,pro-myelocytes, meta-myelocytes) in the peripheral blood ofnon- individuals can indicate a response toinfection, inflammation, or other stimulus to the bonemarrow" NUCLEATED RBC % (test code=NRBC%) 0.0 % 0-0 NEUTROPHIL # (test code=NT#) 15.90 K/mm3 1.8-7.7 IMMATURE GRANULOCYTE # (test code=IG#) 1.34 x10 3/uL 0-0.03 LYMPHOCYTE # (test code=LY#) 3.49 K/mm3 1.0-5.0 MONOCYTE # (test code=MO#) 2.49 K/mm3 0-0.8 EOSINOPHIL # (test code=EO#) 1.21 K/mm3 0.0-0.5 BASOPHIL # (test code=BA#) 0.23 K/mm3 0.0-0.2 NUCLEATED RBC # (test code=NRBC#) 0.00 K/mm3 0.0-0.1 MANUAL DIFF REQUIRED (test code=MDIFF) YES STAIN ACCEPTABILITY (test code=STN ACCEPTABLE) TOTAL CELLS COUNTED (test code=TCC) #CELLS SEGMENTED NEUTROPHILS (test code=SEG) % 39-69 LYMPHOCYTE (test code=LYMPH) % 25-55 MONOCYTE (test code=MON) % 0-10 EOSINOPHIL (test code=EOS) % 0.0-5.0 CABOT RINGS (test code=CAB) MORPHOLOGY COMMENT (test code=MOC) PLATELET ESTIMATE (test code=PLTEST) PLATELET MORPHOLOGY (test code=PLTMORPH) CBC W/MANUAL [id number] 07:59:00* Test Item Value Reference Range Comments WHITE BLOOD CELL (test code=WBC) 24.7 K/mm3 4.5-12.5 RED BLOOD CELL (test code=RBC) 3.76 mill/mm3 4.0-5.8 HEMOGLOBIN (test code=HGB) 9.4 gram/dL 13.0-17.5 HEMATOCRIT (test code=HCT) 29.8 % 42.0-52.0 MEAN CELL VOLUME (test code=MCV) 79.3 fL 80-98 MEAN CELL HGB (test code=MCH) 25.0 picogram 27.0-33.0 MEAN CELL HGB CONCETRATION (test code=MCHC) 31.5 gram/dL 33.0-36.0 RED CELL DISTRIBUTION WIDTH (test code=RDW) 17.7 % 11.6-16.2 RED CELL DISTRIBUTION WIDTH SD (test code=RDW-SD) 50.9 fL 37.0-51.0 PLATELET COUNT (test code=PLT) 433 K/mm3 150-450 RESULT VERIFIED BY REPEAT ANALYSIS MEAN PLATELET VOLUME (test code=MPV) 11.0 fL 6.7-11.0 IMMATURE GRANULOCYTE % (test code=IG%) 5.4 % 0.0-5.0 "The appearance of immature granulocytes (myelocytes,pro-myelocytes, meta-myelocytes) in the peripheral blood ofnon- individuals can indicate a response toinfection, inflammation, or other stimulus to the bonemarrow" NUCLEATED RBC % (test code=NRBC%) 0.0 % 0-0 NEUTROPHIL # (test code=NT#) 15.90 K/mm3 1.8-7.7 IMMATURE GRANULOCYTE # (test code=IG#) 1.34 x10 3/uL 0-0.03 LYMPHOCYTE # (test code=LY#) 3.49 K/mm3 1.0-5.0 MONOCYTE # (test code=MO#) 2.49 K/mm3 0-0.8 EOSINOPHIL # (test code=EO#) 1.21 K/mm3 0.0-0.5 BASOPHIL # (test code=BA#) 0.23 K/mm3 0.0-0.2 NUCLEATED RBC # (test code=NRBC#) 0.00 K/mm3 0.0-0.1 MANUAL DIFF REQUIRED (test code=MDIFF) YES STAIN ACCEPTABILITY (test code=STN ACCEPTABLE) TOTAL CELLS COUNTED (test code=TCC) #CELLS SEGMENTED NEUTROPHILS (test code=SEG) % 39-69 LYMPHOCYTE (test code=LYMPH) % 25-55 MONOCYTE (test code=MON) % 0-10 EOSINOPHIL (test code=EOS) % 0.0-5.0 CABOT RINGS (test code=CAB) MORPHOLOGY COMMENT (test code=MOC) PLATELET ESTIMATE (test code=PLTEST) PLATELET MORPHOLOGY (test code=PLTMORPH) BASIC METABOLIC [id number] 07:52:00* Test Item Value Reference Range Comments SODIUM (test code=NA) 138 mmol/L 136-145 POTASSIUM (test code=K) 4.2 mmol/L 3.5-5.1 CHLORIDE (test code=CL) 106.0 mmol/L 98-107 CARBON DIOXIDE (test code=CO2) mmol/L 21-32 ANION GAP (test code=GAP) 10-20 GLUCOSE (test code=GLU) mg/dL 74-106 BLOOD UREA NITROGEN (test code=BUN) mg/dL 7-18 GLOMERULAR FILTRATION RATE (test code=GFR) mL/min >=60 CREATININE (test code=CREAT) mg/dL 0.7-1.3 BUN/CREATININE RATIO (test code=BUN/CREA) 10-20 CALCIUM (test code=CA) mg/dL 8.5-10.1 [id number] 07:52:00* Test Item Value Reference Range Comments PHOSPHORUS (test code=PHOS) mg/dL 2.5-4.9 [id number] 07:52:00* Test Item Value Reference Range Comments MAGNESIUM (test code=MAG) mg/dL 1.8-2.4 CALCIUM [id number] 07:52:00* Test Item Value Reference Range Comments CALCIUM IONIZED (test code=JESSICA) 1.39 mmol/L 1.12-1.32 BASIC METABOLIC [id number] 07:50:00* Test Item Value Reference Range Comments SODIUM (test code=NA) mmol/L 136-145 POTASSIUM (test code=K) mmol/L 3.5-5.1 CHLORIDE (test code=CL) mmol/L 98-107 CARBON DIOXIDE (test code=CO2) mmol/L 21-32 ANION GAP (test code=GAP) 10-20 GLUCOSE (test code=GLU) mg/dL 74-106 BLOOD UREA NITROGEN (test code=BUN) mg/dL 7-18 GLOMERULAR FILTRATION RATE (test code=GFR) mL/min >=60 CREATININE (test code=CREAT) mg/dL 0.7-1.3 BUN/CREATININE RATIO (test code=BUN/CREA) 10-20 CALCIUM (test code=CA) mg/dL 8.5-10.1 [id number] 07:50:00* Test Item Value Reference Range Comments PHOSPHORUS (test code=PHOS) mg/dL 2.5-4.9 [id number] 07:50:00* Test Item Value Reference Range Comments MAGNESIUM (test code=MAG) mg/dL 1.8-2.4 CALCIUM [id number] 07:50:00* Test Item Value Reference Range Comments CALCIUM IONIZED (test code=JESSICA) 1.39 mmol/L 1.12-1.32 - XR CHEST 1 [id number] 07:33:00 FAX: Jerica Moeller MD [phone] [place]: [address] St: ADM FAX: Lizzy Hilario NP [phone] FAX: Lonnie Olson MD [phone] Name: CELESTINO MCALLISTER JR [facility] : 1970 Age/S: 48/M [address] [facility] Unit #: [id number] Loc: [address] [address] Phys: Lizzy Hilario NP Acct: [id number] Dis Date: Status: ADM IN ONE #: [phone] Exam Date: 03/15/2019 0608 FAX #: [phone] Reason: sob EXAMS: CPT CODE: [id number] XR CHEST 1 V 29763 CLINICAL HISTO RY: Shortness of breath TECHNIQUE: AP chest x-ray CO MPARISON: Previous day IMPRESSION: Increased b ibasilar platelike and subsegmental atelectasis. No pleural effusion. No rmal heart size. Tracheostomy tube. IVORY CARVER shunt projected over the right ch est. at 0733 Reported and signed by: Heather Rich D.O. CC: Jerica Shaffer MD; Lizzy Hilario NP; Lonnie Gambino MD Technologist: CURTIS Pepper Trnscrd Date/Time/By: 03/15/2019 (0733) : By: [email or web address] Orig Print D/T: S: 03/15/2019 (0742) PAGE 1 Signed Report [id number] 08:14:00* Test Item Value Reference Range Comments LEVETIRACETAM (test code=LEVTAM) 27.9 ug/mL 10.0-40.0 This test was developed and its performance characteristicsdetermined by [facility]. It has not been cleared orapproved by the Food and Drug Administration.Performed At: Lab[address] [id number] Mistry MD Ph:[phone] CBC W/MANUAL [id number] 07:27:00* Test Item Value Reference Range Comments WHITE BLOOD CELL (test code=WBC) 23.2 K/mm3 4.5-12.5 RED BLOOD CELL (test code=RBC) 3.59 mill/mm3 4.0-5.8 HEMOGLOBIN (test code=HGB) 8.8 gram/dL 13.0-17.5 HEMATOCRIT (test code=HCT) 29.0 % 42.0-52.0 MEAN CELL VOLUME (test code=MCV) 80.8 fL 80-98 MEAN CELL HGB (test code=MCH) 24.5 picogram 27.0-33.0 MEAN CELL HGB CONCETRATION (test code=MCHC) 30.3 gram/dL 33.0-36.0 RED CELL DISTRIBUTION WIDTH (test code=RDW) 17.9 % 11.6-16.2 RED CELL DISTRIBUTION WIDTH SD (test code=RDW-SD) 51.9 fL 37.0-51.0 PLATELET COUNT (test code=PLT) 377 K/mm3 150-450 MEAN PLATELET VOLUME (test code=MPV) 11.1 fL 6.7-11.0 IMMATURE GRANULOCYTE % (test code=IG%) 5.0 % 0.0-5.0 NUCLEATED RBC % (test code=NRBC%) 0.0 % 0-0 NEUTROPHIL # (test code=NT#) 15.63 K/mm3 1.8-7.7 IMMATURE GRANULOCYTE # (test code=IG#) 1.15 x10 3/uL 0-0.03 LYMPHOCYTE # (test code=LY#) 3.04 K/mm3 1.0-5.0 MONOCYTE # (test code=MO#) 2.33 K/mm3 0-0.8 EOSINOPHIL # (test code=EO#) 0.86 K/mm3 0.0-0.5 BASOPHIL # (test code=BA#) 0.22 K/mm3 0.0-0.2 NUCLEATED RBC # (test code=NRBC#) 0.00 K/mm3 0.0-0.1 MANUAL DIFF REQUIRED (test code=MDIFF) YES STAIN ACCEPTABILITY (test code=STN ACCEPTABLE) STAIN ACCEPTABLE TOTAL CELLS COUNTED (test code=TCC) 116 #CELLS SEGMENTED NEUTROPHILS (test code=SEG) 75.0 % 39-69 BAND NEUTROPHIL (test code=BAND) 0 % 0-10 LYMPHOCYTE (test code=LYMPH) 13.8 % 25-55 REACTIVE LYMPH (test code=RELYMPH) 0 % MONOCYTE (test code=MON) 9.5 % 0-10 EOSINOPHIL (test code=EOS) 1.7 % 0.0-5.0 BASOPHIL (test code=BASO) 0 % 0-1.0 METAMYELOCYTE (test code=META) 0 % 0-0 MYELOCYTE (test code=MYELO) 0 % 0.0-0.0 PROMYELOCYTE (test code=PROM) 0 % 0-0 POIKILOCYTOSIS (test code=POIK) 3+ ANISOCYTOSIS (test code=ANISO) 1+ ARJUN CELLS (test code=ARJUN) 1+ NONE PLATELET ESTIMATE (test code=PLTEST) ADEQUATE PLATELET MORPHOLOGY (test code=PLTMORPH) SIZE VARIABLE IMMATURE FORMS (test code=IMMAT) 0 % 0-0 - XR CHEST 1 [id number] 07:07:00 FAX: Jerica Moeller MD [phone] [place]: B St: ADM FAX: Lizzy Hilario NP [phone] FAX: Lonnie Olson MD [phone] Name: CELESTINO MCALLISTER JR [facility] : 1970 Age/S: 48/M [facility] Unit #: [id number] Loc: [address] [address] Phys: Lizzy Hilario NP Acct: [id number] Dis Date: Status: ADM IN ONE #: [phone] Exam Date: 03/14/2019520 FAX #: [phone] Reason: sob EXAMS: CPT CODE: [id number] XR CHEST 1 V 56539 CLINICAL HISTO RY: Shortness of breath TECHNIQUE: AP chest x-ray CO MPARISON: Previous day IMPRESSION: No signific ant interval change. Patchy left basilar atelectasis/consolidation. Righ t lung is clear. Normal heart size. Tracheostomy tube. Right central carmela ous catheter has been removed. IVORY CARVER shunt projected over the right chest. Electronically Signed by Katie Rich D.O. on 03/14 at 0707 Reported and signed by: Katie Rich D.O. CC: Jerica Shaffer MD; Lizzy Hilario NP; Lonnie Olson Technologist: CURTIS ROBISON JR Trnscrd Amanuel e/Time/By: 03/14/2019 (0707) : By: [email or web address] Orig Print D/T: S: 2018 (0710) PAGE 1 Signed Report PROCALCITONIN (PCT)2019-03-14 06:41:00* Test Item Value Reference Range Comments PROCALCITONIN (PCT) (test code=PROCAL) 1.42 ng/ml Concentration Interpretation (ng/mL) <0.51 Sepsis is not likely. Local bacterial infection is possible. (LOW RISK for progression to Sepsis) 0.51 - 2.00 Sepsis is possible, but other conditions are known to elevate PCT as well. (MODERATE RISK for progression to Sepsis) > 2.00 Sepsis is likely, unless other causes are known. (HIGH RISK for progression to Severe Sepsis or Septic Shock) 10.00 High likelihood of Severe Sepsis or Septic or higher Shock. *Increased PCT levels may not always be related to systemic bacterial infection.*Low PCT levels do not automatically exclude the presence of bacterial infection.*All results should be interpreted taking into account the patients history. BASIC METABOLIC [id number] 06:27:00* Test Item Value Reference Range Comments SODIUM (test code=NA) 139 mmol/L 136-145 POTASSIUM (test code=K) 5.0 mmol/L 3.5-5.1 CHLORIDE (test code=CL) 105.0 mmol/L 98-107 CARBON DIOXIDE (test code=CO2) 24.0 mmol/L 21-32 ANION GAP (test code=GAP) 15.0 10-20 GLUCOSE (test code=GLU) 81 mg/dL 74-106 BLOOD UREA NITROGEN (test code=BUN) 14 mg/dL 7-18 GLOMERULAR FILTRATION RATE (test code=GFR) > 60 mL/min >=60 Estimated GFR by using Modified MDRD formula.Chronic kidney disease is defined as either kidney damageor GFR <60 mL/min/1.73 m2 for >3 months. CREATININE (test code=CREAT) 1.00 mg/dL 0.7-1.3 BUN/CREATININE RATIO (test code=BUN/CREA) 14.0 10-20 CALCIUM (test code=CA) 9.1 mg/dL 8.5-10.1 [id number] 06:27:00* Test Item Value Reference Range Comments PHOSPHORUS (test code=PHOS) 4.2 mg/dL 2.5-4.9 [id number] 06:27:00* Test Item Value Reference Range Comments MAGNESIUM (test code=MAG) 2.2 mg/dL 1.8-2.4 CALCIUM [id number] 06:27:00* Test Item Value Reference Range Comments CALCIUM IONIZED (test code=JESSICA) 1.29 mmol/L 1.12-1.32 BASIC METABOLIC [id number] 06:22:00* Test Item Value Reference Range Comments SODIUM (test code=NA) 139 mmol/L 136-145 POTASSIUM (test code=K) 5.0 mmol/L 3.5-5.1 CHLORIDE (test code=CL) 105.0 mmol/L 98-107 CARBON DIOXIDE (test code=CO2) mmol/L 21-32 ANION GAP (test code=GAP) 10-20 GLUCOSE (test code=GLU) mg/dL 74-106 BLOOD UREA NITROGEN (test code=BUN) mg/dL 7-18 GLOMERULAR FILTRATION RATE (test code=GFR) mL/min >=60 CREATININE (test code=CREAT) mg/dL 0.7-1.3 BUN/CREATININE RATIO (test code=BUN/CREA) 10-20 CALCIUM (test code=CA) mg/dL 8.5-10.1 [id number] 06:22:00* Test Item Value Reference Range Comments PHOSPHORUS (test code=PHOS) mg/dL 2.5-4.9 [id number] 06:22:00* Test Item Value Reference Range Comments MAGNESIUM (test code=MAG) mg/dL 1.8-2.4 CALCIUM [id number] 06:22:00* Test Item Value Reference Range Comments CALCIUM IONIZED (test code=JESSICA) 1.29 mmol/L 1.12-1.32 CBC W/MANUAL [id number] 06:21:00* Test Item Value Reference Range Comments WHITE BLOOD CELL (test code=WBC) 23.2 K/mm3 4.5-12.5 RED BLOOD CELL (test code=RBC) 3.59 mill/mm3 4.0-5.8 HEMOGLOBIN (test code=HGB) 8.8 gram/dL 13.0-17.5 HEMATOCRIT (test code=HCT) 29.0 % 42.0-52.0 MEAN CELL VOLUME (test code=MCV) 80.8 fL 80-98 MEAN CELL HGB (test code=MCH) 24.5 picogram 27.0-33.0 MEAN CELL HGB CONCETRATION (test code=MCHC) 30.3 gram/dL 33.0-36.0 RED CELL DISTRIBUTION WIDTH (test code=RDW) 17.9 % 11.6-16.2 RED CELL DISTRIBUTION WIDTH SD (test code=RDW-SD) 51.9 fL 37.0-51.0 PLATELET COUNT (test code=PLT) 377 K/mm3 150-450 MEAN PLATELET VOLUME (test code=MPV) 11.1 fL 6.7-11.0 IMMATURE GRANULOCYTE % (test code=IG%) 5.0 % 0.0-5.0 NUCLEATED RBC % (test code=NRBC%) 0.0 % 0-0 NEUTROPHIL # (test code=NT#) 15.63 K/mm3 1.8-7.7 IMMATURE GRANULOCYTE # (test code=IG#) 1.15 x10 3/uL 0-0.03 LYMPHOCYTE # (test code=LY#) 3.04 K/mm3 1.0-5.0 MONOCYTE # (test code=MO#) 2.33 K/mm3 0-0.8 EOSINOPHIL # (test code=EO#) 0.86 K/mm3 0.0-0.5 BASOPHIL # (test code=BA#) 0.22 K/mm3 0.0-0.2 NUCLEATED RBC # (test code=NRBC#) 0.00 K/mm3 0.0-0.1 MANUAL DIFF REQUIRED (test code=MDIFF) YES STAIN ACCEPTABILITY (test code=STN ACCEPTABLE) TOTAL CELLS COUNTED (test code=TCC) #CELLS SEGMENTED NEUTROPHILS (test code=SEG) % 39-69 LYMPHOCYTE (test code=LYMPH) % 25-55 MONOCYTE (test code=MON) % 0-10 EOSINOPHIL (test code=EOS) % 0.0-5.0 CABOT RINGS (test code=CAB) MORPHOLOGY COMMENT (test code=MOC) PLATELET ESTIMATE (test code=PLTEST) PLATELET MORPHOLOGY (test code=PLTMORPH) CBC W/MANUAL [id number] 06:21:00* Test Item Value Reference Range Comments WHITE BLOOD CELL (test code=WBC) 23.2 K/mm3 4.5-12.5 RED BLOOD CELL (test code=RBC) 3.59 mill/mm3 4.0-5.8 HEMOGLOBIN (test code=HGB) 8.8 gram/dL 13.0-17.5 HEMATOCRIT (test code=HCT) 29.0 % 42.0-52.0 MEAN CELL VOLUME (test code=MCV) 80.8 fL 80-98 MEAN CELL HGB (test code=MCH) 24.5 picogram 27.0-33.0 MEAN CELL HGB CONCETRATION (test code=MCHC) 30.3 gram/dL 33.0-36.0 RED CELL DISTRIBUTION WIDTH (test code=RDW) 17.9 % 11.6-16.2 RED CELL DISTRIBUTION WIDTH SD (test code=RDW-SD) 51.9 fL 37.0-51.0 PLATELET COUNT (test code=PLT) 377 K/mm3 150-450 MEAN PLATELET VOLUME (test code=MPV) 11.1 fL 6.7-11.0 IMMATURE GRANULOCYTE % (test code=IG%) 5.0 % 0.0-5.0 NUCLEATED RBC % (test code=NRBC%) 0.0 % 0-0 NEUTROPHIL # (test code=NT#) 15.63 K/mm3 1.8-7.7 IMMATURE GRANULOCYTE # (test code=IG#) 1.15 x10 3/uL 0-0.03 LYMPHOCYTE # (test code=LY#) 3.04 K/mm3 1.0-5.0 MONOCYTE # (test code=MO#) 2.33 K/mm3 0-0.8 EOSINOPHIL # (test code=EO#) 0.86 K/mm3 0.0-0.5 BASOPHIL # (test code=BA#) 0.22 K/mm3 0.0-0.2 NUCLEATED RBC # (test code=NRBC#) 0.00 K/mm3 0.0-0.1 MANUAL DIFF REQUIRED (test code=MDIFF) YES STAIN ACCEPTABILITY (test code=STN ACCEPTABLE) TOTAL CELLS COUNTED (test code=TCC) #CELLS SEGMENTED NEUTROPHILS (test code=SEG) % 39-69 LYMPHOCYTE (test code=LYMPH) % 25-55 MONOCYTE (test code=MON) % 0-10 EOSINOPHIL (test code=EOS) % 0.0-5.0 MORPHOLOGY COMMENT (test code=MOC) PLATELET ESTIMATE (test code=PLTEST) PLATELET MORPHOLOGY (test code=PLTMORPH) CBC W/MANUAL [id number] 06:21:00* Test Item Value Reference Range Comments WHITE BLOOD CELL (test code=WBC) 23.2 K/mm3 4.5-12.5 RED BLOOD CELL (test code=RBC) 3.59 mill/mm3 4.0-5.8 HEMOGLOBIN (test code=HGB) 8.8 gram/dL 13.0-17.5 HEMATOCRIT (test code=HCT) 29.0 % 42.0-52.0 MEAN CELL VOLUME (test code=MCV) 80.8 fL 80-98 MEAN CELL HGB (test code=MCH) 24.5 picogram 27.0-33.0 MEAN CELL HGB CONCETRATION (test code=MCHC) 30.3 gram/dL 33.0-36.0 RED CELL DISTRIBUTION WIDTH (test code=RDW) 17.9 % 11.6-16.2 RED CELL DISTRIBUTION WIDTH SD (test code=RDW-SD) 51.9 fL 37.0-51.0 PLATELET COUNT (test code=PLT) 377 K/mm3 150-450 MEAN PLATELET VOLUME (test code=MPV) 11.1 fL 6.7-11.0 IMMATURE GRANULOCYTE % (test code=IG%) 5.0 % 0.0-5.0 NUCLEATED RBC % (test code=NRBC%) 0.0 % 0-0 NEUTROPHIL # (test code=NT#) 15.63 K/mm3 1.8-7.7 IMMATURE GRANULOCYTE # (test code=IG#) 1.15 x10 3/uL 0-0.03 LYMPHOCYTE # (test code=LY#) 3.04 K/mm3 1.0-5.0 MONOCYTE # (test code=MO#) 2.33 K/mm3 0-0.8 EOSINOPHIL # (test code=EO#) 0.86 K/mm3 0.0-0.5 BASOPHIL # (test code=BA#) 0.22 K/mm3 0.0-0.2 NUCLEATED RBC # (test code=NRBC#) 0.00 K/mm3 0.0-0.1 MANUAL DIFF REQUIRED (test code=MDIFF) YES STAIN ACCEPTABILITY (test code=STN ACCEPTABLE) TOTAL CELLS COUNTED (test code=TCC) #CELLS SEGMENTED NEUTROPHILS (test code=SEG) % 39-69 LYMPHOCYTE (test code=LYMPH) % 25-55 MONOCYTE (test code=MON) % 0-10 MORPHOLOGY COMMENT (test code=MOC) PLATELET ESTIMATE (test code=PLTEST) PLATELET MORPHOLOGY (test code=PLTMORPH) CBC W/MANUAL [id number] 06:20:00* Test Item Value Reference Range Comments WHITE BLOOD CELL (test code=WBC) 23.2 K/mm3 4.5-12.5 RED BLOOD CELL (test code=RBC) 3.59 mill/mm3 4.0-5.8 HEMOGLOBIN (test code=HGB) 8.8 gram/dL 13.0-17.5 HEMATOCRIT (test code=HCT) 29.0 % 42.0-52.0 MEAN CELL VOLUME (test code=MCV) 80.8 fL 80-98 MEAN CELL HGB (test code=MCH) 24.5 picogram 27.0-33.0 MEAN CELL HGB CONCETRATION (test code=MCHC) 30.3 gram/dL 33.0-36.0 RED CELL DISTRIBUTION WIDTH (test code=RDW) 17.9 % 11.6-16.2 RED CELL DISTRIBUTION WIDTH SD (test code=RDW-SD) 51.9 fL 37.0-51.0 PLATELET COUNT (test code=PLT) 377 K/mm3 150-450 MEAN PLATELET VOLUME (test code=MPV) 11.1 fL 6.7-11.0 IMMATURE GRANULOCYTE % (test code=IG%) 5.0 % 0.0-5.0 NUCLEATED RBC % (test code=NRBC%) 0.0 % 0-0 NEUTROPHIL # (test code=NT#) 15.63 K/mm3 1.8-7.7 IMMATURE GRANULOCYTE # (test code=IG#) 1.15 x10 3/uL 0-0.03 LYMPHOCYTE # (test code=LY#) 3.04 K/mm3 1.0-5.0 MONOCYTE # (test code=MO#) 2.33 K/mm3 0-0.8 EOSINOPHIL # (test code=EO#) 0.86 K/mm3 0.0-0.5 BASOPHIL # (test code=BA#) 0.22 K/mm3 0.0-0.2 NUCLEATED RBC # (test code=NRBC#) 0.00 K/mm3 0.0-0.1 MANUAL DIFF REQUIRED (test code=MDIFF) YES STAIN ACCEPTABILITY (test code=STN ACCEPTABLE) TOTAL CELLS COUNTED (test code=TCC) #CELLS SEGMENTED NEUTROPHILS (test code=SEG) % 39-69 LYMPHOCYTE (test code=LYMPH) % 25-55 MONOCYTE (test code=MON) % 0-10 EOSINOPHIL (test code=EOS) % 0.0-5.0 CABOT RINGS (test code=CAB) MORPHOLOGY COMMENT (test code=MOC) PLATELET ESTIMATE (test code=PLTEST) PLATELET MORPHOLOGY (test code=PLTMORPH) CBC W/MANUAL [id number] 06:20:00* Test Item Value Reference Range Comments WHITE BLOOD CELL (test code=WBC) 23.2 K/mm3 4.5-12.5 RED BLOOD CELL (test code=RBC) 3.59 mill/mm3 4.0-5.8 HEMOGLOBIN (test code=HGB) 8.8 gram/dL 13.0-17.5 HEMATOCRIT (test code=HCT) 29.0 % 42.0-52.0 MEAN CELL VOLUME (test code=MCV) 80.8 fL 80-98 MEAN CELL HGB (test code=MCH) 24.5 picogram 27.0-33.0 MEAN CELL HGB CONCETRATION (test code=MCHC) 30.3 gram/dL 33.0-36.0 RED CELL DISTRIBUTION WIDTH (test code=RDW) 17.9 % 11.6-16.2 RED CELL DISTRIBUTION WIDTH SD (test code=RDW-SD) 51.9 fL 37.0-51.0 PLATELET COUNT (test code=PLT) 377 K/mm3 150-450 MEAN PLATELET VOLUME (test code=MPV) 11.1 fL 6.7-11.0 IMMATURE GRANULOCYTE % (test code=IG%) 5.0 % 0.0-5.0 NUCLEATED RBC % (test code=NRBC%) 0.0 % 0-0 NEUTROPHIL # (test code=NT#) 15.63 K/mm3 1.8-7.7 IMMATURE GRANULOCYTE # (test code=IG#) 1.15 x10 3/uL 0-0.03 LYMPHOCYTE # (test code=LY#) 3.04 K/mm3 1.0-5.0 MONOCYTE # (test code=MO#) 2.33 K/mm3 0-0.8 EOSINOPHIL # (test code=EO#) 0.86 K/mm3 0.0-0.5 BASOPHIL # (test code=BA#) 0.22 K/mm3 0.0-0.2 NUCLEATED RBC # (test code=NRBC#) 0.00 K/mm3 0.0-0.1 MANUAL DIFF REQUIRED (test code=MDIFF) YES STAIN ACCEPTABILITY (test code=STN ACCEPTABLE) TOTAL CELLS COUNTED (test code=TCC) #CELLS SEGMENTED NEUTROPHILS (test code=SEG) % 39-69 LYMPHOCYTE (test code=LYMPH) % 25-55 MONOCYTE (test code=MON) % 0-10 EOSINOPHIL (test code=EOS) % 0.0-5.0 CABOT RINGS (test code=CAB) MORPHOLOGY COMMENT (test code=MOC) PLATELET ESTIMATE (test code=PLTEST) PLATELET MORPHOLOGY (test code=PLTMORPH) BASIC METABOLIC [id number] 06:18:00* Test Item Value Reference Range Comments SODIUM (test code=NA) mmol/L 136-145 POTASSIUM (test code=K) mmol/L 3.5-5.1 CHLORIDE (test code=CL) mmol/L 98-107 CARBON DIOXIDE (test code=CO2) mmol/L 21-32 ANION GAP (test code=GAP) 10-20 GLUCOSE (test code=GLU) mg/dL 74-106 BLOOD UREA NITROGEN (test code=BUN) mg/dL 7-18 GLOMERULAR FILTRATION RATE (test code=GFR) mL/min >=60 CREATININE (test code=CREAT) mg/dL 0.7-1.3 BUN/CREATININE RATIO (test code=BUN/CREA) 10-20 CALCIUM (test code=CA) mg/dL 8.5-10.1 [id number] 06:18:00* Test Item Value Reference Range Comments PHOSPHORUS (test code=PHOS) mg/dL 2.5-4.9 [id number] 06:18:00* Test Item Value Reference Range Comments MAGNESIUM (test code=MAG) mg/dL 1.8-2.4 CALCIUM [id number] 06:18:00* Test Item Value Reference Range Comments CALCIUM IONIZED (test code=JESSICA) 1.29 mmol/L 1.12-1.32 [id number] 16:16:00* Test Item Value Reference Range Comments GLUBED (test code=GLUBED) 83 mg/dL 74-106 Performed by certified steel spar operator at [facility] BASIC METABOLIC [id number] 08:09:00* Test Item Value Reference Range Comments SODIUM (test code=NA) 139 mmol/L 136-145 POTASSIUM (test code=K) 3.3 mmol/L 3.5-5.1 CHLORIDE (test code=CL) 108.0 mmol/L 98-107 CARBON DIOXIDE (test code=CO2) 23.0 mmol/L 21-32 ANION GAP (test code=GAP) 11.3 10-20 GLUCOSE (test code=GLU) 85 mg/dL 74-106 BLOOD UREA NITROGEN (test code=BUN) 15 mg/dL 7-18 GLOMERULAR FILTRATION RATE (test code=GFR) > 60 mL/min >=60 Estimated GFR by using Modified MDRD formula.Chronic kidney disease is defined as either kidney damageor GFR <60 mL/min/1.73 m2 for >3 months. CREATININE (test code=CREAT) 1.10 mg/dL 0.7-1.3 BUN/CREATININE RATIO (test code=BUN/CREA) 13.6 10-20 CALCIUM (test code=CA) 9.6 mg/dL 8.5-10.1 [id number] 08:09:00* Test Item Value Reference Range Comments PHOSPHORUS (test code=PHOS) 2.2 mg/dL 2.5-4.9 [id number] 08:09:00* Test Item Value Reference Range Comments MAGNESIUM (test code=MAG) 1.6 mg/dL 1.8-2.4 CALCIUM [id number] 08:09:00* Test Item Value Reference Range Comments CALCIUM IONIZED (test code=JESSICA) 1.49 mmol/L 1.12-1.32 CBC W/MANUAL [id number] 08:05:00* Test Item Value Reference Range Comments WHITE BLOOD CELL (test code=WBC) 22.9 K/mm3 4.5-12.5 RED BLOOD CELL (test code=RBC) 3.01 mill/mm3 4.0-5.8 HEMOGLOBIN (test code=HGB) 7.5 gram/dL 13.0-17.5 HEMATOCRIT (test code=HCT) 23.9 % 42.0-52.0 MEAN CELL VOLUME (test code=MCV) 79.4 fL 80-98 MEAN CELL HGB (test code=MCH) 24.9 picogram 27.0-33.0 MEAN CELL HGB CONCETRATION (test code=MCHC) 31.4 gram/dL 33.0-36.0 RED CELL DISTRIBUTION WIDTH (test code=RDW) 17.1 % 11.6-16.2 RED CELL DISTRIBUTION WIDTH SD (test code=RDW-SD) 48.7 fL 37.0-51.0 PLATELET COUNT (test code=PLT) 382 K/mm3 150-450 MEAN PLATELET VOLUME (test code=MPV) 10.9 fL 6.7-11.0 IMMATURE GRANULOCYTE % (test code=IG%) 3.5 % 0.0-5.0 NUCLEATED RBC % (test code=NRBC%) 0.0 % 0-0 NEUTROPHIL # (test code=NT#) 15.92 K/mm3 1.8-7.7 IMMATURE GRANULOCYTE # (test code=IG#) 0.81 x10 3/uL 0-0.03 LYMPHOCYTE # (test code=LY#) 2.88 K/mm3 1.0-5.0 MONOCYTE # (test code=MO#) 2.28 K/mm3 0-0.8 EOSINOPHIL # (test code=EO#) 0.80 K/mm3 0.0-0.5 BASOPHIL # (test code=BA#) 0.17 K/mm3 0.0-0.2 NUCLEATED RBC # (test code=NRBC#) 0.00 K/mm3 0.0-0.1 MANUAL DIFF REQUIRED (test code=MDIFF) YES STAIN ACCEPTABILITY (test code=STN ACCEPTABLE) STAIN ACCEPTABLE TOTAL CELLS COUNTED (test code=TCC) 114 #CELLS SEGMENTED NEUTROPHILS (test code=SEG) 75.4 % 39-69 BAND NEUTROPHIL (test code=BAND) 0 % 0-10 LYMPHOCYTE (test code=LYMPH) 12.3 % 25-55 REACTIVE LYMPH (test code=RELYMPH) 0 % MONOCYTE (test code=MON) 6.1 % 0-10 EOSINOPHIL (test code=EOS) 4.4 % 0.0-5.0 BASOPHIL (test code=BASO) 1.8 % 0-1.0 METAMYELOCYTE (test code=META) 0 % 0-0 MYELOCYTE (test code=MYELO) 0 % 0.0-0.0 PROMYELOCYTE (test code=PROM) 0 % 0-0 ANISOCYTOSIS (test code=ANISO) 1+ MICROCYTOSIS (test code=MICR) 1+ PLATELET ESTIMATE (test code=PLTEST) ADEQUATE PLATELET MORPHOLOGY (test code=PLTMORPH) SIZE VARIABLE IMMATURE FORMS (test code=IMMAT) 0 % 0-0 BASIC METABOLIC [id number] 07:53:00* Test Item Value Reference Range Comments SODIUM (test code=NA) 139 mmol/L 136-145 POTASSIUM (test code=K) 3.3 mmol/L 3.5-5.1 CHLORIDE (test code=CL) 108.0 mmol/L 98-107 CARBON DIOXIDE (test code=CO2) 23.0 mmol/L 21-32 ANION GAP (test code=GAP) 11.3 10-20 GLUCOSE (test code=GLU) 85 mg/dL 74-106 BLOOD UREA NITROGEN (test code=BUN) 15 mg/dL 7-18 GLOMERULAR FILTRATION RATE (test code=GFR) > 60 mL/min >=60 Estimated GFR by using Modified MDRD formula.Chronic kidney disease is defined as either kidney damageor GFR <60 mL/min/1.73 m2 for >3 months. CREATININE (test code=CREAT) 1.10 mg/dL 0.7-1.3 BUN/CREATININE RATIO (test code=BUN/CREA) 13.6 10-20 CALCIUM (test code=CA) 9.6 mg/dL 8.5-10.1 [id number] 07:53:00* Test Item Value Reference Range Comments PHOSPHORUS (test code=PHOS) 2.2 mg/dL 2.5-4.9 [id number] 07:53:00* Test Item Value Reference Range Comments MAGNESIUM (test code=MAG) 1.6 mg/dL 1.8-2.4 CALCIUM [id number] 07:53:00* Test Item Value Reference Range Comments CALCIUM IONIZED (test code=JESSICA) mmol/L 1.12-1.32 BASIC METABOLIC [id number] 07:49:00* Test Item Value Reference Range Comments SODIUM (test code=NA) 139 mmol/L 136-145 POTASSIUM (test code=K) 3.3 mmol/L 3.5-5.1 CHLORIDE (test code=CL) 108.0 mmol/L 98-107 CARBON DIOXIDE (test code=CO2) mmol/L 21-32 ANION GAP (test code=GAP) 10-20 GLUCOSE (test code=GLU) mg/dL 74-106 BLOOD UREA NITROGEN (test code=BUN) mg/dL 7-18 GLOMERULAR FILTRATION RATE (test code=GFR) mL/min >=60 CREATININE (test code=CREAT) mg/dL 0.7-1.3 BUN/CREATININE RATIO (test code=BUN/CREA) 10-20 CALCIUM (test code=CA) mg/dL 8.5-10.1 [id number] 07:49:00* Test Item Value Reference Range Comments PHOSPHORUS (test code=PHOS) mg/dL 2.5-4.9 [id number] 07:49:00* Test Item Value Reference Range Comments MAGNESIUM (test code=MAG) mg/dL 1.8-2.4 CALCIUM [id number] 07:49:00* Test Item Value Reference Range Comments CALCIUM IONIZED (test code=JESSICA) mmol/L 1.12-1.32 - XR CHEST 1 [id number] 07:10:00 FAX: Jerica Moeller MD [phone] [place]: St: ADM FAX: Lizzy Hilario NP [phone] FAX: Lonnie Olson MD [phone] Name: CELESTINO MCALLISTER [facility] : 1970 Age/S: 48/M [address] [facility] Unit #: [id number] Loc: V[address] [place] [address] Phys: Lizzy Hilario NP Acct: [id number] Dis Date: Status: ADM IN [facility] #: [phone] Exam Date: 03/13/2019417 FAX #: [phone] Reason: sob EXAMS: CPT CODE: [id number] XR CHEST 1 V 72060 CLINICAL HISTO RY: Shortness of breath TECHNIQUE: AP chest x-ray CO MPARISON: 03/10/19 IMPRESSION: Improved left bas ilar consolidation. Right lung is clear. Normal heart size. Tracheostomy tube. Right central venous catheter. IVORY CARVER shunt projected over the right chest. 19 at 0710 Reported and signed by: Katie Rich D.O. CC: Jerica Shaffer MD; Lizzy Hilario PACKING INSPECTOR; Lonnie Olson MD echnologist: Rocio FIELDS(R) Trnscrd Date /Time/By: 03/13/2019 (0710) : By: [email or web address] Orig Print D/T: S: 019 (0738) PAGE 1 Signed Report CBC W/MANUAL [id number] 06:50:00* Test Item Value Reference Range Comments WHITE BLOOD CELL (test code=WBC) 22.9 K/mm3 4.5-12.5 RED BLOOD CELL (test code=RBC) 3.01 mill/mm3 4.0-5.8 HEMOGLOBIN (test code=HGB) 7.5 gram/dL 13.0-17.5 HEMATOCRIT (test code=HCT) 23.9 % 42.0-52.0 MEAN CELL VOLUME (test code=MCV) 79.4 fL 80-98 MEAN CELL HGB (test code=MCH) 24.9 picogram 27.0-33.0 MEAN CELL HGB CONCETRATION (test code=MCHC) 31.4 gram/dL 33.0-36.0 RED CELL DISTRIBUTION WIDTH (test code=RDW) 17.1 % 11.6-16.2 RED CELL DISTRIBUTION WIDTH SD (test code=RDW-SD) 48.7 fL 37.0-51.0 PLATELET COUNT (test code=PLT) 382 K/mm3 150-450 MEAN PLATELET VOLUME (test code=MPV) 10.9 fL 6.7-11.0 IMMATURE GRANULOCYTE % (test code=IG%) 3.5 % 0.0-5.0 NUCLEATED RBC % (test code=NRBC%) 0.0 % 0-0 NEUTROPHIL # (test code=NT#) 15.92 K/mm3 1.8-7.7 IMMATURE GRANULOCYTE # (test code=IG#) 0.81 x10 3/uL 0-0.03 LYMPHOCYTE # (test code=LY#) 2.88 K/mm3 1.0-5.0 MONOCYTE # (test code=MO#) 2.28 K/mm3 0-0.8 EOSINOPHIL # (test code=EO#) 0.80 K/mm3 0.0-0.5 BASOPHIL # (test code=BA#) 0.17 K/mm3 0.0-0.2 NUCLEATED RBC # (test code=NRBC#) 0.00 K/mm3 0.0-0.1 MANUAL DIFF REQUIRED (test code=MDIFF) YES STAIN ACCEPTABILITY (test code=STN ACCEPTABLE) TOTAL CELLS COUNTED (test code=TCC) #CELLS SEGMENTED NEUTROPHILS (test code=SEG) % 39-69 LYMPHOCYTE (test code=LYMPH) % 25-55 MONOCYTE (test code=MON) % 0-10 EOSINOPHIL (test code=EOS) % 0.0-5.0 CABOT RINGS (test code=CAB) MORPHOLOGY COMMENT (test code=MOC) PLATELET ESTIMATE (test code=PLTEST) PLATELET MORPHOLOGY (test code=PLTMORPH) CBC W/MANUAL [id number] 06:50:00* Test Item Value Reference Range Comments WHITE BLOOD CELL (test code=WBC) 22.9 K/mm3 4.5-12.5 RED BLOOD CELL (test code=RBC) 3.01 mill/mm3 4.0-5.8 HEMOGLOBIN (test code=HGB) 7.5 gram/dL 13.0-17.5 HEMATOCRIT (test code=HCT) 23.9 % 42.0-52.0 MEAN CELL VOLUME (test code=MCV) 79.4 fL 80-98 MEAN CELL HGB (test code=MCH) 24.9 picogram 27.0-33.0 MEAN CELL HGB CONCETRATION (test code=MCHC) 31.4 gram/dL 33.0-36.0 RED CELL DISTRIBUTION WIDTH (test code=RDW) 17.1 % 11.6-16.2 RED CELL DISTRIBUTION WIDTH SD (test code=RDW-SD) 48.7 fL 37.0-51.0 PLATELET COUNT (test code=PLT) 382 K/mm3 150-450 MEAN PLATELET VOLUME (test code=MPV) 10.9 fL 6.7-11.0 IMMATURE GRANULOCYTE % (test code=IG%) 3.5 % 0.0-5.0 NUCLEATED RBC % (test code=NRBC%) 0.0 % 0-0 NEUTROPHIL # (test code=NT#) 15.92 K/mm3 1.8-7.7 IMMATURE GRANULOCYTE # (test code=IG#) 0.81 x10 3/uL 0-0.03 LYMPHOCYTE # (test code=LY#) 2.88 K/mm3 1.0-5.0 MONOCYTE # (test code=MO#) 2.28 K/mm3 0-0.8 EOSINOPHIL # (test code=EO#) 0.80 K/mm3 0.0-0.5 BASOPHIL # (test code=BA#) 0.17 K/mm3 0.0-0.2 NUCLEATED RBC # (test code=NRBC#) 0.00 K/mm3 0.0-0.1 MANUAL DIFF REQUIRED (test code=MDIFF) YES STAIN ACCEPTABILITY (test code=STN ACCEPTABLE) TOTAL CELLS COUNTED (test code=TCC) #CELLS SEGMENTED NEUTROPHILS (test code=SEG) % 39-69 LYMPHOCYTE (test code=LYMPH) % 25-55 MONOCYTE (test code=MON) % 0-10 EOSINOPHIL (test code=EOS) % 0.0-5.0 MORPHOLOGY COMMENT (test code=MOC) PLATELET ESTIMATE (test code=PLTEST) PLATELET MORPHOLOGY (test code=PLTMORPH) CBC W/MANUAL [id number] 06:50:00* Test Item Value Reference Range Comments WHITE BLOOD CELL (test code=WBC) 22.9 K/mm3 4.5-12.5 RED BLOOD CELL (test code=RBC) 3.01 mill/mm3 4.0-5.8 HEMOGLOBIN (test code=HGB) 7.5 gram/dL 13.0-17.5 HEMATOCRIT (test code=HCT) 23.9 % 42.0-52.0 MEAN CELL VOLUME (test code=MCV) 79.4 fL 80-98 MEAN CELL HGB (test code=MCH) 24.9 picogram 27.0-33.0 MEAN CELL HGB CONCETRATION (test code=MCHC) 31.4 gram/dL 33.0-36.0 RED CELL DISTRIBUTION WIDTH (test code=RDW) 17.1 % 11.6-16.2 RED CELL DISTRIBUTION WIDTH SD (test code=RDW-SD) 48.7 fL 37.0-51.0 PLATELET COUNT (test code=PLT) 382 K/mm3 150-450 MEAN PLATELET VOLUME (test code=MPV) 10.9 fL 6.7-11.0 IMMATURE GRANULOCYTE % (test code=IG%) 3.5 % 0.0-5.0 NUCLEATED RBC % (test code=NRBC%) 0.0 % 0-0 NEUTROPHIL # (test code=NT#) 15.92 K/mm3 1.8-7.7 IMMATURE GRANULOCYTE # (test code=IG#) 0.81 x10 3/uL 0-0.03 LYMPHOCYTE # (test code=LY#) 2.88 K/mm3 1.0-5.0 MONOCYTE # (test code=MO#) 2.28 K/mm3 0-0.8 EOSINOPHIL # (test code=EO#) 0.80 K/mm3 0.0-0.5 BASOPHIL # (test code=BA#) 0.17 K/mm3 0.0-0.2 NUCLEATED RBC # (test code=NRBC#) 0.00 K/mm3 0.0-0.1 MANUAL DIFF REQUIRED (test code=MDIFF) YES STAIN ACCEPTABILITY (test code=STN ACCEPTABLE) TOTAL CELLS COUNTED (test code=TCC) #CELLS SEGMENTED NEUTROPHILS (test code=SEG) % 39-69 LYMPHOCYTE (test code=LYMPH) % 25-55 MONOCYTE (test code=MON) % 0-10 MORPHOLOGY COMMENT (test code=MOC) PLATELET ESTIMATE (test code=PLTEST) PLATELET MORPHOLOGY (test code=PLTMORPH) CBC W/MANUAL [id number] 06:49:00* Test Item Value Reference Range Comments WHITE BLOOD CELL (test code=WBC) 22.9 K/mm3 4.5-12.5 RED BLOOD CELL (test code=RBC) 3.01 mill/mm3 4.0-5.8 HEMOGLOBIN (test code=HGB) 7.5 gram/dL 13.0-17.5 HEMATOCRIT (test code=HCT) 23.9 % 42.0-52.0 MEAN CELL VOLUME (test code=MCV) 79.4 fL 80-98 MEAN CELL HGB (test code=MCH) 24.9 picogram 27.0-33.0 MEAN CELL HGB CONCETRATION (test code=MCHC) 31.4 gram/dL 33.0-36.0 RED CELL DISTRIBUTION WIDTH (test code=RDW) 17.1 % 11.6-16.2 RED CELL DISTRIBUTION WIDTH SD (test code=RDW-SD) 48.7 fL 37.0-51.0 PLATELET COUNT (test code=PLT) 382 K/mm3 150-450 MEAN PLATELET VOLUME (test code=MPV) 10.9 fL 6.7-11.0 IMMATURE GRANULOCYTE % (test code=IG%) 3.5 % 0.0-5.0 NUCLEATED RBC % (test code=NRBC%) 0.0 % 0-0 NEUTROPHIL # (test code=NT#) 15.92 K/mm3 1.8-7.7 IMMATURE GRANULOCYTE # (test code=IG#) 0.81 x10 3/uL 0-0.03 LYMPHOCYTE # (test code=LY#) 2.88 K/mm3 1.0-5.0 MONOCYTE # (test code=MO#) 2.28 K/mm3 0-0.8 EOSINOPHIL # (test code=EO#) 0.80 K/mm3 0.0-0.5 BASOPHIL # (test code=BA#) 0.17 K/mm3 0.0-0.2 NUCLEATED RBC # (test code=NRBC#) 0.00 K/mm3 0.0-0.1 MANUAL DIFF REQUIRED (test code=MDIFF) YES STAIN ACCEPTABILITY (test code=STN ACCEPTABLE) TOTAL CELLS COUNTED (test code=TCC) #CELLS SEGMENTED NEUTROPHILS (test code=SEG) % 39-69 LYMPHOCYTE (test code=LYMPH) % 25-55 MONOCYTE (test code=MON) % 0-10 EOSINOPHIL (test code=EOS) % 0.0-5.0 CABOT RINGS (test code=CAB) MORPHOLOGY COMMENT (test code=MOC) PLATELET ESTIMATE (test code=PLTEST) PLATELET MORPHOLOGY (test code=PLTMORPH) CBC W/MANUAL [id number] 06:49:00* Test Item Value Reference Range Comments WHITE BLOOD CELL (test code=WBC) 22.9 K/mm3 4.5-12.5 RED BLOOD CELL (test code=RBC) 3.01 mill/mm3 4.0-5.8 HEMOGLOBIN (test code=HGB) 7.5 gram/dL 13.0-17.5 HEMATOCRIT (test code=HCT) 23.9 % 42.0-52.0 MEAN CELL VOLUME (test code=MCV) 79.4 fL 80-98 MEAN CELL HGB (test code=MCH) 24.9 picogram 27.0-33.0 MEAN CELL HGB CONCETRATION (test code=MCHC) 31.4 gram/dL 33.0-36.0 RED CELL DISTRIBUTION WIDTH (test code=RDW) 17.1 % 11.6-16.2 RED CELL DISTRIBUTION WIDTH SD (test code=RDW-SD) 48.7 fL 37.0-51.0 PLATELET COUNT (test code=PLT) 382 K/mm3 150-450 MEAN PLATELET VOLUME (test code=MPV) 10.9 fL 6.7-11.0 IMMATURE GRANULOCYTE % (test code=IG%) 3.5 % 0.0-5.0 NUCLEATED RBC % (test code=NRBC%) 0.0 % 0-0 NEUTROPHIL # (test code=NT#) 15.92 K/mm3 1.8-7.7 IMMATURE GRANULOCYTE # (test code=IG#) 0.81 x10 3/uL 0-0.03 LYMPHOCYTE # (test code=LY#) 2.88 K/mm3 1.0-5.0 MONOCYTE # (test code=MO#) 2.28 K/mm3 0-0.8 EOSINOPHIL # (test code=EO#) 0.80 K/mm3 0.0-0.5 BASOPHIL # (test code=BA#) 0.17 K/mm3 0.0-0.2 NUCLEATED RBC # (test code=NRBC#) 0.00 K/mm3 0.0-0.1 MANUAL DIFF REQUIRED (test code=MDIFF) YES STAIN ACCEPTABILITY (test code=STN ACCEPTABLE) TOTAL CELLS COUNTED (test code=TCC) #CELLS SEGMENTED NEUTROPHILS (test code=SEG) % 39-69 LYMPHOCYTE (test code=LYMPH) % 25-55 MONOCYTE (test code=MON) % 0-10 EOSINOPHIL (test code=EOS) % 0.0-5.0 CABOT RINGS (test code=CAB) MORPHOLOGY COMMENT (test code=MOC) PLATELET ESTIMATE (test code=PLTEST) PLATELET MORPHOLOGY (test code=PLTMORPH) ARTERIAL BLOOD [id number] 05:11:00* Test Item Value Reference Range Comments ARTERIAL BLOOD GAS PH (test code=PHA) 7.51 7.35-7.45 ARTERIAL BLOOD GAS PCO2 (test code=PCO2A) 26.2 mm Hg 35-45 ARTERIAL BLOOD GAS PO2 (test code=PO2A) 154.8 mmHg 80-100 BICARBONATE TOTAL HCO3 (test code=HCO3) 20.4 mmol/L 23.0-27.0 BASE EXCESS (test code=MARISELA) -2.0 mmol/L -3.0-5.0 ABG O2 SATURATION (test code=SATA) 98.4 % 90.0-98.0 ABG TYPE (test code=TYPEA) Arterial FIO2 (test code=FIO2A) 30.0 ABG L/M (test code=L/M) 50.00 L/MIN ABG VENT MODE (test code=MODEA) Assist Control ABG VENT RESP RATE (test code=RRA) 12.0 per min ABG TIDAL VOLUME (test code=TVA) 450.0 mL ABG PEEP (test code=PEEPA) 6.0 cmH2O ABG SITE (test code=SITEA) Rt RADIAL ARTERY MODIFIED ALLENS (test code=MODALL) Yes CHECK PERFORMED SODIUM (test code=NA/ABG) 136.4 mEq/L 135-148 POTASSIUM (test code=K/ABG) 3.5 mEq/L 3.5-4.5 CHLORIDE (test code=CL/ABG) 107 mEq/L 98-106 GLUCOSE (test code=GLU/ABG) 93 mg/dL 74-99 HEMATOCRIT (test code=HCT/ABG) 25 % 42-52 IONIZED CALCIUM (test code=CAIABG) 1.31 mmol/L 1.1-1.37 TOTAL HGB (test code=THB) 8.5 gram/dL 13.0-17.5 HGB O2 SAT (test code=HBOSAT) 97.7 % 94.00-98.00 CARBOXYHEMOGLOBIN (test code=HOHGBT) 0.3 %totalHg 0.5-1.5 Results called to and read back by Eliseo 05:09 - 03/13/2019; by Asim Stone, SAMPLING THEORY TEACHER-CASHIER SELF SERVICE GASOLINE METHEMOGLOBIN (test code=METHGB) 0.4 % 0.0-1.50 O2 CONTENT (test code=O2CT) 12.0 % vol 18.0-22.0 [id number] 03:28:00* Test Item Value Reference Range Comments GLUBED (test code=GLUBED) 93 mg/dL 74-106 Performed by certified steel spar operator at [facility] HGB [id number] 20:11:00* Test Item Value Reference Range Comments HEMOGLOBIN (test code=HGB) 7.8 gram/dL 13.0-17.5 HEMATOCRIT (test code=HCT) 24.1 % 42.0-52.0 [id number] 12:50:00* Test Item Value Reference Range Comments GLUBED (test code=GLUBED) 101 mg/dL 74-106 Performed by certified steel spar operator at [facility] [id number] 07:43:00* Test Item Value Reference Range Comments GLUBED (test code=GLUBED) 113 mg/dL 74-106 Performed by certified steel spar operator at [facility] [id number] 07:16:00* Test Item Value Reference Range Comments GLUBED (test code=GLUBED) 105 mg/dL 74-106 Performed by certified steel spar operator at [facility] BASIC METABOLIC [id number] 06:48:00* Test Item Value Reference Range Comments SODIUM (test code=NA) 140 mmol/L 136-145 POTASSIUM (test code=K) 2.8 mmol/L 3.5-5.1 Results called to [id number] by ANTHONY 03/12/19 0626Critical results verified and read back by Nurse? Y CHLORIDE (test code=CL) 108.0 mmol/L 98-107 CARBON DIOXIDE (test code=CO2) 23.0 mmol/L 21-32 ANION GAP (test code=GAP) 11.8 10-20 GLUCOSE (test code=GLU) 115 mg/dL 74-106 BLOOD UREA NITROGEN (test code=BUN) 18 mg/dL 7-18 GLOMERULAR FILTRATION RATE (test code=GFR) > 60 mL/min >=60 Estimated GFR by using Modified MDRD formula.Chronic kidney disease is defined as either kidney damageor GFR <60 mL/min/1.73 m2 for >3 months. CREATININE (test code=CREAT) 1.30 mg/dL 0.7-1.3 BUN/CREATININE RATIO (test code=BUN/CREA) 13.8 10-20 CALCIUM (test code=CA) 9.5 mg/dL 8.5-10.1 [id number] 06:48:00* Test Item Value Reference Range Comments PHOSPHORUS (test code=PHOS) 1.4 mg/dL 2.5-4.9 [id number] 06:48:00* Test Item Value Reference Range Comments MAGNESIUM (test code=MAG) 1.8 mg/dL 1.8-2.4 CALCIUM [id number] 06:48:00* Test Item Value Reference Range Comments CALCIUM IONIZED (test code=JESSICA) 1.49 mmol/L 1.12-1.32 BASIC METABOLIC [id number] 06:40:00* Test Item Value Reference Range Comments SODIUM (test code=NA) 140 mmol/L 136-145 POTASSIUM (test code=K) 2.8 mmol/L 3.5-5.1 Results called to [id number] by ANTHONY 03/12/19 0626Critical results verified and read back by Nurse? Y CHLORIDE (test code=CL) 108.0 mmol/L 98-107 CARBON DIOXIDE (test code=CO2) 23.0 mmol/L 21-32 ANION GAP (test code=GAP) 11.8 10-20 GLUCOSE (test code=GLU) 115 mg/dL 74-106 BLOOD UREA NITROGEN (test code=BUN) 18 mg/dL 7-18 GLOMERULAR FILTRATION RATE (test code=GFR) > 60 mL/min >=60 Estimated GFR by using Modified MDRD formula.Chronic kidney disease is defined as either kidney damageor GFR <60 mL/min/1.73 m2 for >3 months. CREATININE (test code=CREAT) 1.30 mg/dL 0.7-1.3 BUN/CREATININE RATIO (test code=BUN/CREA) 13.8 10-20 CALCIUM (test code=CA) 9.5 mg/dL 8.5-10.1 [id number] 06:40:00* Test Item Value Reference Range Comments PHOSPHORUS (test code=PHOS) 1.4 mg/dL 2.5-4.9 [id number] 06:40:00* Test Item Value Reference Range Comments MAGNESIUM (test code=MAG) 1.8 mg/dL 1.8-2.4 CALCIUM [id number] 06:40:00* Test Item Value Reference Range Comments CALCIUM IONIZED (test code=JESSICA) mmol/L 1.12-1.32 CBC W/AUTO [id number] 06:27:00* Test Item Value Reference Range Comments WHITE BLOOD CELL (test code=WBC) 19.0 K/mm3 4.5-12.5 RED BLOOD CELL (test code=RBC) 2.47 mill/mm3 4.0-5.8 HEMOGLOBIN (test code=HGB) 5.9 gram/dL 13.0-17.5 HEMATOCRIT (test code=HCT) 19.1 % 42.0-52.0 Results called to [id number] by PEPITO 03/12/19 0626Critical results verified and read back by Nurse? Y MEAN CELL VOLUME (test code=MCV) 77.3 fL 80-98 MEAN CELL HGB (test code=MCH) 23.9 picogram 27.0-33.0 MEAN CELL HGB CONCETRATION (test code=MCHC) 30.9 gram/dL 33.0-36.0 RED CELL DISTRIBUTION WIDTH (test code=RDW) 17.0 % 11.6-16.2 RED CELL DISTRIBUTION WIDTH SD (test code=RDW-SD) 48.0 fL 37.0-51.0 PLATELET COUNT (test code=PLT) 373 K/mm3 150-450 RESULT VERIFIED BY REPEAT ANALYSIS MEAN PLATELET VOLUME (test code=MPV) 10.6 fL 6.7-11.0 NEUTROPHIL % (test code=NT%) 65.5 % 39.0-69.0 IMMATURE GRANULOCYTE % (test code=IG%) 2.7 % 0.0-5.0 LYMPHOCYTE % (test code=LY%) 17.8 % 25.0-55.0 MONOCYTE % (test code=MO%) 10.7 % 0.0-10.0 EOSINOPHIL % (test code=EO%) 2.8 % 0.0-5.0 BASOPHIL % (test code=BA%) 0.5 % 0.0-1.0 NUCLEATED RBC % (test code=NRBC%) 0.0 % 0-0 NEUTROPHIL # (test code=NT#) 12.47 K/mm3 1.8-7.7 IMMATURE GRANULOCYTE # (test code=IG#) 0.51 x10 3/uL 0-0.03 LYMPHOCYTE # (test code=LY#) 3.38 K/mm3 1.0-5.0 MONOCYTE # (test code=MO#) 2.03 K/mm3 0-0.8 EOSINOPHIL # (test code=EO#) 0.54 K/mm3 0.0-0.5 BASOPHIL # (test code=BA#) 0.09 K/mm3 0.0-0.2 NUCLEATED RBC # (test code=NRBC#) 0.00 K/mm3 0.0-0.1 ARTERIAL BLOOD [id number] 06:07:00* Test Item Value Reference Range Comments ARTERIAL BLOOD GAS PH (test code=PHA) 7.53 7.35-7.45 ARTERIAL BLOOD GAS PCO2 (test code=PCO2A) 22.8 mm Hg 35-45 Results called to and read back by [facility] : - 03/12/2019; by Asim Stone SAMPLING THEORY TEACHER-CASHIER SELF SERVICE GASOLINE ARTERIAL BLOOD GAS PO2 (test code=PO2A) 151.0 mmHg 80-100 BICARBONATE TOTAL HCO3 (test code=HCO3) 18.5 mmol/L 23.0-27.0 BASE EXCESS (test code=MARISELA) -3.8 mmol/L -3.0-5.0 Results called to and read back by [facility] - 03/12/2019; by Asim Stone RRT-CASHIER SELF SERVICE GASOLINE ABG O2 SATURATION (test code=SATA) 98.3 % 90.0-98.0 ABG TYPE (test code=TYPEA) Arterial FIO2 (test code=FIO2A) 30.0 ABG L/M (test code=L/M) 50.00 L/MIN ABG VENT MODE (test code=MODEA) Assist Control ABG VENT RESP RATE (test code=RRA) 14.0 per min ABG TIDAL VOLUME (test code=TVA) 500.0 mL ABG PEEP (test code=PEEPA) 7.0 cmH2O ABG SITE (test code=SITEA) Rt RADIAL ARTERY MODIFIED ALLENS (test code=MODALL) Yes CHECK PERFORMED SODIUM (test code=NA/ABG) 135.5 mEq/L 135-148 POTASSIUM (test code=K/ABG) 3.0 mEq/L 3.5-4.5 CHLORIDE (test code=CL/ABG) 103 mEq/L 98-106 GLUCOSE (test code=GLU/ABG) 98 mg/dL 74-99 HEMATOCRIT (test code=HCT/ABG) 20 % 42-52 IONIZED CALCIUM (test code=CAIABG) 1.32 mmol/L 1.1-1.37 TOTAL HGB (test code=THB) 6.8 gram/dL 13.0-17.5 HGB O2 SAT (test code=HBOSAT) 97.7 % 94.00-98.00 CARBOXYHEMOGLOBIN (test code=HOHGBT) 0.3 %totalHg 0.5-1.5 Results called to and read back by Eliseo 06:02 - 03/12/2019; by Asim Stone, SAMPLING THEORY TEACHER-CASHIER SELF SERVICE GASOLINE METHEMOGLOBIN (test code=METHGB) 0.3 % 0.0-1.50 O2 CONTENT (test code=O2CT) 9.7 % vol 18.0-22.0 [id number] 03:17:00* Test Item Value Reference Range Comments GLUBED (test code=GLUBED) 108 mg/dL 74-106 Performed by certified steel spar operator at [facility] [id number] 23:49:00* Test Item Value Reference Range Comments GLUBED (test code=GLUBED) 95 mg/dL 74-106 Performed by certified steel spar operator at [facility] [id number] 21:16:00* Test Item Value Reference Range Comments GLUBED (test code=GLUBED) 91 mg/dL 74-106 Performed by certified steel spar operator at [facility] [id number] 17:15:00* Test Item Value Reference Range Comments GLUBED (test code=GLUBED) 92 mg/dL 74-106 Performed by certified steel spar operator at [facility] [id number] 11:41:00* Test Item Value Reference Range Comments GLUBED (test code=GLUBED) 102 mg/dL 74-106 Performed by certified steel spar operator at [facility] [id number] 09:14:00* Test Item Value Reference Range Comments TROPONIN-I (test code=TROPI) 0.772 ng/mL 0-0.045 PREVIOUSLY CALLED [id number] 08:57:00* Test Item Value Reference Range Comments GLUBED (test code=GLUBED) 90 mg/dL 74-106 Performed by certified steel spar operator at [facility] LACTIC [id number] 08:07:00* Test Item Value Reference Range Comments LACTIC ACID (test code=LACT) 1.3 mmol/L 0.4-1.9 [id number] 06:33:00* Test Item Value Reference Range Comments GLUBED (test code=GLUBED) 99 mg/dL 74-106 Performed by certified steel spar operator at [facility] PROCALCITONIN (PCT)2019-03-11 02:54:00* Test Item Value Reference Range Comments PROCALCITONIN (PCT) (test code=PROCAL) 9.29 ng/ml Concentration Interpretation (ng/mL) <0.51 Sepsis is not likely. Local bacterial infection is possible. (LOW RISK for progression to Sepsis) 0.51 - 2.00 Sepsis is possible, but other conditions are known to elevate PCT as well. (MODERATE RISK for progression to Sepsis) > 2.00 Sepsis is likely, unless other causes are known. (HIGH RISK for progression to Severe Sepsis or Septic Shock) 10.00 High likelihood of Severe Sepsis or Septic or higher Shock. *Increased PCT levels may not always be related to systemic bacterial infection.*Low PCT levels do not automatically exclude the presence of bacterial infection.*All results should be interpreted taking into account the patients history. BASIC METABOLIC [id number] 02:51:00* Test Item Value Reference Range Comments SODIUM (test code=NA) 137 mmol/L 136-145 POTASSIUM (test code=K) 3.7 mmol/L 3.5-5.1 CHLORIDE (test code=CL) 105.0 mmol/L 98-107 CARBON DIOXIDE (test code=CO2) 22.0 mmol/L 21-32 ANION GAP (test code=GAP) 13.7 10-20 GLUCOSE (test code=GLU) 109 mg/dL 74-106 BLOOD UREA NITROGEN (test code=BUN) 19 mg/dL 7-18 GLOMERULAR FILTRATION RATE (test code=GFR) > 60 mL/min >=60 Estimated GFR by using Modified MDRD formula.Chronic kidney disease is defined as either kidney damageor GFR <60 mL/min/1.73 m2 for >3 months. CREATININE (test code=CREAT) 1.30 mg/dL 0.7-1.3 BUN/CREATININE RATIO (test code=BUN/CREA) 14.6 10-20 CALCIUM (test code=CA) 9.9 mg/dL 8.5-10.1 BASIC METABOLIC [id number] 02:44:00* Test Item Value Reference Range Comments SODIUM (test code=NA) 137 mmol/L 136-145 POTASSIUM (test code=K) 3.7 mmol/L 3.5-5.1 CHLORIDE (test code=CL) 105.0 mmol/L 98-107 CARBON DIOXIDE (test code=CO2) mmol/L 21-32 ANION GAP (test code=GAP) 10-20 GLUCOSE (test code=GLU) mg/dL 74-106 BLOOD UREA NITROGEN (test code=BUN) mg/dL 7-18 GLOMERULAR FILTRATION RATE (test code=GFR) mL/min >=60 CREATININE (test code=CREAT) mg/dL 0.7-1.3 BUN/CREATININE RATIO (test code=BUN/CREA) 10-20 CALCIUM (test code=CA) mg/dL 8.5-10.1 [id number] 02:36:00* Test Item Value Reference Range Comments TROPONIN-I (test code=TROPI) 0.915 ng/mL 0-0.045 PREVIOULSY CALLED CBC W/MANUAL [id number] 02:35:00* Test Item Value Reference Range Comments WHITE BLOOD CELL (test code=WBC) 23.3 K/mm3 4.5-12.5 RED BLOOD CELL (test code=RBC) 2.94 mill/mm3 4.0-5.8 HEMOGLOBIN (test code=HGB) 7.1 gram/dL 13.0-17.5 HEMATOCRIT (test code=HCT) 23.4 % 42.0-52.0 MEAN CELL VOLUME (test code=MCV) 79.6 fL 80-98 MEAN CELL HGB (test code=MCH) 24.1 picogram 27.0-33.0 MEAN CELL HGB CONCETRATION (test code=MCHC) 30.3 gram/dL 33.0-36.0 RED CELL DISTRIBUTION WIDTH (test code=RDW) 17.0 % 11.6-16.2 RED CELL DISTRIBUTION WIDTH SD (test code=RDW-SD) 49.1 fL 37.0-51.0 PLATELET COUNT (test code=PLT) 437 K/mm3 150-450 RESULT VERIFIED BY REPEAT ANALYSIS MEAN PLATELET VOLUME (test code=MPV) 10.5 fL 6.7-11.0 NEUTROPHIL % (test code=NT%) 78.5 % 39.0-69.0 IMMATURE GRANULOCYTE % (test code=IG%) 1.4 % 0.0-5.0 LYMPHOCYTE % (test code=LY%) 9.7 % 25.0-55.0 MONOCYTE % (test code=MO%) 9.3 % 0.0-10.0 EOSINOPHIL % (test code=EO%) 0.6 % 0.0-5.0 BASOPHIL % (test code=BA%) 0.5 % 0.0-1.0 NUCLEATED RBC % (test code=NRBC%) 0.0 % 0-0 NEUTROPHIL # (test code=NT#) 18.32 K/mm3 1.8-7.7 IMMATURE GRANULOCYTE # (test code=IG#) 0.32 x10 3/uL 0-0.03 LYMPHOCYTE # (test code=LY#) 2.25 K/mm3 1.0-5.0 MONOCYTE # (test code=MO#) 2.17 K/mm3 0-0.8 EOSINOPHIL # (test code=EO#) 0.14 K/mm3 0.0-0.5 BASOPHIL # (test code=BA#) 0.11 K/mm3 0.0-0.2 NUCLEATED RBC # (test code=NRBC#) 0.00 K/mm3 0.0-0.1 STAIN ACCEPTABILITY (test code=STN ACCEPTABLE) STAIN ACCEPTABLE TOTAL CELLS COUNTED (test code=TCC) 114 #CELLS SEGMENTED NEUTROPHILS (test code=SEG) 87.7 % 39-69 BAND NEUTROPHIL (test code=BAND) 0 % 0-10 LYMPHOCYTE (test code=LYMPH) 3.5 % 25-55 REACTIVE LYMPH (test code=RELYMPH) 0 % MONOCYTE (test code=MON) 3.5 % 0-10 EOSINOPHIL (test code=EOS) 0.9 % 0.0-5.0 BASOPHIL (test code=BASO) 2.6 % 0-1.0 METAMYELOCYTE (test code=META) 0 % 0-0 MYELOCYTE (test code=MYELO) 0 % 0.0-0.0 PROMYELOCYTE (test code=PROM) 0 % 0-0 POLYCHROMASIA (test code=POLC) 1+ HYPOCHROMIA (test code=HYPO) 1+ POIKILOCYTOSIS (test code=POIK) 1+ ANISOCYTOSIS (test code=ANISO) 1+ MICROCYTOSIS (test code=MICR) 1+ MACROCYTOSIS (test code=MACR) 1+ ROULEAUX (test code=ROU) SLIGHT PLATELET ESTIMATE (test code=PLTEST) ADEQUATE PLATELET MORPHOLOGY (test code=PLTMORPH) CLUMPING PRESENT IMMATURE FORMS (test code=IMMAT) 1.8 % 0-0 [id number] 02:34:00* Test Item Value Reference Range Comments GLUBED (test code=GLUBED) 110 mg/dL 74-106 Performed by certified steel spar operator at [facility] CBC W/MANUAL [id number] 01:58:00* Test Item Value Reference Range Comments WHITE BLOOD CELL (test code=WBC) 23.3 K/mm3 4.5-12.5 RED BLOOD CELL (test code=RBC) 2.94 mill/mm3 4.0-5.8 HEMOGLOBIN (test code=HGB) 7.1 gram/dL 13.0-17.5 HEMATOCRIT (test code=HCT) 23.4 % 42.0-52.0 MEAN CELL VOLUME (test code=MCV) 79.6 fL 80-98 MEAN CELL HGB (test code=MCH) 24.1 picogram 27.0-33.0 MEAN CELL HGB CONCETRATION (test code=MCHC) 30.3 gram/dL 33.0-36.0 RED CELL DISTRIBUTION WIDTH (test code=RDW) 17.0 % 11.6-16.2 RED CELL DISTRIBUTION WIDTH SD (test code=RDW-SD) 49.1 fL 37.0-51.0 PLATELET COUNT (test code=PLT) 437 K/mm3 150-450 RESULT VERIFIED BY REPEAT ANALYSIS MEAN PLATELET VOLUME (test code=MPV) 10.5 fL 6.7-11.0 NEUTROPHIL % (test code=NT%) 78.5 % 39.0-69.0 IMMATURE GRANULOCYTE % (test code=IG%) 1.4 % 0.0-5.0 LYMPHOCYTE % (test code=LY%) 9.7 % 25.0-55.0 MONOCYTE % (test code=MO%) 9.3 % 0.0-10.0 EOSINOPHIL % (test code=EO%) 0.6 % 0.0-5.0 BASOPHIL % (test code=BA%) 0.5 % 0.0-1.0 NUCLEATED RBC % (test code=NRBC%) 0.0 % 0-0 NEUTROPHIL # (test code=NT#) 18.32 K/mm3 1.8-7.7 IMMATURE GRANULOCYTE # (test code=IG#) 0.32 x10 3/uL 0-0.03 LYMPHOCYTE # (test code=LY#) 2.25 K/mm3 1.0-5.0 MONOCYTE # (test code=MO#) 2.17 K/mm3 0-0.8 EOSINOPHIL # (test code=EO#) 0.14 K/mm3 0.0-0.5 BASOPHIL # (test code=BA#) 0.11 K/mm3 0.0-0.2 NUCLEATED RBC # (test code=NRBC#) 0.00 K/mm3 0.0-0.1 STAIN ACCEPTABILITY (test code=STN ACCEPTABLE) TOTAL CELLS COUNTED (test code=TCC) #CELLS SEGMENTED NEUTROPHILS (test code=SEG) % 39-69 LYMPHOCYTE (test code=LYMPH) % 25-55 MONOCYTE (test code=MON) % 0-10 MORPHOLOGY COMMENT (test code=MOC) PLATELET ESTIMATE (test code=PLTEST) PLATELET MORPHOLOGY (test code=PLTMORPH) - CT CHEST W/[id number] 23:28:00 Name: CELESTINO MCALLISTER [facility] : 1970 Age/S: 48 / M [address] [facility] Unit #: [id number] Loc: [place] [address] Phys: Geetha Haynes MD Acct: [id number] Dis Date: Status: ADM IN PHONE #: [phone] Exam Date: 03/10/2019 2320 FAX #: [phone] Reason: SOB ,resp secretions EXAMS: CPT CODE: [id number] CT CHEST W/CONTRAST [id number] CT OF THE CHEST WITH CONTRAST Dictation Location: N13 CLINICAL HISTORY: Shortness of breath and increased respiratory secretions TECHNIQUE: Helical CT of the chest was performed after the intravenous administration of 100cc of Isovue 300 without complications. 2-D sagittal and Coronal reconstructions were obtained. This exam was performed according to our departmental dose optimization program, which includes automated exposure control, adjustment of the mA and/ or KV according to patient size and/or use of iterative reconstruction technique. DLP 337 mGy*cm Comparison study chest x-ray today FINDINGS: The tracheostomy tube in the trachea unremarkable in appearance. Proximal tracheobronchial tree is unremarkable without evidence of pooled secretions. There is a moderate alveolar infiltrate in the left lung consistent with a pneumonia. The right lung is clear. Adrenal glands are normal. There is no pleural effusion. Heart size is normal. No pericardial effusion. No ev idence of supraclavicular, mediastinal or axillary adenopathy. IMPRESSION: 1. Moderate diffuse left-sided alveolar infiltrates co nsistent with a pneumonia. 2. Tracheostomy and trachea are unre markable. a t [id number] Reported and signed by: Francesca Adams M.D. CC: Jerica Shaffer MD; Geetha Haynes MD; Lonnie Olson MD Technologist:RT VICKY CTDI: DLP: Trnscb Date/Time: 03/10/2019 ( 2327) t.SDR.MVT Orig Print D/T: S: 03/10/2019 (3033) PAGE 1 Signed Report [id number] 22:38:00* Test Item Value Reference Range Comments GLUBED (test code=GLUBED) 97 mg/dL 74-106 Performed by certified steel spar operator at [facility] CBC W/MANUAL [id number] 21:23:00* Test Item Value Reference Range Comments WHITE BLOOD CELL (test code=WBC) 16.5 K/mm3 4.5-12.5 RED BLOOD CELL (test code=RBC) 2.92 mill/mm3 4.0-5.8 HEMOGLOBIN (test code=HGB) 7.5 gram/dL 13.0-17.5 HEMATOCRIT (test code=HCT) 23.3 % 42.0-52.0 MEAN CELL VOLUME (test code=MCV) 79.8 fL 80-98 MEAN CELL HGB (test code=MCH) 25.7 picogram 27.0-33.0 MEAN CELL HGB CONCETRATION (test code=MCHC) 32.2 gram/dL 33.0-36.0 RED CELL DISTRIBUTION WIDTH (test code=RDW) 19.0 % 11.6-16.2 RED CELL DISTRIBUTION WIDTH SD (test code=RDW-SD) 51.7 fL 37.0-51.0 PLATELET COUNT (test code=PLT) 279 K/mm3 150-450 RESULT VERIFIED BY REPEAT ANALYSIS MEAN PLATELET VOLUME (test code=MPV) 13.3 fL 6.7-11.0 IMMATURE GRANULOCYTE % (test code=IG%) 2.1 % 0.0-5.0 NUCLEATED RBC % (test code=NRBC%) 0.0 % 0-0 NEUTROPHIL # (test code=NT#) 12.96 K/mm3 1.8-7.7 IMMATURE GRANULOCYTE # (test code=IG#) 0.35 x10 3/uL 0-0.03 LYMPHOCYTE # (test code=LY#) 1.50 K/mm3 1.0-5.0 MONOCYTE # (test code=MO#) 1.33 K/mm3 0-0.8 EOSINOPHIL # (test code=EO#) 0.18 K/mm3 0.0-0.5 BASOPHIL # (test code=BA#) 0.13 K/mm3 0.0-0.2 NUCLEATED RBC # (test code=NRBC#) 0.00 K/mm3 0.0-0.1 MANUAL DIFF REQUIRED (test code=MDIFF) YES STAIN ACCEPTABILITY (test code=STN ACCEPTABLE) STAIN ACCEPTABLE TOTAL CELLS COUNTED (test code=TCC) 105 #CELLS SEGMENTED NEUTROPHILS (test code=SEG) 79.4 % 39-69 BAND NEUTROPHIL (test code=BAND) 7.5 % 0-10 LYMPHOCYTE (test code=LYMPH) 1.9 % 25-55 REACTIVE LYMPH (test code=RELYMPH) 0.9 % MONOCYTE (test code=MON) 8.4 % 0-10 EOSINOPHIL (test code=EOS) 1.9 % 0.0-5.0 BASOPHIL (test code=BASO) 0 % 0-1.0 METAMYELOCYTE (test code=META) 0 % 0-0 MYELOCYTE (test code=MYELO) 0 % 0.0-0.0 PROMYELOCYTE (test code=PROM) 0 % 0-0 ANISOCYTOSIS (test code=ANISO) 1+ VACUOLATED NEUTROPHILS (test code=VN) 1+ PLATELET ESTIMATE (test code=PLTEST) ADEQUATE PLATELET MORPHOLOGY (test code=PLTMORPH) NORMAL IMMATURE FORMS (test code=IMMAT) 0 % 0-0 CBC W/MANUAL [id number] 21:13:00* Test Item Value Reference Range Comments WHITE BLOOD CELL (test code=WBC) 16.5 K/mm3 4.5-12.5 RED BLOOD CELL (test code=RBC) 2.92 mill/mm3 4.0-5.8 HEMOGLOBIN (test code=HGB) 7.5 gram/dL 13.0-17.5 HEMATOCRIT (test code=HCT) 23.3 % 42.0-52.0 MEAN CELL VOLUME (test code=MCV) 79.8 fL 80-98 MEAN CELL HGB (test code=MCH) 25.7 picogram 27.0-33.0 MEAN CELL HGB CONCETRATION (test code=MCHC) 32.2 gram/dL 33.0-36.0 RED CELL DISTRIBUTION WIDTH (test code=RDW) 19.0 % 11.6-16.2 RED CELL DISTRIBUTION WIDTH SD (test code=RDW-SD) 51.7 fL 37.0-51.0 PLATELET COUNT (test code=PLT) 279 K/mm3 150-450 RESULT VERIFIED BY REPEAT ANALYSIS MEAN PLATELET VOLUME (test code=MPV) 13.3 fL 6.7-11.0 IMMATURE GRANULOCYTE % (test code=IG%) 2.1 % 0.0-5.0 NUCLEATED RBC % (test code=NRBC%) 0.0 % 0-0 NEUTROPHIL # (test code=NT#) 12.96 K/mm3 1.8-7.7 IMMATURE GRANULOCYTE # (test code=IG#) 0.35 x10 3/uL 0-0.03 LYMPHOCYTE # (test code=LY#) 1.50 K/mm3 1.0-5.0 MONOCYTE # (test code=MO#) 1.33 K/mm3 0-0.8 EOSINOPHIL # (test code=EO#) 0.18 K/mm3 0.0-0.5 BASOPHIL # (test code=BA#) 0.13 K/mm3 0.0-0.2 NUCLEATED RBC # (test code=NRBC#) 0.00 K/mm3 0.0-0.1 MANUAL DIFF REQUIRED (test code=MDIFF) YES STAIN ACCEPTABILITY (test code=STN ACCEPTABLE) STAIN ACCEPTABLE TOTAL CELLS COUNTED (test code=TCC) 105 #CELLS SEGMENTED NEUTROPHILS (test code=SEG) 79.4 % 39-69 BAND NEUTROPHIL (test code=BAND) 7.5 % 0-10 LYMPHOCYTE (test code=LYMPH) 1.9 % 25-55 REACTIVE LYMPH (test code=RELYMPH) 0.9 % MONOCYTE (test code=MON) 8.4 % 0-10 EOSINOPHIL (test code=EOS) 1.9 % 0.0-5.0 BASOPHIL (test code=BASO) 0 % 0-1.0 METAMYELOCYTE (test code=META) 0 % 0-0 MYELOCYTE (test code=MYELO) 0 % 0.0-0.0 PROMYELOCYTE (test code=PROM) 0 % 0-0 ANISOCYTOSIS (test code=ANISO) 1+ PLATELET ESTIMATE (test code=PLTEST) ADEQUATE PLATELET MORPHOLOGY (test code=PLTMORPH) NORMAL IMMATURE FORMS (test code=IMMAT) 0 % 0-0 LACTIC [id number] 21:05:00* Test Item Value Reference Range Comments LACTIC ACID (test code=LACT) 1.7 mmol/L 0.4-1.9 [id number] 19:57:00* Test Item Value Reference Range Comments GLUBED (test code=GLUBED) 58 mg/dL 74-106 Performed by certified steel spar operator at [facility] COMPREHENSIVE METABOLIC [id number] 19:50:00* Test Item Value Reference Range Comments SODIUM (test code=NA) 139 mmol/L 136-145 POTASSIUM (test code=K) 4.2 mmol/L 3.5-5.1 CHLORIDE (test code=CL) 106.0 mmol/L 98-107 CARBON DIOXIDE (test code=CO2) 21.0 mmol/L 21-32 ANION GAP (test code=GAP) 16.2 10-20 GLUCOSE (test code=GLU) 69 mg/dL 74-106 BLOOD UREA NITROGEN (test code=BUN) 19 mg/dL 7-18 GLOMERULAR FILTRATION RATE (test code=GFR) > 60 mL/min >=60 Estimated GFR by using Modified MDRD formula.Chronic kidney disease is defined as either kidney damageor GFR <60 mL/min/1.73 m2 for >3 months. CREATININE (test code=CREAT) 1.20 mg/dL 0.7-1.3 BUN/CREATININE RATIO (test code=BUN/CREA) 15.8 10-20 TOTAL PROTEIN (test code=PROT) 7.0 gram/dL 6.4-8.2 ALBUMIN (test code=ALB) 2.9 g/dL 3.4-5.0 GLOBULIN (test code=GLOB) 4.1 gram/dL 2.7-4.2 ALBUMIN/GLOBULIN RATIO (test code=A/G) 0.7 0.75-1.50 CALCIUM (test code=CA) 10.2 mg/dL 8.5-10.1 BILIRUBIN TOTAL (test code=BILT) 0.20 mg/dL 0.0-1.0 SGOT/AST (test code=AST) 13 IUnit/L 15-37 SGPT/ALT (test code=ALT) 23 IUnit/L 12-78 ALKALINE PHOSPHATASE TOTAL (test code=ALKP) 142 IUnit/L 45-117 Note change in reference range due to change in reagent. [id number] 19:50:00* Test Item Value Reference Range Comments LIPASE (test code=LIP) 58 U/L 73.0-393.0 [id number] 19:50:00* Test Item Value Reference Range Comments TROPONIN-I (test code=TROPI) 0.248 ng/mL 0-0.045 Results called to [id number] by V.LAB. 03/10/19 1950Critical results verified and read back by Nurse? Y [id number] 19:49:00* Test Item Value Reference Range Comments CKMB (test code=CKMBT) 1.2 ng/mL 0-6.0 COMPREHENSIVE METABOLIC [id number] 19:35:00* Test Item Value Reference Range Comments SODIUM (test code=NA) 139 mmol/L 136-145 POTASSIUM (test code=K) 4.2 mmol/L 3.5-5.1 CHLORIDE (test code=CL) 106.0 mmol/L 98-107 CARBON DIOXIDE (test code=CO2) mmol/L 21-32 ANION GAP (test code=GAP) 10-20 GLUCOSE (test code=GLU) mg/dL 74-106 BLOOD UREA NITROGEN (test code=BUN) mg/dL 7-18 GLOMERULAR FILTRATION RATE (test code=GFR) mL/min >=60 CREATININE (test code=CREAT) mg/dL 0.7-1.3 BUN/CREATININE RATIO (test code=BUN/CREA) 10-20 TOTAL PROTEIN (test code=PROT) gram/dL 6.4-8.2 ALBUMIN (test code=ALB) g/dL 3.4-5.0 GLOBULIN (test code=GLOB) gram/dL 2.7-4.2 ALBUMIN/GLOBULIN RATIO (test code=A/G) 0.75-1.50 CALCIUM (test code=CA) mg/dL 8.5-10.1 BILIRUBIN TOTAL (test code=BILT) mg/dL 0.0-1.0 SGOT/AST (test code=AST) IUnit/L 15-37 SGPT/ALT (test code=ALT) IUnit/L 12-78 ALKALINE PHOSPHATASE TOTAL (test code=ALKP) IUnit/L 45-117 [id number] 19:35:00* Test Item Value Reference Range Comments LIPASE (test code=LIP) U/L 73.0-393.0 [id number] 19:35:00* Test Item Value Reference Range Comments TROPONIN-I (test code=TROPI) ng/mL 0-0.045 ARTERIAL BLOOD [id number] 19:19:00* Test Item Value Reference Range Comments ARTERIAL BLOOD GAS PH (test code=PHA) 7.44 7.35-7.45 ARTERIAL BLOOD GAS PCO2 (test code=PCO2A) 29.1 mm Hg 35-45 ARTERIAL BLOOD GAS PO2 (test code=PO2A) 221.4 mmHg 80-100 BICARBONATE TOTAL HCO3 (test code=HCO3) 19.5 mmol/L 23.0-27.0 BASE EXCESS (test code=MARISELA) -3.9 mmol/L -3.0-5.0 Results called to and read back by Tobias 19:12 - 03/10/2019; by ASIM STONE, SAMPLING THEORY TEACHER ABG O2 SATURATION (test code=SATA) 99.6 % 90.0-98.0 ABG TYPE (test code=TYPEA) Arterial FIO2 (test code=FIO2A) 80.0 ABG L/M (test code=L/M) 44.00 L/MIN ABG VENT MODE (test code=MODEA) Assist Control ABG VENT RESP RATE (test code=RRA) 16.0 per min ABG TIDAL VOLUME (test code=TVA) 500.0 mL ABG PEEP (test code=PEEPA) 8.0 cmH2O ABG TEMPERATURE (test code=TEMPA) 37.8 Celsius ABG SITE (test code=SITEA) Rt BRACHIAL ARTERY MODIFIED ALLENS (test code=MODALL) Unable CHECK PERFORMED SODIUM (test code=NA/ABG) 140.8 mEq/L 135-148 POTASSIUM (test code=K/ABG) 4.1 mEq/L 3.5-4.5 CHLORIDE (test code=CL/ABG) 107 mEq/L 98-106 GLUCOSE (test code=GLU/ABG) 77 mg/dL 74-99 HEMATOCRIT (test code=HCT/ABG) 24 % 42-52 IONIZED CALCIUM (test code=CAIABG) 1.36 mmol/L 1.1-1.37 TOTAL HGB (test code=THB) 8.1 gram/dL 13.0-17.5 HGB O2 SAT (test code=HBOSAT) 97.9 % 94.00-98.00 CARBOXYHEMOGLOBIN (test code=HOHGBT) 1.1 %totalHg 0.5-1.5 METHEMOGLOBIN (test code=METHGB) 0.6 % 0.0-1.50 O2 CONTENT (test code=O2CT) 11.7 % vol 18.0-22.0 A-A GRADIENT (test code=AAGRADE) 311.7 mm Hg B-TYPE NATRIURETIC [id number] 19:08:00* Test Item Value Reference Range Comments B-TYPE NATRIURETIC PEPTIDE (test code=BNP) 124.09 pgram/mL 0-100 LACTIC [id number] 18:37:00* Test Item Value Reference Range Comments LACTIC ACID (test code=LACT) 4.4 mmol/L 0.4-1.9 Results called to [id number] by V.LAB. 03/10/19 1837Critical results verified and read back by Nurse? Y CBC W/MANUAL [id number] 18:26:00* Test Item Value Reference Range Comments WHITE BLOOD CELL (test code=WBC) 16.5 K/mm3 4.5-12.5 RED BLOOD CELL (test code=RBC) 2.92 mill/mm3 4.0-5.8 HEMOGLOBIN (test code=HGB) 7.5 gram/dL 13.0-17.5 HEMATOCRIT (test code=HCT) 23.3 % 42.0-52.0 MEAN CELL VOLUME (test code=MCV) 79.8 fL 80-98 MEAN CELL HGB (test code=MCH) 25.7 picogram 27.0-33.0 MEAN CELL HGB CONCETRATION (test code=MCHC) 32.2 gram/dL 33.0-36.0 RED CELL DISTRIBUTION WIDTH (test code=RDW) 19.0 % 11.6-16.2 RED CELL DISTRIBUTION WIDTH SD (test code=RDW-SD) 51.7 fL 37.0-51.0 PLATELET COUNT (test code=PLT) 279 K/mm3 150-450 RESULT VERIFIED BY REPEAT ANALYSIS MEAN PLATELET VOLUME (test code=MPV) 13.3 fL 6.7-11.0 IMMATURE GRANULOCYTE % (test code=IG%) 2.1 % 0.0-5.0 NUCLEATED RBC % (test code=NRBC%) 0.0 % 0-0 NEUTROPHIL # (test code=NT#) 12.96 K/mm3 1.8-7.7 IMMATURE GRANULOCYTE # (test code=IG#) 0.35 x10 3/uL 0-0.03 LYMPHOCYTE # (test code=LY#) 1.50 K/mm3 1.0-5.0 MONOCYTE # (test code=MO#) 1.33 K/mm3 0-0.8 EOSINOPHIL # (test code=EO#) 0.18 K/mm3 0.0-0.5 BASOPHIL # (test code=BA#) 0.13 K/mm3 0.0-0.2 NUCLEATED RBC # (test code=NRBC#) 0.00 K/mm3 0.0-0.1 MANUAL DIFF REQUIRED (test code=MDIFF) YES STAIN ACCEPTABILITY (test code=STN ACCEPTABLE) TOTAL CELLS COUNTED (test code=TCC) #CELLS SEGMENTED NEUTROPHILS (test code=SEG) % 39-69 LYMPHOCYTE (test code=LYMPH) % 25-55 MONOCYTE (test code=MON) % 0-10 EOSINOPHIL (test code=EOS) % 0.0-5.0 CABOT RINGS (test code=CAB) MORPHOLOGY COMMENT (test code=MOC) PLATELET ESTIMATE (test code=PLTEST) PLATELET MORPHOLOGY (test code=PLTMORPH) CBC W/MANUAL [id number] 18:26:00* Test Item Value Reference Range Comments WHITE BLOOD CELL (test code=WBC) 16.5 K/mm3 4.5-12.5 RED BLOOD CELL (test code=RBC) 2.92 mill/mm3 4.0-5.8 HEMOGLOBIN (test code=HGB) 7.5 gram/dL 13.0-17.5 HEMATOCRIT (test code=HCT) 23.3 % 42.0-52.0 MEAN CELL VOLUME (test code=MCV) 79.8 fL 80-98 MEAN CELL HGB (test code=MCH) 25.7 picogram 27.0-33.0 MEAN CELL HGB CONCETRATION (test code=MCHC) 32.2 gram/dL 33.0-36.0 RED CELL DISTRIBUTION WIDTH (test code=RDW) 19.0 % 11.6-16.2 RED CELL DISTRIBUTION WIDTH SD (test code=RDW-SD) 51.7 fL 37.0-51.0 PLATELET COUNT (test code=PLT) 279 K/mm3 150-450 RESULT VERIFIED BY REPEAT ANALYSIS MEAN PLATELET VOLUME (test code=MPV) 13.3 fL 6.7-11.0 IMMATURE GRANULOCYTE % (test code=IG%) 2.1 % 0.0-5.0 NUCLEATED RBC % (test code=NRBC%) 0.0 % 0-0 NEUTROPHIL # (test code=NT#) 12.96 K/mm3 1.8-7.7 IMMATURE GRANULOCYTE # (test code=IG#) 0.35 x10 3/uL 0-0.03 LYMPHOCYTE # (test code=LY#) 1.50 K/mm3 1.0-5.0 MONOCYTE # (test code=MO#) 1.33 K/mm3 0-0.8 EOSINOPHIL # (test code=EO#) 0.18 K/mm3 0.0-0.5 BASOPHIL # (test code=BA#) 0.13 K/mm3 0.0-0.2 NUCLEATED RBC # (test code=NRBC#) 0.00 K/mm3 0.0-0.1 MANUAL DIFF REQUIRED (test code=MDIFF) YES STAIN ACCEPTABILITY (test code=STN ACCEPTABLE) TOTAL CELLS COUNTED (test code=TCC) #CELLS SEGMENTED NEUTROPHILS (test code=SEG) % 39-69 LYMPHOCYTE (test code=LYMPH) % 25-55 MONOCYTE (test code=MON) % 0-10 EOSINOPHIL (test code=EOS) % 0.0-5.0 CABOT RINGS (test code=CAB) MORPHOLOGY COMMENT (test code=MOC) PLATELET ESTIMATE (test code=PLTEST) PLATELET MORPHOLOGY (test code=PLTMORPH) CBC W/MANUAL [id number] 18:26:00* Test Item Value Reference Range Comments WHITE BLOOD CELL (test code=WBC) 16.5 K/mm3 4.5-12.5 RED BLOOD CELL (test code=RBC) 2.92 mill/mm3 4.0-5.8 HEMOGLOBIN (test code=HGB) 7.5 gram/dL 13.0-17.5 HEMATOCRIT (test code=HCT) 23.3 % 42.0-52.0 MEAN CELL VOLUME (test code=MCV) 79.8 fL 80-98 MEAN CELL HGB (test code=MCH) 25.7 picogram 27.0-33.0 MEAN CELL HGB CONCETRATION (test code=MCHC) 32.2 gram/dL 33.0-36.0 RED CELL DISTRIBUTION WIDTH (test code=RDW) 19.0 % 11.6-16.2 RED CELL DISTRIBUTION WIDTH SD (test code=RDW-SD) 51.7 fL 37.0-51.0 PLATELET COUNT (test code=PLT) 279 K/mm3 150-450 RESULT VERIFIED BY REPEAT ANALYSIS MEAN PLATELET VOLUME (test code=MPV) 13.3 fL 6.7-11.0 IMMATURE GRANULOCYTE % (test code=IG%) 2.1 % 0.0-5.0 NUCLEATED RBC % (test code=NRBC%) 0.0 % 0-0 NEUTROPHIL # (test code=NT#) 12.96 K/mm3 1.8-7.7 IMMATURE GRANULOCYTE # (test code=IG#) 0.35 x10 3/uL 0-0.03 LYMPHOCYTE # (test code=LY#) 1.50 K/mm3 1.0-5.0 MONOCYTE # (test code=MO#) 1.33 K/mm3 0-0.8 EOSINOPHIL # (test code=EO#) 0.18 K/mm3 0.0-0.5 BASOPHIL # (test code=BA#) 0.13 K/mm3 0.0-0.2 NUCLEATED RBC # (test code=NRBC#) 0.00 K/mm3 0.0-0.1 MANUAL DIFF REQUIRED (test code=MDIFF) YES STAIN ACCEPTABILITY (test code=STN ACCEPTABLE) TOTAL CELLS COUNTED (test code=TCC) #CELLS SEGMENTED NEUTROPHILS (test code=SEG) % 39-69 LYMPHOCYTE (test code=LYMPH) % 25-55 MONOCYTE (test code=MON) % 0-10 EOSINOPHIL (test code=EOS) % 0.0-5.0 MORPHOLOGY COMMENT (test code=MOC) PLATELET ESTIMATE (test code=PLTEST) PLATELET MORPHOLOGY (test code=PLTMORPH) CBC W/MANUAL [id number] 18:26:00* Test Item Value Reference Range Comments WHITE BLOOD CELL (test code=WBC) 16.5 K/mm3 4.5-12.5 RED BLOOD CELL (test code=RBC) 2.92 mill/mm3 4.0-5.8 HEMOGLOBIN (test code=HGB) 7.5 gram/dL 13.0-17.5 HEMATOCRIT (test code=HCT) 23.3 % 42.0-52.0 MEAN CELL VOLUME (test code=MCV) 79.8 fL 80-98 MEAN CELL HGB (test code=MCH) 25.7 picogram 27.0-33.0 MEAN CELL HGB CONCETRATION (test code=MCHC) 32.2 gram/dL 33.0-36.0 RED CELL DISTRIBUTION WIDTH (test code=RDW) 19.0 % 11.6-16.2 RED CELL DISTRIBUTION WIDTH SD (test code=RDW-SD) 51.7 fL 37.0-51.0 PLATELET COUNT (test code=PLT) 279 K/mm3 150-450 RESULT VERIFIED BY REPEAT ANALYSIS MEAN PLATELET VOLUME (test code=MPV) 13.3 fL 6.7-11.0 IMMATURE GRANULOCYTE % (test code=IG%) 2.1 % 0.0-5.0 NUCLEATED RBC % (test code=NRBC%) 0.0 % 0-0 NEUTROPHIL # (test code=NT#) 12.96 K/mm3 1.8-7.7 IMMATURE GRANULOCYTE # (test code=IG#) 0.35 x10 3/uL 0-0.03 LYMPHOCYTE # (test code=LY#) 1.50 K/mm3 1.0-5.0 MONOCYTE # (test code=MO#) 1.33 K/mm3 0-0.8 EOSINOPHIL # (test code=EO#) 0.18 K/mm3 0.0-0.5 BASOPHIL # (test code=BA#) 0.13 K/mm3 0.0-0.2 NUCLEATED RBC # (test code=NRBC#) 0.00 K/mm3 0.0-0.1 MANUAL DIFF REQUIRED (test code=MDIFF) YES STAIN ACCEPTABILITY (test code=STN ACCEPTABLE) TOTAL CELLS COUNTED (test code=TCC) #CELLS SEGMENTED NEUTROPHILS (test code=SEG) % 39-69 LYMPHOCYTE (test code=LYMPH) % 25-55 MONOCYTE (test code=MON) % 0-10 MORPHOLOGY COMMENT (test code=MOC) PLATELET ESTIMATE (test code=PLTEST) PLATELET MORPHOLOGY (test code=PLTMORPH) CBC W/MANUAL [id number] 18:26:00* Test Item Value Reference Range Comments WHITE BLOOD CELL (test code=WBC) 16.5 K/mm3 4.5-12.5 RED BLOOD CELL (test code=RBC) 2.92 mill/mm3 4.0-5.8 HEMOGLOBIN (test code=HGB) 7.5 gram/dL 13.0-17.5 HEMATOCRIT (test code=HCT) 23.3 % 42.0-52.0 MEAN CELL VOLUME (test code=MCV) 79.8 fL 80-98 MEAN CELL HGB (test code=MCH) 25.7 picogram 27.0-33.0 MEAN CELL HGB CONCETRATION (test code=MCHC) 32.2 gram/dL 33.0-36.0 RED CELL DISTRIBUTION WIDTH (test code=RDW) 19.0 % 11.6-16.2 RED CELL DISTRIBUTION WIDTH SD (test code=RDW-SD) 51.7 fL 37.0-51.0 PLATELET COUNT (test code=PLT) 279 K/mm3 150-450 RESULT VERIFIED BY REPEAT ANALYSIS MEAN PLATELET VOLUME (test code=MPV) 13.3 fL 6.7-11.0 IMMATURE GRANULOCYTE % (test code=IG%) 2.1 % 0.0-5.0 NUCLEATED RBC % (test code=NRBC%) 0.0 % 0-0 NEUTROPHIL # (test code=NT#) 12.96 K/mm3 1.8-7.7 IMMATURE GRANULOCYTE # (test code=IG#) 0.35 x10 3/uL 0-0.03 LYMPHOCYTE # (test code=LY#) 1.50 K/mm3 1.0-5.0 MONOCYTE # (test code=MO#) 1.33 K/mm3 0-0.8 EOSINOPHIL # (test code=EO#) 0.18 K/mm3 0.0-0.5 BASOPHIL # (test code=BA#) 0.13 K/mm3 0.0-0.2 NUCLEATED RBC # (test code=NRBC#) 0.00 K/mm3 0.0-0.1 MANUAL DIFF REQUIRED (test code=MDIFF) YES STAIN ACCEPTABILITY (test code=STN ACCEPTABLE) TOTAL CELLS COUNTED (test code=TCC) #CELLS SEGMENTED NEUTROPHILS (test code=SEG) % 39-69 LYMPHOCYTE (test code=LYMPH) % 25-55 MONOCYTE (test code=MON) % 0-10 EOSINOPHIL (test code=EOS) % 0.0-5.0 CABOT RINGS (test code=CAB) MORPHOLOGY COMMENT (test code=MOC) PLATELET ESTIMATE (test code=PLTEST) PLATELET MORPHOLOGY (test code=PLTMORPH) - XR CHEST 1 [id number] 18:11:00 FAX: Jerica Moeller MD [phone] [place]: B St: ADM FAX: Lonnie Olson MD [phone] FAX: Diandra Dodson [phone] Name: CELESTINO MCALLISTER [facility] : 1970 Age/S: 48/M [address] #: [id number] Loc: [place] [address] Phys: Diandra Hernandez MD Acct: [id number] Dis Date: Status: ADM IN ONE #: [phone] Exam Date: 03/10/2019 180 FAX #: [phone] Reason: post r ij central line EXAMS: CPT CODE: [id number] XR CHEST 1 V 90022 REASON FOR EXAM: post r ij central line EXAM ORDER DATE: 03/10/2019 5:36 P M Ordering Damaris: Diandra Hernandez MD PROCEDURE: - XR CHEST 1 V COMPARISON: 03/10/2019 at 4:32 PM FINDI NGS: Portable AP frontal view of the chest obtained at 5:59 PM shows dens e consolidation at the left lower lobe. The heart size is within normal li mits. Pulmonary vasculatures are minimally congested. Stable appearance o f the tracheostomy tube. IMPRESSION: Newly placed right IJ cent ral line tip is in the SVC at 181 Reported and signed by: Reg Jordan M.D. CC: Jerica Shaffer MD; Lonnie Olson MD; Adam Hernandez MD Technologist: LEXY GAY RT(R) Trnkatarzyna Da te/Time/By: 03/10/2019 (1810) : By: JadL Orig Print D/T: S: 03/10 (1813) PAGE 1 Signed Report - XR CHEST 1 [id number] 17:36:00 FAX: Jerica Moeller MD [phone] [place]: St: ADM FAX: Lonnie Olson MD [phone] FAX: Diandra Dodson --------- Name: CELESTINO MCALLISTER [facility] : 1970 Age/S: 48/M [address] it #: [id number] Loc: [place], [place] [address] Phys: Diandra Hernandez MD Acct: [id number] Dis Date: Status: ADM IN ONE #: [phone] Exam Date: 03/10/2019 1645 FAX #: [phone] Reason: sob EXAMS: CPT CODE: [id number] XR CHEST 1 V [id number] REASON FOR EXAM: sob EXAM ORDER DATE: 03/10/2019 4:29 PM Homa thao M.D.: Diandra Hernandez MD PROCEDURE: - XR CHEST 1 V COMPARISON: 03/09/2019 FINDINGS: Portable AP frontal view of the chest obtained at 4:32 PM shows moderately dense opacity at the le ft base. The heart size is within normal limits. Pulmonary vasculatures ar e minimally congested. Stable appearance of the tracheostomy tube. IMPRESSION: New development of moderate consolidation of the left bas e with a small left pleural effusion superimposed on the early c ongestive heart failure Electronically Signed by Damaris Jordan on 04/2019 at 7978 Reported and signed by: Reg Jordan M.D. CC: Jerica Shaffer MD; Lonnie Olson MD; Diandra Hernandez MD Tech nologist: LEXY GAY, RT(R) Trnscrd Date/Ti me/By: 03/10/2019 (4187) : By: JadL Orig Print D/T: S: 03/10/2019 (6344) PAGE 1 Signed Report ARTERIAL BLOOD [id number] 17:35:00* Test Item Value Reference Range Comments ARTERIAL BLOOD GAS PH (test code=PHA) 7.41 7.35-7.45 ARTERIAL BLOOD GAS PCO2 (test code=PCO2A) 26.5 mm Hg 35-45 ARTERIAL BLOOD GAS PO2 (test code=PO2A) 112.4 mmHg 80-100 BICARBONATE TOTAL HCO3 (test code=HCO3) 16.5 mmol/L 23.0-27.0 BASE EXCESS (test code=MARISELA) -6.8 mmol/L -3.0-5.0 Results called to and read back by Tobias 17:35 - 03/10/2019; by [id number] ABG O2 SATURATION (test code=SATA) 98.1 % 90.0-98.0 ABG TYPE (test code=TYPEA) Arterial FIO2 (test code=FIO2A) 100.0 ABG VENT MODE (test code=MODEA) Assist Control ABG VENT RESP RATE (test code=RRA) 16.0 per min ABG TIDAL VOLUME (test code=TVA) 500.0 mL ABG PEEP (test code=PEEPA) 5.0 cmH2O ABG SITE (test code=SITEA) Rt RADIAL ARTERY SODIUM (test code=NA/ABG) 137.4 mEq/L 135-148 POTASSIUM (test code=K/ABG) 4.4 mEq/L 3.5-4.5 CHLORIDE (test code=CL/ABG) 105 mEq/L 98-106 GLUCOSE (test code=GLU/ABG) 86 mg/dL 74-99 HEMATOCRIT (test code=HCT/ABG) 32 % 42-52 IONIZED CALCIUM (test code=CAIABG) 1.32 mmol/L 1.1-1.37 TOTAL HGB (test code=THB) 10.8 gram/dL 13.0-17.5 HGB O2 SAT (test code=HBOSAT) 97.4 % 94.00-98.00 CARBOXYHEMOGLOBIN (test code=HOHGBT) 0.4 %totalHg 0.5-1.5 Results called to and read back by Tobias 17:35 - 03/10/2019; by [id number] METHEMOGLOBIN (test code=METHGB) 0.3 % 0.0-1.50 O2 CONTENT (test code=O2CT) 15.0 % vol 18.0-22.0 [id number] 11:07:00* Test Item Value Reference Range Comments PHENOBARBITAL (test code=PHENO) 13.4 ug/mL 15.0-40 [id number] 10:45:00* Test Item Value Reference Range Comments TROPONIN-I (test code=TROPI) <0.015 ng/mL 0-0.045 COMMENTS TO WORK ORDER CLERK: COLLECT 3 HOURS AFTER PREVIOUS SAMPLEBASIC METABOLIC [id number] 10:16:00* Test Item Value Reference Range Comments SODIUM (test code=NA) 137 mmol/L 136-145 POTASSIUM (test code=K) 4.0 mmol/L 3.5-5.1 CHLORIDE (test code=CL) 105.0 mmol/L 98-107 CARBON DIOXIDE (test code=CO2) 24.0 mmol/L 21-32 ANION GAP (test code=GAP) 12.0 10-20 GLUCOSE (test code=GLU) 83 mg/dL 74-106 BLOOD UREA NITROGEN (test code=BUN) 20 mg/dL 7-18 GLOMERULAR FILTRATION RATE (test code=GFR) > 60 mL/min >=60 Estimated GFR by using Modified MDRD formula.Chronic kidney disease is defined as either kidney damageor GFR <60 mL/min/1.73 m2 for >3 months. CREATININE (test code=CREAT) 1.10 mg/dL 0.7-1.3 BUN/CREATININE RATIO (test code=BUN/CREA) 18.2 10-20 CALCIUM (test code=CA) 10.4 mg/dL 8.5-10.1 BASIC METABOLIC [id number] 10:13:00* Test Item Value Reference Range Comments SODIUM (test code=NA) 137 mmol/L 136-145 POTASSIUM (test code=K) 4.0 mmol/L 3.5-5.1 CHLORIDE (test code=CL) 105.0 mmol/L 98-107 CARBON DIOXIDE (test code=CO2) mmol/L 21-32 ANION GAP (test code=GAP) 10-20 GLUCOSE (test code=GLU) mg/dL 74-106 BLOOD UREA NITROGEN (test code=BUN) mg/dL 7-18 GLOMERULAR FILTRATION RATE (test code=GFR) mL/min >=60 CREATININE (test code=CREAT) mg/dL 0.7-1.3 BUN/CREATININE RATIO (test code=BUN/CREA) 10-20 CALCIUM (test code=CA) mg/dL 8.5-10.1 CBC W/MANUAL [id number] 10:01:00* Test Item Value Reference Range Comments WHITE BLOOD CELL (test code=WBC) 22.7 K/mm3 4.5-12.5 RED BLOOD CELL (test code=RBC) 3.36 mill/mm3 4.0-5.8 HEMOGLOBIN (test code=HGB) 8.1 gram/dL 13.0-17.5 HEMATOCRIT (test code=HCT) 27.1 % 42.0-52.0 MEAN CELL VOLUME (test code=MCV) 80.7 fL 80-98 MEAN CELL HGB (test code=MCH) 24.1 picogram 27.0-33.0 MEAN CELL HGB CONCETRATION (test code=MCHC) 29.9 gram/dL 33.0-36.0 RED CELL DISTRIBUTION WIDTH (test code=RDW) 17.3 % 11.6-16.2 RED CELL DISTRIBUTION WIDTH SD (test code=RDW-SD) 50.9 fL 37.0-51.0 PLATELET COUNT (test code=PLT) 428 K/mm3 150-450 MEAN PLATELET VOLUME (test code=MPV) 11.2 fL 6.7-11.0 IMMATURE GRANULOCYTE % (test code=IG%) 0.8 % 0.0-5.0 NUCLEATED RBC % (test code=NRBC%) 0.0 % 0-0 NEUTROPHIL # (test code=NT#) 17.43 K/mm3 1.8-7.7 IMMATURE GRANULOCYTE # (test code=IG#) 0.19 x10 3/uL 0-0.03 LYMPHOCYTE # (test code=LY#) 2.38 K/mm3 1.0-5.0 MONOCYTE # (test code=MO#) 1.88 K/mm3 0-0.8 EOSINOPHIL # (test code=EO#) 0.60 K/mm3 0.0-0.5 BASOPHIL # (test code=BA#) 0.20 K/mm3 0.0-0.2 NUCLEATED RBC # (test code=NRBC#) 0.00 K/mm3 0.0-0.1 MANUAL DIFF REQUIRED (test code=MDIFF) YES STAIN ACCEPTABILITY (test code=STN ACCEPTABLE) STAIN ACCEPTABLE TOTAL CELLS COUNTED (test code=TCC) 115 #CELLS SEGMENTED NEUTROPHILS (test code=SEG) 75.6 % 39-69 BAND NEUTROPHIL (test code=BAND) 0 % 0-10 LYMPHOCYTE (test code=LYMPH) 12.2 % 25-55 REACTIVE LYMPH (test code=RELYMPH) 0 % MONOCYTE (test code=MON) 6.1 % 0-10 EOSINOPHIL (test code=EOS) 6.1 % 0.0-5.0 BASOPHIL (test code=BASO) 0 % 0-1.0 METAMYELOCYTE (test code=META) 0 % 0-0 MYELOCYTE (test code=MYELO) 0 % 0.0-0.0 PROMYELOCYTE (test code=PROM) 0 % 0-0 HYPOCHROMIA (test code=HYPO) 1+ POIKILOCYTOSIS (test code=POIK) 1+ ANISOCYTOSIS (test code=ANISO) 1+ PLATELET ESTIMATE (test code=PLTEST) ADEQUATE PLATELET MORPHOLOGY (test code=PLTMORPH) SIZE VARIABLE IMMATURE FORMS (test code=IMMAT) 0 % 0-0 CBC W/MANUAL [id number] 09:19:00* Test Item Value Reference Range Comments WHITE BLOOD CELL (test code=WBC) 22.7 K/mm3 4.5-12.5 RED BLOOD CELL (test code=RBC) 3.36 mill/mm3 4.0-5.8 HEMOGLOBIN (test code=HGB) 8.1 gram/dL 13.0-17.5 HEMATOCRIT (test code=HCT) 27.1 % 42.0-52.0 MEAN CELL VOLUME (test code=MCV) 80.7 fL 80-98 MEAN CELL HGB (test code=MCH) 24.1 picogram 27.0-33.0 MEAN CELL HGB CONCETRATION (test code=MCHC) 29.9 gram/dL 33.0-36.0 RED CELL DISTRIBUTION WIDTH (test code=RDW) 17.3 % 11.6-16.2 RED CELL DISTRIBUTION WIDTH SD (test code=RDW-SD) 50.9 fL 37.0-51.0 PLATELET COUNT (test code=PLT) 428 K/mm3 150-450 MEAN PLATELET VOLUME (test code=MPV) 11.2 fL 6.7-11.0 IMMATURE GRANULOCYTE % (test code=IG%) 0.8 % 0.0-5.0 NUCLEATED RBC % (test code=NRBC%) 0.0 % 0-0 NEUTROPHIL # (test code=NT#) 17.43 K/mm3 1.8-7.7 IMMATURE GRANULOCYTE # (test code=IG#) 0.19 x10 3/uL 0-0.03 LYMPHOCYTE # (test code=LY#) 2.38 K/mm3 1.0-5.0 MONOCYTE # (test code=MO#) 1.88 K/mm3 0-0.8 EOSINOPHIL # (test code=EO#) 0.60 K/mm3 0.0-0.5 BASOPHIL # (test code=BA#) 0.20 K/mm3 0.0-0.2 NUCLEATED RBC # (test code=NRBC#) 0.00 K/mm3 0.0-0.1 MANUAL DIFF REQUIRED (test code=MDIFF) YES STAIN ACCEPTABILITY (test code=STN ACCEPTABLE) TOTAL CELLS COUNTED (test code=TCC) #CELLS SEGMENTED NEUTROPHILS (test code=SEG) % 39-69 LYMPHOCYTE (test code=LYMPH) % 25-55 MONOCYTE (test code=MON) % 0-10 EOSINOPHIL (test code=EOS) % 0.0-5.0 CABOT RINGS (test code=CAB) MORPHOLOGY COMMENT (test code=MOC) PLATELET ESTIMATE (test code=PLTEST) PLATELET MORPHOLOGY (test code=PLTMORPH) CBC W/MANUAL [id number] 09:19:00* Test Item Value Reference Range Comments WHITE BLOOD CELL (test code=WBC) 22.7 K/mm3 4.5-12.5 RED BLOOD CELL (test code=RBC) 3.36 mill/mm3 4.0-5.8 HEMOGLOBIN (test code=HGB) 8.1 gram/dL 13.0-17.5 HEMATOCRIT (test code=HCT) 27.1 % 42.0-52.0 MEAN CELL VOLUME (test code=MCV) 80.7 fL 80-98 MEAN CELL HGB (test code=MCH) 24.1 picogram 27.0-33.0 MEAN CELL HGB CONCETRATION (test code=MCHC) 29.9 gram/dL 33.0-36.0 RED CELL DISTRIBUTION WIDTH (test code=RDW) 17.3 % 11.6-16.2 RED CELL DISTRIBUTION WIDTH SD (test code=RDW-SD) 50.9 fL 37.0-51.0 PLATELET COUNT (test code=PLT) 428 K/mm3 150-450 MEAN PLATELET VOLUME (test code=MPV) 11.2 fL 6.7-11.0 IMMATURE GRANULOCYTE % (test code=IG%) 0.8 % 0.0-5.0 NUCLEATED RBC % (test code=NRBC%) 0.0 % 0-0 NEUTROPHIL # (test code=NT#) 17.43 K/mm3 1.8-7.7 IMMATURE GRANULOCYTE # (test code=IG#) 0.19 x10 3/uL 0-0.03 LYMPHOCYTE # (test code=LY#) 2.38 K/mm3 1.0-5.0 MONOCYTE # (test code=MO#) 1.88 K/mm3 0-0.8 EOSINOPHIL # (test code=EO#) 0.60 K/mm3 0.0-0.5 BASOPHIL # (test code=BA#) 0.20 K/mm3 0.0-0.2 NUCLEATED RBC # (test code=NRBC#) 0.00 K/mm3 0.0-0.1 MANUAL DIFF REQUIRED (test code=MDIFF) YES STAIN ACCEPTABILITY (test code=STN ACCEPTABLE) TOTAL CELLS COUNTED (test code=TCC) #CELLS SEGMENTED NEUTROPHILS (test code=SEG) % 39-69 LYMPHOCYTE (test code=LYMPH) % 25-55 MONOCYTE (test code=MON) % 0-10 EOSINOPHIL (test code=EOS) % 0.0-5.0 CABOT RINGS (test code=CAB) MORPHOLOGY COMMENT (test code=MOC) PLATELET ESTIMATE (test code=PLTEST) PLATELET MORPHOLOGY (test code=PLTMORPH) CBC W/MANUAL [id number] 09:19:00* Test Item Value Reference Range Comments WHITE BLOOD CELL (test code=WBC) 22.7 K/mm3 4.5-12.5 RED BLOOD CELL (test code=RBC) 3.36 mill/mm3 4.0-5.8 HEMOGLOBIN (test code=HGB) 8.1 gram/dL 13.0-17.5 HEMATOCRIT (test code=HCT) 27.1 % 42.0-52.0 MEAN CELL VOLUME (test code=MCV) 80.7 fL 80-98 MEAN CELL HGB (test code=MCH) 24.1 picogram 27.0-33.0 MEAN CELL HGB CONCETRATION (test code=MCHC) 29.9 gram/dL 33.0-36.0 RED CELL DISTRIBUTION WIDTH (test code=RDW) 17.3 % 11.6-16.2 RED CELL DISTRIBUTION WIDTH SD (test code=RDW-SD) 50.9 fL 37.0-51.0 PLATELET COUNT (test code=PLT) 428 K/mm3 150-450 MEAN PLATELET VOLUME (test code=MPV) 11.2 fL 6.7-11.0 IMMATURE GRANULOCYTE % (test code=IG%) 0.8 % 0.0-5.0 NUCLEATED RBC % (test code=NRBC%) 0.0 % 0-0 NEUTROPHIL # (test code=NT#) 17.43 K/mm3 1.8-7.7 IMMATURE GRANULOCYTE # (test code=IG#) 0.19 x10 3/uL 0-0.03 LYMPHOCYTE # (test code=LY#) 2.38 K/mm3 1.0-5.0 MONOCYTE # (test code=MO#) 1.88 K/mm3 0-0.8 EOSINOPHIL # (test code=EO#) 0.60 K/mm3 0.0-0.5 BASOPHIL # (test code=BA#) 0.20 K/mm3 0.0-0.2 NUCLEATED RBC # (test code=NRBC#) 0.00 K/mm3 0.0-0.1 MANUAL DIFF REQUIRED (test code=MDIFF) YES STAIN ACCEPTABILITY (test code=STN ACCEPTABLE) TOTAL CELLS COUNTED (test code=TCC) #CELLS SEGMENTED NEUTROPHILS (test code=SEG) % 39-69 LYMPHOCYTE (test code=LYMPH) % 25-55 MONOCYTE (test code=MON) % 0-10 EOSINOPHIL (test code=EOS) % 0.0-5.0 MORPHOLOGY COMMENT (test code=MOC) PLATELET ESTIMATE (test code=PLTEST) PLATELET MORPHOLOGY (test code=PLTMORPH) CBC W/MANUAL [id number] 09:19:00* Test Item Value Reference Range Comments WHITE BLOOD CELL (test code=WBC) 22.7 K/mm3 4.5-12.5 RED BLOOD CELL (test code=RBC) 3.36 mill/mm3 4.0-5.8 HEMOGLOBIN (test code=HGB) 8.1 gram/dL 13.0-17.5 HEMATOCRIT (test code=HCT) 27.1 % 42.0-52.0 MEAN CELL VOLUME (test code=MCV) 80.7 fL 80-98 MEAN CELL HGB (test code=MCH) 24.1 picogram 27.0-33.0 MEAN CELL HGB CONCETRATION (test code=MCHC) 29.9 gram/dL 33.0-36.0 RED CELL DISTRIBUTION WIDTH (test code=RDW) 17.3 % 11.6-16.2 RED CELL DISTRIBUTION WIDTH SD (test code=RDW-SD) 50.9 fL 37.0-51.0 PLATELET COUNT (test code=PLT) 428 K/mm3 150-450 MEAN PLATELET VOLUME (test code=MPV) 11.2 fL 6.7-11.0 IMMATURE GRANULOCYTE % (test code=IG%) 0.8 % 0.0-5.0 NUCLEATED RBC % (test code=NRBC%) 0.0 % 0-0 NEUTROPHIL # (test code=NT#) 17.43 K/mm3 1.8-7.7 IMMATURE GRANULOCYTE # (test code=IG#) 0.19 x10 3/uL 0-0.03 LYMPHOCYTE # (test code=LY#) 2.38 K/mm3 1.0-5.0 MONOCYTE # (test code=MO#) 1.88 K/mm3 0-0.8 EOSINOPHIL # (test code=EO#) 0.60 K/mm3 0.0-0.5 BASOPHIL # (test code=BA#) 0.20 K/mm3 0.0-0.2 NUCLEATED RBC # (test code=NRBC#) 0.00 K/mm3 0.0-0.1 MANUAL DIFF REQUIRED (test code=MDIFF) YES STAIN ACCEPTABILITY (test code=STN ACCEPTABLE) TOTAL CELLS COUNTED (test code=TCC) #CELLS SEGMENTED NEUTROPHILS (test code=SEG) % 39-69 LYMPHOCYTE (test code=LYMPH) % 25-55 MONOCYTE (test code=MON) % 0-10 MORPHOLOGY COMMENT (test code=MOC) PLATELET ESTIMATE (test code=PLTEST) PLATELET MORPHOLOGY (test code=PLTMORPH) CBC W/MANUAL [id number] 09:19:00* Test Item Value Reference Range Comments WHITE BLOOD CELL (test code=WBC) 22.7 K/mm3 4.5-12.5 RED BLOOD CELL (test code=RBC) 3.36 mill/mm3 4.0-5.8 HEMOGLOBIN (test code=HGB) 8.1 gram/dL 13.0-17.5 HEMATOCRIT (test code=HCT) 27.1 % 42.0-52.0 MEAN CELL VOLUME (test code=MCV) 80.7 fL 80-98 MEAN CELL HGB (test code=MCH) 24.1 picogram 27.0-33.0 MEAN CELL HGB CONCETRATION (test code=MCHC) 29.9 gram/dL 33.0-36.0 RED CELL DISTRIBUTION WIDTH (test code=RDW) 17.3 % 11.6-16.2 RED CELL DISTRIBUTION WIDTH SD (test code=RDW-SD) 50.9 fL 37.0-51.0 PLATELET COUNT (test code=PLT) 428 K/mm3 150-450 MEAN PLATELET VOLUME (test code=MPV) 11.2 fL 6.7-11.0 IMMATURE GRANULOCYTE % (test code=IG%) 0.8 % 0.0-5.0 NUCLEATED RBC % (test code=NRBC%) 0.0 % 0-0 NEUTROPHIL # (test code=NT#) 17.43 K/mm3 1.8-7.7 IMMATURE GRANULOCYTE # (test code=IG#) 0.19 x10 3/uL 0-0.03 LYMPHOCYTE # (test code=LY#) 2.38 K/mm3 1.0-5.0 MONOCYTE # (test code=MO#) 1.88 K/mm3 0-0.8 EOSINOPHIL # (test code=EO#) 0.60 K/mm3 0.0-0.5 BASOPHIL # (test code=BA#) 0.20 K/mm3 0.0-0.2 NUCLEATED RBC # (test code=NRBC#) 0.00 K/mm3 0.0-0.1 MANUAL DIFF REQUIRED (test code=MDIFF) YES STAIN ACCEPTABILITY (test code=STN ACCEPTABLE) TOTAL CELLS COUNTED (test code=TCC) #CELLS SEGMENTED NEUTROPHILS (test code=SEG) % 39-69 LYMPHOCYTE (test code=LYMPH) % 25-55 MONOCYTE (test code=MON) % 0-10 EOSINOPHIL (test code=EOS) % 0.0-5.0 CABOT RINGS (test code=CAB) MORPHOLOGY COMMENT (test code=MOC) PLATELET ESTIMATE (test code=PLTEST) PLATELET MORPHOLOGY (test code=PLTMORPH) [id number] 04:44:00* Test Item Value Reference Range Comments TROPONIN-I (test code=TROPI) <0.015 ng/mL 0-0.045 COMMENTS TO WORK ORDER CLERK: COLLECT 3 HOURS AFTER PREVIOUS SAMPLEURINALYSIS [id number] 22:50:00* Test Item Value Reference Range Comments UA COLOR (test code=COLU) YELLOW YELLOW UA APPEARANCE (test code=APPU) Cloudy CLEAR UA GLUCOSE DIPSTICK (test code=DGLUU) NEGATIVE mg/dL NEGATIVE UA BILIRUBIN DIPSTICK (test code=BILU) NEGATIVE mg/dL NEGATIVE UA KETONE DIPSTICK (test code=KETU) NEGATIVE mg/dL NEGATIVE UA SPECIFIC GRAVITY (test code=SGU) 1.018 1.001-1.035 UA BLOOD DIPSTICK (test code=TAMMY) 0.1 mg/dL (1+) mg/dL NEGATIVE UA PH DIPSTICK (test code=PAULA) 6.0 5.0-8.0 UA PROTEIN DIPSTICK (test code=PROU) 50 (1+) mg/dL NEGATIVE UA UROBILINIOGEN DIPSTICK (test code=URO) Normal mg/dL NEGATIVE UA NITRITE DIPSTICK (test code=BECKI) NEGATIVE NEGATIVE UA LEUKOCYTE ESTERASE W REFLEX (test code=LEUUR) 500 Wilian/uL (3+) Wilian/uL NEGATIVE UA WBC (test code=WBCU) 21-50 per HPF 0-5 UA RBC (test code=RBCU) 21-50 #/HPF 0-5 UA EPITHELIAL CELLS (test code=EPIU) FEW per HPF FEW UA BACTERIA (test code=BACU) FEW #/HPF NONE UA HYALINE CAST (test code=HYALU) 0-2 #/LPF 0-5 UA MUCUS (test code=MUCU) FEW #/LPF FEW Urine Source? Clean CatchURINALYSIS [id number] 22:41:00* Test Item Value Reference Range Comments UA COLOR (test code=COLU) YELLOW YELLOW UA APPEARANCE (test code=APPU) Cloudy CLEAR UA GLUCOSE DIPSTICK (test code=DGLUU) NEGATIVE mg/dL NEGATIVE UA BILIRUBIN DIPSTICK (test code=BILU) NEGATIVE mg/dL NEGATIVE UA KETONE DIPSTICK (test code=KETU) NEGATIVE mg/dL NEGATIVE UA SPECIFIC GRAVITY (test code=SGU) 1.018 1.001-1.035 UA BLOOD DIPSTICK (test code=TAMMY) 0.1 mg/dL (1+) mg/dL NEGATIVE UA PH DIPSTICK (test code=PAULA) 6.0 5.0-8.0 UA PROTEIN DIPSTICK (test code=PROU) 50 (1+) mg/dL NEGATIVE UA UROBILINIOGEN DIPSTICK (test code=URO) Normal mg/dL NEGATIVE UA NITRITE DIPSTICK (test code=BECKI) NEGATIVE NEGATIVE UA LEUKOCYTE ESTERASE W REFLEX (test code=LEUUR) 500 Wilian/uL (3+) Wilian/uL NEGATIVE UA WBC (test code=WBCU) per HPF 0-5 UA RBC (test code=RBCU) per HPF 0-5 UA EPITHELIAL CELLS (test code=EPIU) per HPF Few UA BACTERIA (test code=BACU) per HPF NONE Urine Source? Clean CatchBASIC METABOLIC [id number] 22:00:00* Test Item Value Reference Range Comments SODIUM (test code=NA) 136 mmol/L 136-145 POTASSIUM (test code=K) 3.7 mmol/L 3.5-5.1 CHLORIDE (test code=CL) 101.0 mmol/L 98-107 CARBON DIOXIDE (test code=CO2) 25.0 mmol/L 21-32 ANION GAP (test code=GAP) 13.7 10-20 GLUCOSE (test code=GLU) 89 mg/dL 74-106 BLOOD UREA NITROGEN (test code=BUN) 22 mg/dL 7-18 GLOMERULAR FILTRATION RATE (test code=GFR) > 60 mL/min >=60 Estimated GFR by using Modified MDRD formula.Chronic kidney disease is defined as either kidney damageor GFR <60 mL/min/1.73 m2 for >3 months. CREATININE (test code=CREAT) 1.20 mg/dL 0.7-1.3 BUN/CREATININE RATIO (test code=BUN/CREA) 18.3 10-20 CALCIUM (test code=CA) 10.7 mg/dL 8.5-10.1 HEPATIC FUNCTION [id number] 22:00:00* Test Item Value Reference Range Comments TOTAL PROTEIN (test code=PROT) 7.7 gram/dL 6.4-8.2 ALBUMIN (test code=ALB) 3.1 g/dL 3.4-5.0 GLOBULIN (test code=GLOB) 4.6 gram/dL 2.7-4.2 ALBUMIN/GLOBULIN RATIO (test code=A/G) 0.7 0.75-1.50 BILIRUBIN TOTAL (test code=BILT) < 0.10 mg/dL 0.0-1.0 BILIRUBIN DIRECT (test code=BILD) 0.06 mg/dL 0.0-0.20 SGOT/AST (test code=AST) 14 IUnit/L 15-37 SGPT/ALT (test code=ALT) 34 IUnit/L 12-78 ALKALINE PHOSPHATASE TOTAL (test code=ALKP) 162 IUnit/L 45-117 Note change in reference range due to change in reagent. CREATINE KINASE (CK)2019-03-09 22:00:00* Test Item Value Reference Range Comments CREATINE KINASE (CK) (test code=CK) 99 IUnit/L 26-208 [id number] 22:00:00* Test Item Value Reference Range Comments LIPASE (test code=LIP) 83 U/L 73.0-393.0 [id number] 22:00:00* Test Item Value Reference Range Comments TROPONIN-I (test code=TROPI) <0.015 ng/mL 0-0.045 CBC W/MANUAL [id number] 21:53:00* Test Item Value Reference Range Comments WHITE BLOOD CELL (test code=WBC) 25.5 K/mm3 4.5-12.5 RED BLOOD CELL (test code=RBC) 3.25 mill/mm3 4.0-5.8 HEMOGLOBIN (test code=HGB) 7.8 gram/dL 13.0-17.5 HEMATOCRIT (test code=HCT) 25.7 % 42.0-52.0 MEAN CELL VOLUME (test code=MCV) 79.1 fL 80-98 MEAN CELL HGB (test code=MCH) 24.0 picogram 27.0-33.0 MEAN CELL HGB CONCETRATION (test code=MCHC) 30.4 gram/dL 33.0-36.0 RED CELL DISTRIBUTION WIDTH (test code=RDW) 17.3 % 11.6-16.2 RED CELL DISTRIBUTION WIDTH SD (test code=RDW-SD) 49.2 fL 37.0-51.0 PLATELET COUNT (test code=PLT) 458 K/mm3 150-450 MEAN PLATELET VOLUME (test code=MPV) 11.3 fL 6.7-11.0 IMMATURE GRANULOCYTE % (test code=IG%) 0.8 % 0.0-5.0 NUCLEATED RBC % (test code=NRBC%) 0.0 % 0-0 NEUTROPHIL # (test code=NT#) 17.71 K/mm3 1.8-7.7 IMMATURE GRANULOCYTE # (test code=IG#) 0.21 x10 3/uL 0-0.03 LYMPHOCYTE # (test code=LY#) 3.62 K/mm3 1.0-5.0 MONOCYTE # (test code=MO#) 2.78 K/mm3 0-0.8 EOSINOPHIL # (test code=EO#) 1.00 K/mm3 0.0-0.5 BASOPHIL # (test code=BA#) 0.20 K/mm3 0.0-0.2 NUCLEATED RBC # (test code=NRBC#) 0.00 K/mm3 0.0-0.1 MANUAL DIFF REQUIRED (test code=MDIFF) YES STAIN ACCEPTABILITY (test code=STN ACCEPTABLE) STAIN ACCEPTABLE TOTAL CELLS COUNTED (test code=TCC) 113 #CELLS SEGMENTED NEUTROPHILS (test code=SEG) 61.9 % 39-69 BAND NEUTROPHIL (test code=BAND) 0 % 0-10 LYMPHOCYTE (test code=LYMPH) 18.6 % 25-55 REACTIVE LYMPH (test code=RELYMPH) 0 % MONOCYTE (test code=MON) 14.2 % 0-10 EOSINOPHIL (test code=EOS) 5.3 % 0.0-5.0 BASOPHIL (test code=BASO) 0 % 0-1.0 METAMYELOCYTE (test code=META) 0 % 0-0 MYELOCYTE (test code=MYELO) 0 % 0.0-0.0 PROMYELOCYTE (test code=PROM) 0 % 0-0 HYPOCHROMIA (test code=HYPO) 1+ ANISOCYTOSIS (test code=ANISO) 1+ PLATELET ESTIMATE (test code=PLTEST) INCREASED PLATELET MORPHOLOGY (test code=PLTMORPH) SIZE VARIABLE IMMATURE FORMS (test code=IMMAT) 0 % 0-0 PROTHROMBIN [id number] 21:43:00* Test Item Value Reference Range Comments PROTHROMBIN TIME PATIENT (test code=PTP) 14.6 seconds 9.0-14.0 INTERNATIONAL NORMAL RATIO (test code=INR) 1.2 0.8-1.2 The therapeutic range for oral anticoagulant therapy formost indications is an international normalized ratio (INR)of between 2.0 and 3.0. The recommended therapeutic INRrange for various clinical situations is listed below: Clinical Situation INR range Pulmonary e mbolism treatment (2.0-3.0)Venous thrombosis treatmentVenous thrombosis prophylaxis (high risk surgery)Prevention of systemic embolism from: Acute myocardial infarction Valvular heart disease Atrial fibrillation Mechanical prosthetic heart valves (2.5-3.5) IS PATIENT ON ANTICOAGULANTS? NTHROMBOPLASTIN TIME [id number] 21:43:00* Test Item Value Reference Range Comments THROMBOPLASTIN TIME PARTIAL (test code=PTT) 20.9 seconds 25.0-36.5 IS PATIENT ON ANTICOAGULANTS? [id number] 21:43:00* Test Item Value Reference Range Comments MAGNESIUM (test code=MAG) 1.9 mg/dL 1.8-2.4 BASIC METABOLIC [id number] 21:34:00* Test Item Value Reference Range Comments SODIUM (test code=NA) 136 mmol/L 136-145 POTASSIUM (test code=K) 3.7 mmol/L 3.5-5.1 CHLORIDE (test code=CL) 101.0 mmol/L 98-107 CARBON DIOXIDE (test code=CO2) mmol/L 21-32 ANION GAP (test code=GAP) 10-20 GLUCOSE (test code=GLU) mg/dL 74-106 BLOOD UREA NITROGEN (test code=BUN) mg/dL 7-18 GLOMERULAR FILTRATION RATE (test code=GFR) mL/min >=60 CREATININE (test code=CREAT) mg/dL 0.7-1.3 BUN/CREATININE RATIO (test code=BUN/CREA) 10-20 CALCIUM (test code=CA) mg/dL 8.5-10.1 HEPATIC FUNCTION [id number] 21:34:00* Test Item Value Reference Range Comments TOTAL PROTEIN (test code=PROT) gram/dL 6.4-8.2 ALBUMIN (test code=ALB) g/dL 3.4-5.0 GLOBULIN (test code=GLOB) gram/dL 2.7-4.2 ALBUMIN/GLOBULIN RATIO (test code=A/G) 0.75-1.50 BILIRUBIN TOTAL (test code=BILT) mg/dL 0.0-1.0 BILIRUBIN DIRECT (test code=BILD) mg/dL 0.0-0.20 SGOT/AST (test code=AST) IUnit/L 15-37 SGPT/ALT (test code=ALT) IUnit/L 12-78 ALKALINE PHOSPHATASE TOTAL (test code=ALKP) IUnit/L 45-117 CREATINE KINASE (CK)2019-03-09 21:34:00* Test Item Value Reference Range Comments CREATINE KINASE (CK) (test code=CK) IUnit/L 26-208 [id number] 21:34:00* Test Item Value Reference Range Comments LIPASE (test code=LIP) U/L 73.0-393.0 [id number] 21:34:00* Test Item Value Reference Range Comments TROPONIN-I (test code=TROPI) ng/mL 0-0.045 LACTIC [id number] 21:34:00* Test Item Value Reference Range Comments LACTIC ACID (test code=LACT) 0.6 mmol/L 0.4-1.9 CBC W/MANUAL [id number] 21:26:00* Test Item Value Reference Range Comments WHITE BLOOD CELL (test code=WBC) 25.5 K/mm3 4.5-12.5 RED BLOOD CELL (test code=RBC) 3.25 mill/mm3 4.0-5.8 HEMOGLOBIN (test code=HGB) 7.8 gram/dL 13.0-17.5 HEMATOCRIT (test code=HCT) 25.7 % 42.0-52.0 MEAN CELL VOLUME (test code=MCV) 79.1 fL 80-98 MEAN CELL HGB (test code=MCH) 24.0 picogram 27.0-33.0 MEAN CELL HGB CONCETRATION (test code=MCHC) 30.4 gram/dL 33.0-36.0 RED CELL DISTRIBUTION WIDTH (test code=RDW) 17.3 % 11.6-16.2 RED CELL DISTRIBUTION WIDTH SD (test code=RDW-SD) 49.2 fL 37.0-51.0 PLATELET COUNT (test code=PLT) 458 K/mm3 150-450 MEAN PLATELET VOLUME (test code=MPV) 11.3 fL 6.7-11.0 IMMATURE GRANULOCYTE % (test code=IG%) 0.8 % 0.0-5.0 NUCLEATED RBC % (test code=NRBC%) 0.0 % 0-0 NEUTROPHIL # (test code=NT#) 17.71 K/mm3 1.8-7.7 IMMATURE GRANULOCYTE # (test code=IG#) 0.21 x10 3/uL 0-0.03 LYMPHOCYTE # (test code=LY#) 3.62 K/mm3 1.0-5.0 MONOCYTE # (test code=MO#) 2.78 K/mm3 0-0.8 EOSINOPHIL # (test code=EO#) 1.00 K/mm3 0.0-0.5 BASOPHIL # (test code=BA#) 0.20 K/mm3 0.0-0.2 NUCLEATED RBC # (test code=NRBC#) 0.00 K/mm3 0.0-0.1 MANUAL DIFF REQUIRED (test code=MDIFF) YES STAIN ACCEPTABILITY (test code=STN ACCEPTABLE) TOTAL CELLS COUNTED (test code=TCC) #CELLS SEGMENTED NEUTROPHILS (test code=SEG) % 39-69 LYMPHOCYTE (test code=LYMPH) % 25-55 MONOCYTE (test code=MON) % 0-10 EOSINOPHIL (test code=EOS) % 0.0-5.0 CABOT RINGS (test code=CAB) MORPHOLOGY COMMENT (test code=MOC) PLATELET ESTIMATE (test code=PLTEST) PLATELET MORPHOLOGY (test code=PLTMORPH) CBC W/MANUAL [id number] 21:26:00* Test Item Value Reference Range Comments WHITE BLOOD CELL (test code=WBC) 25.5 K/mm3 4.5-12.5 RED BLOOD CELL (test code=RBC) 3.25 mill/mm3 4.0-5.8 HEMOGLOBIN (test code=HGB) 7.8 gram/dL 13.0-17.5 HEMATOCRIT (test code=HCT) 25.7 % 42.0-52.0 MEAN CELL VOLUME (test code=MCV) 79.1 fL 80-98 MEAN CELL HGB (test code=MCH) 24.0 picogram 27.0-33.0 MEAN CELL HGB CONCETRATION (test code=MCHC) 30.4 gram/dL 33.0-36.0 RED CELL DISTRIBUTION WIDTH (test code=RDW) 17.3 % 11.6-16.2 RED CELL DISTRIBUTION WIDTH SD (test code=RDW-SD) 49.2 fL 37.0-51.0 PLATELET COUNT (test code=PLT) 458 K/mm3 150-450 MEAN PLATELET VOLUME (test code=MPV) 11.3 fL 6.7-11.0 IMMATURE GRANULOCYTE % (test code=IG%) 0.8 % 0.0-5.0 NUCLEATED RBC % (test code=NRBC%) 0.0 % 0-0 NEUTROPHIL # (test code=NT#) 17.71 K/mm3 1.8-7.7 IMMATURE GRANULOCYTE # (test code=IG#) 0.21 x10 3/uL 0-0.03 LYMPHOCYTE # (test code=LY#) 3.62 K/mm3 1.0-5.0 MONOCYTE # (test code=MO#) 2.78 K/mm3 0-0.8 EOSINOPHIL # (test code=EO#) 1.00 K/mm3 0.0-0.5 BASOPHIL # (test code=BA#) 0.20 K/mm3 0.0-0.2 NUCLEATED RBC # (test code=NRBC#) 0.00 K/mm3 0.0-0.1 MANUAL DIFF REQUIRED (test code=MDIFF) YES STAIN ACCEPTABILITY (test code=STN ACCEPTABLE) TOTAL CELLS COUNTED (test code=TCC) #CELLS SEGMENTED NEUTROPHILS (test code=SEG) % 39-69 LYMPHOCYTE (test code=LYMPH) % 25-55 MONOCYTE (test code=MON) % 0-10 EOSINOPHIL (test code=EOS) % 0.0-5.0 CABOT RINGS (test code=CAB) MORPHOLOGY COMMENT (test code=MOC) PLATELET ESTIMATE (test code=PLTEST) PLATELET MORPHOLOGY (test code=PLTMORPH) CBC W/MANUAL [id number] 21:26:00* Test Item Value Reference Range Comments WHITE BLOOD CELL (test code=WBC) 25.5 K/mm3 4.5-12.5 RED BLOOD CELL (test code=RBC) 3.25 mill/mm3 4.0-5.8 HEMOGLOBIN (test code=HGB) 7.8 gram/dL 13.0-17.5 HEMATOCRIT (test code=HCT) 25.7 % 42.0-52.0 MEAN CELL VOLUME (test code=MCV) 79.1 fL 80-98 MEAN CELL HGB (test code=MCH) 24.0 picogram 27.0-33.0 MEAN CELL HGB CONCETRATION (test code=MCHC) 30.4 gram/dL 33.0-36.0 RED CELL DISTRIBUTION WIDTH (test code=RDW) 17.3 % 11.6-16.2 RED CELL DISTRIBUTION WIDTH SD (test code=RDW-SD) 49.2 fL 37.0-51.0 PLATELET COUNT (test code=PLT) 458 K/mm3 150-450 MEAN PLATELET VOLUME (test code=MPV) 11.3 fL 6.7-11.0 IMMATURE GRANULOCYTE % (test code=IG%) 0.8 % 0.0-5.0 NUCLEATED RBC % (test code=NRBC%) 0.0 % 0-0 NEUTROPHIL # (test code=NT#) 17.71 K/mm3 1.8-7.7 IMMATURE GRANULOCYTE # (test code=IG#) 0.21 x10 3/uL 0-0.03 LYMPHOCYTE # (test code=LY#) 3.62 K/mm3 1.0-5.0 MONOCYTE # (test code=MO#) 2.78 K/mm3 0-0.8 EOSINOPHIL # (test code=EO#) 1.00 K/mm3 0.0-0.5 BASOPHIL # (test code=BA#) 0.20 K/mm3 0.0-0.2 NUCLEATED RBC # (test code=NRBC#) 0.00 K/mm3 0.0-0.1 MANUAL DIFF REQUIRED (test code=MDIFF) YES STAIN ACCEPTABILITY (test code=STN ACCEPTABLE) TOTAL CELLS COUNTED (test code=TCC) #CELLS SEGMENTED NEUTROPHILS (test code=SEG) % 39-69 LYMPHOCYTE (test code=LYMPH) % 25-55 MONOCYTE (test code=MON) % 0-10 EOSINOPHIL (test code=EOS) % 0.0-5.0 MORPHOLOGY COMMENT (test code=MOC) PLATELET ESTIMATE (test code=PLTEST) PLATELET MORPHOLOGY (test code=PLTMORPH) CBC W/MANUAL [id number] 21:26:00* Test Item Value Reference Range Comments WHITE BLOOD CELL (test code=WBC) 25.5 K/mm3 4.5-12.5 RED BLOOD CELL (test code=RBC) 3.25 mill/mm3 4.0-5.8 HEMOGLOBIN (test code=HGB) 7.8 gram/dL 13.0-17.5 HEMATOCRIT (test code=HCT) 25.7 % 42.0-52.0 MEAN CELL VOLUME (test code=MCV) 79.1 fL 80-98 MEAN CELL HGB (test code=MCH) 24.0 picogram 27.0-33.0 MEAN CELL HGB CONCETRATION (test code=MCHC) 30.4 gram/dL 33.0-36.0 RED CELL DISTRIBUTION WIDTH (test code=RDW) 17.3 % 11.6-16.2 RED CELL DISTRIBUTION WIDTH SD (test code=RDW-SD) 49.2 fL 37.0-51.0 PLATELET COUNT (test code=PLT) 458 K/mm3 150-450 MEAN PLATELET VOLUME (test code=MPV) 11.3 fL 6.7-11.0 IMMATURE GRANULOCYTE % (test code=IG%) 0.8 % 0.0-5.0 NUCLEATED RBC % (test code=NRBC%) 0.0 % 0-0 NEUTROPHIL # (test code=NT#) 17.71 K/mm3 1.8-7.7 IMMATURE GRANULOCYTE # (test code=IG#) 0.21 x10 3/uL 0-0.03 LYMPHOCYTE # (test code=LY#) 3.62 K/mm3 1.0-5.0 MONOCYTE # (test code=MO#) 2.78 K/mm3 0-0.8 EOSINOPHIL # (test code=EO#) 1.00 K/mm3 0.0-0.5 BASOPHIL # (test code=BA#) 0.20 K/mm3 0.0-0.2 NUCLEATED RBC # (test code=NRBC#) 0.00 K/mm3 0.0-0.1 MANUAL DIFF REQUIRED (test code=MDIFF) YES STAIN ACCEPTABILITY (test code=STN ACCEPTABLE) TOTAL CELLS COUNTED (test code=TCC) #CELLS SEGMENTED NEUTROPHILS (test code=SEG) % 39-69 LYMPHOCYTE (test code=LYMPH) % 25-55 MONOCYTE (test code=MON) % 0-10 MORPHOLOGY COMMENT (test code=MOC) PLATELET ESTIMATE (test code=PLTEST) PLATELET MORPHOLOGY (test code=PLTMORPH) CBC W/MANUAL [id number] 21:26:00* Test Item Value Reference Range Comments WHITE BLOOD CELL (test code=WBC) 25.5 K/mm3 4.5-12.5 RED BLOOD CELL (test code=RBC) 3.25 mill/mm3 4.0-5.8 HEMOGLOBIN (test code=HGB) 7.8 gram/dL 13.0-17.5 HEMATOCRIT (test code=HCT) 25.7 % 42.0-52.0 MEAN CELL VOLUME (test code=MCV) 79.1 fL 80-98 MEAN CELL HGB (test code=MCH) 24.0 picogram 27.0-33.0 MEAN CELL HGB CONCETRATION (test code=MCHC) 30.4 gram/dL 33.0-36.0 RED CELL DISTRIBUTION WIDTH (test code=RDW) 17.3 % 11.6-16.2 RED CELL DISTRIBUTION WIDTH SD (test code=RDW-SD) 49.2 fL 37.0-51.0 PLATELET COUNT (test code=PLT) 458 K/mm3 150-450 MEAN PLATELET VOLUME (test code=MPV) 11.3 fL 6.7-11.0 IMMATURE GRANULOCYTE % (test code=IG%) 0.8 % 0.0-5.0 NUCLEATED RBC % (test code=NRBC%) 0.0 % 0-0 NEUTROPHIL # (test code=NT#) 17.71 K/mm3 1.8-7.7 IMMATURE GRANULOCYTE # (test code=IG#) 0.21 x10 3/uL 0-0.03 LYMPHOCYTE # (test code=LY#) 3.62 K/mm3 1.0-5.0 MONOCYTE # (test code=MO#) 2.78 K/mm3 0-0.8 EOSINOPHIL # (test code=EO#) 1.00 K/mm3 0.0-0.5 BASOPHIL # (test code=BA#) 0.20 K/mm3 0.0-0.2 NUCLEATED RBC # (test code=NRBC#) 0.00 K/mm3 0.0-0.1 MANUAL DIFF REQUIRED (test code=MDIFF) YES STAIN ACCEPTABILITY (test code=STN ACCEPTABLE) TOTAL CELLS COUNTED (test code=TCC) #CELLS SEGMENTED NEUTROPHILS (test code=SEG) % 39-69 LYMPHOCYTE (test code=LYMPH) % 25-55 MONOCYTE (test code=MON) % 0-10 EOSINOPHIL (test code=EOS) % 0.0-5.0 CABOT RINGS (test code=CAB) MORPHOLOGY COMMENT (test code=MOC) PLATELET ESTIMATE (test code=PLTEST) PLATELET MORPHOLOGY (test code=PLTMORPH) - SP SHUNTOGM [id number] 20:09:00 FAX: Diandra Dodson [phone] [place]: St: REG Name: CELESTINO WEISS JR [facility] : [birth year] Age/S: 48/M [address] [facility] Unit #: [id number] Loc: [place] [address] Phys: Diandra Hernandez Acct: [id number] Dis Date: Status: REG ER PHONE #: [phone] Exam Date: 03/09/20191954 FAX #: [phone] Reason: ams EXAMS: CPT CODE: [id number] SP SHUNTOGM NONVASC [id number] REASON FOR EXAM: ams EXAM ORDER DATE: 03/09/2019 6:57 PM Irisi elijah Ocampo: Diandra Hernandez MD PROCEDURE: - SP SHUNTOGM NONVASC FINDINGS: 6 views of the frontal and lateral skull, neck, chest, abdomen and pelvis were obtained. A right parietal ventricular perito claude shunt noted. IMPRESSION: Intact right ventriculoperitoneal shunt at 2008 Reported and signed by: Reg Jordan M.D. CC: Diandra Hernandez MD Technologist: VICKY NEWMAN; ZENIA AlvesR Trnscrd Date/Time/By: 2018 (2008) : By: Puja Orig Print D/T: S: 03/09/2019 (2011) PAGE 1 Signed Report - CT HEAD/BRAIN W/O [id number] 20:07:00 Name: CELESTINO MCALLISTER JR [facility] : 1970 Age/S: 48 / M [address] Unit #: [id number] Loc: [place], [place] [address] Phys: Angel Hernandez MD Acct: [id number] Di s Date: Status: REG ER PHONE #: Exam Date: 03/09/20191999 FAX #: [phone] Reason: Altered Mental Status EXAMS: CPT CODE: [id number] CT HEAD/BRAIN W/O CONT 19904 REASON FOR EXAM: Altered Mental Status EXAM ORDER DATE: 03/09/2019 6:56 PM Ordering Damaris: Diandra Hernandez MD PROCEDURE: - CT HEAD/BRA IN W/O CONT COMPARISON: 12/02/2018 FINDINGS: CT images of the brain were obtained without IV contrast. Dose modulation, iterati ve reconstruction, and/or weight based adjustment of the MA/KV was utilize d to reduce the radiation dose to as low as reasonably achievable. Mild patchy low densities appearance of the paraventricular region noted consistent with nonspecific white matter disease. The lopez-white ma tter delineation is unremarkable. The ventricles, cisterns, and sulci are unremarkable. There is no evidence of hemorrhage, mass, mass effect. Ther e is no evidence of acute infarct. The calvarium is intact. 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 CC: Diandra Hernandez MD Technologist:Catherine Vasquez RT(R) CTDI: DL P: Trnscb Date/Time: 03/09/2019 (2006) t.SDR.VTL O rig Print D/T: S: 03/09/2019 (2009) PAGE 1 Signed Re port - XR CHEST 1 [id number] 20:05:00 FAX: Diandra Dodson [phone] [place]: St: REG Name: CELESTINO WEISS [facility] : [birth year] Age/S: 48/M [address] [address] Unit #: [id number] Loc: [place] [address] Phys: Diandra Hernandez Acct: [id number] Dis Date: Status: REG ER PHONE #: [phone] Exam Date: 03/09/20191954 FAX #: [phone] Reason: Altered Mental Status EXAMS: CPT CODE: [id number] XR CHEST 1 V [id number] REASON FOR EXAM: Altered M ental Status EXAM ORDER DATE: 03/09/2019 6:56 PM Order ing Damaris: Diandra Hernandez MD PROCEDURE: - XR CHEST 1 V COMPARISON: 12/03/2018 FINDINGS: Portable AP frontal view o f the chest obtained at 7:35 PM shows clear lungs without evidence of cons olidation. There is no evidence of effusion. The heart size is within norm al limits. Pulmonary vasculatures are minimally congested. Stable appeara nce of the tracheostomy tube. IMPRESSION: No active disea se. at 2004 Reported and signed by: Damaris Ramos C: Diandra Hernandez MD Technologist: CHANDANA ETIENNE; Chip Neville, (R Trnscrd Date/Time/By: 03/09/2019 (2004) : By: JadL Orig Print D/T: S: 03/09/2019 (2007) PAGE 1 Signed Report [id number] 18:05:00* Test Item Value Reference Range Comments GLUBED (test code=GLUBED) 107 MG/DL 70-110 Performed by certified steel spar operator at [facility] [id number] 12:35:00* Test Item Value Reference Range Comments GLUBED (test code=GLUBED) 124 MG/DL 70-110 Performed by certified steel spar operator at [facility] [id number] 05:19:00* Test Item Value Reference Range Comments GLUBED (test code=GLUBED) 101 MG/DL 70-110 Performed by certified steel spar operator at [facility] [id number] 01:23:00* Test Item Value Reference Range Comments GLUBED (test code=GLUBED) 114 MG/DL 70-110 Performed by certified steel spar operator at [facility] [id number] 18:26:00* Test Item Value Reference Range Comments GLUBED (test code=GLUBED) 105 MG/DL 70-110 Performed by certified steel spar operator at [facility] [id number] 11:54:00* Test Item Value Reference Range Comments GLUBED (test code=GLUBED) 113 MG/DL 70-110 Performed by certified steel spar operator at [facility] CBC W/AUTO [id number] 07:38:00* Test Item Value Reference Range Comments WHITE BLOOD CELL (test code=WBC) 17.45 x10 3/uL 4.5-11.0 RED BLOOD CELL (test code=RBC) 3.41 x10 6/uL 4.00-5.60 HEMOGLOBIN (test code=HGB) 8.2 g/dL 12.5-16.9 HEMATOCRIT (test code=HCT) 26.3 % 37.5-50.7 MEAN CELL VOLUME (test code=MCV) 77.1 fL 81.0-99.0 MEAN CELL HGB (test code=MCH) 24.0 pg 27.0-33.0 MEAN CELL HGB CONCETRATION (test code=MCHC) 31.2 g/dL 33.0-37.0 RED CELL DISTRIBUTION WIDTH CV (test code=RDW) 16.7 % 11.5-14.5 RED CELL DISTRIBUTION WIDTH SD (test code=RDW-SD) 46.0 fL 37.0-54.0 PLATELET COUNT (test code=PLT) 477 x10 3/uL 150-400 MEAN PLATELET VOLUME (test code=MPV) 11.7 fL 7.0-9.0 NEUTROPHIL % (test code=NT%) 70.4 % 56.0-77.0 IMMATURE GRANULOCYTE % (test code=IG%) 0.9 % 0.0-2.0 LYMPHOCYTE % (test code=LY%) 16.7 % 14.0-32.0 MONOCYTE % (test code=MO%) 8.5 % 4.8-9.0 EOSINOPHIL % (test code=EO%) 2.7 % 0.3-3.7 BASOPHIL % (test code=BA%) 0.8 % 0.0-2.0 NUCLEATED RBC % (test code=NRBC%) 0.0 % 0-0 NEUTROPHIL # (test code=NT#) 12.28 x10 3/uL 2.0-7.6 IMMATURE GRANULOCYTE # (test code=IG#) 0.16 x10 3/uL 0.00-0.03 LYMPHOCYTE # (test code=LY#) 2.92 x10 3/uL 1.0-3.8 MONOCYTE # (test code=MO#) 1.48 x10 3/uL 0.1-0.8 EOSINOPHIL # (test code=EO#) 0.47 x10 3/uL 0.0-0.2 BASOPHIL # (test code=BA#) 0.14 x10 3/uL 0.0-0.2 NUCLEATED RBC # (test code=NRBC#) 0.00 x10 3/uL 0.0-0.1 MANUAL DIFF REQUIRED (test code=MDIFF) NO BASIC METABOLIC [id number] 07:34:00* Test Item Value Reference Range Comments SODIUM (test code=NA) 133 mEq/L 134-147 POTASSIUM (test code=K) 4.2 mEq/L 3.4-5.0 CHLORIDE (test code=CL) 103 mEq/L 100-108 CARBON DIOXIDE (test code=CO2) 20 mEq/L 21-33 ANION GAP (test code=GAP) 14 0-20 GLUCOSE (test code=GLU) 98 mg/dL 70-110 BLOOD UREA NITROGEN (test code=BUN) 14 mg/dL 7-18 GLOMERULAR FILTRATION RATE (test code=GFR) 174.7 95-105 Units of measure=ml/min/1.73 m2 CREATININE (test code=CREAT) 0.6 mg/dL 0.6-1.3 CALCIUM (test code=CA) 9.0 mg/dL 8.0-10.5 [id number] 05:22:00* Test Item Value Reference Range Comments GLUBED (test code=GLUBED) 101 MG/DL 70-110 Performed by certified steel spar operator at [facility] [id number] 23:56:00* Test Item Value Reference Range Comments GLUBED (test code=GLUBED) 114 MG/DL 70-110 Performed by certified steel spar operator at [facility] [id number] 18:10:00* Test Item Value Reference Range Comments GLUBED (test code=GLUBED) 109 MG/DL 70-110 Performed by certified steel spar operator at [facility] [id number] 12:36:00* Test Item Value Reference Range Comments GLUBED (test code=GLUBED) 119 MG/DL 70-110 Performed by certified steel spar operator at [facility] [id number] 05:59:00* Test Item Value Reference Range Comments GLUBED (test code=GLUBED) 96 MG/DL 70-110 Performed by certified steel spar operator at [facility] [id number] 00:27:00* Test Item Value Reference Range Comments GLUBED (test code=GLUBED) 115 MG/DL 70-110 Performed by certified steel spar operator at [facility] [id number] 17:57:00* Test Item Value Reference Range Comments GLUBED (test code=GLUBED) 110 MG/DL 70-110 Performed by certified steel spar operator at [facility] [id number] 12:55:00* Test Item Value Reference Range Comments GLUBED (test code=GLUBED) 95 MG/DL 70-110 Performed by certified steel spar operator at [facility] BASIC METABOLIC [id number] 08:00:00* Test Item Value Reference Range Comments SODIUM (test code=NA) 138 mEq/L 134-147 POTASSIUM (test code=K) 4.0 mEq/L 3.4-5.0 CHLORIDE (test code=CL) 108 mEq/L 100-108 CARBON DIOXIDE (test code=CO2) 23 mEq/L 21-33 ANION GAP (test code=GAP) 11 0-20 GLUCOSE (test code=GLU) 92 mg/dL 70-110 BLOOD UREA NITROGEN (test code=BUN) 17 mg/dL 7-18 GLOMERULAR FILTRATION RATE (test code=GFR) 215.7 95-105 Units of measure=ml/min/1.73 m2 CREATININE (test code=CREAT) 0.5 mg/dL 0.6-1.3 CALCIUM (test code=CA) 8.9 mg/dL 8.0-10.5 [id number] 08:00:00* Test Item Value Reference Range Comments PHOSPHOROUS (test code=PHOS) 3.6 mg/dL 2.5-4.9 [id number] 08:00:00* Test Item Value Reference Range Comments MAGNESIUM (test code=MAG) 2.10 mg/dL 1.8-2.4 [id number] 05:44:00* Test Item Value Reference Range Comments GLUBED (test code=GLUBED) 110 MG/DL 70-110 Performed by certified steel spar operator at [facility] [id number] 23:26:00* Test Item Value Reference Range Comments GLUBED (test code=GLUBED) 142 MG/DL 70-110 Performed by certified steel spar operator at [facility] [id number] 17:25:00* Test Item Value Reference Range Comments GLUBED (test code=GLUBED) 111 MG/DL 70-110 Performed by certified steel spar operator at [facility] [id number] 12:44:00* Test Item Value Reference Range Comments GLUBED (test code=GLUBED) 110 MG/DL 70-110 Performed by certified steel spar operator at [facility] [id number] 05:22:00* Test Item Value Reference Range Comments GLUBED (test code=GLUBED) 90 MG/DL 70-110 Performed by certified steel spar operator at [facility] [id number] 23:52:00* Test Item Value Reference Range Comments GLUBED (test code=GLUBED) 113 MG/DL 70-110 Performed by certified steel spar operator at [facility] [id number] 17:36:00* Test Item Value Reference Range Comments GLUBED (test code=GLUBED) 112 MG/DL 70-110 Performed by certified steel spar operator at [facility] B-TYPE NATRIURETIC [id number] 12:32:00* Test Item Value Reference Range Comments B-TYPE NATRIURETIC PEPTIDE (test code=BNP) 11.1 PG/ML 0-100 BASIC METABOLIC [id number] 12:14:00* Test Item Value Reference Range Comments SODIUM (test code=NA) 141 mEq/L 134-147 POTASSIUM (test code=K) 3.1 mEq/L 3.4-5.0 CHLORIDE (test code=CL) 110 mEq/L 100-108 CARBON DIOXIDE (test code=CO2) 24 mEq/L 21-33 ANION GAP (test code=GAP) 10 0-20 GLUCOSE (test code=GLU) 112 mg/dL 70-110 BLOOD UREA NITROGEN (test code=BUN) 26 mg/dL 7-18 GLOMERULAR FILTRATION RATE (test code=GFR) 174.7 95-105 Units of measure=ml/min/1.73 m2 CREATININE (test code=CREAT) 0.6 mg/dL 0.6-1.3 CALCIUM (test code=CA) 9.1 mg/dL 8.0-10.5 [id number] 12:14:00* Test Item Value Reference Range Comments PHOSPHOROUS (test code=PHOS) 3.5 mg/dL 2.5-4.9 [id number] 12:14:00* Test Item Value Reference Range Comments MAGNESIUM (test code=MAG) 2.10 mg/dL 1.8-2.4 [id number] 12:14:00* Test Item Value Reference Range Comments PREALBUMIN (test code=PREALB) 11.7 mg/dL 16.0-40.0 [id number] 12:06:00* Test Item Value Reference Range Comments GLUBED (test code=GLUBED) 113 MG/DL 70-110 Performed by certified steel spar operator at [facility] UA CULT [id number] 06:58:00* Test Item Value Reference Range Comments UA WBC (test code=WBCU) 21-50 WBC/HPF 0-3 UA SQUAMOUS CELLS (test code=SQU) 0-5 /HPF NONE SEEN UA CULTURE NEEDED? (test code=UACULT) YES,WBC>10 & EPI<=25 Criteria Culture Chk Criteria met, Urine Culture in-process. [id number] 00:45:00* Test Item Value Reference Range Comments GLUBED (test code=GLUBED) 124 MG/DL 70-110 Performed by certified steel spar operator at [facility] [id number] 16:46:00* Test Item Value Reference Range Comments GLUBED (test code=GLUBED) 123 MG/DL 70-110 Performed by certified steel spar operator at [facility] [id number] 12:38:00* Test Item Value Reference Range Comments GLUBED (test code=GLUBED) 104 MG/DL 70-110 Performed by certified steel spar operator at [facility] [id number] 06:41:00* Test Item Value Reference Range Comments GLUBED (test code=GLUBED) 107 MG/DL 70-110 Performed by certified steel spar operator at [facility] [id number] 00:34:00* Test Item Value Reference Range Comments GLUBED (test code=GLUBED) 115 MG/DL 70-110 Performed by certified steel spar operator at [facility] [id number] 17:31:00* Test Item Value Reference Range Comments GLUBED (test code=GLUBED) 107 MG/DL 70-110 Performed by certified steel spar operator at [facility] [id number] 12:43:00* Test Item Value Reference Range Comments GLUBED (test code=GLUBED) 83 MG/DL 70-110 Performed by certified steel spar operator at [facility] [id number] 23:50:00* Test Item Value Reference Range Comments GLUBED (test code=GLUBED) 93 MG/DL 70-110 Performed by certified steel spar operator at [facility] [id number] 18:02:00* Test Item Value Reference Range Comments GLUBED (test code=GLUBED) 108 MG/DL 70-110 Performed by certified steel spar operator at [facility] [id number] 13:56:00* Test Item Value Reference Range Comments GLUBED (test code=GLUBED) 113 MG/DL 70-110 Performed by certified steel spar operator at [facility] [id number] 05:29:00* Test Item Value Reference Range Comments GLUBED (test code=GLUBED) 106 MG/DL 70-110 Performed by certified steel spar operator at [facility] [id number] 23:53:00* Test Item Value Reference Range Comments GLUBED (test code=GLUBED) 117 MG/DL 70-110 Performed by certified steel spar operator at [facility] [id number] 18:25:00* Test Item Value Reference Range Comments GLUBED (test code=GLUBED) 103 MG/DL 70-110 Performed by certified steel spar operator at [facility] [id number] 13:00:00* Test Item Value Reference Range Comments GLUBED (test code=GLUBED) 99 MG/DL 70-110 Performed by certified steel spar operator at [facility] CBC W/AUTO [id number] 08:43:00* Test Item Value Reference Range Comments WHITE BLOOD CELL (test code=WBC) 18.69 x10 3/uL 4.5-11.0 RED BLOOD CELL (test code=RBC) 3.49 x10 6/uL 4.00-5.60 HEMOGLOBIN (test code=HGB) 8.5 g/dL 12.5-16.9 HEMATOCRIT (test code=HCT) 27.5 % 37.5-50.7 MEAN CELL VOLUME (test code=MCV) 78.8 fL 81.0-99.0 MEAN CELL HGB (test code=MCH) 24.4 pg 27.0-33.0 MEAN CELL HGB CONCETRATION (test code=MCHC) 30.9 g/dL 33.0-37.0 RED CELL DISTRIBUTION WIDTH CV (test code=RDW) 16.9 % 11.5-14.5 RED CELL DISTRIBUTION WIDTH SD (test code=RDW-SD) 47.8 fL 37.0-54.0 PLATELET COUNT (test code=PLT) 536 x10 3/uL 150-400 MEAN PLATELET VOLUME (test code=MPV) 12.3 fL 7.0-9.0 NEUTROPHIL % (test code=NT%) 65.4 % 56.0-77.0 IMMATURE GRANULOCYTE % (test code=IG%) 1.1 % 0.0-2.0 LYMPHOCYTE % (test code=LY%) 18.4 % 14.0-32.0 MONOCYTE % (test code=MO%) 10.5 % 4.8-9.0 EOSINOPHIL % (test code=EO%) 3.5 % 0.3-3.7 BASOPHIL % (test code=BA%) 1.1 % 0.0-2.0 NUCLEATED RBC % (test code=NRBC%) 0.0 % 0-0 NEUTROPHIL # (test code=NT#) 12.23 x10 3/uL 2.0-7.6 IMMATURE GRANULOCYTE # (test code=IG#) 0.20 x10 3/uL 0.00-0.03 LYMPHOCYTE # (test code=LY#) 3.44 x10 3/uL 1.0-3.8 MONOCYTE # (test code=MO#) 1.97 x10 3/uL 0.1-0.8 EOSINOPHIL # (test code=EO#) 0.65 x10 3/uL 0.0-0.2 BASOPHIL # (test code=BA#) 0.20 x10 3/uL 0.0-0.2 NUCLEATED RBC # (test code=NRBC#) 0.00 x10 3/uL 0.0-0.1 MANUAL DIFF REQUIRED (test code=MDIFF) NO BASIC METABOLIC [id number] 08:22:00* Test Item Value Reference Range Comments SODIUM (test code=NA) 138 mEq/L 134-147 POTASSIUM (test code=K) 3.3 mEq/L 3.4-5.0 CHLORIDE (test code=CL) 106 mEq/L 100-108 CARBON DIOXIDE (test code=CO2) 22 mEq/L 21-33 ANION GAP (test code=GAP) 13 0-20 GLUCOSE (test code=GLU) 105 mg/dL 70-110 BLOOD UREA NITROGEN (test code=BUN) 26 mg/dL 7-18 GLOMERULAR FILTRATION RATE (test code=GFR) 146.3 95-105 Units of measure=ml/min/1.73 m2 CREATININE (test code=CREAT) 0.7 mg/dL 0.6-1.3 CALCIUM (test code=CA) 9.4 mg/dL 8.0-10.5 [id number] 05:36:00* Test Item Value Reference Range Comments GLUBED (test code=GLUBED) 107 MG/DL 70-110 Performed by certified steel spar operator at [facility] [id number] 05:00:00* Test Item Value Reference Range Comments GLUBED (test code=GLUBED) 104 MG/DL 70-110 Performed by certified steel spar operator at [facility] [id number] 18:00:00* Test Item Value Reference Range Comments GLUBED (test code=GLUBED) 126 MG/DL 70-110 Performed by certified steel spar operator at [facility] [id number] 13:14:00* Test Item Value Reference Range Comments GLUBED (test code=GLUBED) 127 MG/DL 70-110 Performed by certified steel spar operator at [facility] CBC W/AUTO [id number] 10:15:00* Test Item Value Reference Range Comments WHITE BLOOD CELL (test code=WBC) 20.66 x10 3/uL 4.5-11.0 RED BLOOD CELL (test code=RBC) 3.62 x10 6/uL 4.00-5.60 HEMOGLOBIN (test code=HGB) 8.7 g/dL 12.5-16.9 HEMATOCRIT (test code=HCT) 28.2 % 37.5-50.7 MEAN CELL VOLUME (test code=MCV) 77.9 fL 81.0-99.0 MEAN CELL HGB (test code=MCH) 24.0 pg 27.0-33.0 MEAN CELL HGB CONCETRATION (test code=MCHC) 30.9 g/dL 33.0-37.0 RED CELL DISTRIBUTION WIDTH CV (test code=RDW) 16.9 % 11.5-14.5 RED CELL DISTRIBUTION WIDTH SD (test code=RDW-SD) 48.2 fL 37.0-54.0 PLATELET COUNT (test code=PLT) 552 x10 3/uL 150-400 MEAN PLATELET VOLUME (test code=MPV) 12.1 fL 7.0-9.0 NEUTROPHIL % (test code=NT%) 68.9 % 56.0-77.0 IMMATURE GRANULOCYTE % (test code=IG%) 0.6 % 0.0-2.0 LYMPHOCYTE % (test code=LY%) 19.6 % 14.0-32.0 MONOCYTE % (test code=MO%) 7.6 % 4.8-9.0 EOSINOPHIL % (test code=EO%) 2.6 % 0.3-3.7 BASOPHIL % (test code=BA%) 0.7 % 0.0-2.0 NUCLEATED RBC % (test code=NRBC%) 0.0 % 0-0 NEUTROPHIL # (test code=NT#) 14.25 x10 3/uL 2.0-7.6 IMMATURE GRANULOCYTE # (test code=IG#) 0.12 x10 3/uL 0.00-0.03 LYMPHOCYTE # (test code=LY#) 4.04 x10 3/uL 1.0-3.8 MONOCYTE # (test code=MO#) 1.57 x10 3/uL 0.1-0.8 EOSINOPHIL # (test code=EO#) 0.54 x10 3/uL 0.0-0.2 BASOPHIL # (test code=BA#) 0.14 x10 3/uL 0.0-0.2 NUCLEATED RBC # (test code=NRBC#) 0.00 x10 3/uL 0.0-0.1 MANUAL DIFF REQUIRED (test code=MDIFF) NO SLIDE REVIEWED, CONSISTENT WITH AUTO DIFF. CBC W/AUTO [id number] 08:29:00* Test Item Value Reference Range Comments WHITE BLOOD CELL (test code=WBC) 20.66 x10 3/uL 4.5-11.0 RED BLOOD CELL (test code=RBC) 3.62 x10 6/uL 4.00-5.60 HEMOGLOBIN (test code=HGB) 8.7 g/dL 12.5-16.9 HEMATOCRIT (test code=HCT) 28.2 % 37.5-50.7 MEAN CELL VOLUME (test code=MCV) 77.9 fL 81.0-99.0 MEAN CELL HGB (test code=MCH) 24.0 pg 27.0-33.0 MEAN CELL HGB CONCETRATION (test code=MCHC) 30.9 g/dL 33.0-37.0 RED CELL DISTRIBUTION WIDTH CV (test code=RDW) 16.9 % 11.5-14.5 RED CELL DISTRIBUTION WIDTH SD (test code=RDW-SD) 48.2 fL 37.0-54.0 PLATELET COUNT (test code=PLT) 552 x10 3/uL 150-400 MEAN PLATELET VOLUME (test code=MPV) 12.1 fL 7.0-9.0 LYMPHOCYTE % (test code=LY%) % 14.0-32.0 MANUAL DIFF REQUIRED (test code=MDIFF) BASIC METABOLIC [id number] 07:44:00* Test Item Value Reference Range Comments SODIUM (test code=NA) 136 mEq/L 134-147 POTASSIUM (test code=K) 3.4 mEq/L 3.4-5.0 CHLORIDE (test code=CL) 105 mEq/L 100-108 CARBON DIOXIDE (test code=CO2) 23 mEq/L 21-33 ANION GAP (test code=GAP) 11 0-20 GLUCOSE (test code=GLU) 95 mg/dL 70-110 BLOOD UREA NITROGEN (test code=BUN) 21 mg/dL 7-18 GLOMERULAR FILTRATION RATE (test code=GFR) 146.3 95-105 Units of measure=ml/min/1.73 m2 CREATININE (test code=CREAT) 0.7 mg/dL 0.6-1.3 CALCIUM (test code=CA) 9.1 mg/dL 8.0-10.5 [id number] 06:24:00* Test Item Value Reference Range Comments GLUBED (test code=GLUBED) 98 MG/DL 70-110 Performed by certified steel spar operator at [facility] [id number] 01:36:00* Test Item Value Reference Range Comments GLUBED (test code=GLUBED) 118 MG/DL 70-110 Performed by certified steel spar operator at [facility] [id number] 17:57:00* Test Item Value Reference Range Comments GLUBED (test code=GLUBED) 129 MG/DL 70-110 Performed by certified steel spar operator at [facility] BASIC METABOLIC [id number] 12:52:00* Test Item Value Reference Range Comments SODIUM (test code=NA) 132 mEq/L 134-147 POTASSIUM (test code=K) 4.7 mEq/L 3.4-5.0 CHLORIDE (test code=CL) 106 mEq/L 100-108 CARBON DIOXIDE (test code=CO2) 19 mEq/L 21-33 ANION GAP (test code=GAP) 12 0-20 GLUCOSE (test code=GLU) 113 mg/dL 70-110 BLOOD UREA NITROGEN (test code=BUN) 19 mg/dL 7-18 GLOMERULAR FILTRATION RATE (test code=GFR) 174.7 95-105 Units of measure=ml/min/1.73 m2 CREATININE (test code=CREAT) 0.6 mg/dL 0.6-1.3 CALCIUM (test code=CA) 9.0 mg/dL 8.0-10.5 CBC W/AUTO [id number] 12:38:00* Test Item Value Reference Range Comments WHITE BLOOD CELL (test code=WBC) 13.80 x10 3/uL 4.5-11.0 RED BLOOD CELL (test code=RBC) 3.30 x10 6/uL 4.00-5.60 HEMOGLOBIN (test code=HGB) 7.9 g/dL 12.5-16.9 HEMATOCRIT (test code=HCT) 26.5 % 37.5-50.7 MEAN CELL VOLUME (test code=MCV) 80.3 fL 81.0-99.0 MEAN CELL HGB (test code=MCH) 23.9 pg 27.0-33.0 MEAN CELL HGB CONCETRATION (test code=MCHC) 29.8 g/dL 33.0-37.0 RED CELL DISTRIBUTION WIDTH CV (test code=RDW) 17.0 % 11.5-14.5 RED CELL DISTRIBUTION WIDTH SD (test code=RDW-SD) 48.8 fL 37.0-54.0 PLATELET COUNT (test code=PLT) 462 x10 3/uL 150-400 MEAN PLATELET VOLUME (test code=MPV) 11.3 fL 7.0-9.0 NEUTROPHIL % (test code=NT%) 58.5 % 56.0-77.0 IMMATURE GRANULOCYTE % (test code=IG%) 0.6 % 0.0-2.0 LYMPHOCYTE % (test code=LY%) 23.3 % 14.0-32.0 MONOCYTE % (test code=MO%) 12.0 % 4.8-9.0 EOSINOPHIL % (test code=EO%) 4.6 % 0.3-3.7 BASOPHIL % (test code=BA%) 1.0 % 0.0-2.0 NUCLEATED RBC % (test code=NRBC%) 0.0 % 0-0 NEUTROPHIL # (test code=NT#) 8.09 x10 3/uL 2.0-7.6 IMMATURE GRANULOCYTE # (test code=IG#) 0.08 x10 3/uL 0.00-0.03 LYMPHOCYTE # (test code=LY#) 3.21 x10 3/uL 1.0-3.8 MONOCYTE # (test code=MO#) 1.65 x10 3/uL 0.1-0.8 EOSINOPHIL # (test code=EO#) 0.63 x10 3/uL 0.0-0.2 BASOPHIL # (test code=BA#) 0.14 x10 3/uL 0.0-0.2 NUCLEATED RBC # (test code=NRBC#) 0.00 x10 3/uL 0.0-0.1 MANUAL DIFF REQUIRED (test code=MDIFF) NO COMMENTS: Daily while in [id number] 12:21:00* Test Item Value Reference Range Comments GLUBED (test code=GLUBED) 122 MG/DL 70-110 Performed by certified steel spar operator at [facility] [id number] 12:16:00* Test Item Value Reference Range Comments LEVETIRACETAM (test code=LEVTAM) 54.8 ug/mL 10.0-40.0 This test was developed and its performance characteristicsdetermined by [facility]. It has not been cleared orapproved by the Food and Drug Administration.Performed At: [address] [id number] Mistry MD Ph:[phone] [id number] 07:58:00* Test Item Value Reference Range Comments PHOSPHOROUS (test code=PHOS) 3.2 mg/dL 2.5-4.9 [id number] 07:58:00* Test Item Value Reference Range Comments MAGNESIUM (test code=MAG) 2.20 mg/dL 1.8-2.4 [id number] 05:48:00* Test Item Value Reference Range Comments GLUBED (test code=GLUBED) 104 MG/DL 70-110 Performed by certified steel spar operator at [facility] [id number] 23:36:00* Test Item Value Reference Range Comments GLUBED (test code=GLUBED) 115 MG/DL 70-110 Performed by certified steel spar operator at [facility] [id number] 17:54:00* Test Item Value Reference Range Comments GLUBED (test code=GLUBED) 113 MG/DL 70-110 Performed by certified steel spar operator at [facility] [id number] 11:32:00* Test Item Value Reference Range Comments GLUBED (test code=GLUBED) 132 MG/DL 70-110 Performed by certified steel spar operator at [facility] CBC W/AUTO [id number] 08:31:00* Test Item Value Reference Range Comments WHITE BLOOD CELL (test code=WBC) 13.42 x10 3/uL 4.5-11.0 RED BLOOD CELL (test code=RBC) 3.58 x10 6/uL 4.00-5.60 HEMOGLOBIN (test code=HGB) 8.6 g/dL 12.5-16.9 HEMATOCRIT (test code=HCT) 27.8 % 37.5-50.7 MEAN CELL VOLUME (test code=MCV) 77.7 fL 81.0-99.0 MEAN CELL HGB (test code=MCH) 24.0 pg 27.0-33.0 MEAN CELL HGB CONCETRATION (test code=MCHC) 30.9 g/dL 33.0-37.0 RED CELL DISTRIBUTION WIDTH CV (test code=RDW) 16.9 % 11.5-14.5 RED CELL DISTRIBUTION WIDTH SD (test code=RDW-SD) 47.7 fL 37.0-54.0 PLATELET COUNT (test code=PLT) 519 x10 3/uL 150-400 MEAN PLATELET VOLUME (test code=MPV) 12.1 fL 7.0-9.0 NEUTROPHIL % (test code=NT%) 65.3 % 56.0-77.0 IMMATURE GRANULOCYTE % (test code=IG%) 0.7 % 0.0-2.0 LYMPHOCYTE % (test code=LY%) 18.9 % 14.0-32.0 MONOCYTE % (test code=MO%) 10.6 % 4.8-9.0 EOSINOPHIL % (test code=EO%) 3.5 % 0.3-3.7 BASOPHIL % (test code=BA%) 1.0 % 0.0-2.0 NUCLEATED RBC % (test code=NRBC%) 0.0 % 0-0 NEUTROPHIL # (test code=NT#) 8.77 x10 3/uL 2.0-7.6 IMMATURE GRANULOCYTE # (test code=IG#) 0.09 x10 3/uL 0.00-0.03 LYMPHOCYTE # (test code=LY#) 2.53 x10 3/uL 1.0-3.8 MONOCYTE # (test code=MO#) 1.42 x10 3/uL 0.1-0.8 EOSINOPHIL # (test code=EO#) 0.47 x10 3/uL 0.0-0.2 BASOPHIL # (test code=BA#) 0.14 x10 3/uL 0.0-0.2 NUCLEATED RBC # (test code=NRBC#) 0.00 x10 3/uL 0.0-0.1 MANUAL DIFF REQUIRED (test code=MDIFF) NO COMMENTS: Daily while in ICUB[facility] METABOL[facility] [id number] 07:43:00* Test Item Value Reference Range Comments SODIUM (test code=NA) 135 mEq/L 134-147 POTASSIUM (test code=K) 3.5 mEq/L 3.4-5.0 CHLORIDE (test code=CL) 103 mEq/L 100-108 CARBON DIOXIDE (test code=CO2) 23 mEq/L 21-33 ANION GAP (test code=GAP) 13 0-20 GLUCOSE (test code=GLU) 84 mg/dL 70-110 BLOOD UREA NITROGEN (test code=BUN) 16 mg/dL 7-18 GLOMERULAR FILTRATION RATE (test code=GFR) 174.7 95-105 Units of measure=ml/min/1.73 m2 CREATININE (test code=CREAT) 0.6 mg/dL 0.6-1.3 CALCIUM (test code=CA) 9.2 mg/dL 8.0-10.5 COMMENTS: Daily while in [id number] 05:26:00* Test Item Value Reference Range Comments GLUBED (test code=GLUBED) 100 MG/DL 70-110 Performed by certified steel spar operator at [facility] [id number] 00:27:00* Test Item Value Reference Range Comments GLUBED (test code=GLUBED) 107 MG/DL 70-110 Performed by certified steel spar operator at [facility] [id number] 17:51:00* Test Item Value Reference Range Comments GLUBED (test code=GLUBED) 109 MG/DL 70-110 Performed by certified steel spar operator at [facility] [id number] 11:48:00* Test Item Value Reference Range Comments GLUBED (test code=GLUBED) 117 MG/DL 70-110 Performed by certified steel spar operator at [facility] [id number] 10:19:00* Test Item Value Reference Range Comments LACOSAMIDE (test code=LACO) 10.4 ug/mL 5.0-10.0 This test was developed and its performance characteristicsdetermined by [employer]. It has not been cleared orapproved by the Food and Drug Administration. Limit of Detection 0.5 Mean plasma concentrations following maintenance dose 200 mg/day 4.99 +/- 2.51 ug/mL 400 mg/day 9.35 +/- 4.22 ug/mL 600 mg/day 12.46 +/- 5.60 ug/mLPerformed At: [facility] [place], [place] [id number] Mistry MD Ph:[phone] [id number] 10:19:00* Test Item Value Reference Range Comments PHENOBARBITAL (test code=PHENOB) 13.9 mcg/mL 15-40 [id number] 10:19:00* Test Item Value Reference Range Comments LEVETIRACETAM (test code=LEVTAM) 17.4 ug/mL 10.0-40.0 This test was developed and its performance characteristicsdetermined by [employer]. It has not been cleared orapproved by the Food and Drug Administration.Performed At: [facility] [id number] Mistry MD Ph:[phone] COMPREHENSIVE METABOLIC [id number] 06:15:00* Test Item Value Reference Range Comments SODIUM (test code=NA) 135 mEq/L 134-147 POTASSIUM (test code=K) 3.6 mEq/L 3.4-5.0 CHLORIDE (test code=CL) 103 mEq/L 100-108 CARBON DIOXIDE (test code=CO2) 23 mEq/L 21-33 ANION GAP (test code=GAP) 13 0-20 GLUCOSE (test code=GLU) 98 mg/dL 70-110 BLOOD UREA NITROGEN (test code=BUN) 23 mg/dL 7-18 GLOMERULAR FILTRATION RATE (test code=GFR) 174.7 95-105 Units of measure=ml/min/1.73 m2 CREATININE (test code=CREAT) 0.6 mg/dL 0.6-1.3 TOTAL PROTEIN (test code=PROT) 7.6 g/dL 6.4-8.2 ALBUMIN (test code=ALB) 3.00 g/dL 3.4-5.0 CALCIUM (test code=CA) 9.4 mg/dL 8.0-10.5 BILIRUBIN TOTAL (test code=BILT) 0.20 mg/dL 0.0-1.0 SGOT/AST (test code=AST) 130 IUnit/L 15-37 SGPT/ALT (test code=ALT) 440 IUnit/L 15-65 ALKALINE PHOSPHATASE TOTAL (test code=ALKP) 272 IUnit/L 20-125 COMMENTS: Daily while in [id number] 06:15:00* Test Item Value Reference Range Comments PHENOBARBITAL (test code=PHENOB) 11.3 mcg/mL 15-40 COMMENTS: Daily while in [id number] 06:15:00* Test Item Value Reference Range Comments PROLACTIN (test code=PROLAC) 68.8 ng/mL 4.0-15.2 Performed At: [facility] [id number] Hasmukh Harris MD Ph:[phone] COMMENTS: Daily while in [id number] 05:57:00* Test Item Value Reference Range Comments GLUBED (test code=GLUBED) 100 MG/DL 70-110 Performed by certified steel spar operator at [facility] BASIC METABOLIC [id number] 04:34:00* Test Item Value Reference Range Comments SODIUM (test code=NA) 134 mEq/L 134-147 POTASSIUM (test code=K) 3.6 mEq/L 3.4-5.0 CHLORIDE (test code=CL) 102 mEq/L 100-108 CARBON DIOXIDE (test code=CO2) 24 mEq/L 21-33 ANION GAP (test code=GAP) 12 0-20 GLUCOSE (test code=GLU) 105 mg/dL 70-110 BLOOD UREA NITROGEN (test code=BUN) 16 mg/dL 7-18 GLOMERULAR FILTRATION RATE (test code=GFR) 215.7 95-105 Units of measure=ml/min/1.73 m2 CREATININE (test code=CREAT) 0.5 mg/dL 0.6-1.3 CALCIUM (test code=CA) 9.2 mg/dL 8.0-10.5 COMMENTS: Daily while in ICUCBC W/AUTO [id number] 04:26:00* Test Item Value Reference Range Comments WHITE BLOOD CELL (test code=WBC) 13.68 x10 3/uL 4.5-11.0 RED BLOOD CELL (test code=RBC) 3.47 x10 6/uL 4.00-5.60 HEMOGLOBIN (test code=HGB) 8.3 g/dL 12.5-16.9 HEMATOCRIT (test code=HCT) 27.3 % 37.5-50.7 MEAN CELL VOLUME (test code=MCV) 78.7 fL 81.0-99.0 MEAN CELL HGB (test code=MCH) 23.9 pg 27.0-33.0 MEAN CELL HGB CONCETRATION (test code=MCHC) 30.4 g/dL 33.0-37.0 RED CELL DISTRIBUTION WIDTH CV (test code=RDW) 16.7 % 11.5-14.5 RED CELL DISTRIBUTION WIDTH SD (test code=RDW-SD) 47.8 fL 37.0-54.0 PLATELET COUNT (test code=PLT) 480 x10 3/uL 150-400 MEAN PLATELET VOLUME (test code=MPV) 11.9 fL 7.0-9.0 NEUTROPHIL % (test code=NT%) 62.3 % 56.0-77.0 IMMATURE GRANULOCYTE % (test code=IG%) 0.4 % 0.0-2.0 LYMPHOCYTE % (test code=LY%) 19.7 % 14.0-32.0 MONOCYTE % (test code=MO%) 12.0 % 4.8-9.0 EOSINOPHIL % (test code=EO%) 4.4 % 0.3-3.7 BASOPHIL % (test code=BA%) 1.2 % 0.0-2.0 NUCLEATED RBC % (test code=NRBC%) 0.0 % 0-0 NEUTROPHIL # (test code=NT#) 8.53 x10 3/uL 2.0-7.6 IMMATURE GRANULOCYTE # (test code=IG#) 0.05 x10 3/uL 0.00-0.03 LYMPHOCYTE # (test code=LY#) 2.69 x10 3/uL 1.0-3.8 MONOCYTE # (test code=MO#) 1.64 x10 3/uL 0.1-0.8 EOSINOPHIL # (test code=EO#) 0.60 x10 3/uL 0.0-0.2 BASOPHIL # (test code=BA#) 0.17 x10 3/uL 0.0-0.2 NUCLEATED RBC # (test code=NRBC#) 0.00 x10 3/uL 0.0-0.1 MANUAL DIFF REQUIRED (test code=MDIFF) NO COMMENTS: Daily while in [id number] 00:29:00* Test Item Value Reference Range Comments GLUBED (test code=GLUBED) 101 MG/DL 70-110 Performed by certified steel spar operator at [facility] [id number] 22:31:00* Test Item Value Reference Range Comments GLUBED (test code=GLUBED) 99 MG/DL 70-110 Performed by certified steel spar operator at [facility] [id number] 18:04:00* Test Item Value Reference Range Comments GLUBED (test code=GLUBED) 94 MG/DL 70-110 Performed by certified steel spar operator at [facility] [id number] 15:16:00* Test Item Value Reference Range Comments LACOSAMIDE (test code=LACO) 10.4 ug/mL 5.0-10.0 This test was developed and its performance characteristicsdetermined by [employer]. It has not been cleared orapproved by the Food and Drug Administration. Limit of Detection 0.5 Mean plasma concentrations following maintenance dose 200 mg/day 4.99 +/- 2.51 ug/mL 400 mg/day 9.35 +/- 4.22 ug/mL 600 mg/day 12.46 +/- 5.60 ug/mLPerformed At: [facility] [id number] [place], [place] [id number] Sanjai MD Ph:[phone] [id number] 15:16:00* Test Item Value Reference Range Comments PHENOBARBITAL (test code=PHENOB) 13.9 mcg/mL 15-40 [id number] 15:16:00* Test Item Value Reference Range Comments LEVETIRACETAM (test code=LEVTAM) [id number] 13:20:00* Test Item Value Reference Range Comments GLUBED (test code=GLUBED) 102 MG/DL 70-110 Performed by certified steel spar operator at [facility] CBC W/AUTO [id number] 07:13:00* Test Item Value Reference Range Comments WHITE BLOOD CELL (test code=WBC) 16.35 x10 3/uL 4.5-11.0 RED BLOOD CELL (test code=RBC) 3.61 x10 6/uL 4.00-5.60 HEMOGLOBIN (test code=HGB) 8.8 g/dL 12.5-16.9 HEMATOCRIT (test code=HCT) 28.0 % 37.5-50.7 MEAN CELL VOLUME (test code=MCV) 77.6 fL 81.0-99.0 MEAN CELL HGB (test code=MCH) 24.4 pg 27.0-33.0 MEAN CELL HGB CONCETRATION (test code=MCHC) 31.4 g/dL 33.0-37.0 RED CELL DISTRIBUTION WIDTH CV (test code=RDW) 16.8 % 11.5-14.5 RED CELL DISTRIBUTION WIDTH SD (test code=RDW-SD) 47.1 fL 37.0-54.0 PLATELET COUNT (test code=PLT) 530 x10 3/uL 150-400 MEAN PLATELET VOLUME (test code=MPV) 12.2 fL 7.0-9.0 NEUTROPHIL % (test code=NT%) 67.2 % 56.0-77.0 IMMATURE GRANULOCYTE % (test code=IG%) 0.4 % 0.0-2.0 LYMPHOCYTE % (test code=LY%) 17.1 % 14.0-32.0 MONOCYTE % (test code=MO%) 10.2 % 4.8-9.0 EOSINOPHIL % (test code=EO%) 3.9 % 0.3-3.7 BASOPHIL % (test code=BA%) 1.2 % 0.0-2.0 NUCLEATED RBC % (test code=NRBC%) 0.0 % 0-0 NEUTROPHIL # (test code=NT#) 10.99 x10 3/uL 2.0-7.6 IMMATURE GRANULOCYTE # (test code=IG#) 0.06 x10 3/uL 0.00-0.03 LYMPHOCYTE # (test code=LY#) 2.80 x10 3/uL 1.0-3.8 MONOCYTE # (test code=MO#) 1.67 x10 3/uL 0.1-0.8 EOSINOPHIL # (test code=EO#) 0.64 x10 3/uL 0.0-0.2 BASOPHIL # (test code=BA#) 0.19 x10 3/uL 0.0-0.2 NUCLEATED RBC # (test code=NRBC#) 0.00 x10 3/uL 0.0-0.1 MANUAL DIFF REQUIRED (test code=MDIFF) NO COMMENTS: Daily while in ICUCOMPREHENSIVE METABOLIC [id number] 06:52:00* Test Item Value Reference Range Comments SODIUM (test code=NA) 134 mEq/L 134-147 POTASSIUM (test code=K) 3.6 mEq/L 3.4-5.0 CHLORIDE (test code=CL) 103 mEq/L 100-108 CARBON DIOXIDE (test code=CO2) 23 mEq/L 21-33 ANION GAP (test code=GAP) 12 0-20 GLUCOSE (test code=GLU) 109 mg/dL 70-110 BLOOD UREA NITROGEN (test code=BUN) 16 mg/dL 7-18 GLOMERULAR FILTRATION RATE (test code=GFR) 215.7 95-105 Units of measure=ml/min/1.73 m2 CREATININE (test code=CREAT) 0.5 mg/dL 0.6-1.3 TOTAL PROTEIN (test code=PROT) 7.6 g/dL 6.4-8.2 ALBUMIN (test code=ALB) 3.00 g/dL 3.4-5.0 CALCIUM (test code=CA) 9.2 mg/dL 8.0-10.5 BILIRUBIN TOTAL (test code=BILT) 0.10 mg/dL 0.0-1.0 SGOT/AST (test code=AST) 81 IUnit/L 15-37 SGPT/ALT (test code=ALT) 341 IUnit/L 15-65 ALKALINE PHOSPHATASE TOTAL (test code=ALKP) 251 IUnit/L 20-125 COMMENTS: Daily while in [id number] 06:24:00* Test Item Value Reference Range Comments GLUBED (test code=GLUBED) 102 MG/DL 70-110 Performed by certified steel spar operator at [facility] [id number] 01:02:00* Test Item Value Reference Range Comments GLUBED (test code=GLUBED) 91 MG/DL 70-110 Performed by certified steel spar operator at [facility] [id number] 17:46:00* Test Item Value Reference Range Comments GLUBED (test code=GLUBED) 100 MG/DL 70-110 Performed by certified steel spar operator at [facility] [id number] 17:44:00* Test Item Value Reference Range Comments GLUBED (test code=GLUBED) 105 MG/DL 70-110 Performed by certified steel spar operator at [facility] [id number] 08:35:00* Test Item Value Reference Range Comments GLUBED (test code=GLUBED) 98 MG/DL 70-110 Performed by certified steel spar operator at [facility] COMPREHENSIVE METABOLIC [id number] 07:46:00* Test Item Value Reference Range Comments SODIUM (test code=NA) 135 mEq/L 134-147 POTASSIUM (test code=K) 3.6 mEq/L 3.4-5.0 CHLORIDE (test code=CL) 103 mEq/L 100-108 CARBON DIOXIDE (test code=CO2) 23 mEq/L 21-33 ANION GAP (test code=GAP) 13 0-20 GLUCOSE (test code=GLU) 98 mg/dL 70-110 BLOOD UREA NITROGEN (test code=BUN) 23 mg/dL 7-18 GLOMERULAR FILTRATION RATE (test code=GFR) 174.7 95-105 Units of measure=ml/min/1.73 m2 CREATININE (test code=CREAT) 0.6 mg/dL 0.6-1.3 TOTAL PROTEIN (test code=PROT) 7.6 g/dL 6.4-8.2 ALBUMIN (test code=ALB) 3.00 g/dL 3.4-5.0 CALCIUM (test code=CA) 9.4 mg/dL 8.0-10.5 BILIRUBIN TOTAL (test code=BILT) 0.20 mg/dL 0.0-1.0 SGOT/AST (test code=AST) 130 IUnit/L 15-37 SGPT/ALT (test code=ALT) 440 IUnit/L 15-65 ALKALINE PHOSPHATASE TOTAL (test code=ALKP) 272 IUnit/L 20-125 COMMENTS: Daily while in [id number] 07:46:00* Test Item Value Reference Range Comments PHENOBARBITAL (test code=PHENOB) 11.3 mcg/mL 15-40 COMMENTS: Daily while in [id number] 07:46:00* Test Item Value Reference Range Comments LEVETIRACETAM (test code=LEVTAM) COMMENTS: Daily while in [id number] 07:46:00* Test Item Value Reference Range Comments PROLACTIN (test code=PROLAC) COMMENTS: Daily while in ICUCBC W/AUTO [id number] 07:40:00* Test Item Value Reference Range Comments WHITE BLOOD CELL (test code=WBC) 16.22 x10 3/uL 4.5-11.0 RED BLOOD CELL (test code=RBC) 3.66 x10 6/uL 4.00-5.60 HEMOGLOBIN (test code=HGB) 8.6 g/dL 12.5-16.9 HEMATOCRIT (test code=HCT) 28.5 % 37.5-50.7 MEAN CELL VOLUME (test code=MCV) 77.9 fL 81.0-99.0 MEAN CELL HGB (test code=MCH) 23.5 pg 27.0-33.0 MEAN CELL HGB CONCETRATION (test code=MCHC) 30.2 g/dL 33.0-37.0 RED CELL DISTRIBUTION WIDTH CV (test code=RDW) 17.0 % 11.5-14.5 RED CELL DISTRIBUTION WIDTH SD (test code=RDW-SD) 48.1 fL 37.0-54.0 PLATELET COUNT (test code=PLT) 526 x10 3/uL 150-400 MEAN PLATELET VOLUME (test code=MPV) 12.4 fL 7.0-9.0 NEUTROPHIL % (test code=NT%) 62.2 % 56.0-77.0 IMMATURE GRANULOCYTE % (test code=IG%) 0.4 % 0.0-2.0 LYMPHOCYTE % (test code=LY%) 21.6 % 14.0-32.0 MONOCYTE % (test code=MO%) 11.5 % 4.8-9.0 EOSINOPHIL % (test code=EO%) 3.1 % 0.3-3.7 BASOPHIL % (test code=BA%) 1.2 % 0.0-2.0 NUCLEATED RBC % (test code=NRBC%) 0.0 % 0-0 NEUTROPHIL # (test code=NT#) 10.09 x10 3/uL 2.0-7.6 IMMATURE GRANULOCYTE # (test code=IG#) 0.07 x10 3/uL 0.00-0.03 LYMPHOCYTE # (test code=LY#) 3.50 x10 3/uL 1.0-3.8 MONOCYTE # (test code=MO#) 1.86 x10 3/uL 0.1-0.8 EOSINOPHIL # (test code=EO#) 0.50 x10 3/uL 0.0-0.2 BASOPHIL # (test code=BA#) 0.20 x10 3/uL 0.0-0.2 NUCLEATED RBC # (test code=NRBC#) 0.00 x10 3/uL 0.0-0.1 MANUAL DIFF REQUIRED (test code=MDIFF) NO COMMENTS: Daily while in [id number] 00:32:00* Test Item Value Reference Range Comments GLUBED (test code=GLUBED) 94 MG/DL 70-110 Performed by certified steel spar operator at [facility] [id number] 18:41:00* Test Item Value Reference Range Comments GLUBED (test code=GLUBED) 78 MG/DL 70-110 Performed by certified steel spar operator at [facility] [id number] 11:47:00* Test Item Value Reference Range Comments GLUBED (test code=GLUBED) 113 MG/DL 70-110 Performed by certified steel spar operator at [facility] [id number] 11:47:00* Test Item Value Reference Range Comments GLUBED (test code=GLUBED) 114 MG/DL 70-110 Performed by certified steel spar operator at [facility] - XR CHEST 1 [id number] 09:01:00 FAX: Staci Zepeda [phone] [place]: St: ADM FAX: Mitzy Coleman MD FAX: Jose tSrong MD [phone] Name: CELESTINO MCALLISTER [facility] : 1970 Age/S: 48/M [address] [place] [address] Unit #: [id number] Loc: [address] [address] Phys: Mitzy Coleman MD Acct: [id number] Dis Date: Status: ADM IN PH ONE #: [phone] Exam Date: 12/03/2018 0836 FAX #: [phone] Reason: trach on vent EXAMS: CPT CODE: [id number] XR CHEST 1 V 92677 1 VIEW CXR. PORTABLE EXAM 7:19 AM HISTORY: Ventilator patient. COMPARISON: Yesterdays chest X-RAY. Tracheostomy appliance a nd IVORY CARVER shunt catheter are present and stable in position. I MPRESSION: Normal exam. E ND OF IMPRESSION SL: [id number] at 0901 Reported and signed by: Rocio Bauman M.D. CC: Staci Zepeda MD; Mitzy Coleman MD; Jose Encarnacion MD Technologist: RT Lisa(R) Trnscrd Date/Time/By: 12/03/2018 (900) : By : Td Orig Print D/T: S: 12/03/2018 (903) PAGE 1 Signed Report COMPREHENSIVE METABOLIC [id number] 07:05:00* Test Item Value Reference Range Comments SODIUM (test code=NA) 137 mEq/L 134-147 POTASSIUM (test code=K) 3.7 mEq/L 3.4-5.0 CHLORIDE (test code=CL) 105 mEq/L 100-108 CARBON DIOXIDE (test code=CO2) 25 mEq/L 21-33 ANION GAP (test code=GAP) 11 0-20 GLUCOSE (test code=GLU) 114 mg/dL 70-110 BLOOD UREA NITROGEN (test code=BUN) 23 mg/dL 7-18 GLOMERULAR FILTRATION RATE (test code=GFR) 174.7 95-105 Units of measure=ml/min/1.73 m2 CREATININE (test code=CREAT) 0.6 mg/dL 0.6-1.3 TOTAL PROTEIN (test code=PROT) 8.4 g/dL 6.4-8.2 ALBUMIN (test code=ALB) 3.40 g/dL 3.4-5.0 CALCIUM (test code=CA) 10.0 mg/dL 8.0-10.5 BILIRUBIN TOTAL (test code=BILT) 0.20 mg/dL 0.0-1.0 SGOT/AST (test code=AST) 83 IUnit/L 15-37 SGPT/ALT (test code=ALT) 437 IUnit/L 15-65 ALKALINE PHOSPHATASE TOTAL (test code=ALKP) 320 IUnit/L 20-125 [id number] 07:05:00* Test Item Value Reference Range Comments PHOSPHOROUS (test code=PHOS) 4.0 mg/dL 2.5-4.9 [id number] 07:05:00* Test Item Value Reference Range Comments MAGNESIUM (test code=MAG) 2.20 mg/dL 1.8-2.4 CBC W/AUTO [id number] 06:50:00* Test Item Value Reference Range Comments WHITE BLOOD CELL (test code=WBC) 16.71 x10 3/uL 4.5-11.0 RED BLOOD CELL (test code=RBC) 3.92 x10 6/uL 4.00-5.60 HEMOGLOBIN (test code=HGB) 9.4 g/dL 12.5-16.9 HEMATOCRIT (test code=HCT) 30.8 % 37.5-50.7 MEAN CELL VOLUME (test code=MCV) 78.6 fL 81.0-99.0 MEAN CELL HGB (test code=MCH) 24.0 pg 27.0-33.0 MEAN CELL HGB CONCETRATION (test code=MCHC) 30.5 g/dL 33.0-37.0 RED CELL DISTRIBUTION WIDTH CV (test code=RDW) 17.2 % 11.5-14.5 RED CELL DISTRIBUTION WIDTH SD (test code=RDW-SD) 49.1 fL 37.0-54.0 PLATELET COUNT (test code=PLT) 565 x10 3/uL 150-400 MEAN PLATELET VOLUME (test code=MPV) 11.9 fL 7.0-9.0 NEUTROPHIL % (test code=NT%) 61.9 % 56.0-77.0 IMMATURE GRANULOCYTE % (test code=IG%) 0.4 % 0.0-2.0 LYMPHOCYTE % (test code=LY%) 21.8 % 14.0-32.0 MONOCYTE % (test code=MO%) 10.4 % 4.8-9.0 EOSINOPHIL % (test code=EO%) 3.8 % 0.3-3.7 BASOPHIL % (test code=BA%) 1.7 % 0.0-2.0 NUCLEATED RBC % (test code=NRBC%) 0.0 % 0-0 NEUTROPHIL # (test code=NT#) 10.34 x10 3/uL 2.0-7.6 IMMATURE GRANULOCYTE # (test code=IG#) 0.07 x10 3/uL 0.00-0.03 LYMPHOCYTE # (test code=LY#) 3.65 x10 3/uL 1.0-3.8 MONOCYTE # (test code=MO#) 1.73 x10 3/uL 0.1-0.8 EOSINOPHIL # (test code=EO#) 0.63 x10 3/uL 0.0-0.2 BASOPHIL # (test code=BA#) 0.29 x10 3/uL 0.0-0.2 NUCLEATED RBC # (test code=NRBC#) 0.00 x10 3/uL 0.0-0.1 MANUAL DIFF REQUIRED (test code=MDIFF) NO ARTERIAL BLOOD [id number] 06:23:00* Test Item Value Reference Range Comments ARTERIAL BLOOD GAS PH (test code=PHA) 7.467 7.35-7.45 ARTERIAL BLOOD GAS PCO2 (test code=PCO2A) 29.2 mmHg 35-45 ARTERIAL BLOOD GAS PO2 (test code=PO2A) 152 mmHg 80-100 BICARBONATE TOTAL HCO3 (test code=HCO3) 21.1 mmol/L 22.0-26.0 BASE EXCESS (test code=MARISELA) -3.0 mmol/L -4-4 ABG O2 SATURATION (test code=SATA) 99 % 90-100 FIO2 (test code=FIO2A) 28 % ABG DELIVERY (test code=SHARAN) Venti Performed by certified steel spar operator at [facility] ABG TEMPERATURE (test code=TEMPA) 98.6 F ABG SITE (test code=SITEA) L Rad PREDICTED AA GRADIENT (test code=AP) 42 PREDICTED PO2 (test code=OP) 122 a/A RATIO (test code=RATIO) 0.92 TCO2 ARTERIAL (test code=TCO2A) 22 A-A GRADIENT (test code=AAGRADE) 13 [id number] 00:52:00* Test Item Value Reference Range Comments GLUBED (test code=GLUBED) 101 MG/DL 70-110 Performed by certified steel spar operator at [facility] URINALYSIS [id number] 18:36:00* Test Item Value Reference Range Comments UA COLOR (test code=COLU) YELLOW YEL/STRAW UA APPEARANCE (test code=APPU) CLOUDY CLEAR UA GLUCOSE DIPSTICK (test code=DGLUU) NEGATIVE NEGATIVE UA BILIRUBIN DIPSTICK (test code=BILU) NEGATIVE NEGATIVE UA KETONE DIPSTICK (test code=KETU) NEGATIVE NEGATIVE UA SPECIFIC GRAVITY (test code=SGU) 1.021 1.005-1.030 UA BLOOD DIPSTICK (test code=TAMMY) NEGATIVE NEGATIVE UA PH DIPSTICK (test code=PAULA) 6.0 5.0-7.0 UA PROTEIN DIPSTICK (test code=PROU) 1+ NEGATIVE UA UROBILINIOGEN DIPSTICK (test code=URO) 0.2 mg/dL 0.2-1.0 UA NITRITE DIPSTICK (test code=BECKI) POSITIVE NEGATIVE UA LEUKOCYTE ESTERASE DIPSTICK (test code=LEUU) 3+ NEGATIVE UA WBC (test code=WBCU) 21-50 WBC/HPF 0-3 UA RBC (test code=RBCU) 4-10 RBC/HPF 0-3 UA BACTERIA (test code=BACU) 1+ /HPF NONE SEEN UA SQUAMOUS CELLS (test code=SQU) 0-5 /HPF NONE SEEN UA MUCUS (test code=MUCU) 3+ /LPF NONE SEEN UA YEAST (BUDDING) (test code=YEASTUBD) TRACE /HPF NONE UA CULT [id number] 18:36:00* Test Item Value Reference Range Comments UA CULTURE NEEDED? (test code=UACULT) YES,WBC>10 & EPI<=25 Criteria Culture Chk Criteria met, Urine Culture in-process. PROTHROMBIN [id number] 18:36:00* Test Item Value Reference Range Comments PROTHROMBIN TIME PATIENT (test code=PTP) 15.9 SECONDS 9.3-12.9 INTERNATIONAL NORMAL RATIO (test code=INR) 1.4 0.8-1.2 TARGET INR BY INDICATION Indication INR1. Prophylaxis of venous thrombosis 2.0 - 3.0 (orthopedic surgery), Prophylaxis of venous thrombosis (other than high-risk surgery), Treatment of Deep Vein Thrombosis/Pulmonary Embolism, Prevention of systemic embolism - Tissue heart valves, Acute Myocardial Infarction (to prevent systemic embolism), Valvular heart disease, Atrial Fibrillation, Bileaflet mechanical valve in aortic position.2. Mechanical prosthetic valves (high risk), 2.5 - 3.5 Presence of Lupus Anticoagulant or Antiphospholipid Antibodies, Prevention of systemic embolism - Acute Myocardial Infarction (to prevent recurrent infarct). [id number] 18:34:00* Test Item Value Reference Range Comments LACOSAMIDE (test code=LACO) [id number] 18:34:00* Test Item Value Reference Range Comments PHENOBARBITAL (test code=PHENOB) 13.9 mcg/mL 15-40 [id number] 18:34:00* Test Item Value Reference Range Comments LEVETIRACETAM (test code=LEVTAM) [id number] 18:28:00* Test Item Value Reference Range Comments PHOSPHOROUS (test code=PHOS) 4.1 mg/dL 2.5-4.9 [id number] 18:28:00* Test Item Value Reference Range Comments MAGNESIUM (test code=MAG) 2.20 mg/dL 1.8-2.4 [id number] 18:28:00* Test Item Value Reference Range Comments TROPONIN-I (test code=TROPI) < 0.015 ng/mL 0.000-0.045 Negative: <=0.045 Positive: >=0.046 Correlation with serial results, other cardiac markers andclinical findings is necessary to determine the clinicalsignificance of this result. Results using different methodologies should not be comparedto one another as quantitative results may vary by method. COMPREHENSIVE METABOLIC [id number] 18:26:00* Test Item Value Reference Range Comments SODIUM (test code=NA) 137 mEq/L 134-147 POTASSIUM (test code=K) 4.1 mEq/L 3.4-5.0 CHLORIDE (test code=CL) 103 mEq/L 100-108 CARBON DIOXIDE (test code=CO2) 25 mEq/L 21-33 ANION GAP (test code=GAP) 13 0-20 GLUCOSE (test code=GLU) 92 mg/dL 70-110 BLOOD UREA NITROGEN (test code=BUN) 25 mg/dL 7-18 GLOMERULAR FILTRATION RATE (test code=GFR) 146.3 95-105 Units of measure=ml/min/1.73 m2 CREATININE (test code=CREAT) 0.7 mg/dL 0.6-1.3 TOTAL PROTEIN (test code=PROT) 8.6 g/dL 6.4-8.2 ALBUMIN (test code=ALB) 3.40 g/dL 3.4-5.0 CALCIUM (test code=CA) 10.0 mg/dL 8.0-10.5 BILIRUBIN TOTAL (test code=BILT) 0.20 mg/dL 0.0-1.0 SGOT/AST (test code=AST) 105 IUnit/L 15-37 SGPT/ALT (test code=ALT) 527 IUnit/L 15-65 ALKALINE PHOSPHATASE TOTAL (test code=ALKP) 333 IUnit/L 20-125 LACTIC [id number] 18:24:00* Test Item Value Reference Range Comments LACTIC ACID (test code=LACT) 1.2 mmol/L 0.4-1.9 COMPREHENSIVE METABOLIC [id number] 18:23:00* Test Item Value Reference Range Comments SODIUM (test code=NA) 137 mEq/L 134-147 POTASSIUM (test code=K) 4.1 mEq/L 3.4-5.0 CHLORIDE (test code=CL) 103 mEq/L 100-108 CARBON DIOXIDE (test code=CO2) 25 mEq/L 21-33 ANION GAP (test code=GAP) 13 0-20 GLUCOSE (test code=GLU) 92 mg/dL 70-110 BLOOD UREA NITROGEN (test code=BUN) 25 mg/dL 7-18 GLOMERULAR FILTRATION RATE (test code=GFR) 146.3 95-105 Units of measure=ml/min/1.73 m2 CREATININE (test code=CREAT) 0.7 mg/dL 0.6-1.3 TOTAL PROTEIN (test code=PROT) g/dL 6.4-8.2 ALBUMIN (test code=ALB) 3.40 g/dL 3.4-5.0 CALCIUM (test code=CA) 10.0 mg/dL 8.0-10.5 BILIRUBIN TOTAL (test code=BILT) mg/dL 0.0-1.0 SGOT/AST (test code=AST) 105 IUnit/L 15-37 SGPT/ALT (test code=ALT) 527 IUnit/L 15-65 ALKALINE PHOSPHATASE TOTAL (test code=ALKP) IUnit/L 20-125 CBC W/AUTO [id number] 18:14:00* Test Item Value Reference Range Comments WHITE BLOOD CELL (test code=WBC) 15.22 x10 3/uL 4.5-11.0 RED BLOOD CELL (test code=RBC) 4.14 x10 6/uL 4.00-5.60 HEMOGLOBIN (test code=HGB) 9.9 g/dL 12.5-16.9 HEMATOCRIT (test code=HCT) 31.8 % 37.5-50.7 MEAN CELL VOLUME (test code=MCV) 76.8 fL 81.0-99.0 MEAN CELL HGB (test code=MCH) 23.9 pg 27.0-33.0 MEAN CELL HGB CONCETRATION (test code=MCHC) 31.1 g/dL 33.0-37.0 RED CELL DISTRIBUTION WIDTH CV (test code=RDW) 17.0 % 11.5-14.5 RED CELL DISTRIBUTION WIDTH SD (test code=RDW-SD) 47.2 fL 37.0-54.0 PLATELET COUNT (test code=PLT) 582 x10 3/uL 150-400 MEAN PLATELET VOLUME (test code=MPV) 11.3 fL 7.0-9.0 NEUTROPHIL % (test code=NT%) 64.0 % 56.0-77.0 IMMATURE GRANULOCYTE % (test code=IG%) 0.3 % 0.0-2.0 LYMPHOCYTE % (test code=LY%) 21.0 % 14.0-32.0 MONOCYTE % (test code=MO%) 8.9 % 4.8-9.0 EOSINOPHIL % (test code=EO%) 4.3 % 0.3-3.7 BASOPHIL % (test code=BA%) 1.5 % 0.0-2.0 NUCLEATED RBC % (test code=NRBC%) 0.0 % 0-0 NEUTROPHIL # (test code=NT#) 9.73 x10 3/uL 2.0-7.6 IMMATURE GRANULOCYTE # (test code=IG#) 0.05 x10 3/uL 0.00-0.03 LYMPHOCYTE # (test code=LY#) 3.20 x10 3/uL 1.0-3.8 MONOCYTE # (test code=MO#) 1.36 x10 3/uL 0.1-0.8 EOSINOPHIL # (test code=EO#) 0.65 x10 3/uL 0.0-0.2 BASOPHIL # (test code=BA#) 0.23 x10 3/uL 0.0-0.2 NUCLEATED RBC # (test code=NRBC#) 0.00 x10 3/uL 0.0-0.1 MANUAL DIFF REQUIRED (test code=MDIFF) NO - CT HEAD/BRAIN W/O [id number] 17:40:00 Name: CELESTINO MCALLISTER [facility] : 1970 Age/S: 48 / M [address] [place] [address] Unit #: [id number] Loc: [place] [address] Phys: Mitzy Coleman MD Acct: [id number] Dis Date: Status: ADM IN PHONE #: [phone] Exam Date: 12/02/2018 1719 FAX #: [phone] Reason: SEIZURE EXAMS: CPT CODE: [id number] CT HEAD/BRAIN W/O CONT [address] HEAD INDICATION: SEIZURE. TECHNIQUE: Unenhanced CT was performed from the skull vertex to the foramen magnum with axial, coronal and sagittal reconstructions. Radiation dose length product 1042 mGy-cm. COMPARISONS: CT head 08/30/2018, 08/24/2018 FINDINGS: There is a small mucous retention cyst or polyp in the right sphenoid and left maxillary sinuses without air-fluid level. There are small to moderate bilateral mastoid air cell effusions, decreased from pr ior. There is no acute depressed skull fracture. The re is a stable right parietal access ventriculostomy catheter that termina nicholas in the right lateral ventricle. There is a stable slitlike appearance of the lateral ventricles. There is stable metallic clips adjacent to th e right midbrain. There is a stable lacunar infarct in the shagu[place]a. There i s a stable moderate burden of hypodense lesions in the bilateral frontal p arietal white matter. There is a stable small area of right frontal encep halomalacia in the cortex. There is a focus of right occipital encephalom alacia in the cortex, which has decreased in density compared to prior con sistent with old infarct. There is mild generalized brain parenchymal volu me loss. IMPRESSION: 1. There is no acute i ntracranial process. 2. There is a stable moderate burden of hypod ense lesions in the frontoparietal white matter suggesting premature chr onic small vessel ischemic change. 3. 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 4. There are decreased mbguj-ms-ljeaogki bilateral mastoid air cell effusions. 5. There is a stable right-sided ventriculo stomy catheter. There is a stable slitlike appearance of the lateral ve ntricles. There is no hydrocephalus. PAGE 1 Signed Report (CONTINUED) Name: CELESTINO MCALLISTER [facility] : 1970 Age/S: 48 / M [address] [place] [address] Blvd Unit #: [id number] Loc: [place] [address] Phys: Mitzy Coleman MD Acct: [id number] Dis Date: Sta tus: ADM IN PHONE #: [phone] Exam Date : 12/02/2018 1719 FAX #: [phone] Reason: SEIZURE EXAMS: CPT CODE: [id number] CT HEAD/BRAIN W/O CONT 25319 <Continued> at 1740 Reported and signed by: Jun Shabazz D.O. CC: Staci Zepeda MD; Mitzy Coleman MD; Jose Encarnacion MD Technologist:Radha Fernandez RT(R)(CT) CTDI: DLP: Trnscb Date/Time: 12/02/2018 (174) [email or web address] Orig Print D/T: S: 12/02/2018 (174) CTDI: DLP: PAGE 2 Signed Report - XR CHEST 1 [id number] 17:13:00 FAX: Staci Zepeda [phone] [place]: St: ADM FAX: Mitzy Coleman MD FAX: Jose Strong MD [phone] Name: CELESTINO MCALLISTER [facility] : 1970 Age/S: 48/M [address] [place] [address] Unit #: [id number] Loc: G.[address] [place] [address] Phys: Mitzy Coleman MD Acct: [id number] Dis Date: Status: ADM IN ONE #: [phone] Exam Date: 12/02/2018 1706 FAX #: [phone] Reason: R/O PNEUMONIA EXAMS: CPT CODE: [id number] XR CHEST 1 V [id number] SINGLE VIEW RA DIOGRAPH CHEST INDICATION: R/O PNEUMONIA. TECHNIQUE : A single view frontal radiograph of the chest was obtained. COMP ARISONS: Chest x-ray 12/02/2018, 08/28/2018 FINDINGS: There is no acute osseous fracture or dislocation. There is no subdiaphrag matic free gas. There is a stable tracheostomy cannula in normal p osition. There is a stable probable right-sided ventriculostomy peritonea l shunt catheter. The cardiomediastinal size and contour are normal. There is stable volume loss in the left lung base. There is mild left lower lung opacity which is probably atelectasis but a mild infiltr ate is not entirely excluded. There is no pneumothorax or pleural effusio n. IMPRESSION: 1. There is stable volume loss in the left lung base. There is mild left lower lung opacity which is probably atelectasis but a mild infiltrate is not entirely excluded. at 7200 Reported a nd signed by: Jun Shabazz D.O. CC: Staci Zepeda MD; Mitzy urbina MD; Jose Encarnacion MD Technologist: RT Vinny(Michelle) Trnscrd Date/Time/By: 12/02/2018 (1706) : By: [email or web address] Or ig Print D/T: S: 12/02/2018 (2227) PAGE 1 Signed Report - XR CHEST 1 [id number] 15:57:00 FAX: Staci Zepeda [phone] [place]: St: ADM FAX: Jose Strong MD [phone] Name: CELESTINO MCALLISTER [facility] : 1970 Age/S: 48/M [address] [place] [address] Unit #: [id number] Loc: [address] [address] Phys: Jose Encarnacion MD Acct: [id number] Dis Date: Status: ADM IN PHONE #: [phone] Exam Date: 12/02/2018 1547 FAX #: [phone] Reason: seizures EXAMS: CPT CODE: [id number] XR CHEST 1 V 67588 SINGLE VIEW RADIOGRAPH CHEST INDICATION: Seizures. TECHNIQUE: A single view frontal radiograph of the chest was obtained. COMPARISONS: Chest x-ray 08/28/2018 FINDINGS: There is no acute osseous fracture or dislocation. There is no subdiaphragmatic free gas. There is a tracheostomy cannula in normal position. A prior endotracheal tube is no longer present. The card iomediastinal size and contour are normal. There is a stable probable ventriculoperitoneal shunt catheter coursing along the right zoie st. There is no pneumothorax, pleural effusion or organized pneumo maria luisa. There is mild left lower lung volume loss. IMPRESSIO N: 1. No acute cardiopulmonary process. 2. There i s mild atelectasis/volume loss in the left lower lung. Ely ctronically Signed by Fred Shabazz on 12/03/19 19 at 1557 Reported and signed by: Jun young D.O. CC: Staci Zepeda MD; Jose Encarnacion MD Technologist: Yana Pryor, RT(R) Trnscrd Amanuel e/Time/By: 12/02/2018 (1557) : By: [email or web address] Orig Print D/T: S: 2018 (1600) PAGE 1 Signed Report
--- NOTE | 2020-01-26 12:06 | NUR ---
[facility] NOTIFIED AT THIS TIME OF NEED FOR PATIENT TRANSPORT BACK TO [facility]
[2020-01-26] MEDS ORDERED: DIATRIZOATE MEGL/DIATRIZOA SOD 30 ML BTL PO ONE (12:36)
[2020-01-26 13:00] VITALS: BP 124/87
--- NOTE | 2020-01-26 13:17 | Diagnostic Imaging Report ---
Exam: KUB - 2 views Indication: Gastrostomy tube placement Comparison: None Findings: Contrast injection via the gastrostomy tube demonstrates contrast opacification of the stomach, confirming endoluminal positioning of the tip. Nonobstructive bowel gas pattern. No free air. Catheter extending across the right thorax terminating in the right abdomen likely represents a [employer] shunt. Impression: Intraluminal positioning of gastrostomy tube in the stomach. Signed by: Inna Grossman MD on 01/26/2020 1:14 PM
== END 2020-01-26 13:22 | disposition home or self-care (01) ==
LOC: ER 11:51
DX: Z43.1 Encounter for attention to gastrostomy (principal); I10 Essential (primary) hypertension; G40.909 Epilepsy, unspecified, not intractable, without status epilepticus; E78.5 Hyperlipidemia, unspecified; Z86.73 Personal history of transient ischemic attack (TIA), and cerebral infarction without residual deficits; Z86.718 Personal history of other venous thrombosis and embolism
CPT/HCPCS: 51700; 74018; 94640; 99284